=== PATIENT | female | born 1970 | race Two or more races ===

== ENCOUNTER 2020-10-13 06:58 | Outpatient (REF) | payer OTHER, SELFPAY | END 2020-10-13 06:59 | disposition home or self-care (01) | LOC: HO.LAB 06:58 | PROVIDERS: Visit Provider Internal Medicine | DX: Z20.828 Contact with and (suspected) exposure to other viral communicable diseases (principal) | CPT/HCPCS: C9803; U0003 ==

== ENCOUNTER 2020-12-04 07:32 | Outpatient (REF) | payer OTHER, SELFPAY | END 2020-12-04 07:33 | disposition home or self-care (01) | LOC: HO.LAB 07:32 | PROVIDERS: Visit Provider Internal Medicine | DX: Z20.822 Contact with and (suspected) exposure to COVID-19 (principal) | CPT/HCPCS: 36415; C9803; U0003 ==

== ENCOUNTER 2022-01-04 16:22 | Emergency (ER) | payer OTHER, SELFPAY ==
[2022-01-04 16:40] VITALS: BP 169/89; PULSE 79; RESP 20; TEMP 36.7; O2SAT 100; BMI 34.7
--- NOTE | 2022-01-04 17:02 | ED.BACK ---
HPI - Back Pain/Injury General Chief Complaint: Back Pain/Injury Stated Complaint: back pain Time Seen by Provider: 01/04/22 16:58 History of Present Illness HPI Narrative: Patient complains of back pain worse with movement for several days, she was recently diagnosed with COVID but is feeling much better The pain does not radiate it is worse with twisting and moving, there is no numbness weakness or tingling there is no changes to bowel or bladder it was gradual in onset and pain is mild Related Data Previous Rx's Medication Instructions Recorded acetaminophen 500 mg tablet 1,000 mg PO QID PRN #30 tab 01/04/22 cyclobenzaprine 5 mg tablet 5 mg PO TID PRN #14 tab 01/04/22 naproxen 500 mg tablet (Naprosyn) 500 mg PO BID PRN #14 tab 01/04/22 Allergies Allergy/AdvReac Type Severity Reaction Status Date / Time prochlorperazine Allergy Severe TONGUE Unverified 08/17/20 18:54 [From COMPAZINE] NUMBNESS sulfamethoxazole Allergy Severe RASH Unverified 08/17/20 18:54 [From BACTRIM] trimethoprim [From BACTRIM] Allergy Severe RASH Unverified 08/17/20 18:54 fluconazole [FLUCONAZOLE] Allergy Intermediate RASH Unverified 08/17/20 18:54 Iodinated Contrast Media Allergy Intermediate RASH Unverified 08/17/20 18:54 [IV CONTRAST] Review of Systems Review of Systems: Positive for back pain Negatives are no fever no chills no dizziness no weakness no fainting no feeling faint no headache no neck pain no chest pain no shortness of breath no abdominal pain no dysuria no changes to bowel or bladder no incontinence no numbness weakness or tingling Yes all other systems are reviewed and are negative [facility] Past Medical History Source: nursing notes reviewed Medical History (Updated 01/05/22 @ 00:02 by Background Bev) HIV (human immunodeficiency virus infection) HTN (hypertension) Social History Social History Advance Directives: No Advance Directives Information Provided: No Physical Exam Vital Signs: Vital Signs: Last Vital Signs Temp 98.0 F 01/04/22 16:40 Pulse 79 01/04/22 16:40 Resp 20 01/04/22 16:40 BP 169/89 H 01/04/22 16:40 Pulse Ox 100 01/04/22 16:40 BMI result Body Mass Index 34.7 General appearance is no acute distress Head is normocephalic atraumatic Neck is supple Chest is clear to auscultation bilateral Abdomen soft nontender The back had lower lumbar tenderness, there is no midline tenderness the tenderness is in the soft tissues there is no CVA tenderness pain is reproduced with movement, the skin is intact no redness no wounds no rash Extremities full range of motion x4 Neuro no focal motor sensory deficit, gait and balance are normal Course Course Course Narrative: Patient without evidence of neurologic deficit, no changes to bowel or bladder is discharge diagnosis musculoskeletal back pain Discharge Plan Discharge Clinical Impression: Back pain Patient Disposition: Home, Self-Care Additional Instructions: Pain we is likely a mild muscle strain, either from COVID or sleeping wrong way or moving the wrong way No sign of any dangerous condition now Follow with primary doctor as needed for physical therapy Her blood pressure was high in the ER so it may be that her medications for high blood pressure and not working as they should Best plan is check her blood pressure with a home cuff twice a day for a week and keep a record of this to show your doctor then make an appointment to follow with her doctor Prescriptions: New naproxen [Naprosyn] 500 mg tablet 500 mg PO BID PRN (Reason: pain) Qty: 14 0RF acetaminophen 500 mg tablet 1,000 mg PO QID PRN (Reason: pain) Qty: 30 0RF cyclobenzaprine 5 mg tablet 5 mg PO TID PRN (Reason: muscle spasm) Qty: 14 0RF Rx Instructions: This medication may cause drowsiness no driving for 6 hours after taking Interventions: ED Discharge Assessment Last Done: 01/04/22 18:26 Discharge Date/Time: 01/04/22 18:27
== END 2022-01-04 18:27 | disposition home or self-care (01) ==
PROVIDERS: Emergency Provider Emergency Medicine; PCP Internal Medicine
DX: M54.50 Low back pain, unspecified (principal); I10 Essential (primary) hypertension; B20 Human immunodeficiency virus [HIV] disease
CPT/HCPCS: 99283

== ENCOUNTER 2022-03-16 15:45 | Emergency (ER) | payer OTHER, SELFPAY ==
[2022-03-16 16:46] VITALS: BP 143/86; PULSE 72; RESP 16; TEMP 37; O2SAT 95; BMI 32.3
[2022-03-16 17:14] LABS: MANUAL DIFF FLAG NO
[2022-03-16 17:18] LABS: PLT CLUMP 1; Red Cell Distribution Width 12.9 % (11.0-16.0); SCAN SMEAR FLAG 1
[2022-03-16 17:20] LABS: Basophils Percent Auto 0.3 % (0-2); Eosinophils Absolute Auto 0.3 X10*3/uL (0.0-0.4); Eosinophils Percent Auto 4.8 % (0-4); Hematocrit 38.1 % (37.0-47.0); Hemoglobin 12.8 g/dl (12.0-16.0); Imm Gran Abs Auto 0.01 X10*3/uL (0.00-0.03); Imm Gran Pct Auto 0.2 % (0.0-0.4); Lymphocytes Absolute Auto 1.7 X10*3/uL (1.2-4.9); Lymphocytes Percent Auto 28.6 % (20-40); Mean Corpuscular HGB Conc 33.6 g/dl (31.0-35.0); Mean Corpuscular Hemoglobin 29.6 pg (27.0-33.0); Mean Platelet Volume 11.6 fL (9.4-12.3); Monocytes Absolute Auto 0.4 X10*3/uL (0.1-1.2); Neutrophils Absolute Auto 3.5 x10*3/uL (2.0-8.3); Neutrophils Percent Auto 60.1 % (45-73); Red Blood Count 4.33 X10*6/uL (4.20-5.50)
[2022-03-16 17:22] LABS: White Blood Count 5.8 X10*3/uL (4.8-10.8)
[2022-03-16 17:23] LABS: Platelet Count 98 X10*3/uL (160-400)
[2022-03-16 17:31] LABS: Anion Gap 12 (12-20); Blood Urea Nitrogen 13 mg/dL (9-16); Calcium 9.4 mg/dL (8.4-10.2); Carbon Dioxide 27 mmol/L (22-29); Chloride 106 mmol/L (96-108); Creatinine Clr Calc Pharmacy 79.4; Estimated Glomerular Filt Rate > 60; Glucose Random 112 mg/dL (60-115); Potassium 4.2 mmol/L (3.3-5.1); Sodium 141 mmol/L (135-145)
[2022-03-16 17:33] LABS: COVID-19 Test Negative (Negative); IDNOW Serial# 16C4AD1C; Influenza A Negative (Negative); Influenza B2 Negative (Negative)
[2022-03-16 17:35] LABS: Appearance Urine CLEAR; Color Urine YELLOW; Glucose Urine UA NEG (NEG); Leukocyte Esterase Urine NEG (NEG); Nitrite Urine NEG (NEG); Specific Gravity - Urine 1.015 (1.005-1.025); Urine Blood NEG (NEG); Urine Ketones NEG (NEG); Urine Protein NEG (NEG-TRACE)
[2022-03-16 19:28] VITALS: BP 148/80; PULSE 69; RESP 16; O2SAT 100
--- NOTE | 2022-03-16 19:30 | PC.NURSE ---
PT STATES 1 WEEK INTERMITTENT HEAD PRESSURE, NAUSEA, BODY ACHES AND DIZZINESS. PT A/OX3, AMB WITH STEADY GAIT, LUNGS CLEAR, SKIN WARM DRY ARREDONDO. NO DISTRESS.
--- NOTE | 2022-03-16 20:29 | ED_ITS ---
HPI - General Adult General Chief complaint: General Medical Stated complaint: headaches/weakness/nausea Time Seen by Provider: 03/16/22 20:16 Source: patient Mode of arrival: ambulatory Limitations: no limitations History of Present Illness HPI narrative: 51-year-old female presents for 1 week of fatigue. She has muscle aches, mostly in her neck and shoulders. She feels anxious, she is worried something is wro ng. She was nauseous a week ago, but has had no abdominal pain, vomiting, or diarrhea since. States her platelets are chronically low. No sick contacts. Patient states she works 2 jobs and does not sleep well at night. Related Data Previous Rx's Medication Instructions Recorded acetaminophen 500 mg tablet 1,000 mg PO QID PRN #30 tab 01/04/22 cyclobenzaprine 5 mg tablet 5 mg PO TID PRN #14 tab 01/04/22 naproxen 500 mg tablet (Naprosyn) 500 mg PO BID PRN #14 tab 01/04/22 methocarbamol 750 mg tablet 750 mg PO Q8H 5 Days #15 tab 03/16/22 Allergies Allergy/AdvReac Type Severity Reaction Status Date / Time prochlorperazine Allergy Severe TONGUE Verified 03/16/22 16:50 [From COMPAZINE] NUMBNESS sulfamethoxazole Allergy Severe RASH Verified 03/16/22 16:50 [From BACTRIM] trimethoprim [From BACTRIM] Allergy Severe RASH Verified 03/16/22 16:50 fluconazole [FLUCONAZOLE] Allergy Intermediate RASH Verified 03/16/22 16:50 Iodinated Contrast Media Allergy Intermediate RASH Verified 03/16/22 16:50 [IV CONTRAST] Review of Systems Constitutional: Constitutional: Reports body ache(s), Denies chills, Reports fatigue, Denies fever(s), Denies headache(s), Reports malaise and Denies weakness Eyes: Eyes: Denies diplopia ENT: Denies vertigo, Denies dizziness, Denies otalgia, Denies headache(s), Denies mouth pain, Denies post nasal drip, Denies sinus pain, Denies sinus pressure, Denies sore throat and Denies throat swelling Cardiovascular: Cardiovascular: Denies chest pain, Denies syncope, Denies leg edema, Denies lightheadedness, Denies Loss of Consciousness, Denies palpitations and Denies dyspnea Respiratory: Respiratory: Denies chest congestion, Denies cough and Denies dyspnea Gastrointestinal: Gastrointestinal: Denies abdominal pain, Denies hematochezia, Denies constipation, Denies diarrhea and Denies vomiting Musculoskeletal: Musculoskeletal: Reports myalgias Integumentary/Breasts: Skin/Breast: Denies erythema Neurologic: Denies confusion, Denies vertigo, Denies dizziness, Denies syncope, Denies headache(s) and Denies weakness Psychiatric: Psychiatric: Denies anxiety, Denies confusion and Denies depression Endocrine: Endocrine: Reports fatigue and Denies palpitations Allergic/Immunologic: Allergic/Immunologic: Denies throat swelling PMFSH Past Medical History Medical History (Updated 03/16/22 @ 20:43 by ELLE Penn) HIV (human immunodeficiency virus infection) HTN (hypertension) Social History Social History Advance Directives: No Physical Exam ED Vital Signs: Vital Signs - 24 hr 03/16/22 16:46 03/16/22 19:28 Temperature 98.6 F Pulse Rate 72 69 Respiratory Rate 16 16 Blood Pressure 143/86 H 148/80 H Pulse Oximetry 95 100 BMI result Body Mass Index 32.3 Const General: comfortable, no acute distress, alert and awake; No confusion Nutritional Appearance: well nourished Orientation/consciousness: patient oriented x3 and No confusion Limitations: no limitations HENMT Head: Yes normal to inspection, Yes No palpable skull fracture present and Yes normocephalic Ears: hearing grossly normal bilaterally and TM's normal bilaterally General nose exam: Normal external nose present and Normal nares present Face and sinus: Yes normal facial exam and Yes sinuses nontender Mouth: Normal oral and palatal mucosa present Throat: Yes posterior oropharynx normal, Yes tonsils normal and Yes uvula midline Eyes Conjunctivae: conjunctivae normal Sclerae: sclerae normal Pupils: Equal, round and reactive pupils present EOM: EOMs intact bilaterally Neck Neck: Yes normal visual inspection, Yes full ROM, Yes no meningeal signs, Yes trachea midline and Yes supple Resp Effort & Inspection: normal respiratory effort and able to speak in complete sentences Auscultation: clear to auscultation bilaterally, no crackles, no rales and no rhonchi Cardio Rate: regular rate Rhythm: regular rhythm GI Inspection: Yes normal to inspection Palpation (GI): Soft to palpation, nontender, no guarding and not rigid Percussion: Yes normal to percussion Auscultation: normal bowel sounds General: Yes no CVA tenderness Back/Spine/Pelvis Back: no CVA tenderness Cervical Spine: normal cervical lordosis, cervical spasm, No Cervical spine tenderness and No step off deformity Thoracic/Lumbar Spine: No thoracic spinal tenderness and No lumbar spinal tenderness Skin General skin exam: no rashes or lesions noted Neuro General: patient oriented x3, no meningeal signs and No confusion Cranial nerves: Yes Equal, round and reactive pupils present Extrem General: Yes normal to inspection, Yes full ROM and Yes capillary refill normal Psych Appearance: grossly normal Mental Status: mental status grossly normal Speech and movement: Normal speech and movement present Affect: Anxious affect present Course Course Course Narrative: 51-year-old female with 1 week of fatigue and body aches, and spasm in her bilateral neck muscles. On exam, patient is stable vitals, is afebrile. Lungs clear to auscultation bilaterally, abdomen soft nontender, patient is tired appearing. Patient has tight neck muscles bilaterally. Platelets are 98, labs are otherwise within normal limits, urine is negative, negative for COVID and flu. Added on laboratories of TSH and Lyme. Counseled patient that we would call her for line was positive and that I will call her if her TSH is elevated. Counseled patient to follow-up with her primary care provider, return to emergency room if she has sudden severe headache, visual changes, fever, vomi ting, chest pain, or shortness of breath. Medical Decision Making Lab Data Result diagrams: 03/16/22 17:09 03/16/22 17:09 Labs: Lab Results 03/16/22 03/16/22 03/16/22 Range/Units 17:09 17:09 17:09 WBC 5.8 (4.8-10.8) X10*3/uL RBC 4.33 (4.20-5.50) X10*6/uL Hgb 12.8 (12.0-16.0) g/dl Hct 38.1 (37.0-47.0) % MCV 88.0 (80.0-98.0) fL MCH 29.6 (27.0-33.0) pg MCHC 33.6 (31.0-35.0) g/dl RDW 12.9 (11.0-16.0) % Plt Count 98 L (160-400) X10*3/uL MPV 11.6 (9.4-12.3) fL Immature Gran % (Auto) 0.2 (0.0-0.4) % Neut % (Auto) 60.1 (45-73) % Lymph % (Auto) 28.6 (20-40) % Cloud % (Auto) 6.0 (2-11) % Eos % (Auto) 4.8 H (0-4) % Baso % (Auto) 0.3 (0-2) % Lymph # (Auto) 1.7 (1.2-4.9) X10*3/uL Cloud # (Auto) 0.4 (0.1-1.2) X10*3/uL Eos # (Auto) 0.3 (0.0-0.4) X10*3/uL Baso # (Auto) 0.0 (0.0-0.2) X10*3/uL Abs Immat Gran (auto) 0.01 (0.00-0.03) X10*3/uL Absolute Neuts (auto) 3.5 (2.0-8.3) x10*3/uL Absolute Nucleated RBC 0.000 (0.0-0.012) X10*3/uL Nucleated RBC % (auto) 0.0 (0.0-0.2) /100WBC Sodium 141 (135-145) mmol/L Potassium 4.2 (3.3-5.1) mmol/L Chloride 106 (96-108) mmol/L Carbon Dioxide 27 (22-29) mmol/L Anion Gap 12 (12-20) BUN 13 (9-16) mg/dL Creatinine 0.94 (0.5-1.4) mg/dL Estim Creat Clear Calc 79.4 Estimated GFR > 60 Random Glucose 112 (60-115) mg/dL Calcium 9.4 (8.4-10.2) mg/dL Urine Color Urine Appearance Urine pH (5.0-8.0) Ur Specific Humble (1.005-1.025) Urine Protein (NEG-TRACE) MG/DL Urine Glucose (UA) (NEG) MG/DL Urine Ketones (NEG) MG/DL Urine Blood (NEG) Urine Nitrite (NEG) Ur Leukocyte Esterase (NEG) COVID-19 (LAURIE) (Negative) COVID-19 Clin Com Influenza Type A (NANCY) Negative (Negative) Influenza Type B (NANCY) Negative (Negative) Influenza A & B Note See Note 03/16/22 03/16/22 Range/Units 17:09 17:16 WBC (4.8-10.8) X10*3/uL RBC (4.20-5.50) X10*6/uL Hgb (12.0-16.0) g/dl Hct (37.0-47.0) % MCV (80.0-98.0) fL MCH (27.0-33.0) pg MCHC (31.0-35.0) g/dl RDW (11.0-16.0) % Plt Count (160-400) X10*3/uL MPV (9.4-12.3) fL Immature Gran % (Auto) (0.0-0.4) % Neut % (Auto) (45-73) % Lymph % (Auto) (20-40) % Cloud % (Auto) (2-11) % Eos % (Auto) (0-4) % Baso % (Auto) (0-2) % Lymph # (Auto) (1.2-4.9) X10*3/uL Cloud # (Auto) (0.1-1.2) X10*3/uL Eos # (Auto) (0.0-0.4) X10*3/uL Baso # (Auto) (0.0-0.2) X10*3/uL Abs Immat Gran (auto) (0.00-0.03) X10*3/uL Absolute Neuts (auto) (2.0-8.3) x10*3/uL Absolute Nucleated RBC (0.0-0.012) X10*3/uL Nucleated RBC % (auto) (0.0-0.2) /100WBC Sodium (135-145) mmol/L Potassium (3.3-5.1) mmol/L Chloride (96-108) mmol/L Carbon Dioxide (22-29) mmol/L Anion Gap (12-20) BUN (9-16) mg/dL Creatinine (0.5-1.4) mg/dL Estim Creat Clear Calc Estimated GFR Random Glucose (60-115) mg/dL Calcium (8.4-10.2) mg/dL Urine Color YELLOW Urine Appearance CLEAR Urine pH 6.0 (5.0-8.0) Ur Specific Humble 1.015 (1.005-1.025) Urine Protein NEG (NEG-TRACE) MG/DL Urine Glucose (UA) NEG (NEG) MG/DL Urine Ketones NEG (NEG) MG/DL Urine Blood NEG (NEG) Urine Nitrite NEG (NEG) Ur Leukocyte Esterase NEG (NEG) COVID-19 (LAURIE) Negative (Negative) COVID-19 Clin Com See Note Influenza Type A (NANCY) (Negative) Influenza Type B (NANCY) (Negative) Influenza A & B Note Discharge Plan Discharge Clinical Impression: Fatigue Patient Disposition: Home, Self-Care Instructions: Fatigue (ED) Additional Instructions: Please make a rice sock and use it over your tight neck muscles. Please fill the prescription for muscle relaxant and take it as prescribed. Please call your primary care provider for follow-up appointment. We will call you for Lyme test is positive the next 3 or 4 days. I will call you later tonight when your thyroid test returns. Please return to emergency room if you have chest pain, shortness of breath, sudden severe headache, visual changes, or for any other new or concerning symptoms. Prescriptions: New methocarbamol 750 mg tablet 750 mg PO Q8H 5 Days Qty: 15 0RF No Action naproxen [Naprosyn] 500 mg tablet 500 mg PO BID PRN (Reason: pain) Qty: 14 0RF acetaminophen 500 mg tablet 1,000 mg PO QID PRN (Reason: pain) Qty: 30 0RF cyclobenzaprine 5 mg tablet 5 mg PO TID PRN (Reason: muscle spasm) Qty: 14 0RF Rx Instructions: This medication may cause drowsiness no driving for 6 hours after taking
[2022-03-16 20:56] LABS: Thyroid Stimulating Hormone 1.94 uIU/mL (0.32-4.0)
[2022-03-18 20:36] LABS: Lyme Blot 0.93 index
[2022-03-19 08:20] LABS: Lyme Abs Screen EQUIVOCAL
[2022-03-19 14:26] LABS: 18 KD (IgG) Band NON-REACTIVE; 23 KD (IgG) Band REACTIVE; 23 KD (IgM) Band NON-REACTIVE; 28 KD (IgG) Band NON-REACTIVE; 30 KD (IgG) Band NON-REACTIVE; 39 KD (IgM) Band NON-REACTIVE; 41 KD (IgM) Band NON-REACTIVE; 45 KD (IgG) Band NON-REACTIVE; 58 KD (IgG) Band REACTIVE; 66 KD (IgG) Band NON-REACTIVE; 93 KD (IgG) Band REACTIVE; Lyme IgG Blot Interp POSITIVE (NEGATIVE); Lyme IgM Blot Interp NEGATIVE (NEGATIVE)
== END 2022-03-16 20:56 | disposition home or self-care (01) ==
PROVIDERS: Physician Assistant; Emergency Provider Emergency Medicine Emergency Medical Services; PCP Internal Medicine
DX: A69.20 Lyme disease, unspecified (principal); R53.83 Other fatigue; I10 Essential (primary) hypertension; Z21 Asymptomatic human immunodeficiency virus [HIV] infection status; Z20.822 Contact with and (suspected) exposure to COVID-19
CPT/HCPCS: 80048; 81003; 84443; 85025; 86617; 86618; 87502; 87635; 99283

== ENCOUNTER 2022-06-28 18:45 | Emergency (ER) | payer OTHER, SELFPAY ==
[2022-06-28 20:17] LABS: COVID-19 Test Negative (Negative); IDNOW Serial# 16C4AD1C; Influenza A Negative (Negative); Influenza B2 Negative (Negative)
[2022-06-28 20:20] VITALS: BP 153/84; PULSE 88; RESP 18; TEMP 36.8; O2SAT 99; BMI 33.3
--- NOTE | 2022-06-28 23:37 | ED.HA ---
HPI - Headache General Chief Complaint: Back Pain/Injury Stated Complaint: headache/leg pain/weakness Time Seen by Provider: 06/28/22 23:21 Source: patient Mode of arrival: ambulatory Limitations: no limitations History of Present Illness HPI Narrative: 51-year-old female who presents emergency department for evaluation of headache, neck pain, back pain, fatigue x1 week. Patient states she gets 2-3 headaches per month. She states that over the past week she has had a very persistent headache which is been intermittent but keeps coming back. She points to the side and top of her head and to her neck when she is asked to localize the pain. She states the pain is an intermittent pressure-like pain which is 10/10 at its worst. She states that she also feels the pain in her posterior neck bilaterally. She states she has taken her muscle relaxant and Tylenol with no relief of her pain. She denied associated fever, chills, rhinorrhea, sore throat, cough, chest pain, shortness of breath, numbness, weakness. The patient has taken a muscle relaxant for her neck pain and she states that improves the neck pain but not her headache. The patient is HIV positive and she states that she is compliant with her medication regimen. She states that her viral load was checked 3 months prior and it was below detectable limits. MD elicited complaint: headache Pertinent past history: HIV Onset (ago): week(s) (1) Onset description: gradually Location: diffuse Severity: severe Pain scale (0-10): 10 Quality & Timing: pressure Exacerbating factors: none Relieving factors: nothing Associated symptoms: none Treatments prior to arrival: acetaminophen and other (Muscle relaxant) Related Data Previous Rx's Medication Instructions Recorded acetaminophen 500 mg tablet 1,000 mg PO QID PRN pain #30 tabs 01/04/22 cyclobenzaprine 5 mg tablet 5 mg PO TID PRN muscle spasm #14 01/04/22 tabs naproxen 500 mg tablet (Naprosyn) 500 mg PO BID PRN pain #14 tabs 01/04/22 methocarbamol 750 mg tablet 750 mg PO Q8H 5 days #15 tabs 03/16/22 doxycycline monohydrate 100 mg 100 mg PO BID lyme disease 21 days 03/20/22 tablet #42 tabs metoclopramide HCl 10 mg tablet 10 mg PO Q6H PRN nausea and 06/28/22 (Reglan) vomiting #14 tabs Allergies Allergy/AdvReac Type Severity Reaction Status Date / Time prochlorperazine Allergy Severe TONGUE Verified 06/28/22 20:20 [From COMPAZINE] NUMBNESS sulfamethoxazole Allergy Severe RASH Verified 06/28/22 20:20 [From BACTRIM] trimethoprim [From BACTRIM] Allergy Severe RASH Verified 06/28/22 20:20 fluconazole [FLUCONAZOLE] Allergy Intermediate RASH Verified 06/28/22 20:20 Iodinated Contrast Media Allergy Intermediate RASH Verified 06/28/22 20:20 [IV CONTRAST] Review of Systems Review of Systems: Yes all other systems are reviewed and are negative [facility] Past Medical History [facility] Narrative: Past medical history: Hypertension, HIV. Past surgical history: Hysterectomy. Social history: She denies tobacco, alcohol and drug use. Medical History HIV (human immunodeficiency virus infection) HTN (hypertension) Social History Social History Advance Directives: No Advance Directives Information Provided: No Physical Exam Vital Signs: Vital Signs: Last Vital Signs Temp 98.2 F 06/28/22 20:20 Pulse 88 06/28/22 20:20 Resp 18 06/28/22 20:20 BP 153/84 H 06/28/22 20:20 Pulse Ox 99 06/28/22 20:20 O2 Del Method 06/28/22 20:20 BMI result Body Mass Index 33.3 Const: General: cooperative and no acute distress Orientation/consciousness: oriented to person and oriented to place Limitations: no limitations HEENT: Head: Yes normal to inspection, Yes normocephalic and Yes atraumatic Ears: external ears normal General nose exam: Normal external nose present Face and sinus: Yes normal facial exam Mouth: Normal oral and palatal mucosa present Throat: Yes posterior oropharynx normal Eyes: General: appearance normal, both eyes and all related structures Pupils: Equal, round and reactive pupils present Neck: Other: Tenderness palpation of the trapezius muscles bilaterally with no significant spasm, full range of motion without any medications Neck: Yes normal visual inspection, Yes no lymphadenopathy, Yes trachea midline and Yes supple Chest: Chest palpation & inspection: normal inspection of the chest and normal palpation of entire chest wall Resp: Effort & Inspection: normal respiratory effort and able to speak in complete sentences Auscultation: clear to auscultation bilaterally Cardio: Rate: regular rate Rhythm: regular rhythm Heart sounds: S1 normal heart sound present, S2 normal heart sound present and no murmurs GI: Inspection: Yes normal to inspection Palpation (GI): Soft to palpation, nontender and no guarding Auscultation: normal bowel sounds : General: Yes no CVA tenderness Back/Spine/Pelvis: Back: no CVA tenderness Skin: General skin exam: no rashes or lesions noted Neuro: General: oriented to person and oriented to place Cranial nerves: Yes CN's II-XII intact bilaterally and Yes Equal, round and reactive pupils present Cognition (Neuro): normal cognition Motor exam (neuro): 5/5 motor strength present throughout Extrem: General: Yes normal to inspection Psych: Appearance: grossly normal Speech and movement: Normal speech and movement present Affect: normal affect Attitude: cooperative Thought process: Normal thought process present Thought content: Normal thought content present Course Course Course Narrative: 51-year-old female who presents emergency department for evaluation of intermittent headache x1 week which she describes as a pressure-like sensation located throughout her entire head without any significant associated symptoms. Patient does have history of muscle spasm of her neck muscles and has been taking her muscle relaxant with no relief of her headache. She has also taken Tylenol with no relief of her headache. Vital signs did reveal an elevated blood pressure of 153/84. Physical examination did reveal trapezius muscle tenderness with a normal neurologic exam and no other significant findings. Patient's COVID-19 and influenza tests were negative. My impression is the patient has a migraine-like headache and I did discuss this with her. The patient was started on r regular, Benadryl, and Excedrin migraine every 6 hours as needed for headaches. She was given printed and verbal instructions and discharged home. MDM - Headache Lab Data Labs: Lab Results 06/28/22 06/28/22 Range/Units 19:52 19:52 COVID-19 (LAURIE) Negative (Negative) COVID-19 Clin Com See Note Influenza Type A (NANCY) Negative (Negative) Influenza Type B (NANCY) Negative (Negative) Influenza A & B Note See Note Discharge Plan Discharge Clinical Impression: Headache Patient Disposition: Home, Self-Care Instructions: Acute Headache (ED) Additional Instructions: Your COVID-19 and influenza tests were negative Your symptoms are consistent with a migraine headache. I want you to take the following 3 medications together every 6 hours as needed for headache, nausea or vomiting. Reglan (metoclopramide) in 10 mg, 1 pill Benadryl 25 mg, 2 pills Excedrin migraine, 2 pills. After you take these medications, lie down in a dark quiet room and try to fall asleep. These medications will make you sleepy, do not drive or work after taking these medications. Follow-up with your doctor in 2 days. Please return to the emergency department if your symptoms get worse or if you develop any symptoms that are concerning to you. Prescriptions: New metoclopramide HCl [Reglan] 10 mg tablet 10 mg PO Q6H PRN (Reason: nausea and vomiting) Qty: 14 0RF No Action methocarbamol 750 mg tablet 750 mg PO Q8H 5 Days Qty: 15 0RF doxycycline monohydrate 100 mg tablet 100 mg PO BID 21 Days Qty: 42 0RF naproxen [Naprosyn] 500 mg tablet 500 mg PO BID PRN (Reason: pain) Qty: 14 0RF acetaminophen 500 mg tablet 1,000 mg PO QID PRN (Reason: pain) Qty: 30 0RF cyclobenzaprine 5 mg tablet 5 mg PO TID PRN (Reason: muscle spasm) Qty: 14 0RF Rx Instructions: This medication may cause drowsiness no driving for 6 hours after taking
== END 2022-06-29 00:13 | disposition home or self-care (01) ==
PROVIDERS: Emergency Provider Emergency Medicine Emergency Medical Services
DX: R51.9 Headache, unspecified (principal); Z20.822 Contact with and (suspected) exposure to COVID-19; B20 Human immunodeficiency virus [HIV] disease
CPT/HCPCS: 87502; 87635; 99282; 99283

== ENCOUNTER 2023-05-06 21:49 | Emergency (ER) | payer OTHER, SELFPAY ==
[2023-05-06 22:37] VITALS: BP 157/91; PULSE 86; TEMP 37.4; O2SAT 99; BMI 32.1
--- NOTE | 2023-05-07 00:06 | MHC.EDTECH ---
[facility] Nurse ( Radha) Collected Swap Collection for testing.
[2023-05-07 00:25] LABS: IDNOW Serial# 08D9AD1C; Strep A Nucleic Acid Negative (Negative)
--- OUTSIDE RECORDS SUMMARY | 2023-05-07 00:39 | XMS_ITS | Continuity of Care Document ---
Author Name Unknown Organization [facility] Address [address] [place] [id number]- Care Team Providers Care Seam Rubber Name Role Phone Elie Foster MD Primary Care Physician Encounter [facility] Date(s): 03/17/23 - 03/27/[address] [address]- Encounter Diagnosis Pain in right elbow(Final) - Discharge Disposition: A-D/C Home Attending Physician: Elie Foster MD Admitting Physician: Elie Foster MD Referring Physician: Elie Foster MD Allergies, Adverse Reactions, Alerts Substance Reaction Severity Status fluconazole Rash Active sulfADIAZINE Active nevirapine Elam-Jameson syndrome Severe Act edie Compazine Tongue Swelling Moderate Active emtricitabine Rash Proposed Bactrim Active Contrast Dye 1 Pruritic rash Proposed [address] w/ IV and oral contrast developed fine papular pruritic rash Immunizations Given and Recorded Vaccine Date Status Refusal Reason zoster vaccine, inactivated 11/28/22 Given zoster vaccine, inactivated 08/27/22 Recorded influenza virus vaccine, inactivated 11/04/22 Give n influenza virus vaccine, inactivated 10/17/21 Give n influenza virus vaccine, inactivated 09/21/20 Give n influenza virus vaccine, inactivated 10/01/19 Give n influenza virus vaccine, inactivated 09/09/18 Give n influenza virus vaccine, inactivated 08/28/17 Give n influenza virus vaccine, inactivated 10/29/16 Give n influenza virus vaccine, inactivated 09/05/15 Give n influenza virus vaccine, inactivated 08/29/14 Give n influenza virus vaccine, inactivated 1 09/22/13 Gi chyna influenza virus vaccine, inactivated 2 09/16/12 Gi chyna influenza virus vaccine, inactivated 10/03/10 Give n influenza virus vaccine, inactivated 09/16/07 Give n influenza virus vaccine, inactivated 3 09/08/02 Gi chyna influenza virus vaccine, inactivated 4 11/17/00 Gi chyna influenza virus vaccine, inactivated 5 10/06/98 Gi chyna influenza virus vaccine, inactivated 6 08/31/97 Gi chyna influenza virus vaccine, inactivated 7 08/31/97 Gi chyna SARS-CoV-2 (COVID-19) mRNA BNT-162b2 vac 04/05/21 Given SARS-CoV-2 (COVID-19) mRNA BNT-162b2 vac 03/15/21 Given tetanus/diphtheria/pertussis, acel(Tdap) 10/27/19 Given Meningococcal Conjugate Vaccine 11/11/17 Given Meningococcal Conjugate Vaccine 08/28/17 Given pneumococcal 13-valent vaccine 8 09/22/13 Given Pneumococcal Poly (PPV23) (oldterm) 9 02/11/12 Giv en Fluzone (oldterm) 10 09/17/11 Given Influenza Vaccine (oldterm) 11 09/27/09 Given Influenza Vaccine (oldterm) 12 09/27/09 Given Influenza Vaccine (oldterm) 13 11/03/08 Given Adacel (Tdap) (oldterm) 12/15/08 Given Influenza Inactive (IM) (oldterm) 12/03/06 Given Pneumococcal Vaccine (oldterm) 14 02/09/06 Given hepatitis B adult vaccine 12/30/05 Recorded hepatitis B adult vaccine 15 03/18/02 Given hepatitis B adult vaccine 16 02/15/02 Given Hepatitis A Adult Vaccine 12/30/05 Recorded Hepatitis A Adult Vaccine 17 02/15/02 Given Hepatitis B Vaccine (old term) 18 10/12/02 Given Hepatitis A Vaccine (oldterm) 19 10/12/02 Given tetanus-diphtheria toxoids (Td) 12/23/01 Given tetanus-diphtheria toxoids (Td) 20 12/23/01 Given 1Result Comment: [09/22/2013] Ordered by Dr. Foster 2Admin Note: VIS 06/01/2012GIVEN 3Admin Note: ADMIN.BY MICHELLE 4Admin Note: ADMIN.BY MICHELLE 5Admin Note: ADMIN.BY MICHELLE 6Admin Note: ADMIN.BY MICHELLE 7Admin Note: ADMIN.BY MICHELLE 8Result Comment: [09/22/2013] Ordered by Cristian 9Admin Note: vis 09/05/09 10Admin Note: vis 06/25/11 11Admin Note: H1N1 sanofi pasteur 12Admin Note: sanofi pasteur 13Admin Note: sanofi pasteur 14Admin Note: second, prior 15Admin Note: Admin. by RN 16Admin Note: Admin. by RN 17Admin Note: Admin. by RN 18Admin Note: #3 of 3 19Admin Note: #2 of 2 20Admin Note: Admin by Nurse Medications acetaminophen 500 mg oral tablet 2 tablet, By Mouth, 2 times a day, PRN NEEDED FOR FEVER, # 100 tablet, 1 Refills, [facility], 165, cm, 03/26/22 13:56:00 EDT, Height, 89.27, kg, 08/16/20 10:16:00 EDT, Dry Weight Start Date: 07/21/22 Status: Ordered amitriptyline 25 mg oral tablet 1, tablet, By Mouth, Daily at bedtime, # 30 tablet, Refills 5, Tot. Refills 5, Maintenance, 01/22/23 18:58:00 EST, Route to Pharmacy Electronically, [facility], 165, cm, 01/09/23 9:40:00 EST, Height, 89.27, kg, 01/09/23 9:40:00 EST... Start Date: 01/22/23 Status: Ordered amLODIPine 5 mg oral tablet 1 tablet, By Mouth, Daily, # 30 tablet, 5 Refills, Maintenance, 02/21/23 15:22:00 EDT, [facility], 165, cm, 01/30/23 16:10:00 EST, Height, 89.27, kg, 01/09/23 9:40:00 EST, Dry Weight Start Date: 02/21/23 Status: Ordered dextromethorphan-guaifenesin 10 mg-200 mg/5 mL oral liquid 10 mL, By Mouth, Every 4 hours, PRN for cough, # 240 mL, 1 Refills, Acute 01/21/24 15:59:00 EST, 01/21/23 15:59:00 EST, Liquid, [facility], 10 mL By Mouth Every 4 hours,PRN:for cough, 165, cm, 02/09/23 9:40:00 EST, Height, 89.27, k... Start Date: 01/21/23 Stop Date: 01/21/24 Status: Ordered diclofenac 1% topical gel = 2 Gm, Topically, 4 times a day, PRN for pain, not to exceed: - 8 gm/day/joint of upper limb, # 100 Gm, 1 Refills, Maintenance, 03/31/20 9:43:00 EDT, Gel, [facility], 165, cm, 02/02/20 11:43:00 EST, Height, 89.09, kg, 01/24/20 1... Start Date: 03/31/20 Status: Ordered fluticasone 50 mcg/inh nasal spray See Instructions, USE 1 SPRAY IN EACH NOSTRIL 2 TIMES A DAY., # 16 Gm, 5 Refills, [facility], 30, USE 1 SPRAY IN EACH NOSTRIL 2 TIMES A DAY., 165, cm, 02/05/22 9:19:00 EST, Height, 89.27, kg, 08/16/20 10:16:00 EDT, Dry Weight Start Date: 03/15/22 Status: Ordered HAND BRACE FOR CARPAL TUNNEL (both SIDE) HAND BRACE FOR CARPAL TUNNEL (both SIDE), See Instructions, # 2 units, Refills 0, Tot. Refills 0, Maintenance, DX: L CARPAL TUNNEL (G56.02) USE DIRECTED MARIBEL: 99, 03/10/18 15:57:59 EDT, Compound Start Date: 03/10/18 Status: Ordered Home Blood Pressure Monitor See Instructions, # 1 each, Maintenance, Automated. Dx- hypertension, I10. Check 2 measurment twicea day, keep record and bring to appt. Bring machine to next appt., Hypertension with difficulty to control, 10/27/19 14:39:19 EST, Compound Start Date: 10/27/19 Status: Ordered hydroCHLOROthiazide 12.5 mg oral capsule 1 capsule = 12.5 mg, By Mouth, Daily, # 30 capsule, 11 Refills, Maintenance, 02/23/23 11:58:00 EDT,Capsule, [facility], 165, cm, 01/30/23 16:10:00 EST, Height, 89.27, kg, 01/09/23 9:40:00 EST, Dry Weight Start Date: 02/23/23 Status: Ordered hydrOXYzine hydrochloride 10 mg oral tablet 1-2 tablet, By Mouth, 3 times a day, PRN Itch, 1-2 tablets 3 times a day as needed for itching, # 100 tablet, 1 Refills, Maintenance, 09/07/21 13:50:00 EDT, [facility], 165, cm, 07/24/21 15:17:00 EDT, Height, 89.27, kg, 08/16/20 10... Start Date: 09/07/21 Status: Ordered lamiVUDine 300 mg oral tablet 1 tablet = 300 mg, By Mouth, Daily, # 30 tablet, 11 Refills, Maintenance, 10/16/22 7:06:00 EST, Tablet, [facility], 165, cm, 10/15/22 16:53:00 EST, Height Start Date: 10/16/22 Status: Ordered LORazepam 1 mg oral tablet 1 tablet = 1 mg, By Mouth, 2 times a day, PRN as needed for anxiety, # 15 tablet, 1 Refills, Maintenance, 01/27/23 0:13:00 EST, Tablet, [facility], 165, cm, 01/09/23 9:40:00 EST, Height, 89.27, kg, 01/09/23 9:40:00 EST, Dry Weight Start Date: 01/27/23 Status: Ordered Nebulizer/Compressor See Instructions, # 1 each, Maintenance, use as needed for wheezing, 01/14/20 9:13:00 EST, Compound Start Date: 01/14/20 Status: Ordered raltegravir 600 mg oral tablet 2 tablet = 1,200 mg, By Mouth, Daily, # 60 tablet, 11 Refills, Maintenance, 10/16/22 7:06:00 EST, Tablet, [facility], 165, cm, 10/15/22 16:53:00 EST, Height Start Date: 10/16/22 Status: Ordered Shingrix intramuscular injection 0.5 mL, Intramuscular, Once, #2. Here now. Thx, # 0.5 mL, 0 Refills, Soft Stop, 11/28/22 14:44:00 EST, [facility], please administer, 0.5 mL Intramuscular Once,Instr:#2. Here now.Thx, 165, cm, 11/28/22 13:36:00 EST, Height, 91.27,... Start Date: 11/28/22 Status: Ordered terbinafine 1% topical cream 1 application, Topically, 2 times a day, to rash, # 30 Gm, 3 Refills, Maintenance, 08/15/22 19:43:00 EDT, Cream, [facility], 1 application Topically 2 times a day,Instr:to rash, 165, cm, 08/15/22 13:22:00 EDT, Height, 89.27, kg, 09... Start Date: 08/15/22 Status: Ordered tiZANidine 2 mg oral tablet 1-2 tablet, By Mouth, Every 8 hours, PRN, # 50 tablet, Refills 1, Tot. Refills 1, Maintenance, as needed for muscle spasm, 01/22/23 18:57:00 EST, Route to Pharmacy Electronically, [facility], 165, cm, 01/09/23 9:40:00 EST, Height,... Start Date: 01/22/23 Status: Ordered Ventolin HFA 108 mcg/inh inhalation aerosol with adapter 2 puffs, Inhalation, Every 4 hours, PRN NEEDED FOR WHEEZING, # 18 Gm, 2 Refills, Maintenance, 03/11/23 14:03:00 EDT, [facility], 165, cm, 01/30/23 16:10:00 EST, Height, 89.27, kg, 01/09/23 9:40:00 EST, Dry Weight Start Date: 03/11/23 Status: Ordered Viread 300 mg oral tablet 1 tablet = 300 mg, By Mouth, Daily, # 30 tablet, 11 Refills, Maintenance, 10/16/22 7:06:00 EST, Tablet, [facility], 165, cm, 10/15/22 16:53:00 EST, Height Start Date: 10/16/22 Status: Ordered Problem List Condition Confirmation Course Effective Dates Status H ealth Status Informant 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 Screening for diabetes mellitus Confirmed Active Prurigo nodularis per biopsy Confirmed 10/2014 Active Tinea cruris Confirmed Active 1Biopsy 99 grade 4/4, stage 4/4, genotype 1a, 3,450,000 IU/ml 06/05 Social History Social History Type Response Smoking Status Never (less than 100 in lifetime) entered on: 10/15/22 Sex Patient Care team information Care Team Personnel Name: Elie Foster MD Position: [facility] Primary Care Physician Member Role: PCP Address: Address: [address] [place] [id number]- Name: Ivon Salcedo RN Position: [facility] RN Member Role: Primary Care Nurse Care Team Related Persons Name: CISCO DUEÑAS Address: home [address] [place] [address] Name: HIEU HUTTON Address: home [address] [place] [address]
--- OUTSIDE RECORDS SUMMARY | 2023-05-07 00:39 | XMS_ITS | Continuity of Care Document ---
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 Operator Name Role Phone Elie Foster MD Primary Care Physician Encounter [facility] Date(s): 12/23/19 - 01/02/20 [facility] [address] [address]- [facility] Attending Physician: Admtr, Ar8 Allergies, Adverse Reactions, Alerts Substance Reaction Severity Status fluconazole Rash Active sulfADIAZINE Active nevirapine Elam-Jameson syndrome Severe Act edie Compazine Tongue Swelling Moderate Active Bactrim Active Contrast Dye 1 Pruritic rash Proposed emtricitabine Rash Proposed [address] w/ IV and oral contrast developed fine papular pruritic rash Immunizations Given and Recorded Vaccine Date Status Refusal Reason tetanus/diphtheria/pertussis, acel(Tdap) 10/27/19 Given influenza virus vaccine, inactivated 10/01/19 Give n [...] virus vaccine, inactivated 7 08/31/97 Gi chyna Meningococcal Conjugate Vaccine 11/11/17 Given Meningococcal Conjugate [...] 2Admin Note: VIS 06/01/2012GIVEN 3Admin Note: ADMIN.BY RN 4Admin Note: ADMIN.BY RN 5Admin Note: ADMIN.BY RN 6Admin Note: ADMIN.BY RN 7Admin Note: ADMIN.BY MICHELLE 8Result Comment: [09/22/2013] [...] Medications acetaminophen 500 mg oral tablet 2 tablet = 1,000 mg, By Mouth, 2 times a day, PRN for fever, # 100 tablet, 1 Refills, Maintenance, 08/15/19 15:20:53 EDT, Tablet Start Date: 07/15/19 Status: Ordered amLODIPine 10 mg oral tablet 10 mg, 1, tablet, By Mouth, Daily, # 30 tablet, Refills 11, Tot. Refills 11, Maintenance, 10/27/19 20:07:15 EST, Route to Pharmacy Electronically, [id number], [facility] Start Date: 10/27/19 Status: Ordered benzoyl peroxide 2.5% topical gel 1 application, Topically, 2 times a day, to buttock rash, # 60 Gm, 0 Refills, Maintenance, 09/18/1815:51:41 EDT, Gel, 1 application Topically 2 times a day,x14 days,Instr:to buttock rash Start Date: 09/18/18 Stop Date: 10/02/18 Status: Ordered diclofenac 1% topical gel = 2 Gm, Topically, 4 times a day, PRN for pain, not to exceed: - 8 gm/day/joint of upper limb, # 100 Gm, 1 Refills, Maintenance, 07/01/19 22:24:09 EDT, Gel, 2 Gm Topically 4 times a day,PRN:for pain,Instr:not to exceed: - 8 gm/day/joint of upper limb Start Date: 07/01/19 Status: Ordered Flonase 50 mcg/inh nasal spray 1 sprays, Nares, Both, Daily, # 16 Gm, 0 Refills, Maintenance, 11/19/19 16:45:00 EST, [place], [facility], 1 sprays Nares, Both Daily, 165, cm, 11/19/19 16:13:00 EST, Height, 90.9, kg, 10/14/19 13:27:00 EST, Dry Weight Start Date: 11/19/19 Status: Ordered HAND BRACE FOR CARPAL TUNNEL [...] EST, Compound Start Date: 10/27/19 Status: Ordered hydrOXYzine hydrochloride 10 mg oral tablet 1-2 tablet, By Mouth, 3 times a day, PRN Itch, 1-2 tablets 3 times a day as needed for itching, # 100 tablet, 1 Refills, Maintenance, 08/12/18 10:04:42 EDT Start Date: 08/12/18 Status: Ordered imiquimod 5% topical cream See Instructions, 1 applicator Topically applied directly to wart 3x per week x 8-24 hrs (enough tocause mild irritation), # 12 each, 3 Refills, Maintenance, 07/08/18 15:33:41 EDT, 1 applicator Topically applied directly to wart 3x per week x 8-24 hr... Start Date: 07/08/18 Status: Ordered lamiVUDine 300 mg oral tablet 1 tablet = 300 mg, By Mouth, Daily, # 30 tablet, 11 Refills, Maintenance, 10/27/19 20:08:07 EST, Tablet Start Date: 10/27/19 Status: Ordered loratadine 10 mg oral tablet 10 mg, 1, tablet, By Mouth, Daily, # 30 tablet, Refills 0, Tot. Refills 0, Maintenance, 11/19/19 16:44:00 EST, Route to Pharmacy Electronically, [facility], 165, cm, 11/19/19 16:13:00 EST, Height, 90.9, kg, 10/14/19 13:27:00 EST, D... Start Date: 11/19/19 Status: Ordered LORazepam 1 mg oral tablet 1 tablet = 1 mg, By Mouth, 2 times a day, PRN as needed for anxiety, # 15 tablet, 1 Refills, Maintenance, 03/10/19 12:11:46 EDT, Tablet Start Date: 03/10/19 Status: Ordered NuLYTELY with Flavor Packs oral powder for reconstitution See Instructions, 240 mL By Mouth Every 15 minutes, # 4,000 mL, 0 Refills, Maintenance, 11/11/19 15:47:50 EST, 240 mL By Mouth Every 15 minutes, 165, cm, 11/11/19 13:55:59 EST, Height, 90.9, kg, 10/14/19 13:27:37 EST, Dry Weight Start Date: 11/11/19 Status: Ordered ProAir HFA 90 mcg/inh inhalation aerosol with adapter 2, puffs, Inhalation, Every 6 hours, PRN, # 8.5 Gm, Refills 0, Tot. Refills 0, Maintenance, 11/10/17 18:44:13, Aerosol, Route to Pharmacy Electronically, [id number], [facility] Start Date: 11/10/17 Status: Ordered raltegravir 600 mg oral tablet 2 tablet = 1,200 mg, By Mouth, Daily, # 60 tablet, 11 Refills, Maintenance, 10/27/19 20:08:08 EST, Tablet Start Date: 10/27/19 Status: Ordered terbinafine 1% topical cream 1 application, Topically, 2 times a day, to rash, # 30 Gm, 3 Refills, Maintenance, 03/30/19 18:10:46 EDT, Cream, 1 application Topically 2 times a day,Instr:to rash Start Date: 03/30/19 Status: Ordered tiZANidine 2 mg oral tablet 1-2 tablet, By Mouth, Every 8 hours, PRN, # 50 tablet, Refills 1, Tot. Refills 1, Maintenance, as needed for muscle spasm, 03/30/19 17:41:45 EDT, Route to Pharmacy Electronically, [id number], [facility] [address] Start Date: 03/30/19 Status: Ordered triamcinolone 0.025% topical cream 1 applicator, Topically, 3 times a day, emollient hydrophilic cream for allergy/inflammation. Use no more than 3 wks w/o break of 1 wk, # 240 Gm, 0 Refills, Maintenance, 08/12/18 10:05:36 EDT, 1 applicator Topically 3 times a day,Instr:emollient hydr... Start Date: 08/12/18 Status: Ordered Viread 300 mg oral tablet 1 tablet = 300 mg, By Mouth, Daily, # 30 tablet, 11 Refills, Maintenance, 10/27/19 20:08:07 EST, Tablet Start Date: 10/27/19 Status: Ordered Problem List Condition Effective Dates Status Health Status Inform ant Cirrhosis related to hepatit is C - s/p viral clearance w/ sofosbuvir-ledipasvir 2014(Confirmed) 1 Active Condyloma acuminata, pubis(Confirmed) 05/2018 Active External hemorrhoids(Confirmed) Active Genital herpes simplex(Confirmed) Active History of hysterectomy(Confirmed) Active Headache, recurrent(Confirmed) 2014 Active Hemorrhoids(Confirmed) Active HIV infection(Confirmed) Active Lichenoid dermal hypersensit ivity reaction ? due to Hep C tx(Confirmed) 2009 Active Obesity(Confirmed) Active Visit for routine breaker hand exam(Confirmed) Active Prurigo nodularis per biopsy(Confirmed) 10/2014 Active Tinea cruris(Confirmed) Active 1Biopsy 99 grade 4/4, stage 4/4, genotype 1a, 3,450,000 IU/ml 06/05 Social History Social History Type Response Smoking Status Never (less than 100 in lifetime) entered on: 02/19/19 Sex
--- OUTSIDE RECORDS SUMMARY | 2023-05-07 00:39 | XMS_ITS | Continuity of Care Document ---
Author Name Unknown Organization [facility] Address [address] [place] [address]- Care Team Providers Care Dinkey Engineer Name Role Phone Elie Foster MD Primary Care Physician Encounter [facility] Date(s): 02/29/20 - 04/05/[address] [address]- [facility] Attending Physician: Elie Foster MD Admitting Physician: Elie Foster MD Referring Physician: Iglesia Talavera MD Allergies, Adverse Reactions, Alerts Substance Reaction [...] day, PRN for fever, # 100 tablet, 2 Refills, Maintenance, 02/14/20 12:31:00 EDT, Tablet, [facility], 165, cm, 02/02/20 11:43:00 EST, Height, 89.09, kg, 01/24/20 16:19:00 EST, Dry Weight Start Date: 02/14/20 Status: Ordered albuterol 0.083% inhalation solution 3 mL = 2.5 mg, Neb, Every 6 hours, PRN as needed for wheezing, use with nebulizer, # 90 mL, 2 Refills, Maintenance, 02/22/20 16:13:00 EDT, Solution, [facility], 165, cm, 02/02/20 11:43:00 EST, Height, 89.09, kg, 01/24/20 16:19:00 E... Start Date: 02/22/20 Status: Ordered amLODIPine 10 mg oral tablet 10 mg, 1, tablet, By Mouth, Daily, # 30 tablet, Refills 11, Tot. Refills 11, Maintenance, 10/27/19 20:07:15 EST, Route to Pharmacy Electronically, [id number], [facility] Start Date: 10/27/19 Status: Ordered benzoyl peroxide [...] 1 Refills, Maintenance, 03/31/20 9:43:00 EDT, Gel, [facility], 165, cm, 02/02/20 11:43:00 EST, Height, 89.09, kg, 01/24/20 1... Start Date: 03/31/20 Status: Ordered Flonase 50 mcg/inh nasal spray 1 sprays, Nares, Both, 2 times a day, # 16 Gm, 1 Refills, Maintenance, 02/22/20 16:14:00 EDT, [place], [facility], 1 sprays Nares, Both 2 times a day, 165, cm, 02/02/20 11:43:00 EST, Height, 89.09, kg, 01/24/20 16:19:00 EST, Dry Weight Start Date: 02/22/20 Status: Ordered HAND BRACE FOR CARPAL TUNNEL [...] 11/19/19 16:44:00 EST, Route to Pharmacy Electronically, [facility], 165, cm, 11/19/19 16:13:00 EST, Height, 90.9, kg, 10/14/19 13:27:00 EST, D... Start Date: 11/19/19 Status: Ordered LORazepam 1 mg oral tablet 1 tablet = 1 mg, By Mouth, 2 times a day, PRN as needed for anxiety, # 15 tablet, 1 Refills, Maintenance, 03/15/20 11:56:00 EDT, Tablet, [facility], 165, cm, 02/02/20 11:43:00 EST, Height, 89.09, kg, 01/24/20 16:19:00 EST, Dry Weight Start Date: 03/15/20 Status: Ordered Nebulizer/Compressor See Instructions, # 1 each, Maintenance, use as needed for wheezing, 01/14/20 9:13:00 EST, Compound Start Date: 01/14/20 Status: Ordered NuLYTELY with Flavor Packs oral [...] aerosol with adapter 2, puffs, Inhalation, Every 4 hours, PRN, # 8.5 Gm, Refills 1, Tot. Refills 1, Maintenance, 02/22/20 16:14:00 EDT, Aerosol, Route to Pharmacy Electronically, [id number], [facility], 165, cm, 02/02/20 11:43... Start Date: 02/22/20 Status: Ordered ProAir HFA 90 mcg/inh inhalation aerosol with adapter 2, puffs, Inhalation, Every 6 hours, PRN, # 8.5 Gm, Refills 0, Tot. Refills 0, Maintenance, 11/10/17 18:44:13, Aerosol, Route to Pharmacy Electronically, [id number], [facility] Start Date: 11/10/17 Status: Ordered raltegravir 600 [...] 1, Maintenance, as needed for muscle spasm, 03/31/20 9:40:00 EDT, Route to Pharmacy Electronically, [facility], 165, cm, 02/02/20 11:43:00 EST, Height,... 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
--- OUTSIDE RECORDS SUMMARY | 2023-05-07 00:39 | XMS_ITS | Continuity of Care Document ---
Author Name Unknown Organization [facility] Address [address] [place] [address]- Care Team Providers Care Bus Driver/Monitor Name Role Phone Elie Foster MD Primary Care Physician [phone] Encounter [facility] Date(s): 01/13/20 - 01/20/20 [facility] [address] [place] [address]- [facility] Encounter Diagnosis Asthma exacerbation(Discharge Diagnosis) - 01/13/20 Attending Physician: Fermín Shaw MD Referring Physician: Elie Foster MD Allergies, [...] 6Admin Note: ADMIN.BY RN 7Admin Note: ADMIN.BY RN 8Result Comment: [09/22/2013] Ordered by Cristian 9Admin [...] fever, # 100 tablet, 1 Refills, Maintenance, 07/15/19 15:20:53 EDT, Tablet Start Date: 07/15/19 Status: Ordered albuterol 0.083% inhalation solution 3 mL = 2.5 mg, Neb, Every 6 hours, PRN as needed for wheezing, use with nebulizer, # 90 mL, 2 Refills, Maintenance, 01/14/20 9:19:00 EST, Solution, [facility], 165, cm, 01/13/20 17:46:00 EST, Height, 88.6, kg, 01/13/20 16:56:00 EST... Start Date: 01/14/20 Status: Ordered amLODIPine 10 mg oral tablet 10 mg, 1, tablet, By Mouth, Daily, # 30 tablet, Refills 11, Tot. Refills 11, Maintenance, 10/27/19 20:07:15 EST, Route to Pharmacy Electronically, [id number], [facility] Start Date: 10/27/19 Status: Ordered benzoyl peroxide [...] 2 times a day, # 16 Gm, 0 Refills, Maintenance, 01/14/20 9:04:00 EST, [place],[facility], 1 sprays Nares, Both 2 times a day, 165, cm, 01/13/20 17:46:00 EST,Height, 88.6, kg, 01/13/20 16:56:00 EST, Dry Weight Start Date: 01/14/20 Status: Ordered HAND BRACE FOR CARPAL TUNNEL [...] 11/19/19 16:44:00 EST, Route to Pharmacy Electronically, [facility], 165, cm, 11/19/19 16:13:00 EST, Height, 90.9, kg, 10/14/19 13:27:00 EST, D... Start Date: 11/19/19 Status: Ordered LORazepam 1 mg oral tablet 1 tablet = 1 mg, By Mouth, 2 times a day, PRN as needed for anxiety, # 15 tablet, 1 Refills, Maintenance, 03/10/19 12:11:46 EDT, Tablet Start Date: 03/10/19 Status: Ordered Mucinex D 60 mg-600 mg oral tablet, extended release 1 tablet, By Mouth, 2 times a day, PRN as needed for cold symptoms, for 5 days, # 10 tablet, 1 Refills, Acute 01/22/20 15:55:00 EST, 01/12/20 15:55:00 EST, ER Tablet, [facility], 1 tablet By Mouth 2 times a day,x5 days,PRN:as neede... Start Date: 01/12/20 Stop Date: 01/22/20 Status: Ordered Nebulizer/Compressor See Instructions, # 1 [...] Dry Weight Start Date: 11/11/19 Status: Ordered predniSONE 20 mg oral tablet See Instructions, 2 tablet By Mouth Daily for 4 days then 1 tablet daily for 4 days, # 12 tablet, 0Refills, Acute 01/23/20 17:39:00 EST, 01/13/20 17:39:00 EST, Tablet, [id number], 165, cm, 01/13/20 16:56:00 EST, Height, 88.6, kg, 02/... Start Date: 01/13/20 Stop Date: 01/23/20 Status: Ordered ProAir HFA 90 mcg/inh inhalation aerosol with adapter 2, puffs, Inhalation, Every 4 hours, PRN, # 8.5 Gm, Refills 1, Tot. Refills 1, Maintenance, 01/14/20 9:05:00 EST, Aerosol, Route to Pharmacy Electronically, [id number], [facility], 165, cm, 01/13/20 17:46:... Start Date: 01/14/20 Status: Ordered ProAir HFA 90 mcg/inh inhalation aerosol with adapter 2, puffs, Inhalation, Every 6 hours, PRN, # 8.5 Gm, Refills 0, Tot. Refills 0, Maintenance, 11/10/17 18:44:13, Aerosol, Route to Pharmacy Electronically, [id number], [facility] Start Date: 11/10/17 Status: Ordered raltegravir 600 mg oral tablet 2 tablet = 1,200 mg, By Mouth, Daily, # 60 tablet, 11 Refills, Maintenance, 10/27/19 20:08:08 EST, Tablet Start Date: 10/27/19 Status: Ordered Tamiflu 75 mg oral capsule 1 capsule = 75 mg, By Mouth, 2 times a day, for 5 days, # 10 capsule, 0 Refills, Acute 01/23/20 17:40:00 EST, 01/18/20 17:40:00 EST, Capsule, [facility], 165, cm, 01/13/20 17:46:00 EST, Height, 88.6, kg, 01/13/20 16:56:00 EST, Dry... 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 Prurigo nodularis per biopsy(Confirmed) 10/2014 Active Tinea cruris(Confirmed) Active 1Biopsy 99 grade 4/4, stage 4/4, genotype 1a, 3,450,000 IU/ml 06/05 Diagnosis Diagnosis Type Effective Dates Health Status Clinical Service Informant Asthma exacerbation Discharge Diagnosis 01/13/20 Vital Signs Most recent to oldest [Reference Range]: 1 2 Height 165.00 cm (01/13/20 5:46 PM) 165.00 cm (01/13/20 4:56 PM) Weight 88.6 kg (01/13/20 4:56 PM) Oxygen Saturation [94-100 %] 100 % (01/13/20 4:56 PM) Pulse Rate [55-90 bpm] 118 bpm *H* (01/13/20 4:56 PM) Body Mass Index [18.5-24.99] 32.54 *>HHI* (01/13/20 4:56 PM) Blood Pressure [90-138/55-84 mm Hg] 146/ 86mm Hg *H* (01/13/20 5:46 PM) 186/93mm Hg *H* (01/13/20 4:56 PM) Respiratory Rate [16-30 br/min] 18 br/mi n (01/13/20 4:56 PM) Temperature [96.8-100.4 DegF] 98.8 DegF (01/13/20 4:56 PM) Mode of Delivery (Oxygen) Room air (01/13/20 4:56 PM) Blood pressure sites Arm, right (01/13/20 4:56 PM) Temperature Route Oral (01/13/20 4:56 PM) Dry Weight 88.6 kg (01/13/20 4:56 PM) Weight Obtained Via Standing scale (01/13/20 4:56 PM) Dry Weight Obtained Via Standing scale (01/13/20 4:56 PM) Social History Social History Type Response Smoking Status Never (less than 100 in lifetime) entered on: 02/19/19 Sex
[2023-05-07 00:40] VITALS: BP 144/88; PULSE 80; RESP 18; TEMP 36.7; O2SAT 99
--- OUTSIDE RECORDS SUMMARY | 2023-05-07 00:40 | XMS_ITS | Continuity of Care Document ---
Author Name Unknown Organization [facility] ter Address [address] [place] [id number]- Care Team Providers Care Ham Boner Name Role Phone Elie Foster MD Primary Care Physician [place] [facility] [place] 11/11/19 - 03/31/[address] [address]- [facility] Attending Physician: Nathan Salamanca MD Admitting Physician: Nathan Salamanca MD Allergies, Adverse Reactions, Alerts Substance Reaction [...] 2 Refills, Maintenance, 02/14/20 12:31:00 EDT, Tablet, [facility], 165, cm, 02/02/20 11:43:00 EST, Height, 89.09, kg, 01/24/20 16:19:00 EST, Dry Weight Start Date: 02/14/20 Status: Ordered albuterol 0.083% inhalation solution 3 mL = 2.5 mg, Neb, Every 6 hours, PRN as needed for wheezing, use with nebulizer, # 90 mL, 2 Refills, Maintenance, 02/22/20 16:13:00 EDT, Solution, [facility], 165, cm, 02/02/20 11:43:00 EST, Height, 89.09, kg, 01/24/20 16:19:00 E... Start Date: 02/22/20 Status: Ordered amLODIPine 10 mg oral tablet 10 mg, 1, tablet, By Mouth, Daily, # 30 tablet, Refills 11, Tot. Refills 11, Maintenance, 10/27/19 20:07:15 EST, Route to Pharmacy Electronically, [id number], [facility] Start Date: 10/27/19 Status: Ordered benzoyl [...] 1 Refills, Maintenance, 03/31/20 9:43:00 EDT, Gel, [facility], 165, cm, 02/02/20 11:43:00 EST, Height, 89.09, kg, 01/24/20 1... Start Date: 03/31/20 Status: Ordered Flonase 50 mcg/inh nasal spray 1 sprays, Nares, Both, 2 times a day, # 16 Gm, 1 Refills, Maintenance, 02/22/20 16:14:00 EDT, [place], [facility], 1 sprays Nares, Both 2 times [...] 11/19/19 16:44:00 EST, Route to Pharmacy Electronically, [facility], 165, cm, 11/19/19 16:13:00 EST, Height, 90.9, kg, 10/14/19 13:27:00 EST, D... Start Date: 11/19/19 Status: Ordered LORazepam 1 mg oral tablet 1 tablet = 1 mg, By Mouth, 2 times a day, PRN as needed for anxiety, # 15 tablet, 1 Refills, Maintenance, 03/15/20 11:56:00 EDT, Tablet, [facility], 165, cm, 02/02/20 11:43:00 EST, Height, [...] 16:14:00 EDT, Aerosol, Route to Pharmacy Electronically, [id number], [facility], 165, cm, 02/02/20 11:43... Start Date: 02/22/20 Status: Ordered ProAir HFA 90 mcg/inh inhalation aerosol with adapter 2, puffs, Inhalation, Every 6 hours, PRN, # 8.5 Gm, Refills 0, Tot. Refills 0, Maintenance, 11/10/17 18:44:13, Aerosol, Route to Pharmacy Electronically, [id number], [facility] Start Date: 11/10/17 Status: Ordered raltegravir [...] 03/31/20 9:40:00 EDT, Route to Pharmacy Electronically, [facility], 165, cm, 02/02/20 11:43:00 EST, Height,... Start [...] 2009 Active Obesity(Confirmed) Active Visit for routine lining marker exam(Confirmed) Active Prurigo nodularis per biopsy(Confirmed) 10/2014 Active Tinea cruris(Confirmed) Active 1Biopsy 99 grade 4/4, stage 4/4, genotype 1a, 3,450,000 IU/ml 06/05 Social History Social History Type Response Smoking Status Never (less than 100 in lifetime) entered on: 02/19/19 Sex
--- OUTSIDE RECORDS SUMMARY | 2023-05-07 00:40 | XMS_ITS | Continuity of Care Document ---
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 Compazine Tongue Swelling Moderate Active Bactrim Active Contrast Dye 1 Pruritic rash Proposed emtricitabine Rash Proposed [address] w/ IV and oral contrast developed fine papular pruritic rash Immunizations Given and Recorded Vaccine Date Status Refusal Reason influenza virus vaccine, inactivated 09/21/20 Give n [...] virus vaccine, inactivated 7 08/31/97 Gi chyna tetanus/diphtheria/pertussis, acel(Tdap) 10/27/19 Given Meningococcal Conjugate Vaccine [...] day, PRN for fever, # 100 tablet, 5 Refills, Maintenance, 01/02/21 10:02:00 EST, Tablet, [facility], 165, cm, 11/15/20 11:50:00 EST, Height, 89.27, kg, 08/16/20 10:16:00 EDT, Dry Weight Start Date: 01/02/21 Status: Ordered albuterol 0.083% inhalation solution 3 mL = 2.5 mg, Neb, Every 6 hours, PRN as needed for wheezing, use with nebulizer, # 90 mL, 2 Refills, Maintenance, 02/22/20 16:13:00 EDT, Solution, [facility], 165, cm, 02/02/20 11:43:00 EST, Height, 89.09, kg, 01/24/20 16:19:00 E... Start Date: 02/22/20 Status: Ordered amitriptyline 25 mg oral tablet 25 mg, 1, tablet, By Mouth, Daily at bedtime, # 30 tablet, Refills 11, Tot. Refills 11, Maintenance, 01/09/21 15:37:00 EST, Route to Pharmacy Electronically, [facility], Partial fill upon patient request if the prescription is for... Start Date: 01/09/21 Status: Ordered amLODIPine 5 mg oral tablet 5 mg, 1, tablet, By Mouth, Daily, dose decrease 05/17/20, # 30 tablet, Refills 11, Tot. Refills 11, Maintenance, 05/17/20 18:31:00 EDT, Route to Pharmacy Electronically, [facility], 165, cm, 02/02/20 11:43:00 EST, Height, 89.09, kg,... Start Date: 05/17/20 Status: Ordered diclofenac 1% topical gel = 2 Gm, Topically, 4 times a day, PRN for pain, not to exceed: - 8 gm/day/joint of upper limb, # 100 Gm, 1 Refills, Maintenance, 03/31/20 9:43:00 EDT, Gel, [facility], 165, cm, 02/02/20 11:43:00 EST, Height, 89.09, kg, 01/24/20 1... Start Date: 03/31/20 Status: Ordered Flonase 50 mcg/inh nasal spray 1 sprays, Nares, Both, 2 times a day, # 16 Gm, 5 Refills, Maintenance, 11/30/20 16:38:00 EST, [place], [facility], 1 sprays Nares, Both 2 times a day, 165, cm, 11/15/20 11:50:00 EST, Height, 89.27, kg, 08/16/20 10:16:00 EDT, Dry Weight Start Date: 11/30/20 Status: Ordered HAND BRACE FOR CARPAL TUNNEL [...] Daily, # 30 capsule, 11 Refills, Maintenance, 05/17/20 18:22:00 EDT,Capsule, [facility], 165, cm, 02/02/20 11:43:00 EST, Height, 89.09, kg, 01/24/20 16:19:00 EST, Dry Weight Start Date: 05/17/20 Status: Ordered hydrOXYzine hydrochloride 10 mg oral tablet 1-2 tablet, By Mouth, 3 times a day, PRN Itch, 1-2 tablets 3 times a day as needed for itching, # 100 tablet, 1 Refills, Maintenance, 08/12/18 10:04:42 EDT Start Date: 08/12/18 Status: Ordered lamiVUDine 300 mg oral tablet 1 tablet = 300 mg, By Mouth, Daily, # 30 tablet, 11 Refills, Maintenance, 10/30/20 14:19:00 EST, Tablet, [facility], 165, cm, 09/21/20 15:55:00 EDT, Height, 89.27, kg, 08/16/20 10:16:00 EDT, Dry Weight Start Date: 10/30/20 Status: Ordered loratadine 10 mg oral tablet 10 mg, 1, tablet, By Mouth, Daily, # 30 tablet, Refills 0, Tot. Refills 0, Maintenance, 11/19/19 16:44:00 EST, Route to Pharmacy Electronically, [facility], 165, cm, 11/19/19 16:13:00 EST, Height, 90.9, kg, 10/14/19 13:27:00 EST, D... Start Date: 11/19/19 Status: Ordered LORazepam 1 mg oral tablet 1 tablet = 1 mg, By Mouth, 2 times a day, PRN as needed for anxiety, # 15 tablet, 1 Refills, Maintenance, 11/01/20 10:56:00 EST, Tablet, [facility], 165, cm, 11/01/20 8:58:00 EST,Height, 89.27, kg, 08/16/20 10:16:00 EDT, Dry Weight Start Date: 11/01/20 Status: Ordered Nebulizer/Compressor See Instructions, # 1 [...] 4 hours, PRN, # 8.5 Gm, Refills 5, Tot. Refills 5, Maintenance, 11/30/20 16:38:00 EST, Aerosol, Route to Pharmacy Electronically, [id number], [facility], 165, cm, 11/15/20 11:50... Start Date: 11/30/20 Status: Ordered ProAir HFA 90 mcg/inh inhalation aerosol with adapter 2, puffs, Inhalation, Every 6 hours, PRN, # 8.5 Gm, Refills 0, Tot. Refills 0, Maintenance, 11/10/17 18:44:13, Aerosol, Route to Pharmacy Electronically, [id number], [facility] Start Date: 11/10/17 Status: Ordered raltegravir 600 mg oral tablet 2 tablet = 1,200 mg, By Mouth, Daily, # 60 tablet, 11 Refills, Maintenance, 10/30/20 14:19:00 EST, Tablet, [facility], 165, cm, 09/21/20 15:55:00 EDT, Height, 89.27, kg, 08/16/20 10:16:00 EDT, Dry Weight Start Date: 10/30/20 Status: Ordered terbinafine 1% topical cream 1 application, Topically, 2 times a day, to rash, # 30 Gm, 3 Refills, Maintenance, 11/01/20 10:55:00 EST, Cream, [facility], 1 application Topically 2 times a day,Instr:to rash, 165, cm, 11/01/20 8:58:00 EST, Height, 89.27, kg, ... Start Date: 11/01/20 Status: Ordered tiZANidine 2 mg oral tablet 1-2 tablet, By Mouth, Every 8 hours, PRN, # 50 tablet, Refills 1, Tot. Refills 1, Maintenance, as needed for muscle spasm, 03/31/20 9:40:00 EDT, Route to Pharmacy Electronically, [facility], 165, cm, 02/02/20 11:43:00 EST, Height,... Start Date: 03/31/20 Status: Ordered triamcinolone 0.025% topical cream 1 applicator, Topically, 3 times a day, emollient hydrophilic cream for allergy/inflammation. Use no more than 3 wks w/o break of 1 wk, # 120 Gm, 0 Refills, Maintenance, 06/29/20 0:49:00 EDT, [facility], 1 applicator Topically 3 t... 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
--- OUTSIDE RECORDS SUMMARY | 2023-05-07 00:40 | XMS_ITS | Continuity of Care Document ---
Author Name Unknown Organization [facility] Address Unknown Care Team Providers Care Automotive Shop Foreman Name Role Phone Elie Foster MD Primary Care Physician [place] [facility] [place]): 10/17/21 - 01/11/22 [facility] Attending Physician: Elie Foster MD Admitting Physician: Elie Foster MD Allergies, Adverse Reactions, [...] Status Refusal Reason influenza virus vaccine, inactivated 10/17/21 Give n [...] 3Admin Note: ADMIN.BY MICHELLE 4Admin Note: ADMIN.BY RN 5Admin Note: ADMIN.BY [...] PRN NEEDED FOR FEVER, # 100 tablet, 5 Refills, [facility], 165, cm, 07/10/21 16:34:00 EDT, Height, 89.27, kg, 08/16/20 10:16:00 EDT, Dry Weight Start Date: 07/23/21 Status: Ordered albuterol 0.083% inhalation solution 3 mL = 2.5 mg, Neb, Every 6 hours, PRN as needed for wheezing, use with nebulizer, # 90 mL, 2 Refills, Maintenance, 02/22/20 16:13:00 EDT, Solution, [facility], 165, cm, 02/02/20 11:43:00 EST, Height, 89.09, kg, 01/24/20 16:19:00 E... Start Date: 02/22/20 Status: Ordered amitriptyline 25 mg oral tablet 25 mg, 1, tablet, By Mouth, Daily at bedtime, # 30 tablet, Refills 11, Tot. Refills 11, Maintenance, 01/09/21 15:37:00 EST, Route to Pharmacy Electronically, [facility], Partial fill upon patient request if the prescription is for... Start Date: 01/09/21 Status: Ordered amLODIPine 5 mg oral tablet 1 tablet, By Mouth, Daily, # 30 tablet, 5 Refills, Maintenance, 06/11/21 14:54:00 EDT, [facility], 165, cm, 05/08/21 14:40:00 EDT, Height, 89.27, kg, 08/16/20 10:16:00 EDT, Dry Weight Start Date: 06/11/21 Status: Ordered diclofenac 1% topical gel = 2 Gm, Topically, 4 times a day, PRN for pain, not to exceed: - 8 gm/day/joint of upper limb, # 100 Gm, 1 Refills, Maintenance, 03/31/20 9:43:00 EDT, Gel, [facility], 165, cm, 02/02/20 11:43:00 EST, Height, 89.09, kg, 02/24/20 1... Start Date: 03/31/20 Status: Ordered fluticasone 50 mcg/inh nasal spray See Instructions, USE 1 SPRAY IN EACH NOSTRIL 2 TIMES A DAY., # 16 Gm, 5 Refills, [facility], 30, USE 1 SPRAY IN EACH NOSTRIL 2 TIMES A DAY., 165, cm, 07/24/21 15:17:00 EDT, Height,89.27, kg, 08/16/20 10:16:00 EDT, Dry Weight Start Date: 09/05/21 Status: Ordered HAND BRACE FOR CARPAL TUNNEL [...] Daily, # 30 capsule, 11 Refills, Maintenance, 06/12/21 23:49:00 EDT,Capsule, [facility], 165, cm, 05/08/21 14:40:00 EDT, Height, 89.27, kg, 08/16/20 10:16:00 EDT, Dry Weight Start Date: 06/12/21 Status: Ordered hydrOXYzine hydrochloride 10 mg oral tablet 1-2 tablet, By Mouth, 3 times a day, PRN Itch, 1-2 tablets 3 times a day as needed for itching, # 100 tablet, 1 Refills, Maintenance, 09/07/21 13:50:00 EDT, [facility], 165, cm, 07/24/21 15:17:00 EDT, Height, 89.27, kg, 08/16/20 10... Start Date: 09/07/21 Status: Ordered lamiVUDine 300 mg oral tablet 1 tablet = 300 mg, By Mouth, Daily, # 30 tablet, 11 Refills, Maintenance, 10/17/21 10:39:00 EST, Tablet, [facility], 165, cm, 10/17/21 9:33:00 EST, Height, 89.27, kg, 08/16/20 10:16:00 EDT, Dry Weight Start Date: 10/17/21 Status: Ordered loratadine 10 mg oral tablet 10 mg, 1, tablet, By Mouth, Daily, # 30 tablet, Refills 0, Tot. Refills 0, Maintenance, 11/19/19 16:44:00 EST, Route to Pharmacy Electronically, [facility], 165, cm, 11/19/19 16:13:00 EST, Height, 90.9, kg, 10/14/19 13:27:00 EST, D... Start Date: 11/19/19 Status: Ordered LORazepam 1 mg oral tablet 1 tablet = 1 mg, By Mouth, 2 times a day, PRN as needed for anxiety, # 15 tablet, 1 Refills, Maintenance, 09/06/21 14:38:00 EDT, Tablet, [facility], 165, cm, 07/24/21 15:17:00 EDT, Height, 89.27, kg, 08/16/20 10:16:00 EDT, Dry Weight Start Date: 09/06/21 Status: Ordered Nebulizer/Compressor See Instructions, # 1 each, Maintenance, use as needed for wheezing, 01/14/20 9:13:00 EST, Compound Start Date: 01/14/20 Status: Ordered ProAir HFA 90 mcg/inh inhalation aerosol with adapter 2, inhalation, Inhalation, Every 4 hours, PRN, # 8.5 Gm, Refills 5, Route to Pharmacy Electronically, [id number], [facility], 165, cm, 07/24/21 15:17:00 EDT, Height, 89.27, kg, 08/16/20 10:16:00 EDT, Dry Weight Start Date: 09/05/21 Status: Ordered raltegravir 600 mg oral tablet 2 tablet = 1,200 mg, By Mouth, Daily, # 60 tablet, 11 Refills, Maintenance, 10/17/21 10:39:00 EST, Tablet, [facility], 165, cm, 10/17/21 9:33:00 EST, Height, 89.27, kg, 08/16/20 10:16:00 EDT, Dry Weight Start Date: 10/17/21 Status: Ordered terbinafine 1% topical cream 1 application, Topically, 2 times a day, to rash, # 30 Gm, 3 Refills, Maintenance, 07/10/21 16:56:00 EDT, Cream, [facility], 1 application Topically 2 times a day,Instr:to rash, 165, cm, 07/10/21 16:34:00 EDT, Height, 89.27, kg, 09... Start Date: 07/10/21 Status: Ordered tiZANidine 2 mg oral tablet 1-2 tablet, By Mouth, Every 8 hours, PRN, # 50 tablet, Refills 1, Tot. Refills 1, Maintenance, as needed for muscle spasm, 03/31/20 9:40:00 EDT, Route to Pharmacy Electronically, [facility], 165, cm, 02/02/20 11:43:00 EST, Height,... Start Date: 03/31/20 Status: Ordered triamcinolone 0.025% topical cream 1 applicator, Topically, 3 times a day, emollient hydrophilic cream for allergy/inflammation. Use no more than 3 wks w/o break of 1 wk, # 120 Gm, 0 Refills, Maintenance, 10/17/21 10:41:00 EST, [facility], 1 applicator Topically 3... 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
--- OUTSIDE RECORDS SUMMARY | 2023-05-07 00:40 | XMS_ITS | Continuity of Care Document ---
Author Name Unknown Organization [facility] Address Unknown Care Team Providers Care Rail Technician Name Role Phone Elie Foster MD Primary Care Physician [phone] Encounter [facility] Date(s): 11/20/21 - 12/29/21 [facility] Attending Physician: Elie Foster MD Admitting [...] FOR FEVER, # 100 tablet, 5 Refills, [facility], 165, cm, 07/10/21 16:34:00 EDT, Height, 89.27, kg, 08/16/20 10:16:00 EDT, Dry Weight Start Date: 07/23/21 Status: Ordered albuterol 0.083% inhalation solution 3 mL = 2.5 mg, Neb, Every 6 hours, PRN as needed for wheezing, use with nebulizer, # 90 mL, 2 Refills, Maintenance, 02/22/20 16:13:00 EDT, Solution, [facility], 165, cm, 02/02/20 11:43:00 EST, Height, 89.09, kg, 01/24/20 16:19:00 E... Start Date: 02/22/20 Status: Ordered amitriptyline 25 mg oral tablet 25 mg, 1, tablet, By Mouth, Daily at bedtime, # 30 tablet, Refills 11, Tot. Refills 11, Maintenance, 01/09/21 15:37:00 EST, Route to Pharmacy Electronically, [facility], Partial fill upon patient request if the prescription is for... Start Date: 01/09/21 Status: Ordered amLODIPine 5 mg oral tablet 1 tablet, By Mouth, Daily, # 30 tablet, 5 Refills, Maintenance, 06/11/21 14:54:00 EDT, [facility], 165, cm, 05/08/21 14:40:00 EDT, Height, 89.27, kg, 08/16/20 10:16:00 EDT, Dry Weight Start Date: 06/11/21 Status: Ordered diclofenac 1% topical gel = 2 Gm, Topically, 4 times a day, PRN for pain, not to exceed: - 8 gm/day/joint of upper limb, # 100 Gm, 1 Refills, Maintenance, 03/31/20 9:43:00 EDT, Gel, [facility], 165, cm, 02/02/20 11:43:00 EST, Height, 89.09, kg, 02/24/20 1... Start Date: 03/31/20 Status: Ordered fluticasone 50 mcg/inh nasal spray See Instructions, USE 1 SPRAY IN EACH NOSTRIL 2 TIMES A DAY., # 16 Gm, 5 Refills, [facility], 30, USE 1 SPRAY IN [...] capsule, 11 Refills, Maintenance, 06/12/21 23:49:00 EDT,Capsule, [facility], 165, cm, 05/08/21 14:40:00 EDT, Height, 89.27, kg, 08/16/20 10:16:00 EDT, Dry Weight Start Date: 06/12/21 Status: Ordered hydrOXYzine hydrochloride 10 mg oral tablet 1-2 tablet, By Mouth, 3 times a day, PRN Itch, 1-2 tablets 3 times a day as needed for itching, # 100 tablet, 1 Refills, Maintenance, 09/07/21 13:50:00 EDT, [facility], 165, cm, 07/24/21 15:17:00 EDT, Height, 89.27, kg, 08/16/20 10... Start Date: 09/07/21 Status: Ordered lamiVUDine 300 mg oral tablet 1 tablet = 300 mg, By Mouth, Daily, # 30 tablet, 11 Refills, Maintenance, 10/17/21 10:39:00 EST, Tablet, [facility], 165, cm, 10/17/21 9:33:00 EST, Height, 89.27, kg, 08/16/20 10:16:00 EDT, Dry Weight Start Date: 10/17/21 Status: Ordered loratadine 10 mg oral tablet 10 mg, 1, tablet, By Mouth, Daily, # 30 tablet, Refills 0, Tot. Refills 0, Maintenance, 11/19/19 16:44:00 EST, Route to Pharmacy Electronically, [facility], 165, cm, 11/19/19 16:13:00 EST, Height, 90.9, kg, 10/14/19 13:27:00 EST, D... Start Date: 11/19/19 Status: Ordered LORazepam 1 mg oral tablet 1 tablet = 1 mg, By Mouth, 2 times a day, PRN as needed for anxiety, # 15 tablet, 1 Refills, Maintenance, 09/06/21 14:38:00 EDT, Tablet, [facility], 165, cm, 07/24/21 15:17:00 EDT, Height, [...] Gm, Refills 5, Route to Pharmacy Electronically, [id number], [facility], 165, cm, 07/24/21 15:17:00 EDT, Height, 89.27, kg, 08/16/20 10:16:00 EDT, Dry Weight Start Date: 09/05/21 Status: Ordered raltegravir 600 mg oral tablet 2 tablet = 1,200 mg, By Mouth, Daily, # 60 tablet, 11 Refills, Maintenance, 10/17/21 10:39:00 EST, Tablet, [facility], 165, cm, 10/17/21 9:33:00 EST, Height, 89.27, kg, 08/16/20 10:16:00 EDT, Dry Weight Start Date: 10/17/21 Status: Ordered terbinafine 1% topical cream 1 application, Topically, 2 times a day, to rash, # 30 Gm, 3 Refills, Maintenance, 07/10/21 16:56:00 EDT, Cream, [facility], 1 application Topically 2 times a day,Instr:to rash, 165, cm, 07/10/21 16:34:00 EDT, Height, 89.27, kg, 09... Start Date: 07/10/21 Status: Ordered tiZANidine 2 mg oral tablet 1-2 tablet, By Mouth, Every 8 hours, PRN, # 50 tablet, Refills 1, Tot. Refills 1, Maintenance, as needed for muscle spasm, 03/31/20 9:40:00 EDT, Route to Pharmacy Electronically, [facility], 165, cm, 02/02/20 11:43:00 EST, Height,... Start Date: 03/31/20 Status: Ordered triamcinolone 0.025% topical cream 1 applicator, Topically, 3 times a day, emollient hydrophilic cream for allergy/inflammation. Use no more than 3 wks w/o break of 1 wk, # 120 Gm, 0 Refills, Maintenance, 10/17/21 10:41:00 EST, [facility], 1 applicator Topically 3... 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
--- OUTSIDE RECORDS SUMMARY | 2023-05-07 00:40 | XMS_ITS | Continuity of Care Document ---
Author Name Unknown Organization [facility] Address [address] [place] [id number]- Care Team Providers Care Hand Candy Molder Name Role Phone Elie Foster MD Primary Care Physician Encounter [facility] Date(s): 10/03/21 - 11/02/21 [facility] [address] [place] [id number]- [place] Allergies, Adverse Reactions, Alerts Substance Reaction Severity [...] 09/08/02 Gi chyna influenza virus vaccine, inactivated 11/17/00 Gi chyna influenza virus vaccine, inactivated 10/06/98 Gi chyna influenza virus vaccine, inactivated [...] 5Admin Note: ADMIN.BY RN 6Admin Note: ADMIN.BY MICHELLE 7Admin Note: ADMIN.BY [...] FOR FEVER, # 100 tablet, 5 Refills, [facility], 165, cm, 07/10/21 16:34:00 EDT, Height, 89.27, kg, 08/16/20 10:16:00 EDT, Dry Weight Start Date: 07/23/21 Status: Ordered albuterol 0.083% inhalation solution 3 mL = 2.5 mg, Neb, Every 6 hours, PRN as needed for wheezing, use with nebulizer, # 90 mL, 2 Refills, Maintenance, 02/22/20 16:13:00 EDT, Solution, [facility], 165, cm, 02/02/20 11:43:00 EST, Height, 89.09, kg, 01/24/20 16:19:00 E... Start Date: 02/22/20 Status: Ordered amitriptyline 25 mg oral tablet 25 mg, 1, tablet, By Mouth, Daily at bedtime, # 30 tablet, Refills 11, Tot. Refills 11, Maintenance, 01/09/21 15:37:00 EST, Route to Pharmacy Electronically, [facility], Partial fill upon patient request if the prescription is for... Start Date: 01/09/21 Status: Ordered amLODIPine 5 mg oral tablet 1 tablet, By Mouth, Daily, # 30 tablet, 5 Refills, Maintenance, 06/11/21 14:54:00 EDT, [facility], 165, cm, 05/08/21 14:40:00 EDT, Height, 89.27, kg, 08/16/20 10:16:00 EDT, Dry Weight Start Date: 06/11/21 Status: Ordered diclofenac 1% topical gel = 2 Gm, Topically, 4 times a day, PRN for pain, not to exceed: - 8 gm/day/joint of upper limb, # 100 Gm, 1 Refills, Maintenance, 03/31/20 9:43:00 EDT, Gel, [facility], 165, cm, 02/02/20 11:43:00 EST, Height, 89.09, kg, 01/24/20 1... Start Date: 03/31/20 Status: Ordered fluticasone 50 mcg/inh nasal spray See Instructions, USE 1 SPRAY IN EACH NOSTRIL 2 TIMES A DAY., # 16 Gm, 5 Refills, [facility], 30, USE 1 SPRAY IN EACH [...] capsule, 11 Refills, Maintenance, 06/12/21 23:49:00 EDT,Capsule, [facility], 165, cm, 05/08/21 14:40:00 EDT, Height, 89.27, kg, 08/16/20 10:16:00 EDT, Dry Weight Start Date: 06/12/21 Status: Ordered hydrOXYzine hydrochloride 10 mg oral tablet 1-2 tablet, By Mouth, 3 times a day, PRN Itch, 1-2 tablets 3 times a day as needed for itching, # 100 tablet, 1 Refills, Maintenance, 09/07/21 13:50:00 EDT, [facility], 165, cm, 07/24/21 15:17:00 EDT, Height, 89.27, kg, 08/16/20 10... Start Date: 09/07/21 Status: Ordered lamiVUDine 300 mg oral tablet 1 tablet = 300 mg, By Mouth, Daily, # 30 tablet, 11 Refills, Maintenance, 10/17/21 10:39:00 EST, Tablet, [facility], 165, cm, 10/17/21 9:33:00 EST, Height, 89.27, kg, 08/16/20 10:16:00 EDT, Dry Weight Start Date: 10/17/21 Status: Ordered loratadine 10 mg oral tablet 10 mg, 1, tablet, By Mouth, Daily, # 30 tablet, Refills 0, Tot. Refills 0, Maintenance, 11/19/19 16:44:00 EST, Route to Pharmacy Electronically, [facility], 165, cm, 11/19/19 16:13:00 EST, Height, 90.9, kg, 10/14/19 13:27:00 EST, D... Start Date: 11/19/19 Status: Ordered LORazepam 1 mg oral tablet 1 tablet = 1 mg, By Mouth, 2 times a day, PRN as needed for anxiety, # 15 tablet, 1 Refills, Maintenance, 09/06/21 14:38:00 EDT, Tablet, [facility], 165, cm, 07/24/21 15:17:00 EDT, Height, [...] Gm, Refills 5, Route to Pharmacy Electronically, [id number], [facility], 165, cm, 07/24/21 15:17:00 EDT, Height, 89.27, kg, 08/16/20 10:16:00 EDT, Dry Weight Start Date: 09/05/21 Status: Ordered raltegravir 600 mg oral tablet 2 tablet = 1,200 mg, By Mouth, Daily, # 60 tablet, 11 Refills, Maintenance, 10/17/21 10:39:00 EST, Tablet, [facility], 165, cm, 10/17/21 9:33:00 EST, Height, 89.27, kg, 08/16/20 10:16:00 EDT, Dry Weight Start Date: 10/17/21 Status: Ordered terbinafine 1% topical cream 1 application, Topically, 2 times a day, to rash, # 30 Gm, 3 Refills, Maintenance, 07/10/21 16:56:00 EDT, Cream, [facility], 1 application Topically 2 times a day,Instr:to rash, 165, cm, 07/10/21 16:34:00 EDT, Height, 89.27, kg, 09... Start Date: 07/10/21 Status: Ordered tiZANidine 2 mg oral tablet 1-2 tablet, By Mouth, Every 8 hours, PRN, # 50 tablet, Refills 1, Tot. Refills 1, Maintenance, as needed for muscle spasm, 03/31/20 9:40:00 EDT, Route to Pharmacy Electronically, [facility], 165, cm, 02/02/20 11:43:00 EST, Height,... Start Date: 03/31/20 Status: Ordered triamcinolone 0.025% topical cream 1 applicator, Topically, 3 times a day, emollient hydrophilic cream for allergy/inflammation. Use no more than 3 wks w/o break of 1 wk, # 120 Gm, 0 Refills, Maintenance, 10/17/21 10:41:00 EST, [facility], 1 applicator Topically 3... Start Date: 10/17/21 Status: Ordered Viread 300 mg oral tablet 1 tablet = 300 mg, By Mouth, Daily, # 30 tablet, 11 Refills, Maintenance, 10/17/21 10:39:00 EST, Tablet, [facility], 165, cm, 10/17/21 9:33:00 EST, Height, [...] I(Confirmed) Active Obesity(Confirmed) Active Visit for routine rn internal medicine exam(Confirmed) Active Screening for diabetes mellitus(Confirmed) Active Prurigo nodularis per biopsy(Confirmed) 10/2014 Active Tinea cruris(Confirmed) Active 1Biopsy 99 grade 4/4, stage 4/4, genotype 1a, 3,450,000 IU/ml 06/05 Social History Social History Type Response Smoking Status Never (less than 100 in lifetime) entered on: 07/24/21 Sex
--- OUTSIDE RECORDS SUMMARY | 2023-05-07 00:40 | XMS_ITS | Continuity of Care Document ---
Author Name Unknown Organization [facility] Address [address] [place] [address]- Care Team Providers Care Bit And Shank Department Supervisor Name Role Phone Elie Foster MD Primary Care Physician Encounter [facility] Date(s): 11/19/19 - 11/29/19 [facility] [address] [id number]- [facility] Attending Physician: Admtr, Ar8 Allergies, Adverse Reactions, [...] 10/27/19 20:07:15 EST, Route to Pharmacy Electronically, [id number], [facility] Start Date: 10/27/19 Status: Ordered benzoyl [...] Gm, 0 Refills, Maintenance, 11/19/19 16:45:00 EST, [place], [facility], 1 sprays Nares, Both Daily, 165, cm, [...] 11/19/19 16:44:00 EST, Route to Pharmacy Electronically, [facility], 165, cm, 11/19/19 16:13:00 EST, Height, [...] 11/10/17 18:44:13, Aerosol, Route to Pharmacy Electronically, [id number], [facility] Start Date: 11/10/17 Status: Ordered raltegravir [...] 03/30/19 17:41:45 EDT, Route to Pharmacy Electronically, [id number], [facility] [id number] Start Date: 03/30/19 Status: Ordered triamcinolone 0.025% [...] 2009 Active Obesity(Confirmed) Active Visit for routine family resource specialist exam(Confirmed) Active Prurigo nodularis per biopsy(Confirmed) 10/2014 Active Tinea cruris(Confirmed) Active 1Biopsy 99 grade 4/4, stage 4/4, genotype 1a, 3,450,000 IU/ml 06/05 Social History Social History Type Response Smoking Status Never (less than 100 in lifetime) entered on: 02/19/19 Sex
--- OUTSIDE RECORDS SUMMARY | 2023-05-07 00:40 | XMS_ITS | Continuity of Care Document ---
Author Name Unknown Organization [facility] Address Unknown Care Team Providers Care Web Interface Developer Name Role Phone Elie Foster MD Primary Care Physician Encounter [facility] Date(s): 11/17/21 - 12/17/21 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 Bactrim Active Contrast Dye 1 Pruritic rash [...] 10/06/98 Gi chyna influenza virus vaccine, inactivated 08/31/97 Gi chyna influenza virus vaccine, inactivated [...] FOR FEVER, # 100 tablet, 5 Refills, [facility], 165, cm, 07/10/21 16:34:00 EDT, Height, 89.27, kg, 08/16/20 10:16:00 EDT, Dry Weight Start Date: 07/23/21 Status: Ordered albuterol 0.083% inhalation solution 3 mL = 2.5 mg, Neb, Every 6 hours, PRN as needed for wheezing, use with nebulizer, # 90 mL, 2 Refills, Maintenance, 02/22/20 16:13:00 EDT, Solution, [facility], 165, cm, 02/02/20 11:43:00 EST, Height, 89.09, kg, 01/24/20 16:19:00 E... Start Date: 02/22/20 Status: Ordered amitriptyline 25 mg oral tablet 25 mg, 1, tablet, By Mouth, Daily at bedtime, # 30 tablet, Refills 11, Tot. Refills 11, Maintenance, 01/09/21 15:37:00 EST, Route to Pharmacy Electronically, [facility], Partial fill upon patient request if the prescription is for... Start Date: 01/09/21 Status: Ordered amLODIPine 5 mg oral tablet 1 tablet, By Mouth, Daily, # 30 tablet, 5 Refills, Maintenance, 06/11/21 14:54:00 EDT, [facility], 165, cm, 05/08/21 14:40:00 EDT, Height, 89.27, kg, 08/16/20 10:16:00 EDT, Dry Weight Start Date: 06/11/21 Status: Ordered diclofenac 1% topical gel = 2 Gm, Topically, 4 times a day, PRN for pain, not to exceed: - 8 gm/day/joint of upper limb, # 100 Gm, 1 Refills, Maintenance, 03/31/20 9:43:00 EDT, Gel, [facility], 165, cm, 02/02/20 11:43:00 EST, Height, 89.09, kg, 01/24/20 1... Start Date: 03/31/20 Status: Ordered fluticasone 50 mcg/inh nasal spray See Instructions, USE 1 SPRAY IN EACH NOSTRIL 2 TIMES A DAY., # 16 Gm, 5 Refills, [facility], 30, USE 1 SPRAY IN [...] capsule, 11 Refills, Maintenance, 06/12/21 23:49:00 EDT,Capsule, [facility], 165, cm, 05/08/21 14:40:00 EDT, Height, 89.27, kg, 08/16/20 10:16:00 EDT, Dry Weight Start Date: 06/12/21 Status: Ordered hydrOXYzine hydrochloride 10 mg oral tablet 1-2 tablet, By Mouth, 3 times a day, PRN Itch, 1-2 tablets 3 times a day as needed for itching, # 100 tablet, 1 Refills, Maintenance, 09/07/21 13:50:00 EDT, [facility], 165, cm, 07/24/21 15:17:00 EDT, Height, 89.27, kg, 08/16/20 10... Start Date: 09/07/21 Status: Ordered lamiVUDine 300 mg oral tablet 1 tablet = 300 mg, By Mouth, Daily, # 30 tablet, 11 Refills, Maintenance, 10/17/21 10:39:00 EST, Tablet, [facility], 165, cm, 10/17/21 9:33:00 EST, Height, 89.27, kg, 08/16/20 10:16:00 EDT, Dry Weight Start Date: 10/17/21 Status: Ordered loratadine 10 mg oral tablet 10 mg, 1, tablet, By Mouth, Daily, # 30 tablet, Refills 0, Tot. Refills 0, Maintenance, 11/19/19 16:44:00 EST, Route to Pharmacy Electronically, [facility], 165, cm, 11/19/19 16:13:00 EST, Height, 90.9, kg, 10/14/19 13:27:00 EST, D... Start Date: 11/19/19 Status: Ordered LORazepam 1 mg oral tablet 1 tablet = 1 mg, By Mouth, 2 times a day, PRN as needed for anxiety, # 15 tablet, 1 Refills, Maintenance, 09/06/21 14:38:00 EDT, Tablet, [facility], 165, cm, 07/24/21 15:17:00 EDT, Height, 89.27, kg, 08/16/20 10:16:00 EDT, Dry Weight Start Date: 09/06/21 Status: Ordered Nebulizer/Compressor See Instructions, # 1 each, Maintenance, use as needed for wheezing, 01/14/20 9:13:00 EST, Compound Start Date: 01/14/20 Status: Ordered ProAir HFA 90 mcg/inh inhalation aerosol with adapter 2, inhalation, Inhalation, Every 4 hours, PRN, # 8.5 Gm, Refills 5, Route to Pharmacy Electronically, [id number], [facility], 165, cm, 07/24/21 15:17:00 EDT, Height, 89.27, kg, 08/16/20 10:16:00 EDT, Dry Weight Start Date: 09/05/21 Status: Ordered raltegravir 600 mg oral tablet 2 tablet = 1,200 mg, By Mouth, Daily, # 60 tablet, 11 Refills, Maintenance, 10/17/21 10:39:00 EST, Tablet, [facility], 165, cm, 10/17/21 9:33:00 EST, Height, 89.27, kg, 08/16/20 10:16:00 EDT, Dry Weight Start Date: 10/17/21 Status: Ordered terbinafine 1% topical cream 1 application, Topically, 2 times a day, to rash, # 30 Gm, 3 Refills, Maintenance, 07/10/21 16:56:00 EDT, Cream, [facility], 1 application Topically 2 times a day,Instr:to rash, 165, cm, 07/10/21 16:34:00 EDT, Height, 89.27, kg, 09... Start Date: 07/10/21 Status: Ordered tiZANidine 2 mg oral tablet 1-2 tablet, By Mouth, Every 8 hours, PRN, # 50 tablet, Refills 1, Tot. Refills 1, Maintenance, as needed for muscle spasm, 03/31/20 9:40:00 EDT, Route to Pharmacy Electronically, [facility], 165, cm, 02/02/20 11:43:00 EST, Height,... Start Date: 03/31/20 Status: Ordered triamcinolone 0.025% topical cream 1 applicator, Topically, 3 times a day, emollient hydrophilic cream for allergy/inflammation. Use no more than 3 wks w/o break of 1 wk, # 120 Gm, 0 Refills, Maintenance, 10/17/21 10:41:00 EST, [facility], 1 applicator Topically 3... Start Date: 10/17/21 Status: Ordered Viread 300 mg oral tablet 1 tablet = 300 mg, By Mouth, Daily, # 30 tablet, 11 Refills, Maintenance, 10/17/21 10:39:00 EST, Tablet, [facility], 165, cm, 10/17/21 9:33:00 EST, Height, 89.27, [...] I(Confirmed) Active Obesity(Confirmed) Active Visit for routine digital publishing specialist exam(Confirmed) Active Screening for diabetes mellitus(Confirmed) Active Prurigo nodularis per biopsy(Confirmed) 10/2014 Active Tinea cruris(Confirmed) Active 1Biopsy 99 grade 4/4, stage 4/4, genotype 1a, 3,450,000 IU/ml 06/05 Social History Social History Type Response Smoking Status Never (less than 100 in lifetime) entered on: 07/24/21 Sex
--- OUTSIDE RECORDS SUMMARY | 2023-05-07 00:40 | XMS_ITS | Continuity of Care Document ---
Author Name Unknown Organization [facility] Address [address] [place] [address]- Care Team Providers Care Streetcar Repairer Helper Name Role Phone Elie Foster MD Primary Care Physician [place] [facility] [place]22 [facility] [address] [place] [address]- Attending Physician: Luiz Huerta DO Referring Physician: Elie Foster MD Allergies, Adverse [...] Date Status Refusal Reason zoster vaccine, inactivated 08/27/22 Recorded influenza virus vaccine, inactivated 10/17/21 Give n [...] FOR FEVER, # 100 tablet, 1 Refills, [facility], 165, cm, 03/26/22 13:56:00 EDT, Height, 89.27, kg, 08/16/20 10:16:00 EDT, Dry Weight Start Date: 07/21/22 Status: Ordered albuterol CFC free 90 mcg/inh inhalation aerosol 2, puffs, Inhalation, Every 4 hours, PRN, # 18 Gm, Refills 1, Tot. Refills 1, Maintenance, 08/23/2210:21:00 EDT, Aerosol, Route to Pharmacy Electronically, [id number], [facility], insurance formulary now... Start Date: 08/23/22 Status: Ordered amitriptyline 25 mg oral tablet 1, tablet, By Mouth, Daily at bedtime, # 30 tablet, Refills 2, Tot. Refills 2, Maintenance, 08/26/22 11:00:00 EDT, Route to Pharmacy Electronically, [facility], 165, cm, 08/15/22 13:22:00 EDT, Height Start Date: 08/26/22 Status: Ordered amLODIPine 5 mg oral tablet 1 tablet, By Mouth, Daily, # 30 tablet, 11 Refills, Maintenance, 01/24/22 22:33:00 EST, [facility], 165, cm, 01/17/22 15:36:00 EST, Height, 89.27, kg, 08/16/20 10:16:00 EDT, Dry Weight Start Date: 01/24/22 Status: Ordered diclofenac 1% topical gel = 2 Gm, Topically, 4 times a day, PRN for pain, not to exceed: - 8 gm/day/joint of upper limb, # 100 Gm, 1 Refills, Maintenance, 03/31/20 9:43:00 EDT, Gel, [facility], 165, cm, 02/02/20 11:43:00 EST, Height, 89.09, kg, 01/24/20 1... Start Date: 03/31/20 Status: Ordered doxycycline hyclate 100 mg oral capsule 1 capsule = 100 mg, By Mouth, Daily, # 14 capsule, 0 Refills, Maintenance, 03/20/22 21:07:00 EDT, Capsule Start Date: 03/20/22 Stop Date: 04/03/22 Status: Ordered fluticasone 50 mcg/inh nasal spray See Instructions, USE 1 SPRAY IN EACH NOSTRIL 2 TIMES A DAY., # 16 Gm, 5 Refills, [facility], 30, USE 1 SPRAY IN [...] Daily, # 30 capsule, 11 Refills, Maintenance, 01/24/22 22:33:00 EST,Capsule, [facility], 165, cm, 01/17/22 15:36:00 EST, Height, 89.27, kg, 08/16/20 10:16:00 EDT, Dry Weight Start Date: 01/24/22 Status: Ordered hydrOXYzine hydrochloride 10 mg oral tablet 1-2 tablet, By Mouth, 3 times a day, PRN Itch, 1-2 tablets 3 times a day as needed for itching, # 100 tablet, 1 Refills, Maintenance, 09/07/21 13:50:00 EDT, [facility], 165, cm, 07/24/21 15:17:00 EDT, Height, 89.27, kg, 08/16/20 10... Start Date: 09/07/21 Status: Ordered lamiVUDine 300 mg oral tablet 1 tablet = 300 mg, By Mouth, Daily, # 30 tablet, 11 Refills, Maintenance, 10/17/21 10:39:00 EST, Tablet, [facility], 165, cm, 10/17/21 9:33:00 EST, Height, 89.27, kg, 08/16/20 10:16:00 EDT, Dry Weight Start Date: 10/17/21 Status: Ordered loratadine 10 mg oral tablet 10 mg, 1, tablet, By Mouth, Daily, # 30 tablet, Refills 0, Tot. Refills 0, Maintenance, 11/19/19 16:44:00 EST, Route to Pharmacy Electronically, [facility], 165, cm, 11/19/19 16:13:00 EST, Height, 90.9, kg, 10/14/19 13:27:00 EST, D... Start Date: 11/19/19 Status: Ordered LORazepam 1 mg oral tablet 1 tablet = 1 mg, By Mouth, 2 times a day, PRN as needed for anxiety, # 15 tablet, 1 Refills, Maintenance, 09/06/21 14:38:00 EDT, Tablet, [facility], 165, cm, 07/24/21 15:17:00 EDT, Height, 89.27, kg, 08/16/20 10:16:00 EDT, Dry Weight Start Date: 09/06/21 Status: Ordered Nebulizer/Compressor See Instructions, # 1 each, Maintenance, use as needed for wheezing, 01/14/20 9:13:00 EST, Compound Start Date: 01/14/20 Status: Ordered NuLYTELY with Flavor Packs oral powder for reconstitution See Instructions, per GI office, # 4,000 mL, 0 Refills, Maintenance, 04/30/22 10:07:00 EDT, [facility], Partial fill upon patient request if the prescription is for a schedule II opioid drug., per GI office, 165, cm, 03/26/22 13:56... Start Date: 04/30/22 Status: Ordered raltegravir 600 mg oral tablet 2 tablet = 1,200 mg, By Mouth, Daily, # 60 tablet, 11 Refills, Maintenance, 10/17/21 10:39:00 EST, Tablet, [facility], 165, cm, 10/17/21 9:33:00 EST, Height, 89.27, kg, 08/16/20 10:16:00 EDT, Dry Weight Start Date: 10/17/21 Status: Ordered Shingrix intramuscular injection 0.5 mL, Intramuscular, Once, repeat dose in 2 to 6 months, # 0.5 mL, 1 Refills, Soft Stop, 08/15/2219:15:00 EDT, [facility], please administer, 0.5 mL Intramuscular Once,Instr:repeat dose in 2 to 6 months, 165, cm, 08/15/22 13:22:... Start Date: 08/15/22 Status: Ordered terbinafine 1% topical cream 1 application, Topically, 2 times a day, to rash, # 30 Gm, 3 Refills, Maintenance, 08/15/22 19:43:00 EDT, Cream, [facility], 1 application Topically 2 times a day,Instr:to rash, 165, cm, 08/15/22 13:22:00 EDT, Height, 89.27, kg, 09... Start Date: 08/15/22 Status: Ordered tiZANidine 2 mg oral tablet 1-2 tablet, By Mouth, Every 8 hours, PRN, # 50 tablet, Refills 0, Tot. Refills 0, Maintenance, as needed for muscle spasm, 03/17/22 20:26:00 EDT, Route to Pharmacy Electronically, [facility], 165, cm, 02/05/22 9:19:00 EST, Height,... Start Date: 03/17/22 Status: Ordered triamcinolone 0.025% topical cream 1 applicator, Topically, 3 times a day, emollient hydrophilic cream for allergy/inflammation. Use no more than 3 wks w/o break of 1 wk, # 120 Gm, 0 Refills, Maintenance, 10/17/21 10:41:00 EST, [facility], 1 applicator Topically 3... 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 Obese class I Confirmed Active Obesity Confirmed Active Visit for routine obgyn hospitalist physician exam Confirmed Active Screening for diabetes mellitus Confirmed Active Prurigo nodularis per biopsy Confirmed 10/2014 Active Tinea cruris Confirmed Active 1Biopsy 99 grade 4/4, stage 4/4, genotype 1a, 3,450,000 IU/ml 06/05 Vital Signs Most recent to oldest [Reference Range]: 1 Height 165.00 cm (09/21/22 10:30 AM) Oxygen Saturation [94-100 %] 100 % (09/21/22 10:30 AM) Pulse Rate [55-90 bpm] 80 bpm (09/21/22 10:30 AM) Blood Pressure [90-138/55-84 mm Hg] 179/ 99mm Hg *H* (09/21/22 10:30 AM) Respiratory Rate [16-30 br/min] 17 br/mi n (09/21/22 10:30 AM) Temperature [96.8-100.4 DegF] 96.8 DegF (09/21/22 10:30 AM) Mode of Delivery (Oxygen) Room air (09/21/22 10:30 AM) Blood pressure sites Leg, right (09/21/22 10:30 AM) Social History Social History Type Response Smoking Status Never (less than 100 in lifetime) entered on: 07/24/21 Sex Patient Care team information Personnel Name: Cristian GARZA, Elie Ching Address: Address: [address] [place] [address]
--- OUTSIDE RECORDS SUMMARY | 2023-05-07 00:40 | XMS_ITS | Continuity of Care Document ---
Author Name Unknown Organization [facility] Address [address] [place] [address]- Care Team Providers Care Department Store General Manager Name Role Phone Elie Foster MD Primary Care Physician [place] [facility] [place] [id number] Date(s): 07/01/22 - 07/31/22 [facility]/[address] [address]- Attending Physician: Lilly Bejarano Allergies, Adverse Reactions, Alerts Substance Reaction Severity [...] FOR FEVER, # 100 tablet, 1 Refills, [facility], 165, cm, 03/26/22 13:56:00 EDT, Height, 89.27, kg, 08/16/20 10:16:00 EDT, Dry Weight Start Date: 07/21/22 Status: Ordered amitriptyline 25 mg oral tablet 1, tablet, By Mouth, Daily at bedtime, # 30 tablet, Refills 5, Route to Pharmacy Electronically, [facility], 165, cm, 01/17/22 15:36:00 EST, Height, 89.27, kg, 08/16/20 10:16:00 EDT, Dry Weight Start Date: 01/23/22 Status: Ordered amLODIPine 5 mg oral tablet 1 tablet, By Mouth, Daily, # 30 tablet, 11 Refills, Maintenance, 01/24/22 22:33:00 EST, [facility], 165, cm, 01/17/22 15:36:00 EST, Height, 89.27, kg, 08/16/20 10:16:00 EDT, Dry Weight Start Date: 01/24/22 Status: Ordered diclofenac 1% topical gel = 2 Gm, Topically, 4 times a day, PRN for pain, not to exceed: - 8 gm/day/joint of upper limb, # 100 Gm, 1 Refills, Maintenance, 03/31/20 9:43:00 EDT, Gel, [facility], 165, cm, 02/02/20 11:43:00 EST, Height, [...] A DAY., # 16 Gm, 5 Refills, [facility], 30, USE 1 SPRAY IN EACH [...] capsule, 11 Refills, Maintenance, 01/24/22 22:33:00 EST,Capsule, [facility], 165, cm, 01/17/22 15:36:00 EST, Height, 89.27, kg, 08/16/20 10:16:00 EDT, Dry Weight Start Date: 01/24/22 Status: Ordered hydrOXYzine hydrochloride 10 mg oral tablet 1-2 tablet, By Mouth, 3 times a day, PRN Itch, 1-2 tablets 3 times a day as needed for itching, # 100 tablet, 1 Refills, Maintenance, 09/07/21 13:50:00 EDT, [facility], 165, cm, 07/24/21 15:17:00 EDT, Height, 89.27, kg, 08/16/20 10... Start Date: 09/07/21 Status: Ordered lamiVUDine 300 mg oral tablet 1 tablet = 300 mg, By Mouth, Daily, # 30 tablet, 11 Refills, Maintenance, 10/17/21 10:39:00 EST, Tablet, [facility], 165, cm, 10/17/21 9:33:00 EST, Height, 89.27, kg, 08/16/20 10:16:00 EDT, Dry Weight Start Date: 10/17/21 Status: Ordered loratadine 10 mg oral tablet 10 mg, 1, tablet, By Mouth, Daily, # 30 tablet, Refills 0, Tot. Refills 0, Maintenance, 11/19/19 16:44:00 EST, Route to Pharmacy Electronically, [facility], 165, cm, 11/19/19 16:13:00 EST, Height, 90.9, kg, 10/14/19 13:27:00 EST, D... Start Date: 11/19/19 Status: Ordered LORazepam 1 mg oral tablet 1 tablet = 1 mg, By Mouth, 2 times a day, PRN as needed for anxiety, # 15 tablet, 1 Refills, Maintenance, 09/06/21 14:38:00 EDT, Tablet, [facility], 165, cm, 07/24/21 15:17:00 EDT, Height, 89.27, kg, 08/16/20 10:16:00 EDT, Dry Weight Start Date: 09/06/21 Status: Ordered Nebulizer/Compressor See Instructions, # 1 each, Maintenance, use as needed for wheezing, 01/14/20 9:13:00 EST, Compound Start Date: 01/14/20 Status: Ordered NuLYTELY with Flavor Packs oral powder for reconstitution See Instructions, per GI office, # 4,000 mL, 0 Refills, Maintenance, 04/30/22 10:07:00 EDT, [facility], Partial fill upon patient request if the prescription is for a schedule II opioid drug., per GI office, 165, cm, 03/26/22 13:56... Start Date: 04/30/22 Status: Ordered ProAir HFA 90 mcg/inh inhalation aerosol with adapter 2, inhalation, Inhalation, Every 4 hours, PRN, # 8.5 Gm, Refills 5, Route to Pharmacy Electronically, [id number], [facility], 165, cm, 02/05/22 9:19:00 EST, Height, 89.27, kg, 08/16/20 10:16:00 EDT, Dry Weight Start Date: 03/15/22 Status: Ordered raltegravir 600 mg oral tablet 2 tablet = 1,200 mg, By Mouth, Daily, # 60 tablet, 11 Refills, Maintenance, 10/17/21 10:39:00 EST, Tablet, [facility], 165, cm, 10/17/21 9:33:00 EST, Height, 89.27, kg, 08/16/20 10:16:00 EDT, Dry Weight Start Date: 10/17/21 Status: Ordered terbinafine 1% topical cream 1 application, Topically, 2 times a day, to rash, # 30 Gm, 3 Refills, Maintenance, 07/10/21 16:56:00 EDT, Cream, [facility], 1 application Topically 2 times a day,Instr:to rash, 165, cm, 07/10/21 16:34:00 EDT, Height, 89.27, kg, 09... Start Date: 07/10/21 Status: Ordered tiZANidine 2 mg oral tablet 1-2 tablet, By Mouth, Every 8 hours, PRN, # 50 tablet, Refills 0, Tot. Refills 0, Maintenance, as needed for muscle spasm, 03/17/22 20:26:00 EDT, Route to Pharmacy Electronically, [facility], 165, cm, 02/05/22 9:19:00 EST, Height,... Start Date: 03/17/22 Status: Ordered triamcinolone 0.025% topical cream 1 applicator, Topically, 3 times a day, emollient hydrophilic cream for allergy/inflammation. Use no more than 3 wks w/o break of 1 wk, # 120 Gm, 0 Refills, Maintenance, 10/17/21 10:41:00 EST, [facility], 1 applicator Topically 3... Start Date: 10/17/21 Status: Ordered Viread 300 mg oral tablet 1 tablet = 300 mg, By Mouth, Daily, # 30 tablet, 11 Refills, Maintenance, 10/17/21 10:39:00 EST, Tablet, [facility], 165, cm, 10/17/21 9:33:00 EST, Height, [...] I(Confirmed) Active Obesity(Confirmed) Active Visit for routine clinical operations specialist exam(Confirmed) Active Screening for diabetes mellitus(Confirmed) Active Prurigo nodularis per biopsy(Confirmed) 10/2014 Active Tinea cruris(Confirmed) Active 1Biopsy 99 grade 4/4, stage 4/4, genotype 1a, 3,450,000 IU/ml 06/05 Social History Social History Type Response Smoking Status Never (less than 100 in lifetime) entered on: 07/24/21 Sex Care Team Personnel Name: Elie Foster MD Address: [address] [place] [address]
--- OUTSIDE RECORDS SUMMARY | 2023-05-07 00:40 | XMS_ITS | Continuity of Care Document ---
Author Name Unknown Organization [facility] Address [address] [place] [address]- Care Team Providers Care Stores Despatch Hand Name Role Phone Elie Foster MD Primary Care Physician Encounter [facility] Date(s): 01/13/20 - 01/23/20 [facility] [address] [place] [address]- [facility] Attending Physician: Lilly Bejarano Admitting Physician: Lilly Bejarano Referring Physician: AdmtrLilly Allergies, Adverse Reactions, Alerts Substance Reaction Severity [...] 2 Refills, Maintenance, 01/14/20 9:19:00 EST, Solution, [facility], 165, cm, 01/13/20 17:46:00 EST, Height, 88.6, kg, 01/13/20 16:56:00 EST... Start Date: 01/14/20 Status: Ordered amLODIPine 10 mg oral tablet 10 mg, 1, tablet, By Mouth, Daily, # 30 tablet, Refills 11, Tot. Refills 11, Maintenance, 10/27/19 20:07:15 EST, Route to Pharmacy Electronically, [id number], [facility] Start Date: 10/27/19 Status: Ordered benzoyl peroxide [...] Gm, 0 Refills, Maintenance, 01/14/20 9:04:00 EST, [place],[facility], 1 sprays Nares, Both 2 times [...] 11/19/19 16:44:00 EST, Route to Pharmacy Electronically, [facility], 165, cm, 11/19/19 16:13:00 EST, Height, 90.9, kg, 10/14/19 13:27:00 EST, D... Start Date: 11/19/19 Status: Ordered LORazepam 1 mg oral tablet 1 tablet = 1 mg, By Mouth, 2 times a day, PRN as needed for anxiety, # 15 tablet, 1 Refills, Maintenance, 03/10/19 12:11:46 EDT, Tablet Start Date: 03/10/19 Status: Ordered Nebulizer/Compressor See Instructions, # 1 [...] 9:05:00 EST, Aerosol, Route to Pharmacy Electronically, [id number], [facility], 165, cm, 01/13/20 17:46:... Start Date: 01/14/20 Status: Ordered ProAir HFA 90 mcg/inh inhalation aerosol with adapter 2, puffs, Inhalation, Every 6 hours, PRN, # 8.5 Gm, Refills 0, Tot. Refills 0, Maintenance, 11/10/17 18:44:13, Aerosol, Route to Pharmacy Electronically, [id number], [facility] Start Date: 11/10/17 Status: Ordered raltegravir [...] 03/30/19 17:41:45 EDT, Route to Pharmacy Electronically, [id number], [facility] [id number] Start Date: 03/30/19 Status: Ordered triamcinolone 0.025% [...] 2009 Active Obesity(Confirmed) Active Visit for routine chair maker exam(Confirmed) Active Prurigo nodularis per biopsy(Confirmed) 10/2014 Active Tinea cruris(Confirmed) Active 1Biopsy 99 grade 4/4, stage 4/4, genotype 1a, 3,450,000 IU/ml 06/05 Social History Social History Type Response Smoking Status Never (less than 100 in lifetime) entered on: 02/19/19 Sex
--- OUTSIDE RECORDS SUMMARY | 2023-05-07 00:40 | XMS_ITS | Continuity of Care Document ---
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 Compazine Tongue Swelling Moderate Active Contrast Dye 1 Pruritic rash Proposed emtricitabine Rash Proposed Bactrim Active [address] w/ IV and oral contrast developed fine papular pruritic rash Immunizations Given and Recorded Vaccine Date Status Refusal Reason SARS-CoV-2 (COVID-19) mRNA BNT-162b2 vac 04/05/21 Given SARS-CoV-2 (COVID-19) mRNA BNT-162b2 vac 03/15/21 Given influenza virus vaccine, inactivated 09/21/20 Give n [...] influenza virus vaccine, inactivated 2 09/16/12 Gi chnya influenza virus vaccine, inactivated 10/03/10 Give n [...] 5Admin Note: ADMIN.BY MICHELLE 6Admin Note: ADMIN.BY RN 7Admin Note: ADMIN.BY [...] 5 Refills, Maintenance, 01/02/21 10:02:00 EST, Tablet, [facility], 165, cm, 11/15/20 11:50:00 EST, Height, 89.27, kg, 08/16/20 10:16:00 EDT, Dry Weight Start Date: 01/02/21 Status: Ordered albuterol 0.083% inhalation solution 3 mL = 2.5 mg, Neb, Every 6 hours, PRN as needed for wheezing, use with nebulizer, # 90 mL, 2 Refills, Maintenance, 02/22/20 16:13:00 EDT, Solution, [facility], 165, cm, 02/02/20 11:43:00 EST, Height, 89.09, kg, 01/24/20 16:19:00 E... Start Date: 02/22/20 Status: Ordered amitriptyline 25 mg oral tablet 25 mg, 1, tablet, By Mouth, Daily at bedtime, # 30 tablet, Refills 11, Tot. Refills 11, Maintenance, 01/09/21 15:37:00 EST, Route to Pharmacy Electronically, [facility], Partial fill upon patient request if the prescription is for... Start Date: 01/09/21 Status: Ordered amLODIPine 5 mg oral tablet 5 mg, 1, tablet, By Mouth, Daily, dose decrease 05/17/20, # 30 tablet, Refills 11, Tot. Refills 11, Maintenance, 05/17/20 18:31:00 EDT, Route to Pharmacy Electronically, [facility], 165, cm, 02/02/20 11:43:00 EST, Height, 89.09, kg,... Start Date: 05/17/20 Status: Ordered diclofenac 1% topical gel = 2 Gm, Topically, 4 times a day, PRN for pain, not to exceed: - 8 gm/day/joint of upper limb, # 100 Gm, 1 Refills, Maintenance, 03/31/20 9:43:00 EDT, Gel, [facility], 165, cm, 02/02/20 11:43:00 EST, Height, 89.09, kg, 01/24/20 1... Start Date: 03/31/20 Status: Ordered Flonase 50 mcg/inh nasal spray 1 sprays, Nares, Both, 2 times a day, # 16 Gm, 5 Refills, Maintenance, 11/30/20 16:38:00 EST, [place], [facility], 1 sprays Nares, Both 2 times [...] capsule, 11 Refills, Maintenance, 05/17/20 18:22:00 EDT,Capsule, [facility], 165, cm, 02/02/20 11:43:00 EST, Height, 89.09, kg, 01/24/20 16:19:00 EST, Dry Weight Start Date: 05/17/20 Status: Ordered hydrOXYzine hydrochloride 10 mg oral tablet 1-2 tablet, By Mouth, 3 times a day, PRN Itch, 1-2 tablets 3 times a day as needed for itching, # 100 tablet, 1 Refills, Maintenance, 04/05/21 23:32:00 EDT, [facility], 165, cm, 04/05/21 14:30:00 EDT, Height, 89.27, kg, 08/16/20 10... Start Date: 04/05/21 Status: Ordered lamiVUDine 300 mg oral tablet 1 tablet = 300 mg, By Mouth, Daily, # 30 tablet, 11 Refills, Maintenance, 10/30/20 14:19:00 EST, Tablet, [facility], 165, cm, 09/21/20 15:55:00 EDT, Height, 89.27, kg, 08/16/20 10:16:00 EDT, Dry Weight Start Date: 10/30/20 Status: Ordered loratadine 10 mg oral tablet 10 mg, 1, tablet, By Mouth, Daily, # 30 tablet, Refills 0, Tot. Refills 0, Maintenance, 11/19/19 16:44:00 EST, Route to Pharmacy Electronically, [facility], 165, cm, 11/19/19 16:13:00 EST, Height, 90.9, kg, 10/14/19 13:27:00 EST, D... Start Date: 11/19/19 Status: Ordered LORazepam 1 mg oral tablet 1 tablet = 1 mg, By Mouth, 2 times a day, PRN as needed for anxiety, # 15 tablet, 1 Refills, Maintenance, 11/01/20 10:56:00 EST, Tablet, [facility], 165, cm, 11/01/20 8:58:00 EST,Height, 89.27, kg, [...] Dry Weight Start Date: 11/11/19 Status: Ordered PEG-3350 with Electrolytes (Eqv-NuLYTELY) oral powder for reconstitution See Instructions, as directed, # 1 each, 0 Refills, Maintenance, 04/26/21 10:11:00 EDT, [facility], ok to sub for any gallon prep, as directed, 165, cm, 04/26/21 9:37:00 EDT, Height, 89.27, kg, 08/16/20 10:16:00 EDT, Dry Weight Start Date: 04/26/21 Status: Ordered ProAir HFA 90 mcg/inh inhalation aerosol with adapter 2, puffs, Inhalation, Every 4 hours, PRN, # 8.5 Gm, Refills 5, Tot. Refills 5, Maintenance, 11/30/20 16:38:00 EST, Aerosol, Route to Pharmacy Electronically, [id number], [facility], 165, cm, 11/15/20 11:50... Start Date: 11/30/20 Status: Ordered ProAir HFA 90 mcg/inh inhalation aerosol with adapter 2, puffs, Inhalation, Every 6 hours, PRN, # 8.5 Gm, Refills 0, Tot. Refills 0, Maintenance, 11/10/17 18:44:13, Aerosol, Route to Pharmacy Electronically, [id number], [facility] Start Date: 11/10/17 Status: Ordered raltegravir 600 mg oral tablet 2 tablet = 1,200 mg, By Mouth, Daily, # 60 tablet, 11 Refills, Maintenance, 10/30/20 14:19:00 EST, Tablet, [facility], 165, cm, 09/21/20 15:55:00 EDT, Height, 89.27, kg, 08/16/20 10:16:00 EDT, Dry Weight Start Date: 10/30/20 Status: Ordered terbinafine 1% topical cream 1 application, Topically, 2 times a day, to rash, # 30 Gm, 3 Refills, Maintenance, 11/01/20 10:55:00 EST, Cream, [facility], 1 application Topically 2 times a day,Instr:to rash, 165, cm, 11/01/20 8:58:00 EST, Height, 89.27, kg, ... Start Date: 11/01/20 Status: Ordered tiZANidine 2 mg oral tablet 1-2 tablet, By Mouth, Every 8 hours, PRN, # 50 tablet, Refills 1, Tot. Refills 1, Maintenance, as needed for muscle spasm, 03/31/20 9:40:00 EDT, Route to Pharmacy Electronically, [facility], 165, cm, 02/02/20 11:43:00 EST, Height,... Start Date: 03/31/20 Status: Ordered triamcinolone 0.025% topical cream 1 applicator, Topically, 3 times a day, emollient hydrophilic cream for allergy/inflammation. Use no more than 3 wks w/o break of 1 wk, # 120 Gm, 0 Refills, Maintenance, 06/29/20 0:49:00 EDT, [facility], 1 applicator Topically 3 t... Start Date: 06/29/20 Status: Ordered Viread 300 mg oral tablet 1 tablet = 300 mg, By Mouth, Daily, # 30 tablet, 11 Refills, Maintenance, 10/30/20 14:19:00 EST, Tablet, [facility], 165, cm, 09/21/20 15:55:00 EDT, Height, 89.27, [...] 2009 Active Obesity(Confirmed) Active Visit for routine machine applicator cementer exam(Confirmed) Active Screening for diabetes mellitus(Confirmed) Active Prurigo nodularis per biopsy(Confirmed) 10/2014 Active Tinea cruris(Confirmed) Active 1Biopsy 99 grade 4/4, stage 4/4, genotype 1a, 3,450,000 IU/ml 06/05 Social History Social History Type Response Smoking Status Never (less than 100 in lifetime); Tobacco user in household: No;Never entered on: 08/16/20 Sex
--- OUTSIDE RECORDS SUMMARY | 2023-05-07 00:40 | XMS_ITS | Continuity of Care Document ---
Author Name Unknown Organization [facility] Address [address] [place] [id number]- Care Team Providers Care Operations Consultant Name Role Phone Elie Foster MD Primary Care Physician [phone] [place] [facility] [place] 04/30/22 - 05/30/22 [facility] [address] [place] [id number]- [place] Allergies, Adverse Reactions, Alerts Substance Reaction [...] PRN NEEDED FOR FEVER, # 100 tablet, 2 Refills, [facility], 165, cm, 02/05/22 9:19:00 EST, Height, 89.27, kg, 08/16/20 10:16:00 EDT, Dry Weight Start Date: 03/15/22 Status: Ordered amitriptyline 25 mg oral tablet 1, tablet, By Mouth, Daily at bedtime, # 30 tablet, Refills 5, Route to Pharmacy Electronically, [facility], 165, cm, 01/17/22 15:36:00 EST, Height, 89.27, kg, 08/16/20 10:16:00 EDT, Dry Weight Start Date: 01/23/22 Status: Ordered amLODIPine 5 mg oral tablet 1 tablet, By Mouth, Daily, # 30 tablet, 11 Refills, Maintenance, 01/24/22 22:33:00 EST, [facility], 165, cm, 01/17/22 15:36:00 EST, Height, 89.27, kg, 08/16/20 10:16:00 EDT, Dry Weight Start Date: 01/24/22 Status: Ordered diclofenac 1% topical gel = 2 Gm, Topically, 4 times a day, PRN for pain, not to exceed: - 8 gm/day/joint of upper limb, # 100 Gm, 1 Refills, Maintenance, 03/31/20 9:43:00 EDT, Gel, [facility], 165, cm, 02/02/20 11:43:00 EST, Height, [...] A DAY., # 16 Gm, 5 Refills, [facility], 30, USE 1 SPRAY IN EACH NOSTRIL [...] capsule, 11 Refills, Maintenance, 01/24/22 22:33:00 EST,Capsule, [facility], 165, cm, 01/17/22 15:36:00 EST, Height, 89.27, kg, 08/16/20 10:16:00 EDT, Dry Weight Start Date: 01/24/22 Status: Ordered hydrOXYzine hydrochloride 10 mg oral tablet 1-2 tablet, By Mouth, 3 times a day, PRN Itch, 1-2 tablets 3 times a day as needed for itching, # 100 tablet, 1 Refills, Maintenance, 09/07/21 13:50:00 EDT, [facility], 165, cm, 07/24/21 15:17:00 EDT, Height, 89.27, kg, 08/16/20 10... Start Date: 09/07/21 Status: Ordered lamiVUDine 300 mg oral tablet 1 tablet = 300 mg, By Mouth, Daily, # 30 tablet, 11 Refills, Maintenance, 10/17/21 10:39:00 EST, Tablet, [facility], 165, cm, 10/17/21 9:33:00 EST, Height, 89.27, kg, 08/16/20 10:16:00 EDT, Dry Weight Start Date: 10/17/21 Status: Ordered loratadine 10 mg oral tablet 10 mg, 1, tablet, By Mouth, Daily, # 30 tablet, Refills 0, Tot. Refills 0, Maintenance, 11/19/19 16:44:00 EST, Route to Pharmacy Electronically, [facility], 165, cm, 11/19/19 16:13:00 EST, Height, 90.9, kg, 10/14/19 13:27:00 EST, D... Start Date: 11/19/19 Status: Ordered LORazepam 1 mg oral tablet 1 tablet = 1 mg, By Mouth, 2 times a day, PRN as needed for anxiety, # 15 tablet, 1 Refills, Maintenance, 09/06/21 14:38:00 EDT, Tablet, [facility], 165, cm, 07/24/21 15:17:00 EDT, Height, 89.27, kg, 08/16/20 10:16:00 EDT, Dry Weight Start Date: 09/06/21 Status: Ordered Nebulizer/Compressor See Instructions, # 1 each, Maintenance, use as needed for wheezing, 01/14/20 9:13:00 EST, Compound Start Date: 01/14/20 Status: Ordered NuLYTELY with Flavor Packs oral powder for reconstitution See Instructions, per GI office, # 4,000 mL, 0 Refills, Maintenance, 04/30/22 10:07:00 EDT, [facility], Partial fill upon patient request if the prescription is for a schedule II opioid drug., per GI office, 165, cm, 03/26/22 13:56... Start Date: 04/30/22 Status: Ordered ProAir HFA 90 mcg/inh inhalation aerosol with adapter 2, inhalation, Inhalation, Every 4 hours, PRN, # 8.5 Gm, Refills 5, Route to Pharmacy Electronically, [id number], [facility], 165, cm, 02/05/22 9:19:00 EST, Height, 89.27, kg, 08/16/20 10:16:00 EDT, Dry Weight Start Date: 4/15/22 Status: Ordered raltegravir 600 mg oral tablet 2 tablet = 1,200 mg, By Mouth, Daily, # 60 tablet, 11 Refills, Maintenance, 10/17/21 10:39:00 EST, Tablet, [facility], 165, cm, 10/17/21 9:33:00 EST, Height, 89.27, kg, 08/16/20 10:16:00 EDT, Dry Weight Start Date: 10/17/21 Status: Ordered terbinafine 1% topical cream 1 application, Topically, 2 times a day, to rash, # 30 Gm, 3 Refills, Maintenance, 07/10/21 16:56:00 EDT, Cream, [facility], 1 application Topically 2 times a day,Instr:to rash, 165, cm, 07/10/21 16:34:00 EDT, Height, 89.27, kg, 09... Start Date: 07/10/21 Status: Ordered tiZANidine 2 mg oral tablet 1-2 tablet, By Mouth, Every 8 hours, PRN, # 50 tablet, Refills 0, Tot. Refills 0, Maintenance, as needed for muscle spasm, 03/17/22 20:26:00 EDT, Route to Pharmacy Electronically, [facility], 165, cm, 02/05/22 9:19:00 EST, Height,... Start Date: 03/17/22 Status: Ordered triamcinolone 0.025% topical cream 1 applicator, Topically, 3 times a day, emollient hydrophilic cream for allergy/inflammation. Use no more than 3 wks w/o break of 1 wk, # 120 Gm, 0 Refills, Maintenance, 10/17/21 10:41:00 EST, [facility], 1 applicator Topically 3... 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
--- OUTSIDE RECORDS SUMMARY | 2023-05-07 00:40 | XMS_ITS | Continuity of Care Document ---
Author Name Unknown Organization [facility] Address [address] [place] [address]- Care Team Providers Care Digester Hand Name Role Phone Elie Foster MD Primary Care Physician Encounter [facility] Date(s): 01/01/21 - 01/31/21 [facility]/[address] [address]- Allergies, Adverse Reactions, Alerts Substance Reaction Severity [...] 5 Refills, Maintenance, 01/02/21 10:02:00 EST, Tablet, [facility], 165, cm, 11/15/20 11:50:00 EST, Height, 89.27, kg, 08/16/20 10:16:00 EDT, Dry Weight Start Date: 01/02/21 Status: Ordered albuterol 0.083% inhalation solution 3 mL = 2.5 mg, Neb, Every 6 hours, PRN as needed for wheezing, use with nebulizer, # 90 mL, 2 Refills, Maintenance, 02/22/20 16:13:00 EDT, Solution, [facility], 165, cm, 02/02/20 11:43:00 EST, Height, 89.09, kg, 01/24/20 16:19:00 E... Start Date: 02/22/20 Status: Ordered amitriptyline 25 mg oral tablet 25 mg, 1, tablet, By Mouth, Daily at bedtime, # 30 tablet, Refills 11, Tot. Refills 11, Maintenance, 01/09/21 15:37:00 EST, Route to Pharmacy Electronically, [facility], Partial fill upon patient request if the prescription is for... Start Date: 01/09/21 Status: Ordered amLODIPine 5 mg oral tablet 5 mg, 1, tablet, By Mouth, Daily, dose decrease 05/17/20, # 30 tablet, Refills 11, Tot. Refills 11, Maintenance, 05/17/20 18:31:00 EDT, Route to Pharmacy Electronically, [facility], 165, cm, 02/02/20 11:43:00 EST, Height, 89.09, kg,... Start Date: 05/17/20 Status: Ordered diclofenac 1% topical gel = 2 Gm, Topically, 4 times a day, PRN for pain, not to exceed: - 8 gm/day/joint of upper limb, # 100 Gm, 1 Refills, Maintenance, 03/31/20 9:43:00 EDT, Gel, [facility], 165, cm, 02/02/20 11:43:00 EST, Height, 89.09, kg, 01/24/20 1... Start Date: 03/31/20 Status: Ordered Flonase 50 mcg/inh nasal spray 1 sprays, Nares, Both, 2 times a day, # 16 Gm, 5 Refills, Maintenance, 11/30/20 16:38:00 EST, [place], [facility], 1 sprays Nares, Both 2 times [...] capsule, 11 Refills, Maintenance, 05/17/20 18:22:00 EDT,Capsule, [facility], 165, cm, 02/02/20 11:43:00 EST, Height, [...] 11 Refills, Maintenance, 10/30/20 14:19:00 EST, Tablet, [facility], 165, cm, 09/21/20 15:55:00 EDT, Height, 89.27, kg, 08/16/20 10:16:00 EDT, Dry Weight Start Date: 10/30/20 Status: Ordered loratadine 10 mg oral tablet 10 mg, 1, tablet, By Mouth, Daily, # 30 tablet, Refills 0, Tot. Refills 0, Maintenance, 11/19/19 16:44:00 EST, Route to Pharmacy Electronically, [facility], 165, cm, 11/19/19 16:13:00 EST, Height, 90.9, kg, 10/14/19 13:27:00 EST, D... Start Date: 11/19/19 Status: Ordered LORazepam 1 mg oral tablet 1 tablet = 1 mg, By Mouth, 2 times a day, PRN as needed for anxiety, # 15 tablet, 1 Refills, Maintenance, 11/01/20 10:56:00 EST, Tablet, [facility], 165, cm, 11/01/20 8:58:00 EST,Height, 89.27, [...] 16:38:00 EST, Aerosol, Route to Pharmacy Electronically, [id number], [facility], 165, cm, 11/15/20 11:50... Start Date: 11/30/20 Status: Ordered ProAir HFA 90 mcg/inh inhalation aerosol with adapter 2, puffs, Inhalation, Every 6 hours, PRN, # 8.5 Gm, Refills 0, Tot. Refills 0, Maintenance, 11/10/17 18:44:13, Aerosol, Route to Pharmacy Electronically, [id number], [facility] Start Date: 11/10/17 Status: Ordered raltegravir 600 mg oral tablet 2 tablet = 1,200 mg, By Mouth, Daily, # 60 tablet, 11 Refills, Maintenance, 10/30/20 14:19:00 EST, Tablet, [facility], 165, cm, 09/21/20 15:55:00 EDT, Height, 89.27, kg, 08/16/20 10:16:00 EDT, Dry Weight Start Date: 10/30/20 Status: Ordered terbinafine 1% topical cream 1 application, Topically, 2 times a day, to rash, # 30 Gm, 3 Refills, Maintenance, 11/01/20 10:55:00 EST, Cream, [facility], 1 application Topically 2 times a day,Instr:to rash, 165, cm, 11/01/20 8:58:00 EST, Height, 89.27, kg, ... Start Date: 11/01/20 Status: Ordered tiZANidine 2 mg oral tablet 1-2 tablet, By Mouth, Every 8 hours, PRN, # 50 tablet, Refills 1, Tot. Refills 1, Maintenance, as needed for muscle spasm, 03/31/20 9:40:00 EDT, Route to Pharmacy Electronically, [facility], 165, cm, 02/02/20 11:43:00 EST, Height,... Start Date: 03/31/20 Status: Ordered triamcinolone 0.025% topical cream 1 applicator, Topically, 3 times a day, emollient hydrophilic cream for allergy/inflammation. Use no more than 3 wks w/o break of 1 wk, # 120 Gm, 0 Refills, Maintenance, 06/29/20 0:49:00 EDT, [facility], 1 applicator Topically 3 t... 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
--- OUTSIDE RECORDS SUMMARY | 2023-05-07 00:40 | XMS_ITS | Continuity of Care Document ---
Author Name Unknown Organization [facility] Address Unknown Care Team Providers Care Assistant Scientist Name Role Phone Elie Foster MD Primary Care Physician Encounter [facility] [place] Date(s): 03/20/22 - 04/19/22 [facility] Allergies, Adverse Reactions, Alerts Substance [...] FOR FEVER, # 100 tablet, 2 Refills, [facility], 165, cm, 02/05/22 9:19:00 EST, Height, 89.27, kg, 08/16/20 10:16:00 EDT, Dry Weight Start Date: 03/15/22 Status: Ordered amitriptyline 25 mg oral tablet 1, tablet, By Mouth, Daily at bedtime, # 30 tablet, Refills 5, Route to Pharmacy Electronically, [facility], 165, cm, 01/17/22 15:36:00 EST, Height, 89.27, kg, 08/16/20 10:16:00 EDT, Dry Weight Start Date: 01/23/22 Status: Ordered amLODIPine 5 mg oral tablet 1 tablet, By Mouth, Daily, # 30 tablet, 11 Refills, Maintenance, 01/24/22 22:33:00 EST, [facility], 165, cm, 01/17/22 15:36:00 EST, Height, 89.27, kg, 08/16/20 10:16:00 EDT, Dry Weight Start Date: 01/24/22 Status: Ordered diclofenac 1% topical gel = 2 Gm, Topically, 4 times a day, PRN for pain, not to exceed: - 8 gm/day/joint of upper limb, # 100 Gm, 1 Refills, Maintenance, 03/31/20 9:43:00 EDT, Gel, [facility], 165, cm, 02/02/20 11:43:00 EST, [...] A DAY., # 16 Gm, 5 Refills, [facility], 30, USE 1 SPRAY IN EACH NOSTRIL [...] capsule, 11 Refills, Maintenance, 01/24/22 22:33:00 EST,Capsule, [facility], 165, cm, 01/17/22 15:36:00 EST, Height, 89.27, kg, 08/16/20 10:16:00 EDT, Dry Weight Start Date: 01/24/22 Status: Ordered hydrOXYzine hydrochloride 10 mg oral tablet 1-2 tablet, By Mouth, 3 times a day, PRN Itch, 1-2 tablets 3 times a day as needed for itching, # 100 tablet, 1 Refills, Maintenance, 09/07/21 13:50:00 EDT, [facility], 165, cm, 07/24/21 15:17:00 EDT, Height, 89.27, kg, 08/16/20 10... Start Date: 09/07/21 Status: Ordered lamiVUDine 300 mg oral tablet 1 tablet = 300 mg, By Mouth, Daily, # 30 tablet, 11 Refills, Maintenance, 10/17/21 10:39:00 EST, Tablet, [facility], 165, cm, 10/17/21 9:33:00 EST, Height, 89.27, kg, 08/16/20 10:16:00 EDT, Dry Weight Start Date: 10/17/21 Status: Ordered loratadine 10 mg oral tablet 10 mg, 1, tablet, By Mouth, Daily, # 30 tablet, Refills 0, Tot. Refills 0, Maintenance, 11/19/19 16:44:00 EST, Route to Pharmacy Electronically, [facility], 165, cm, 11/19/19 16:13:00 EST, Height, 90.9, kg, 10/14/19 13:27:00 EST, D... Start Date: 11/19/19 Status: Ordered LORazepam 1 mg oral tablet 1 tablet = 1 mg, By Mouth, 2 times a day, PRN as needed for anxiety, # 15 tablet, 1 Refills, Maintenance, 09/06/21 14:38:00 EDT, Tablet, [facility], 165, cm, 07/24/21 15:17:00 EDT, Height, 89.27, kg, 08/16/20 10:16:00 EDT, Dry Weight Start Date: 09/06/21 Status: Ordered Nebulizer/Compressor See Instructions, # 1 each, Maintenance, use as needed for wheezing, 01/14/20 9:13:00 EST, Compound Start Date: 01/14/20 Status: Ordered ProAir HFA 90 mcg/inh inhalation aerosol with adapter 2, inhalation, Inhalation, Every 4 hours, PRN, # 8.5 Gm, Refills 5, Route to Pharmacy Electronically, [id number], [facility], 165, cm, 02/05/22 9:19:00 EST, Height, 89.27, kg, 08/16/20 10:16:00 EDT, Dry Weight Start Date: 03/15/22 Status: Ordered raltegravir 600 mg oral tablet 2 tablet = 1,200 mg, By Mouth, Daily, # 60 tablet, 11 Refills, Maintenance, 10/17/21 10:39:00 EST, Tablet, [facility], 165, cm, 10/17/21 9:33:00 EST, Height, 89.27, kg, 08/16/20 10:16:00 EDT, Dry Weight Start Date: 10/17/21 Status: Ordered terbinafine 1% topical cream 1 application, Topically, 2 times a day, to rash, # 30 Gm, 3 Refills, Maintenance, 07/10/21 16:56:00 EDT, Cream, [facility], 1 application Topically 2 times a day,Instr:to rash, 165, cm, 07/10/21 16:34:00 EDT, Height, 89.27, kg, 09... Start Date: 07/10/21 Status: Ordered tiZANidine 2 mg oral tablet 1-2 tablet, By Mouth, Every 8 hours, PRN, # 50 tablet, Refills 0, Tot. Refills 0, Maintenance, as needed for muscle spasm, 03/17/22 20:26:00 EDT, Route to Pharmacy Electronically, [facility], 165, cm, 02/05/22 9:19:00 EST, Height,... Start Date: 03/17/22 Status: Ordered triamcinolone 0.025% topical cream 1 applicator, Topically, 3 times a day, emollient hydrophilic cream for allergy/inflammation. Use no more than 3 wks w/o break of 1 wk, # 120 Gm, 0 Refills, Maintenance, 10/17/21 10:41:00 EST, [facility], 1 applicator Topically 3... Start Date: 10/17/21 Status: Ordered Viread 300 mg oral tablet 1 tablet = 300 mg, By Mouth, Daily, # 30 tablet, 11 Refills, Maintenance, 10/17/21 10:39:00 EST, Tablet, 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
--- OUTSIDE RECORDS SUMMARY | 2023-05-07 00:40 | XMS_ITS | Continuity of Care Document ---
Author Name Unknown Organization [facility] Address [address] [place] [address]- Care Team Providers Care Regulatory Affairs Consultant Name Role Phone Elie Foster MD Primary Care Physician [phone] Encounter [facility] [place] Date(s): 12/18/21 - 01/17/22 [facility] [address] [place] [id number]- Attending Physician: Lilly Bejarano Admitting Physician: Lilly [...] 3Admin Note: ADMIN.BY RN 4Admin Note: ADMIN.BY MICHELLE 5Admin Note: ADMIN.BY MICHELLE 6Admin Note: ADMIN.BY RN 7Admin Note: ADMIN.BY MICHELLE 8Result Comment: [09/22/2013] Ordered by Cristian 9Admin Note: vis 09/05/09 10Admin Note: vis 06/25/11 11Admin Note: H1N1 [employer]i [employer]ur 12Admin Note: [employer]ur 13Admin Note: [employer]ur 14Admin Note: second, prior 15Admin Note: Admin. by MICHELLE 16Admin Note: Admin. by RN 17Admin Note: Admin. by RN 18Admin Note: #3 of 3 19Admin Note: #2 of 2 20Admin Note: Admin by Nurse Medications acetaminophen 500 mg oral tablet 2 tablet, By Mouth, 2 times a day, PRN NEEDED FOR FEVER, # 100 tablet, 5 Refills, [facility], 165, cm, 07/10/21 16:34:00 EDT, Height, 89.27, kg, 08/16/20 10:16:00 EDT, Dry Weight Start Date: 07/23/21 Status: Ordered albuterol 0.083% inhalation solution 3 mL = 2.5 mg, Neb, Every 6 hours, PRN as needed for wheezing, use with nebulizer, # 90 mL, 2 Refills, Maintenance, 02/22/20 16:13:00 EDT, Solution, [facility], 165, cm, 02/02/20 11:43:00 EST, Height, 89.09, kg, 01/24/20 16:19:00 E... Start Date: 02/22/20 Status: Ordered amitriptyline 25 mg oral tablet 25 mg, 1, tablet, By Mouth, Daily at bedtime, # 30 tablet, Refills 11, Tot. Refills 11, Maintenance, 01/09/21 15:37:00 EST, Route to Pharmacy Electronically, [facility], Partial fill upon patient request if the prescription is for... Start Date: 01/09/21 Status: Ordered amLODIPine 5 mg oral tablet 1 tablet, By Mouth, Daily, # 30 tablet, 5 Refills, Maintenance, 06/11/21 14:54:00 EDT, [facility], 165, cm, 05/08/21 14:40:00 EDT, Height, 89.27, kg, 08/16/20 10:16:00 EDT, Dry Weight Start Date: 06/11/21 Status: Ordered diclofenac 1% topical gel = 2 Gm, Topically, 4 times a day, PRN for pain, not to exceed: - 8 gm/day/joint of upper limb, # 100 Gm, 1 Refills, Maintenance, 03/31/20 9:43:00 EDT, Gel, [facility], 165, cm, 02/02/20 11:43:00 EST, Height, 89.09, kg, 01/24/20 1... Start Date: 03/31/20 Status: Ordered fluticasone 50 mcg/inh nasal spray See Instructions, USE 1 SPRAY IN EACH NOSTRIL 2 TIMES A DAY., # 16 Gm, 5 Refills, [facility], 30, USE 1 SPRAY IN [...] capsule, 11 Refills, Maintenance, 06/12/21 23:49:00 EDT,Capsule, [facility], 165, cm, 05/08/21 14:40:00 EDT, Height, 89.27, kg, 08/16/20 10:16:00 EDT, Dry Weight Start Date: 06/12/21 Status: Ordered hydrOXYzine hydrochloride 10 mg oral tablet 1-2 tablet, By Mouth, 3 times a day, PRN Itch, 1-2 tablets 3 times a day as needed for itching, # 100 tablet, 1 Refills, Maintenance, 09/07/21 13:50:00 EDT, [facility], 165, cm, 07/24/21 15:17:00 EDT, Height, 89.27, kg, 08/16/20 10... Start Date: 09/07/21 Status: Ordered lamiVUDine 300 mg oral tablet 1 tablet = 300 mg, By Mouth, Daily, # 30 tablet, 11 Refills, Maintenance, 10/17/21 10:39:00 EST, Tablet, [facility], 165, cm, 10/17/21 9:33:00 EST, Height, 89.27, kg, 08/16/20 10:16:00 EDT, Dry Weight Start Date: 10/17/21 Status: Ordered loratadine 10 mg oral tablet 10 mg, 1, tablet, By Mouth, Daily, # 30 tablet, Refills 0, Tot. Refills 0, Maintenance, 11/19/19 16:44:00 EST, Route to Pharmacy Electronically, [facility], 165, cm, 11/19/19 16:13:00 EST, Height, 90.9, kg, 10/14/19 13:27:00 EST, D... Start Date: 11/19/19 Status: Ordered LORazepam 1 mg oral tablet 1 tablet = 1 mg, By Mouth, 2 times a day, PRN as needed for anxiety, # 15 tablet, 1 Refills, Maintenance, 09/06/21 14:38:00 EDT, Tablet, [facility], 165, cm, 07/24/21 15:17:00 EDT, [...] Gm, Refills 5, Route to Pharmacy Electronically, [id number], [facility], 165, cm, 07/24/21 15:17:00 EDT, Height, 89.27, kg, 08/16/20 10:16:00 EDT, Dry Weight Start Date: 09/05/21 Status: Ordered raltegravir 600 mg oral tablet 2 tablet = 1,200 mg, By Mouth, Daily, # 60 tablet, 11 Refills, Maintenance, 10/17/21 10:39:00 EST, Tablet, [facility], 165, cm, 10/17/21 9:33:00 EST, Height, 89.27, kg, 08/16/20 10:16:00 EDT, Dry Weight Start Date: 10/17/21 Status: Ordered terbinafine 1% topical cream 1 application, Topically, 2 times a day, to rash, # 30 Gm, 3 Refills, Maintenance, 07/10/21 16:56:00 EDT, Cream, [facility], 1 application Topically 2 times a day,Instr:to rash, 165, cm, 07/10/21 16:34:00 EDT, Height, 89.27, kg, 09... Start Date: 07/10/21 Status: Ordered tiZANidine 2 mg oral tablet 1-2 tablet, By Mouth, Every 8 hours, PRN, # 50 tablet, Refills 1, Tot. Refills 1, Maintenance, as needed for muscle spasm, 03/31/20 9:40:00 EDT, Route to Pharmacy Electronically, [facility], 165, cm, 02/02/20 11:43:00 EST, Height,... Start Date: 03/31/20 Status: Ordered triamcinolone 0.025% topical cream 1 applicator, Topically, 3 times a day, emollient hydrophilic cream for allergy/inflammation. Use no more than 3 wks w/o break of 1 wk, # 120 Gm, 0 Refills, Maintenance, 10/17/21 10:41:00 EST, [facility], 1 applicator Topically 3... 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
--- OUTSIDE RECORDS SUMMARY | 2023-05-07 00:40 | XMS_ITS | Continuity of Care Document ---
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 Compazine Tongue Swelling Moderate Active Bactrim Active Contrast Dye 1 Pruritic rash Proposed emtricitabine Rash Proposed [address] w/ IV and oral contrast developed fine papular pruritic rash Immunizations Given and Recorded Vaccine Date Status Refusal Reason influenza virus vaccine, inactivated 11/04/22 Give n [...] virus vaccine, inactivated 7 08/31/97 Gi chyna zoster vaccine, inactivated 08/27/22 Recorded SARS-CoV-2 (COVID-19) mRNA BNT-162b2 vac 04/05/21 Given [...] FOR FEVER, # 100 tablet, 1 Refills, [facility], 165, cm, 03/26/22 13:56:00 EDT, Height, 89.27, kg, 08/16/20 10:16:00 EDT, Dry Weight Start Date: 07/21/22 Status: Ordered albuterol CFC free 90 mcg/inh inhalation aerosol 2, puffs, Inhalation, Every 4 hours, PRN, # 18 Gm, Refills 1, Tot. Refills 1, Maintenance, 08/23/2210:21:00 EDT, Aerosol, Route to Pharmacy Electronically, [id number], [facility], insurance formulary now... Start Date: 08/23/22 Status: Ordered amitriptyline 25 mg oral tablet 1, tablet, By Mouth, Daily at bedtime, # 30 tablet, Refills 2, Tot. Refills 2, Maintenance, 08/26/22 11:00:00 EDT, Route to Pharmacy Electronically, [facility], 165, cm, 08/15/22 13:22:00 EDT, Height Start Date: 08/26/22 Status: Ordered amLODIPine 5 mg oral tablet 1 tablet, By Mouth, Daily, # 30 tablet, 11 Refills, Maintenance, 01/24/22 22:33:00 EST, [facility], 165, cm, 01/17/22 15:36:00 EST, Height, 89.27, kg, 08/16/20 10:16:00 EDT, Dry Weight Start Date: 01/24/22 Status: Ordered diclofenac 1% topical gel = 2 Gm, Topically, 4 times a day, PRN for pain, not to exceed: - 8 gm/day/joint of upper limb, # 100 Gm, 1 Refills, Maintenance, 03/31/20 9:43:00 EDT, Gel, [facility], 165, cm, 02/02/20 11:43:00 EST, Height, 89.09, kg, 01/24/20 1... Start Date: 03/31/20 Status: Ordered fluticasone 50 mcg/inh nasal spray See Instructions, USE 1 SPRAY IN EACH NOSTRIL 2 TIMES A DAY., # 16 Gm, 5 Refills, [facility], 30, USE 1 SPRAY [...] capsule, 11 Refills, Maintenance, 01/24/22 22:33:00 EST,Capsule, [facility], 165, cm, 01/17/22 15:36:00 EST, Height, 89.27, kg, 08/16/20 10:16:00 EDT, Dry Weight Start Date: 01/24/22 Status: Ordered hydrOXYzine hydrochloride 10 mg oral tablet 1-2 tablet, By Mouth, 3 times a day, PRN Itch, 1-2 tablets 3 times a day as needed for itching, # 100 tablet, 1 Refills, Maintenance, 09/07/21 13:50:00 EDT, [facility], 165, cm, 07/24/21 15:17:00 EDT, Height, 89.27, kg, 08/16/20 10... Start Date: 09/07/21 Status: Ordered lamiVUDine 300 mg oral tablet 1 tablet = 300 mg, By Mouth, Daily, # 30 tablet, 11 Refills, Maintenance, 10/16/22 7:06:00 EST, Tablet, [facility], 165, cm, 10/15/22 16:53:00 EST, Height Start Date: 10/16/22 Status: Ordered LORazepam 1 mg oral tablet 1 tablet = 1 mg, By Mouth, 2 times a day, PRN as needed for anxiety, # 15 tablet, 1 Refills, Maintenance, 10/16/22 7:05:00 EST, Tablet, [facility], 165, cm, 10/15/22 16:53:00 EST,Height Start Date: 10/16/22 Status: Ordered Nebulizer/Compressor See Instructions, # 1 each, Maintenance, use as needed for wheezing, 01/14/20 9:13:00 EST, Compound Start Date: 01/14/20 Status: Ordered raltegravir 600 mg oral tablet 2 tablet = 1,200 mg, By Mouth, Daily, # 60 tablet, 11 Refills, Maintenance, 10/16/22 7:06:00 EST, Tablet, [facility], 165, cm, 10/15/22 16:53:00 EST, Height Start Date: 10/16/22 Status: Ordered Shingrix intramuscular injection 0.5 mL, Intramuscular, Once, repeat dose in 2 to 6 months, # 0.5 mL, 1 Refills, Soft Stop, 08/15/2219:15:00 EDT, [facility], please administer, 0.5 mL Intramuscular Once,Instr:repeat dose in 2 to 6 months, 165, cm, 08/15/22 13:22:... Start Date: 08/15/22 Status: Ordered terbinafine 1% topical cream 1 application, Topically, 2 times a day, to rash, # 30 Gm, 3 Refills, Maintenance, 08/15/22 19:43:00 EDT, Cream, [facility], 1 application Topically 2 times a day,Instr:to rash, 165, cm, 08/15/22 13:22:00 EDT, Height, 89.27, kg, 09... Start Date: 08/15/22 Status: Ordered tiZANidine 2 mg oral tablet 1-2 tablet, By Mouth, Every 8 hours, PRN, # 50 tablet, Refills 1, Tot. 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 Confirmed Active Screening for diabetes mellitus Confirmed Active Prurigo nodularis per biopsy Confirmed 10/2014 Active Tinea cruris Confirmed Active 1Biopsy 99 grade 4/4, stage 4/4, genotype 1a, 3,450,000 IU/ml 06/05 Social History Social History Type Response Smoking Status Never (less than 100 in lifetime) entered on: 10/15/22 Sex Patient Care team information Care Team Personnel Name: Elie Foster MD Position: [facility] Primary Care Physician Member Role: PCP Address: Address: [address] [place] [id number]- Name: Ivon Salcedo RN Position: [facility] RN Member Role: Primary Care Nurse Care Team Related Persons Name: CISCO DUEÑAS Address: home [address] [place] [address] Name: HIEU HUTTON Address: [address] [place] [address]
--- OUTSIDE RECORDS SUMMARY | 2023-05-07 00:40 | XMS_ITS | Continuity of Care Document ---
Author Name Unknown Organization [facility] Address [address] [place] [address]- Care Team Providers Care Investigative Analyst Name Role Phone Elie Foster MD Primary Care Physician Encounter [facility] Date(s): 01/03/20 - 03/10/20 [facility]/[address] [address]- [place] Attending Physician: Elie Foster MD Admitting Physician: [...] 2 Refills, Maintenance, 02/14/20 12:31:00 EDT, Tablet, [facility], 165, cm, 02/02/20 11:43:00 EST, Height, 89.09, kg, 01/24/20 16:19:00 EST, Dry Weight Start Date: 02/14/20 Status: Ordered albuterol 0.083% inhalation solution 3 mL = 2.5 mg, Neb, Every 6 hours, PRN as needed for wheezing, use with nebulizer, # 90 mL, 2 Refills, Maintenance, 02/22/20 16:13:00 EDT, Solution, [facility], 165, cm, 02/02/20 11:43:00 EST, Height, 89.09, kg, 01/24/20 16:19:00 E... Start Date: 02/22/20 Status: Ordered amLODIPine 10 mg oral tablet 10 mg, 1, tablet, By Mouth, Daily, # 30 tablet, Refills 11, Tot. Refills 11, Maintenance, 10/27/19 20:07:15 EST, Route to Pharmacy Electronically, [id number], [facility] Start Date: 10/27/19 Status: Ordered benzoyl [...] Gm, 1 Refills, Maintenance, 02/22/20 16:14:00 EDT, [place], [facility], 1 sprays Nares, Both 2 times a [...] 11/19/19 16:44:00 EST, Route to Pharmacy Electronically, [facility], 165, cm, 11/19/19 16:13:00 EST, Height, [...] Dry Weight Start Date: 11/11/19 Status: Ordered piroxicam 10 mg oral capsule 1 capsule = 10 mg, By Mouth, 2 times a day, with food, # 60 capsule, 0 Refills, Maintenance, 02/22/20 16:13:00 EDT, Capsule, [facility], 165, cm, 02/02/20 11:43:00 EST, Height, 89.09, kg, 01/24/20 16:19:00 EST, Dry Weight Start Date: 02/22/20 Status: Ordered ProAir HFA 90 mcg/inh inhalation aerosol with adapter 2, puffs, Inhalation, Every 4 hours, PRN, # 8.5 Gm, Refills 1, Tot. Refills 1, Maintenance, 02/22/20 16:14:00 EDT, Aerosol, Route to Pharmacy Electronically, [id number], [facility], 165, cm, 02/02/20 11:43... Start Date: 02/22/20 Status: Ordered ProAir HFA 90 mcg/inh inhalation aerosol with adapter 2, puffs, Inhalation, Every 6 hours, PRN, # 8.5 Gm, Refills 0, Tot. Refills 0, Maintenance, 11/10/17 18:44:13, Aerosol, Route to Pharmacy Electronically, [id number], [facility] Start Date: 11/10/17 Status: Ordered raltegravir [...] 03/30/19 17:41:45 EDT, Route to Pharmacy Electronically, [id number], [facility] [id number] Start Date: 03/30/19 Status: Ordered triamcinolone 0.025% [...] Daily, # 30 tablet, 11 Refills, Maintenance, 11/27/19 20:08:07 EST, Tablet Start Date: 10/27/19 Status: [...] 2009 Active Obesity(Confirmed) Active Visit for routine steamer blocker exam(Confirmed) Active Prurigo nodularis per biopsy(Confirmed) 10/2014 Active Tinea cruris(Confirmed) Active 1Biopsy 99 grade 4/4, stage 4/4, genotype 1a, 3,450,000 IU/ml 06/05 Social History Social History Type Response Smoking Status Never (less than 100 in lifetime) entered on: 02/19/19 Sex
--- NOTE | 2023-05-07 00:41 | MHC.EDTECH ---
This tech assumed care of patient at 0025, patient is sitting on side of stretcher , vitals were obtained and is awaiting to be seen by provider. Call mac within reach
--- OUTSIDE RECORDS SUMMARY | 2023-05-07 00:41 | XMS_ITS | Continuity of Care Document ---
Author Name Unknown Organization [facility] Address [address] [place] [address]- Care Team Providers Care Nitric Acid Plant Operator Name Role Phone Elie Foster MD Primary Care Physician Encounter [facility] Date(s): 01/12/20 - 02/12/20 [facility]/[address] [address]- [facility] Attending Physician: Not on Staff, Attending MD Allergies, Adverse Reactions, Alerts Substance Reaction [...] 7 08/31/97 Gi chyna Meningococcal Conjugate Vaccine 12/12/17 Given Meningococcal Conjugate Vaccine 08/28/17 Given pneumococcal [...] 2 Refills, Maintenance, 01/14/20 9:19:00 EST, Solution, [facility], 165, cm, 01/13/20 17:46:00 EST, Height, 88.6, kg, 01/13/20 16:56:00 EST... Start Date: 01/14/20 Status: Ordered amLODIPine 10 mg oral tablet 10 mg, 1, tablet, By Mouth, Daily, # 30 tablet, Refills 11, Tot. Refills 11, Maintenance, 10/27/19 20:07:15 EST, Route to Pharmacy Electronically, [id number], [facility] Start Date: 10/27/19 Status: Ordered benzoyl peroxide [...] Gm, 0 Refills, Maintenance, 01/14/20 9:04:00 EST, [place],[facility], 1 sprays Nares, Both 2 times a [...] 16:44:00 EST, Route to Pharmacy Electronically, [facility], 165, cm, 11/19/19 16:13:00 EST, Height, 90.9, kg, 11/14/19 13:27:00 EST, D... Start Date: 11/19/19 Status: [...] food, # 60 capsule, 0 Refills, Maintenance, 01/25/20 15:25:00 EST, Capsule, [facility], 165, cm, 01/24/20 16:19:00 EST, Height, 89.09, kg, 01/24/20 16:19:00 EST, Dry Weight Start Date: 01/25/20 Status: Ordered ProAir HFA 90 mcg/inh inhalation aerosol with adapter 2, puffs, Inhalation, Every 4 hours, PRN, # 8.5 Gm, Refills 1, Tot. Refills 1, Maintenance, 01/14/20 9:05:00 EST, Aerosol, Route to Pharmacy Electronically, [id number], [facility], 165, cm, 01/13/20 17:46:... Start Date: 01/14/20 Status: Ordered ProAir HFA 90 mcg/inh inhalation aerosol with adapter 2, puffs, Inhalation, Every 6 hours, PRN, # 8.5 Gm, Refills 0, Tot. Refills 0, Maintenance, 11/10/17 18:44:13, Aerosol, Route to Pharmacy Electronically, [id number], [facility] Start Date: 11/10/17 Status: Ordered raltegravir 600 [...] 03/30/19 17:41:45 EDT, Route to Pharmacy Electronically, [id number], [facility] [id number] Start Date: 03/30/19 Status: Ordered triamcinolone 0.025% [...] 2009 Active Obesity(Confirmed) Active Visit for routine walking dragline operator exam(Confirmed) Active Prurigo nodularis per biopsy(Confirmed) 10/2014 Active Tinea cruris(Confirmed) Active 1Biopsy 99 grade 4/4, stage 4/4, genotype 1a, 3,450,000 IU/ml 06/05 Social History Social History Type Response Smoking Status Never (less than 100 in lifetime) entered on: 02/19/19 Sex
--- OUTSIDE RECORDS SUMMARY | 2023-05-07 00:41 | XMS_ITS | Continuity of Care Document ---
Author Name Unknown Organization [facility] Address [address] [place] [address]- Care Team Providers Care Environmental Services Associate Name Role Phone Cristian GARZA, Elie Ching Primary Care Physician Encounter [facility] Date(s): 10/10/20 - 12/01/20 [facility]/[address] [address]- Attending Physician: Elie Foster MD Admitting Physician: Elie Foster MD Allergies, Adverse Reactions, Alerts Substance Reaction Severity Status fluconazole Rash Active sulfADIAZINE Active Compazine Tongue Swelling Moderate Active Contrast Dye 1 Pruritic rash Proposed emtricitabine Rash Proposed nevirapine Elam-Jameson syndrome Severe Act edie Bactrim Active [address] w/ [...] inactivated 7 08/31/97 Gi chyna tetanus/diphtheria/pertussis, acel(Tdap) 11/27/19 Given Meningococcal Conjugate Vaccine 11/11/17 Given Meningococcal [...] 2 Refills, Maintenance, 02/14/20 12:31:00 EDT, Tablet, [facility], 165, cm, 02/02/20 11:43:00 EST, Height, 89.09, kg, 01/24/20 16:19:00 EST, Dry Weight Start Date: 02/14/20 Status: Ordered albuterol 0.083% inhalation solution 3 mL = 2.5 mg, Neb, Every 6 hours, PRN as needed for wheezing, use with nebulizer, # 90 mL, 2 Refills, Maintenance, 02/22/20 16:13:00 EDT, Solution, [facility], 165, cm, 02/02/20 11:43:00 EST, Height, 89.09, kg, 01/24/20 16:19:00 E... Start Date: 02/22/20 Status: Ordered amLODIPine 5 mg oral tablet 5 mg, 1, tablet, By Mouth, Daily, dose decrease 05/17/20, # 30 tablet, Refills 11, Tot. Refills 11, Maintenance, 05/17/20 18:31:00 EDT, Route to Pharmacy Electronically, [facility], 165, cm, 02/02/20 11:43:00 EST, Height, 89.09, kg,... Start Date: 05/17/20 Status: Ordered diclofenac 1% topical gel = 2 Gm, Topically, 4 times a day, PRN for pain, not to exceed: - 8 gm/day/joint of upper limb, # 100 Gm, 1 Refills, Maintenance, 03/31/20 9:43:00 EDT, Gel, [facility], 165, cm, 02/02/20 11:43:00 EST, Height, 89.09, kg, 01/24/20 1... Start Date: 03/31/20 Status: Ordered Flonase 50 mcg/inh nasal spray 1 sprays, Nares, Both, 2 times a day, # 16 Gm, 5 Refills, Maintenance, 11/30/20 16:38:00 EST, [place], [facility], 1 sprays Nares, Both 2 times [...] capsule, 11 Refills, Maintenance, 05/17/20 18:22:00 EDT,Capsule, [facility], 165, cm, 02/02/20 11:43:00 EST, Height, [...] 11 Refills, Maintenance, 10/30/20 14:19:00 EST, Tablet, [facility], 165, cm, 09/21/20 15:55:00 EDT, Height, 89.27, kg, 08/16/20 10:16:00 EDT, Dry Weight Start Date: 10/30/20 Status: Ordered loratadine 10 mg oral tablet 10 mg, 1, tablet, By Mouth, Daily, # 30 tablet, Refills 0, Tot. Refills 0, Maintenance, 11/19/19 16:44:00 EST, Route to Pharmacy Electronically, [facility], 165, cm, 11/19/19 16:13:00 EST, Height, 90.9, kg, 10/14/19 13:27:00 EST, D... Start Date: 11/19/19 Status: Ordered LORazepam 1 mg oral tablet 1 tablet = 1 mg, By Mouth, 2 times a day, PRN as needed for anxiety, # 15 tablet, 1 Refills, Maintenance, 11/01/20 10:56:00 EST, Tablet, [facility], 165, cm, 11/01/20 8:58:00 EST,Height, 89.27, [...] 16:38:00 EST, Aerosol, Route to Pharmacy Electronically, [id number], [facility], 165, cm, 11/15/20 11:50... Start Date: 11/30/20 Status: Ordered ProAir HFA 90 mcg/inh inhalation aerosol with adapter 2, puffs, Inhalation, Every 6 hours, PRN, # 8.5 Gm, Refills 0, Tot. Refills 0, Maintenance, 11/10/17 18:44:13, Aerosol, Route to Pharmacy Electronically, [id number], [facility] Start Date: 11/10/17 Status: Ordered raltegravir 600 mg oral tablet 2 tablet = 1,200 mg, By Mouth, Daily, # 60 tablet, 11 Refills, Maintenance, 10/30/20 14:19:00 EST, Tablet, [facility], 165, cm, 09/21/20 15:55:00 EDT, Height, 89.27, kg, 08/16/20 10:16:00 EDT, Dry Weight Start Date: 10/30/20 Status: Ordered terbinafine 1% topical cream 1 application, Topically, 2 times a day, to rash, # 30 Gm, 3 Refills, Maintenance, 11/01/20 10:55:00 EST, Cream, [facility], 1 application Topically 2 times a day,Instr:to rash, 165, cm, 11/01/20 8:58:00 EST, Height, 89.27, kg, ... Start Date: 11/01/20 Status: Ordered tiZANidine 2 mg oral tablet 1-2 tablet, By Mouth, Every 8 hours, PRN, # 50 tablet, Refills 1, Tot. Refills 1, Maintenance, as needed for muscle spasm, 03/31/20 9:40:00 EDT, Route to Pharmacy Electronically, [facility], 165, cm, 02/02/20 11:43:00 EST, Height,... Start Date: 03/31/20 Status: Ordered triamcinolone 0.025% topical cream 1 applicator, Topically, 3 times a day, emollient hydrophilic cream for allergy/inflammation. Use no more than 3 wks w/o break of 1 wk, # 120 Gm, 0 Refills, Maintenance, 06/29/20 0:49:00 EDT, [facility], 1 applicator Topically 3 t... 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
--- OUTSIDE RECORDS SUMMARY | 2023-05-07 00:41 | XMS_ITS | Continuity of Care Document ---
Author Name Unknown Organization [facility] Address Unknown Care Team Providers Care National Insurance Officer Name Role Phone Elie Foster MD Primary Care Physician [phone] Encounter [facility] Date(s): 11/12/21 - 12/12/21 [facility] Allergies, Adverse Reactions, Alerts Substance Reaction Severity [...] influenza virus vaccine, inactivated 6 08/31/97 Gi chnya influenza virus vaccine, inactivated 7 08/31/97 Gi [...] FOR FEVER, # 100 tablet, 5 Refills, [facility], 165, cm, 07/10/21 16:34:00 EDT, Height, 89.27, kg, 08/16/20 10:16:00 EDT, Dry Weight Start Date: 07/23/21 Status: Ordered albuterol 0.083% inhalation solution 3 mL = 2.5 mg, Neb, Every 6 hours, PRN as needed for wheezing, use with nebulizer, # 90 mL, 2 Refills, Maintenance, 02/22/20 16:13:00 EDT, Solution, [facility], 165, cm, 02/02/20 11:43:00 EST, Height, 89.09, kg, 01/24/20 16:19:00 E... Start Date: 02/22/20 Status: Ordered amitriptyline 25 mg oral tablet 25 mg, 1, tablet, By Mouth, Daily at bedtime, # 30 tablet, Refills 11, Tot. Refills 11, Maintenance, 01/09/21 15:37:00 EST, Route to Pharmacy Electronically, [facility], Partial fill upon patient request if the prescription is for... Start Date: 01/09/21 Status: Ordered amLODIPine 5 mg oral tablet 1 tablet, By Mouth, Daily, # 30 tablet, 5 Refills, Maintenance, 06/11/21 14:54:00 EDT, [facility], 165, cm, 05/08/21 14:40:00 EDT, Height, 89.27, kg, 08/16/20 10:16:00 EDT, Dry Weight Start Date: 06/11/21 Status: Ordered diclofenac 1% topical gel = 2 Gm, Topically, 4 times a day, PRN for pain, not to exceed: - 8 gm/day/joint of upper limb, # 100 Gm, 1 Refills, Maintenance, 03/31/20 9:43:00 EDT, Gel, [facility], 165, cm, 02/02/20 11:43:00 EST, Height, 89.09, kg, 01/24/20 1... Start Date: 03/31/20 Status: Ordered fluticasone 50 mcg/inh nasal spray See Instructions, USE 1 SPRAY IN EACH NOSTRIL 2 TIMES A DAY., # 16 Gm, 5 Refills, [facility], 30, USE 1 SPRAY IN [...] capsule, 11 Refills, Maintenance, 06/12/21 23:49:00 EDT,Capsule, [facility], 165, cm, 05/08/21 14:40:00 EDT, Height, 89.27, kg, 08/16/20 10:16:00 EDT, Dry Weight Start Date: 06/12/21 Status: Ordered hydrOXYzine hydrochloride 10 mg oral tablet 1-2 tablet, By Mouth, 3 times a day, PRN Itch, 1-2 tablets 3 times a day as needed for itching, # 100 tablet, 1 Refills, Maintenance, 09/07/21 13:50:00 EDT, [facility], 165, cm, 07/24/21 15:17:00 EDT, Height, 89.27, kg, 08/16/20 10... Start Date: 09/07/21 Status: Ordered lamiVUDine 300 mg oral tablet 1 tablet = 300 mg, By Mouth, Daily, # 30 tablet, 11 Refills, Maintenance, 10/17/21 10:39:00 EST, Tablet, [facility], 165, cm, 10/17/21 9:33:00 EST, Height, 89.27, kg, 08/16/20 10:16:00 EDT, Dry Weight Start Date: 10/17/21 Status: Ordered loratadine 10 mg oral tablet 10 mg, 1, tablet, By Mouth, Daily, # 30 tablet, Refills 0, Tot. Refills 0, Maintenance, 11/19/19 16:44:00 EST, Route to Pharmacy Electronically, [facility], 165, cm, 11/19/19 16:13:00 EST, Height, 90.9, kg, 10/14/19 13:27:00 EST, D... Start Date: 11/19/19 Status: Ordered LORazepam 1 mg oral tablet 1 tablet = 1 mg, By Mouth, 2 times a day, PRN as needed for anxiety, # 15 tablet, 1 Refills, Maintenance, 09/06/21 14:38:00 EDT, Tablet, [facility], 165, cm, 07/24/21 15:17:00 EDT, [...] Gm, Refills 5, Route to Pharmacy Electronically, [id number], [facility], 165, cm, 07/24/21 15:17:00 EDT, Height, 89.27, kg, 08/16/20 10:16:00 EDT, Dry Weight Start Date: 09/05/21 Status: Ordered raltegravir 600 mg oral tablet 2 tablet = 1,200 mg, By Mouth, Daily, # 60 tablet, 11 Refills, Maintenance, 10/17/21 10:39:00 EST, Tablet, [facility], 165, cm, 10/17/21 9:33:00 EST, Height, 89.27, kg, 08/16/20 10:16:00 EDT, Dry Weight Start Date: 10/17/21 Status: Ordered terbinafine 1% topical cream 1 application, Topically, 2 times a day, to rash, # 30 Gm, 3 Refills, Maintenance, 07/10/21 16:56:00 EDT, Cream, [facility], 1 application Topically 2 times a day,Instr:to rash, 165, cm, 07/10/21 16:34:00 EDT, Height, 89.27, kg, 09... Start Date: 07/10/21 Status: Ordered tiZANidine 2 mg oral tablet 1-2 tablet, By Mouth, Every 8 hours, PRN, # 50 tablet, Refills 1, Tot. Refills 1, Maintenance, as needed for muscle spasm, 03/31/20 9:40:00 EDT, Route to Pharmacy Electronically, [facility], 165, cm, 02/02/20 11:43:00 EST, Height,... Start Date: 03/31/20 Status: Ordered triamcinolone 0.025% topical cream 1 applicator, Topically, 3 times a day, emollient hydrophilic cream for allergy/inflammation. Use no more than 3 wks w/o break of 1 wk, # 120 Gm, 0 Refills, Maintenance, 10/17/21 10:41:00 EST, [facility], 1 applicator Topically 3... Start Date: 10/17/21 Status: Ordered Viread 300 mg oral tablet 1 tablet = 300 mg, By Mouth, Daily, # 30 tablet, 11 Refills, Maintenance, 10/17/21 10:39:00 EST, Tablet, [facility], 165, cm, 10/17/21 9:33:00 EST, [...] I(Confirmed) Active Obesity(Confirmed) Active Visit for routine screen operator exam(Confirmed) Active Screening for diabetes mellitus(Confirmed) Active Prurigo nodularis per biopsy(Confirmed) 10/2014 Active Tinea cruris(Confirmed) Active 1Biopsy 99 grade 4/4, stage 4/4, genotype 1a, 3,450,000 IU/ml 06/05 Social History Social History Type Response Smoking Status Never (less than 100 in lifetime) entered on: 07/24/21 Sex
--- OUTSIDE RECORDS SUMMARY | 2023-05-07 00:41 | XMS_ITS | Continuity of Care Document ---
Author Name Unknown Organization [facility] Address [address] [place] [address]- Care Team Providers Care Java Programmer Name Role Phone Elie Foster MD Primary Care Physician Encounter [facility] Date(s): 03/15/20 - 03/25/20 [facility]/[address] [address]- [facility] Attending Physician: Admtr, Ar8 Allergies, [...] fever, # 100 tablet, 2 Refills, Maintenance, 03/16/20 12:31:00 EDT, Tablet, [facility], 165, cm, 02/02/20 11:43:00 EST, Height, 89.09, kg, 01/24/20 16:19:00 EST, Dry Weight Start Date: 02/14/20 Status: Ordered albuterol 0.083% inhalation solution 3 mL = 2.5 mg, Neb, Every 6 hours, PRN as needed for wheezing, use with nebulizer, # 90 mL, 2 Refills, Maintenance, 02/22/20 16:13:00 EDT, Solution, [facility], 165, cm, 02/02/20 11:43:00 EST, Height, 89.09, kg, 01/24/20 16:19:00 E... Start Date: 02/22/20 Status: Ordered amLODIPine 10 mg oral tablet 10 mg, 1, tablet, By Mouth, Daily, # 30 tablet, Refills 11, Tot. Refills 11, Maintenance, 10/27/19 20:07:15 EST, Route to Pharmacy Electronically, [id number], [facility] Start Date: 10/27/19 Status: Ordered benzoyl [...] Gm, 1 Refills, Maintenance, 02/22/20 16:14:00 EDT, [place], [facility] [place], 1 sprays Nares, Both 2 times a [...] tablet, Refills 0, Tot. Refills 0, Maintenance, 12/20/19 16:44:00 EST, Route to Pharmacy Electronically, [facility], 165, cm, 11/19/19 16:13:00 EST, Height, 90.9, kg, 10/14/19 13:27:00 EST, D... Start Date: 11/19/19 Status: Ordered LORazepam 1 mg oral tablet 1 tablet = 1 mg, By Mouth, 2 times a day, PRN as needed for anxiety, # 15 tablet, 1 Refills, Maintenance, 03/15/20 11:56:00 EDT, Tablet, [facility], 165, cm, 02/02/20 11:43:00 EST, Height, [...] 16:14:00 EDT, Aerosol, Route to Pharmacy Electronically, [id number], [facility], 165, cm, 02/02/20 11:43... Start Date: 02/22/20 Status: Ordered ProAir HFA 90 mcg/inh inhalation aerosol with adapter 2, puffs, Inhalation, Every 6 hours, PRN, # 8.5 Gm, Refills 0, Tot. 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
--- OUTSIDE RECORDS SUMMARY | 2023-05-07 00:41 | XMS_ITS | Continuity of Care Document ---
Author Name Unknown Organization [facility] Address [address] [place] [id number]- Care Team Providers Care Route Delivery Clerk Name Role Phone Elie Foster MD Primary Care Physician [phone] Encounter [facility] Date(s): 08/16/21 - 10/16/[address] [address]- Discharge Disposition: A-D/C Home Attending Physician: Elie [...] FOR FEVER, # 100 tablet, 5 Refills, [facility], 165, cm, 07/10/21 16:34:00 EDT, Height, 89.27, kg, 08/16/20 10:16:00 EDT, Dry Weight Start Date: 07/23/21 Status: Ordered albuterol 0.083% inhalation solution 3 mL = 2.5 mg, Neb, Every 6 hours, PRN as needed for wheezing, use with nebulizer, # 90 mL, 2 Refills, Maintenance, 02/22/20 16:13:00 EDT, Solution, [facility], 165, cm, 02/02/20 11:43:00 EST, Height, 89.09, kg, 01/24/20 16:19:00 E... Start Date: 02/22/20 Status: Ordered amitriptyline 25 mg oral tablet 25 mg, 1, tablet, By Mouth, Daily at bedtime, # 30 tablet, Refills 11, Tot. Refills 11, Maintenance, 01/09/21 15:37:00 EST, Route to Pharmacy Electronically, [facility], Partial fill upon patient request if the prescription is for... Start Date: 01/09/21 Status: Ordered amLODIPine 5 mg oral tablet 1 tablet, By Mouth, Daily, # 30 tablet, 5 Refills, Maintenance, 06/11/21 14:54:00 EDT, [facility], 165, cm, 05/08/21 14:40:00 EDT, Height, 89.27, kg, 08/16/20 10:16:00 EDT, Dry Weight Start Date: 06/11/21 Status: Ordered diclofenac 1% topical gel = 2 Gm, Topically, 4 times a day, PRN for pain, not to exceed: - 8 gm/day/joint of upper limb, # 100 Gm, 1 Refills, Maintenance, 03/31/20 9:43:00 EDT, Gel, [facility], 165, cm, 02/02/20 11:43:00 EST, Height, 89.09, kg, 01/24/20 1... Start Date: 03/31/20 Status: Ordered fluticasone 50 mcg/inh nasal spray See Instructions, USE 1 SPRAY IN EACH NOSTRIL 2 TIMES A DAY., # 16 Gm, 5 Refills, [facility], 30, USE 1 SPRAY IN [...] capsule, 11 Refills, Maintenance, 06/12/21 23:49:00 EDT,Capsule, [facility], 165, cm, 05/08/21 14:40:00 EDT, Height, 89.27, kg, 08/16/20 10:16:00 EDT, Dry Weight Start Date: 06/12/21 Status: Ordered hydrOXYzine hydrochloride 10 mg oral tablet 1-2 tablet, By Mouth, 3 times a day, PRN Itch, 1-2 tablets 3 times a day as needed for itching, # 100 tablet, 1 Refills, Maintenance, 09/07/21 13:50:00 EDT, [facility], 165, cm, 07/24/21 15:17:00 EDT, Height, 89.27, kg, 08/16/20 10... Start Date: 09/07/21 Status: Ordered lamiVUDine 300 mg oral tablet 1 tablet = 300 mg, By Mouth, Daily, # 30 tablet, 11 Refills, Maintenance, 10/30/20 14:19:00 EST, Tablet, [facility], 165, cm, 09/21/20 15:55:00 EDT, Height, 89.27, kg, 08/16/20 10:16:00 EDT, Dry Weight Start Date: 10/30/20 Status: Ordered loratadine 10 mg oral tablet 10 mg, 1, tablet, By Mouth, Daily, # 30 tablet, Refills 0, Tot. Refills 0, Maintenance, 11/19/19 16:44:00 EST, Route to Pharmacy Electronically, [facility], 165, cm, 11/19/19 16:13:00 EST, Height, 90.9, kg, 10/14/19 13:27:00 EST, D... Start Date: 11/19/19 Status: Ordered LORazepam 1 mg oral tablet 1 tablet = 1 mg, By Mouth, 2 times a day, PRN as needed for anxiety, # 15 tablet, 1 Refills, Maintenance, 09/06/21 14:38:00 EDT, Tablet, [facility], 165, cm, 07/24/21 15:17:00 EDT, Height, [...] each, 0 Refills, Maintenance, 04/26/21 10:11:00 EDT, [facility], ar to sub for any gallon prep, as directed, 165, cm, 04/26/21 9:37:00 EDT, Height, 89.27, kg, 08/16/20 10:16:00 EDT, Dry Weight Start Date: 04/26/21 Status: Ordered ProAir HFA 90 mcg/inh inhalation aerosol with adapter 2, inhalation, Inhalation, Every 4 hours, PRN, # 8.5 Gm, Refills 5, Route to Pharmacy Electronically, [id number], [facility], 165, cm, 07/24/21 15:17:00 EDT, Height, 89.27, kg, 08/16/20 10:16:00 EDT, Dry Weight Start Date: 09/05/21 Status: Ordered raltegravir 600 mg oral tablet 2 tablet = 1,200 mg, By Mouth, Daily, # 60 tablet, 11 Refills, Maintenance, 10/30/20 14:19:00 EST, Tablet, [facility], 165, cm, 09/21/20 15:55:00 EDT, Height, 89.27, kg, 08/16/20 10:16:00 EDT, Dry Weight Start Date: 10/30/20 Status: Ordered terbinafine 1% topical cream 1 application, Topically, 2 times a day, to rash, # 30 Gm, 3 Refills, Maintenance, 07/10/21 16:56:00 EDT, Cream, [facility], 1 application Topically 2 times a day,Instr:to rash, 165, cm, 07/10/21 16:34:00 EDT, Height, 89.27, kg, 09... Start Date: 07/10/21 Status: Ordered tiZANidine 2 mg oral tablet 1-2 tablet, By Mouth, Every 8 hours, PRN, # 50 tablet, Refills 1, Tot. Refills 1, Maintenance, as needed for muscle spasm, 03/31/20 9:40:00 EDT, Route to Pharmacy Electronically, [facility], 165, cm, 02/02/20 11:43:00 EST, Height,... Start Date: 03/31/20 Status: Ordered triamcinolone 0.025% topical cream 1 applicator, Topically, 3 times a day, emollient hydrophilic cream for allergy/inflammation. Use no more than 3 wks w/o break of 1 wk, # 120 Gm, 0 Refills, Maintenance, 06/29/20 0:49:00 EDT, [facility], 1 applicator Topically 3 t... 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
--- OUTSIDE RECORDS SUMMARY | 2023-05-07 00:41 | XMS_ITS | Continuity of Care Document ---
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 Compazine Tongue Swelling Moderate Active Bactrim Active Contrast Dye 1 Pruritic rash Proposed emtricitabine Rash Proposed [address] w/ IV and oral contrast developed fine papular pruritic rash Immunizations Given and Recorded Vaccine Date Status Refusal Reason SARS-CoV-2 (COVID-19) mRNA BNT-162b2 vac 03/15/21 Given [...] 5 Refills, Maintenance, 01/02/21 10:02:00 EST, Tablet, [facility], 165, cm, 11/15/20 11:50:00 EST, Height, 89.27, kg, 08/16/20 10:16:00 EDT, Dry Weight Start Date: 01/02/21 Status: Ordered albuterol 0.083% inhalation solution 3 mL = 2.5 mg, Neb, Every 6 hours, PRN as needed for wheezing, use with nebulizer, # 90 mL, 2 Refills, Maintenance, 02/22/20 16:13:00 EDT, Solution, [facility], 165, cm, 02/02/20 11:43:00 EST, Height, 89.09, kg, 01/24/20 16:19:00 E... Start Date: 02/22/20 Status: Ordered amitriptyline 25 mg oral tablet 25 mg, 1, tablet, By Mouth, Daily at bedtime, # 30 tablet, Refills 11, Tot. Refills 11, Maintenance, 01/09/21 15:37:00 EST, Route to Pharmacy Electronically, [facility], Partial fill upon patient request if the prescription is for... Start Date: 01/09/21 Status: Ordered amLODIPine 5 mg oral tablet 5 mg, 1, tablet, By Mouth, Daily, dose decrease 05/17/20, # 30 tablet, Refills 11, Tot. Refills 11, Maintenance, 05/17/20 18:31:00 EDT, Route to Pharmacy Electronically, [facility], 165, cm, 02/02/20 11:43:00 EST, Height, 89.09, kg,... Start Date: 05/17/20 Status: Ordered diclofenac 1% topical gel = 2 Gm, Topically, 4 times a day, PRN for pain, not to exceed: - 8 gm/day/joint of upper limb, # 100 Gm, 1 Refills, Maintenance, 03/31/20 9:43:00 EDT, Gel, [facility], 165, cm, 02/02/20 11:43:00 EST, Height, 89.09, kg, 01/24/20 1... Start Date: 03/31/20 Status: Ordered Flonase 50 mcg/inh nasal spray 1 sprays, Nares, Both, 2 times a day, # 16 Gm, 5 Refills, Maintenance, 11/30/20 16:38:00 EST, [place], [facility], 1 sprays Nares, Both 2 times [...] capsule, 11 Refills, Maintenance, 05/17/20 18:22:00 EDT,Capsule, [facility], 165, cm, 02/02/20 11:43:00 EST, Height, [...] 11 Refills, Maintenance, 10/30/20 14:19:00 EST, Tablet, [facility], 165, cm, 09/21/20 15:55:00 EDT, Height, 89.27, kg, 08/16/20 10:16:00 EDT, Dry Weight Start Date: 10/30/20 Status: Ordered loratadine 10 mg oral tablet 10 mg, 1, tablet, By Mouth, Daily, # 30 tablet, Refills 0, Tot. Refills 0, Maintenance, 11/19/19 16:44:00 EST, Route to Pharmacy Electronically, [facility], 165, cm, 11/19/19 16:13:00 EST, Height, 90.9, kg, 10/14/19 13:27:00 EST, D... Start Date: 11/19/19 Status: Ordered LORazepam 1 mg oral tablet 1 tablet = 1 mg, By Mouth, 2 times a day, PRN as needed for anxiety, # 15 tablet, 1 Refills, Maintenance, 11/01/20 10:56:00 EST, Tablet, [facility], 165, cm, 11/01/20 8:58:00 EST,Height, 89.27, [...] 16:38:00 EST, Aerosol, Route to Pharmacy Electronically, [id number], [facility], 165, cm, 11/15/20 11:50... Start Date: 11/30/20 Status: Ordered ProAir HFA 90 mcg/inh inhalation aerosol with adapter 2, puffs, Inhalation, Every 6 hours, PRN, # 8.5 Gm, Refills 0, Tot. Refills 0, Maintenance, 11/10/17 18:44:13, Aerosol, Route to Pharmacy Electronically, [id number], [facility] Start Date: 11/10/17 Status: Ordered raltegravir 600 mg oral tablet 2 tablet = 1,200 mg, By Mouth, Daily, # 60 tablet, 11 Refills, Maintenance, 10/30/20 14:19:00 EST, Tablet, [facility], 165, cm, 09/21/20 15:55:00 EDT, Height, 89.27, kg, 08/16/20 10:16:00 EDT, Dry Weight Start Date: 10/30/20 Status: Ordered terbinafine 1% topical cream 1 application, Topically, 2 times a day, to rash, # 30 Gm, 3 Refills, Maintenance, 11/01/20 10:55:00 EST, Cream, [facility], 1 application Topically 2 times a day,Instr:to rash, 165, cm, 11/01/20 8:58:00 EST, Height, 89.27, kg, ... Start Date: 11/01/20 Status: Ordered tiZANidine 2 mg oral tablet 1-2 tablet, By Mouth, Every 8 hours, PRN, # 50 tablet, Refills 1, Tot. Refills 1, Maintenance, as needed for muscle spasm, 03/31/20 9:40:00 EDT, Route to Pharmacy Electronically, [facility], 165, cm, 02/02/20 11:43:00 EST, Height,... Start Date: 03/31/20 Status: Ordered triamcinolone 0.025% topical cream 1 applicator, Topically, 3 times a day, emollient hydrophilic cream for allergy/inflammation. Use no more than 3 wks w/o break of 1 wk, # 120 Gm, 0 Refills, Maintenance, 06/29/20 0:49:00 EDT, [facility], 1 applicator Topically 3 t... 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
--- OUTSIDE RECORDS SUMMARY | 2023-05-07 00:41 | XMS_ITS | Continuity of Care Document ---
Author Name Unknown Organization [facility] Address [address] [place] [address]- Care Team Providers Care Meat Stuffer Name Role Phone Elie Foster MD Primary Care Physician [phone] Encounter [facility] Date(s): 05/21/21 - 06/20/21 [facility]/[address] [address]- Allergies, Adverse Reactions, Alerts Substance Reaction Severity [...] influenza virus vaccine, inactivated 1 09/22/13 Gi cyhna influenza virus vaccine, inactivated 2 09/16/12 Gi [...] 4Admin Note: ADMIN.BY MICHELLE 5Admin Note: ADMIN.BY RN 6Admin Note: ADMIN.BY [...] 5 Refills, Maintenance, 01/02/21 10:02:00 EST, Tablet, [facility], 165, cm, 11/15/20 11:50:00 EST, Height, 89.27, kg, 08/16/20 10:16:00 EDT, Dry Weight Start Date: 01/02/21 Status: Ordered albuterol 0.083% inhalation solution 3 mL = 2.5 mg, Neb, Every 6 hours, PRN as needed for wheezing, use with nebulizer, # 90 mL, 2 Refills, Maintenance, 02/22/20 16:13:00 EDT, Solution, [facility], 165, cm, 02/02/20 11:43:00 EST, Height, 89.09, kg, 01/24/20 16:19:00 E... Start Date: 02/22/20 Status: Ordered amitriptyline 25 mg oral tablet 25 mg, 1, tablet, By Mouth, Daily at bedtime, # 30 tablet, Refills 11, Tot. Refills 11, Maintenance, 01/09/21 15:37:00 EST, Route to Pharmacy Electronically, [facility], Partial fill upon patient request if the prescription is for... Start Date: 01/09/21 Status: Ordered amLODIPine 5 mg oral tablet 1 tablet, By Mouth, Daily, # 30 tablet, 5 Refills, Maintenance, 06/11/21 14:54:00 EDT, [facility], 165, cm, 05/08/21 14:40:00 EDT, Height, 89.27, kg, 08/16/20 10:16:00 EDT, Dry Weight Start Date: 06/11/21 Status: Ordered diclofenac 1% topical gel = 2 Gm, Topically, 4 times a day, PRN for pain, not to exceed: - 8 gm/day/joint of upper limb, # 100 Gm, 1 Refills, Maintenance, 03/31/20 9:43:00 EDT, Gel, [facility], 165, cm, 02/02/20 11:43:00 EST, Height, 89.09, kg, 01/24/20 1... Start Date: 03/31/20 Status: Ordered Flonase 50 mcg/inh nasal spray 1 sprays, Nares, Both, 2 times a day, # 16 Gm, 5 Refills, Maintenance, 11/30/20 16:38:00 EST, [place], [facility], 1 sprays Nares, Both 2 times [...] capsule, 11 Refills, Maintenance, 06/12/21 23:49:00 EDT,Capsule, [facility], 165, cm, 05/08/21 14:40:00 EDT, Height, 89.27, kg, 08/16/20 10:16:00 EDT, Dry Weight Start Date: 06/12/21 Status: Ordered hydrOXYzine hydrochloride 10 mg oral tablet 1-2 tablet, By Mouth, 3 times a day, PRN Itch, 1-2 tablets 3 times a day as needed for itching, # 100 tablet, 1 Refills, Maintenance, 06/12/21 23:49:00 EDT, [facility], 165, cm, 05/08/21 14:40:00 EDT, Height, 89.27, kg, 08/16/20 10... Start Date: 06/12/21 Status: Ordered lamiVUDine 300 mg oral tablet 1 tablet = 300 mg, By Mouth, Daily, # 30 tablet, 11 Refills, Maintenance, 10/30/20 14:19:00 EST, Tablet, [facility], 165, cm, 09/21/20 15:55:00 EDT, Height, 89.27, kg, 08/16/20 10:16:00 EDT, Dry Weight Start Date: 10/30/20 Status: Ordered loratadine 10 mg oral tablet 10 mg, 1, tablet, By Mouth, Daily, # 30 tablet, Refills 0, Tot. Refills 0, Maintenance, 11/19/19 16:44:00 EST, Route to Pharmacy Electronically, [facility], 165, cm, 11/19/19 16:13:00 EST, Height, 90.9, kg, 10/14/19 13:27:00 EST, D... Start Date: 11/19/19 Status: Ordered LORazepam 1 mg oral tablet 1 tablet = 1 mg, By Mouth, 2 times a day, PRN as needed for anxiety, # 15 tablet, 1 Refills, Maintenance, 11/01/20 10:56:00 EST, Tablet, [facility], 165, cm, 11/01/20 8:58:00 EST,Height, 89.27, [...] each, 0 Refills, Maintenance, 04/26/21 10:11:00 EDT, [facility], ok to sub for any gallon prep, as directed, 165, cm, 04/26/21 9:37:00 EDT, Height, 89.27, kg, 08/16/20 10:16:00 EDT, Dry Weight Start Date: 04/26/21 Status: Ordered ProAir HFA 90 mcg/inh inhalation aerosol with adapter 2, puffs, Inhalation, Every 4 hours, PRN, # 8.5 Gm, Refills 5, Tot. Refills 5, Maintenance, 11/30/20 16:38:00 EST, Aerosol, Route to Pharmacy Electronically, [id number], [facility], 165, cm, 11/15/20 11:50... Start Date: 11/30/20 Status: Ordered ProAir HFA 90 mcg/inh inhalation aerosol with adapter 2, puffs, Inhalation, Every 6 hours, PRN, # 8.5 Gm, Refills 0, Tot. Refills 0, Maintenance, 11/10/17 18:44:13, Aerosol, Route to Pharmacy Electronically, [id number], [facility] Start Date: 11/10/17 Status: Ordered raltegravir 600 mg oral tablet 2 tablet = 1,200 mg, By Mouth, Daily, # 60 tablet, 11 Refills, Maintenance, 10/30/20 14:19:00 EST, Tablet, [facility], 165, cm, 09/21/20 15:55:00 EDT, Height, 89.27, kg, 08/16/20 10:16:00 EDT, Dry Weight Start Date: 10/30/20 Status: Ordered terbinafine 1% topical cream 1 application, Topically, 2 times a day, to rash, # 30 Gm, 3 Refills, Maintenance, 11/01/20 10:55:00 EST, Cream, [facility], 1 application Topically 2 times a day,Instr:to rash, 165, cm, 11/01/20 8:58:00 EST, Height, 89.27, kg, ... Start Date: 11/01/20 Status: Ordered tiZANidine 2 mg oral tablet 1-2 tablet, By Mouth, Every 8 hours, PRN, # 50 tablet, Refills 1, Tot. Refills 1, Maintenance, as needed for muscle spasm, 03/31/20 9:40:00 EDT, Route to Pharmacy Electronically, [facility], 165, cm, 02/02/20 11:43:00 EST, Height,... Start Date: 03/31/20 Status: Ordered triamcinolone 0.025% topical cream 1 applicator, Topically, 3 times a day, emollient hydrophilic cream for allergy/inflammation. Use no more than 3 wks w/o break of 1 wk, # 120 Gm, 0 Refills, Maintenance, 06/29/20 0:49:00 EDT, [facility], 1 applicator Topically 3 t... 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
--- OUTSIDE RECORDS SUMMARY | 2023-05-07 00:41 | XMS_ITS | Continuity of Care Document ---
Author Name Unknown Organization [facility] Address Unknown Care Team Providers Care Violin Teacher Name Role Phone Elie Foster MD Primary Care Physician Encounter [facility] Date(s): 01/10/22 - 02/09/22 [facility] Allergies, Adverse Reactions, Alerts Substance Reaction [...] FOR FEVER, # 100 tablet, 5 Refills, [facility], 165, cm, 07/10/21 16:34:00 EDT, Height, 89.27, kg, 08/16/20 10:16:00 EDT, Dry Weight Start Date: 07/23/21 Status: Ordered albuterol 0.083% inhalation solution 3 mL = 2.5 mg, Neb, Every 6 hours, PRN as needed for wheezing, use with nebulizer, # 90 mL, 2 Refills, Maintenance, 02/22/20 16:13:00 EDT, Solution, [facility], 165, cm, 02/02/20 11:43:00 EST, Height, 89.09, kg, 01/24/20 16:19:00 E... Start Date: 02/22/20 Status: Ordered amitriptyline 25 mg oral tablet 1, tablet, By Mouth, Daily at bedtime, # 30 tablet, Refills 5, Route to Pharmacy Electronically, [facility], 165, cm, 01/17/22 15:36:00 EST, Height, 89.27, kg, 08/16/20 10:16:00 EDT, Dry Weight Start Date: 01/23/22 Status: Ordered amLODIPine 5 mg oral tablet 1 tablet, By Mouth, Daily, # 30 tablet, 11 Refills, Maintenance, 01/24/22 22:33:00 EST, [facility], 165, cm, 01/17/22 15:36:00 EST, Height, 89.27, kg, 08/16/20 10:16:00 EDT, Dry Weight Start Date: 01/24/22 Status: Ordered diclofenac 1% topical gel = 2 Gm, Topically, 4 times a day, PRN for pain, not to exceed: - 8 gm/day/joint of upper limb, # 100 Gm, 1 Refills, Maintenance, 03/31/20 9:43:00 EDT, Gel, [facility], 165, cm, 02/02/20 11:43:00 EST, Height, 89.09, kg, 01/24/20 1... Start Date: 03/31/20 Status: Ordered fluticasone 50 mcg/inh nasal spray See Instructions, USE 1 SPRAY IN EACH NOSTRIL 2 TIMES A DAY., # 16 Gm, 5 Refills, [facility], 30, USE 1 SPRAY IN [...] capsule, 11 Refills, Maintenance, 01/24/22 22:33:00 EST,Capsule, [facility], 165, cm, 01/17/22 15:36:00 EST, Height, 89.27, kg, 08/16/20 10:16:00 EDT, Dry Weight Start Date: 01/24/22 Status: Ordered hydrOXYzine hydrochloride 10 mg oral tablet 1-2 tablet, By Mouth, 3 times a day, PRN Itch, 1-2 tablets 3 times a day as needed for itching, # 100 tablet, 1 Refills, Maintenance, 09/07/21 13:50:00 EDT, [facility], 165, cm, 07/24/21 15:17:00 EDT, Height, 89.27, kg, 08/16/20 10... Start Date: 09/07/21 Status: Ordered lamiVUDine 300 mg oral tablet 1 tablet = 300 mg, By Mouth, Daily, # 30 tablet, 11 Refills, Maintenance, 11/17/21 10:39:00 EST, Tablet, [facility], 165, cm, 10/17/21 9:33:00 EST, Height, 89.27, kg, 08/16/20 10:16:00 EDT, Dry Weight Start Date: 10/17/21 Status: Ordered loratadine 10 mg oral tablet 10 mg, 1, tablet, By Mouth, Daily, # 30 tablet, Refills 0, Tot. Refills 0, Maintenance, 11/19/19 16:44:00 EST, Route to Pharmacy Electronically, [facility], 165, cm, 11/19/19 16:13:00 EST, Height, 90.9, kg, 10/14/19 13:27:00 EST, D... Start Date: 11/19/19 Status: Ordered LORazepam 1 mg oral tablet 1 tablet = 1 mg, By Mouth, 2 times a day, PRN as needed for anxiety, # 15 tablet, 1 Refills, Maintenance, 09/06/21 14:38:00 EDT, Tablet, [facility], 165, cm, 07/24/21 15:17:00 EDT, Height, 89.27, kg, 08/16/20 10:16:00 EDT, Dry Weight Start Date: 09/06/21 Status: Ordered Nebulizer/Compressor See Instructions, # 1 each, Maintenance, use as needed for wheezing, 01/14/20 9:13:00 EST, Compound Start Date: 01/14/20 Status: Ordered ProAir HFA 90 mcg/inh inhalation aerosol with adapter 2, inhalation, Inhalation, Every 4 hours, PRN, # 8.5 Gm, Refills 5, Route to Pharmacy Electronically, [id number], [facility], 165, cm, 07/24/21 15:17:00 EDT, Height, 89.27, kg, 08/16/20 10:16:00 EDT, Dry Weight Start Date: 09/05/21 Status: Ordered raltegravir 600 mg oral tablet 2 tablet = 1,200 mg, By Mouth, Daily, # 60 tablet, 11 Refills, Maintenance, 10/17/21 10:39:00 EST, Tablet, [facility], 165, cm, 10/17/21 9:33:00 EST, Height, 89.27, kg, 08/16/20 10:16:00 EDT, Dry Weight Start Date: 10/17/21 Status: Ordered terbinafine 1% topical cream 1 application, Topically, 2 times a day, to rash, # 30 Gm, 3 Refills, Maintenance, 07/10/21 16:56:00 EDT, Cream, [facility], 1 application Topically 2 times a day,Instr:to rash, 165, cm, 07/10/21 16:34:00 EDT, Height, 89.27, kg, 09... Start Date: 07/10/21 Status: Ordered tiZANidine 2 mg oral tablet 1-2 tablet, By Mouth, Every 8 hours, PRN, # 50 tablet, Refills 1, Tot. Refills 1, Maintenance, as needed for muscle spasm, 03/31/20 9:40:00 EDT, Route to Pharmacy Electronically, [facility], 165, cm, 02/02/20 11:43:00 EST, Height,... Start Date: 03/31/20 Status: Ordered triamcinolone 0.025% topical cream 1 applicator, Topically, 3 times a day, emollient hydrophilic cream for allergy/inflammation. Use no more than 3 wks w/o break of 1 wk, # 120 Gm, 0 Refills, Maintenance, 10/17/21 10:41:00 EST, [facility], 1 applicator Topically 3... 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
--- OUTSIDE RECORDS SUMMARY | 2023-05-07 00:41 | XMS_ITS | Continuity of Care Document ---
Author Name Unknown Organization [facility] Address [address] [place] [address]- Care Team Providers Care Manager Transfusion Name Role Phone Elie Foster MD Primary Care Physician [phone] Encounter [facility] Date(s): 09/21/22 - 10/21/22 [facility] [address] [place] [address]- Attending Physician: Lilly Bejarano Admitting Physician: Lilly [...] FOR FEVER, # 100 tablet, 1 Refills, [facility], 165, cm, 03/26/22 13:56:00 EDT, Height, 89.27, kg, 08/16/20 10:16:00 EDT, Dry Weight Start Date: 07/21/22 Status: Ordered albuterol CFC free 90 mcg/inh inhalation aerosol 2, puffs, Inhalation, Every 4 hours, PRN, # 18 Gm, Refills 1, Tot. Refills 1, Maintenance, 08/23/2210:21:00 EDT, Aerosol, Route to Pharmacy Electronically, [id number], [facility], insurance formulary now... Start Date: 08/23/22 Status: Ordered amitriptyline 25 mg oral tablet 1, tablet, By Mouth, Daily at bedtime, # 30 tablet, Refills 2, Tot. Refills 2, Maintenance, 08/26/22 11:00:00 EDT, Route to Pharmacy Electronically, [facility], 165, cm, 08/15/22 13:22:00 EDT, Height Start Date: 08/26/22 Status: Ordered amLODIPine 5 mg oral tablet 1 tablet, By Mouth, Daily, # 30 tablet, 11 Refills, Maintenance, 01/24/22 22:33:00 EST, [facility], 165, cm, 01/17/22 15:36:00 EST, Height, 89.27, kg, 08/16/20 10:16:00 EDT, Dry Weight Start Date: 01/24/22 Status: Ordered diclofenac 1% topical gel = 2 Gm, Topically, 4 times a day, PRN for pain, not to exceed: - 8 gm/day/joint of upper limb, # 100 Gm, 1 Refills, Maintenance, 03/31/20 9:43:00 EDT, Gel, [facility], 165, cm, 02/02/20 11:43:00 EST, Height, 89.09, kg, 01/24/20 1... Start Date: 03/31/20 Status: Ordered fluticasone 50 mcg/inh nasal spray See Instructions, USE 1 SPRAY IN EACH NOSTRIL 2 TIMES A DAY., # 16 Gm, 5 Refills, [facility], 30, USE 1 [...] capsule, 11 Refills, Maintenance, 01/24/22 22:33:00 EST,Capsule, [facility], 165, cm, 01/17/22 15:36:00 EST, Height, 89.27, kg, 08/16/20 10:16:00 EDT, Dry Weight Start Date: 01/24/22 Status: Ordered hydrOXYzine hydrochloride 10 mg oral tablet 1-2 tablet, By Mouth, 3 times a day, PRN Itch, 1-2 tablets 3 times a day as needed for itching, # 100 tablet, 1 Refills, Maintenance, 09/07/21 13:50:00 EDT, [facility], 165, cm, 07/24/21 15:17:00 EDT, Height, 89.27, kg, 08/16/20 10... Start Date: 09/07/21 Status: Ordered lamiVUDine 300 mg oral tablet 1 tablet = 300 mg, By Mouth, Daily, # 30 tablet, 11 Refills, Maintenance, 10/16/22 7:06:00 EST, Tablet, [facility], 165, cm, 10/15/22 16:53:00 EST, Height Start Date: 10/16/22 Status: Ordered LORazepam 1 mg oral tablet 1 tablet = 1 mg, By Mouth, 2 times a day, PRN as needed for anxiety, # 15 tablet, 1 Refills, Maintenance, 10/16/22 7:05:00 EST, Tablet, [facility], 165, cm, 10/15/22 16:53:00 EST,Height Start Date: 10/16/22 Status: Ordered Nebulizer/Compressor See Instructions, # 1 each, Maintenance, use as needed for wheezing, 01/14/20 9:13:00 EST, Compound Start Date: 01/14/20 Status: Ordered raltegravir 600 mg oral tablet 2 tablet = 1,200 mg, By Mouth, Daily, # 60 tablet, 11 Refills, Maintenance, 10/16/22 7:06:00 EST, Tablet, [facility], 165, cm, 10/15/22 16:53:00 EST, Height Start Date: 10/16/22 Status: Ordered Shingrix intramuscular injection 0.5 mL, Intramuscular, Once, repeat dose in 2 to 6 months, # 0.5 mL, 1 Refills, Soft Stop, 08/15/2219:15:00 EDT, [facility], please administer, 0.5 mL Intramuscular Once,Instr:repeat dose in 2 to 6 months, 165, cm, 08/15/22 13:22:... Start Date: 08/15/22 Status: Ordered terbinafine 1% topical cream 1 application, Topically, 2 times a day, to rash, # 30 Gm, 3 Refills, Maintenance, 08/15/22 19:43:00 EDT, Cream, [facility], 1 application Topically 2 times a day,Instr:to rash, 165, cm, 08/15/22 13:22:00 EDT, Height, 89.27, kg, 09... Start Date: 08/15/22 Status: Ordered tiZANidine 2 mg oral tablet 1-2 tablet, By Mouth, Every 8 hours, PRN, # 50 tablet, Refills 1, Tot. 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 Screening for diabetes mellitus Confirmed Active Prurigo nodularis per biopsy Confirmed 10/2014 Active Tinea cruris Confirmed Active 1Biopsy 99 grade 4/4, stage 4/4, genotype 1a, 3,450,000 IU/ml 06/05 Social History Social History Type Response Smoking Status Never (less than 100 in lifetime) entered on: 10/15/22 Sex Patient Care team information Care Team Personnel Name: Elie Foster MD Position: [facility] Primary Care Physician Member Role: PCP Address: Address: [address] [place] [id number]- Name: Ivon Salcedo RN Position: [facility] RN Member Role: Primary Care Nurse Care Team Related Persons Name: CISCO DUEÑAS Address: home [address] [place] [address] Name: HIEU HUTTON Address: [address] [place] [address]
--- OUTSIDE RECORDS SUMMARY | 2023-05-07 00:41 | XMS_ITS | Continuity of Care Document ---
Author Name Unknown Organization [facility] Address [address] [place] [phone]- Care Team Providers Care Casing Cooker Name Role Phone Elie Foster MD Primary Care Physician [phone] Encounter [facility] Date(s): 08/23/22 - 09/22/22 [facility]/[place] [address]- [place] Allergies, Adverse Reactions, Alerts Substance Reaction [...] 6Admin Note: ADMIN.BY MICHELLE 7Admin Note: ADMIN.BY RN 8Result Comment: [09/22/2013] [...] FOR FEVER, # 100 tablet, 1 Refills, [facility], 165, cm, 03/26/22 13:56:00 EDT, Height, 89.27, kg, 08/16/20 10:16:00 EDT, Dry Weight Start Date: 07/21/22 Status: Ordered albuterol CFC free 90 mcg/inh inhalation aerosol 2, puffs, Inhalation, Every 4 hours, PRN, # 18 Gm, Refills 1, Tot. Refills 1, Maintenance, 08/23/2210:21:00 EDT, Aerosol, Route to Pharmacy Electronically, [id number], [facility], insurance formulary now... Start Date: 08/23/22 Status: Ordered amitriptyline 25 mg oral tablet 1, tablet, By Mouth, Daily at bedtime, # 30 tablet, Refills 2, Tot. Refills 2, Maintenance, 08/26/22 11:00:00 EDT, Route to Pharmacy Electronically, [facility], 165, cm, 08/15/22 13:22:00 EDT, Height Start Date: 08/26/22 Status: Ordered amLODIPine 5 mg oral tablet 1 tablet, By Mouth, Daily, # 30 tablet, 11 Refills, Maintenance, 01/24/22 22:33:00 EST, [facility], 165, cm, 01/17/22 15:36:00 EST, Height, 89.27, kg, 08/16/20 10:16:00 EDT, Dry Weight Start Date: 01/24/22 Status: Ordered azithromycin 250 mg oral tablet 1 tablet = 250 mg, By Mouth, Daily, 2 tablets on first day, then one tablet daily for 4 days, # 6 tablet, 0 Refills, Acute 09/26/22 23:00:00 EDT, 09/21/22 13:11:00 EDT, Tablet, [phone], Partial fill upon patient request if the pres... Start Date: 09/21/22 Stop Date: 09/26/22 Status: Ordered diclofenac 1% topical gel = 2 Gm, Topically, 4 times a day, PRN for pain, not to exceed: - 8 gm/day/joint of upper limb, # 100 Gm, 1 Refills, Maintenance, 03/31/20 9:43:00 EDT, Gel, [facility], 165, cm, 02/02/20 11:43:00 EST, Height, [...] A DAY., # 16 Gm, 5 Refills, [facility], 30, USE 1 SPRAY IN [...] 11 Refills, Maintenance, 01/24/22 22:33:00 EST,Capsule, [facility], 165, cm, 01/17/22 15:36:00 EST, Height, 89.27, kg, 08/16/20 10:16:00 EDT, Dry Weight Start Date: 01/24/22 Status: Ordered hydrOXYzine hydrochloride 10 mg oral tablet 1-2 tablet, By Mouth, 3 times a day, PRN Itch, 1-2 tablets 3 times a day as needed for itching, # 100 tablet, 1 Refills, Maintenance, 09/07/21 13:50:00 EDT, [facility], 165, cm, 07/24/21 15:17:00 EDT, Height, 89.27, kg, 08/16/20 10... Start Date: 09/07/21 Status: Ordered lamiVUDine 300 mg oral tablet 1 tablet = 300 mg, By Mouth, Daily, # 30 tablet, 11 Refills, Maintenance, 10/17/21 10:39:00 EST, Tablet, [facility], 165, cm, 10/17/21 9:33:00 EST, Height, 89.27, kg, 08/16/20 10:16:00 EDT, Dry Weight Start Date: 10/17/21 Status: Ordered loratadine 10 mg oral tablet 10 mg, 1, tablet, By Mouth, Daily, # 30 tablet, Refills 0, Tot. Refills 0, Maintenance, 11/19/19 16:44:00 EST, Route to Pharmacy Electronically, [facility], 165, cm, 11/19/19 16:13:00 EST, Height, 90.9, kg, 10/14/19 13:27:00 EST, D... Start Date: 11/19/19 Status: Ordered LORazepam 1 mg oral tablet 1 tablet = 1 mg, By Mouth, 2 times a day, PRN as needed for anxiety, # 15 tablet, 1 Refills, Maintenance, 09/06/21 14:38:00 EDT, Tablet, [facility], 165, cm, 07/24/21 15:17:00 EDT, Height, 89.27, kg, 08/16/20 10:16:00 EDT, Dry Weight Start Date: 09/06/21 Status: Ordered Nebulizer/Compressor See Instructions, # 1 each, Maintenance, use as needed for wheezing, 01/14/20 9:13:00 EST, Compound Start Date: 01/14/20 Status: Ordered NuLYTELY with Flavor Packs oral powder for reconstitution See Instructions, per GI office, # 4,000 mL, 0 Refills, Maintenance, 04/30/22 10:07:00 EDT, [facility], Partial fill upon patient request if the prescription is for a schedule II opioid drug., per GI office, 165, cm, 03/26/22 13:56... Start Date: 04/30/22 Status: Ordered raltegravir 600 mg oral tablet 2 tablet = 1,200 mg, By Mouth, Daily, # 60 tablet, 11 Refills, Maintenance, 10/17/21 10:39:00 EST, Tablet, [facility], 165, cm, 10/17/21 9:33:00 EST, Height, 89.27, kg, 08/16/20 10:16:00 EDT, Dry Weight Start Date: 10/17/21 Status: Ordered Shingrix intramuscular injection 0.5 mL, Intramuscular, Once, repeat dose in 2 to 6 months, # 0.5 mL, 1 Refills, Soft Stop, 08/15/2219:15:00 EDT, [facility], please administer, 0.5 mL Intramuscular Once,Instr:repeat dose in 2 to 6 months, 165, cm, 08/15/22 13:22:... Start Date: 08/15/22 Status: Ordered terbinafine 1% topical cream 1 application, Topically, 2 times a day, to rash, # 30 Gm, 3 Refills, Maintenance, 08/15/22 19:43:00 EDT, Cream, [facility], 1 application Topically 2 times a day,Instr:to rash, 165, cm, 08/15/22 13:22:00 EDT, Height, 89.27, kg, 09... Start Date: 08/15/22 Status: Ordered tiZANidine 2 mg oral tablet 1-2 tablet, By Mouth, Every 8 hours, PRN, # 50 tablet, Refills 0, Tot. Refills 0, Maintenance, as needed for muscle spasm, 03/17/22 20:26:00 EDT, Route to Pharmacy Electronically, [facility], 165, cm, 02/05/22 9:19:00 EST, Height,... Start Date: 03/17/22 Status: Ordered triamcinolone 0.025% topical cream 1 applicator, Topically, 3 times a day, emollient hydrophilic cream for allergy/inflammation. Use no more than 3 wks w/o break of 1 wk, # 120 Gm, 0 Refills, Maintenance, 10/17/21 10:41:00 EST, [facility], 1 applicator Topically 3... 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
--- OUTSIDE RECORDS SUMMARY | 2023-05-07 00:41 | XMS_ITS | Continuity of Care Document ---
Author Name Unknown Organization [facility] Address [address] [place] [phone]- Care Team Providers Care Oyster Preparer Name Role Phone Elie Foster MD Primary Care Physician [facility] Date[facility]s): 02/02/23 - 03/04/23 [facility]/[place] [address]- [place] Allergies, Adverse Reactions, Alerts Substance Reaction [...] FOR FEVER, # 100 tablet, 1 Refills, [facility], 165, cm, 03/26/22 13:56:00 EDT, Height, 89.27, kg, 08/16/20 10:16:00 EDT, Dry Weight Start Date: 07/21/22 Status: Ordered albuterol 0.083% inhalation solution 3 mL = 2.5 mg, Neb, Every 6 hours, PRN as needed for wheezing, use with nebulizer, # 90 mL, 1 Refills, Maintenance, 02/23/23 11:59:00 EDT, Solution, [facility], 165, cm, 01/30/23 16:10:00 EST, Height, 89.27, kg, 01/09/23 9:40:00 ES... Start Date: 02/23/23 Status: Ordered albuterol CFC free 90 mcg/inh inhalation aerosol 2, puffs, Inhalation, Every 4 hours, PRN, # 18 Gm, Refills 1, Tot. Refills 1, Maintenance, 08/23/2210:21:00 EDT, Aerosol, Route to Pharmacy Electronically, [id number], [facility], insurance formulary now... Start Date: 08/23/22 Status: Ordered amitriptyline 25 mg oral tablet 1, tablet, By Mouth, Daily at bedtime, # 30 tablet, Refills 5, Tot. Refills 5, Maintenance, 01/22/23 18:58:00 EST, Route to Pharmacy Electronically, [facility], 165, cm, 01/09/23 9:40:00 EST, Height, 89.27, kg, 01/09/23 9:40:00 EST... Start Date: 01/22/23 Status: Ordered amLODIPine 5 mg oral tablet 1 tablet, By Mouth, Daily, # 30 tablet, 5 Refills, Maintenance, 02/21/23 15:22:00 EDT, [facility], 165, cm, 01/30/23 16:10:00 EST, Height, 89.27, kg, 01/09/23 9:40:00 EST, Dry Weight Start Date: 02/21/23 Status: Ordered dextromethorphan-guaifenesin 10 mg-200 mg/5 mL oral liquid 10 mL, By Mouth, Every 4 hours, PRN for cough, # 240 mL, 1 Refills, Acute 01/21/24 15:59:00 EST, 01/21/23 15:59:00 EST, Liquid, [facility], 10 mL By Mouth Every 4 hours,PRN:for cough, 165, cm, 01/09/23 9:40:00 EST, Height, 89.27, k... Start Date: [...] A DAY., # 16 Gm, 5 Refills, [facility], 30, USE 1 SPRAY IN [...] capsule, 11 Refills, Maintenance, 02/23/23 11:58:00 EDT,Capsule, [facility], 165, cm, 01/30/23 16:10:00 EST, Height, 89.27, kg, 01/09/23 9:40:00 EST, Dry Weight Start Date: 02/23/23 Status: Ordered hydrOXYzine hydrochloride 10 mg oral tablet 1-2 tablet, By Mouth, 3 times a day, PRN Itch, 1-2 tablets 3 times a day as needed for itching, # 100 tablet, 1 Refills, Maintenance, 09/07/21 13:50:00 EDT, [facility], 165, cm, 07/24/21 15:17:00 EDT, Height, 89.27, kg, 08/16/20 10... Start Date: 09/07/21 Status: Ordered lamiVUDine 300 mg oral tablet 1 tablet = 300 mg, By Mouth, Daily, # 30 tablet, 11 Refills, Maintenance, 10/16/22 7:06:00 EST, Tablet, [facility], 165, cm, 10/15/22 16:53:00 EST, Height Start Date: 10/16/22 Status: Ordered LORazepam 1 mg oral tablet 1 tablet = 1 mg, By Mouth, 2 times a day, PRN as needed for anxiety, # 15 tablet, 1 Refills, Maintenance, 01/27/23 0:13:00 EST, Tablet, [facility], 165, cm, 01/09/23 9:40:00 EST, Height, 89.27, [...] EST, Tablet, [facility], 165, cm, 10/15/22 16:53:00 EST, Height Start Date: 10/16/22 Status: Ordered Shingrix intramuscular injection 0.5 mL, Intramuscular, Once, #2. Here now. Thx, # 0.5 mL, 0 Refills, Soft Stop, 11/28/22 14:44:00 EST, [facility], please administer, 0.5 mL Intramuscular Once,Instr:#2. Here now.Thx, 165, cm, 11/28/22 13:36:00 EST, Height, 91.27,... Start Date: 11/28/22 Status: Ordered terbinafine 1% topical cream 1 application, Topically, 2 times a day, to rash, # 30 Gm, 3 Refills, Maintenance, 08/15/22 19:43:00 EDT, Cream, [facility], 1 application Topically 2 times a day,Instr:to rash, 165, cm, 08/15/22 13:22:00 EDT, Height, 89.27, kg, 09... Start Date: 08/15/22 Status: Ordered tiZANidine 2 mg oral tablet 1-2 tablet, By Mouth, Every 8 hours, PRN, # 50 tablet, Refills 1, Tot. Refills 1, Maintenance, as needed for muscle spasm, 01/22/23 18:57:00 EST, Route to Pharmacy Electronically, [facility], 165, cm, 01/09/23 9:40:00 EST, Height,... 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 Screening for diabetes mellitus Confirmed Active Prurigo nodularis per biopsy Confirmed 10/2014 Active Tinea cruris Confirmed Active 1Biopsy 99 grade 4/4, stage 4/4, genotype 1a, 3,450,000 IU/ml 06/05 Social History Social History Type Response Smoking Status Never (less than 100 in lifetime) entered on: 10/15/22 Sex Patient Care team information Care Team Personnel Name: Cristian GARZA, Elie Ching Position: [facility] Primary Care Physician Member Role: PCP Address: Address: [address] [place] [id number]- Name: Ivon Salcedo RN Position: [facility] RN Member Role: Primary Care Nurse Care Team Related Persons Name: CISCO DUEÑAS Address: home [address] [place] [address] Name: HIEU HUTTON Address: [address] [place] [address]
--- OUTSIDE RECORDS SUMMARY | 2023-05-07 00:41 | XMS_ITS | Continuity of Care Document ---
Author Name Unknown Organization [facility] Address [address] [place] [id number]- Care Team Providers Care Mold Loft Worker Name Role Phone Elie Foster MD Primary Care Physician [place] [facility] [place] 11/28/21 [facility] [address] [place] [id number]- [place] Allergies, Adverse Reactions, Alerts Substance Reaction [...] FOR FEVER, # 100 tablet, 5 Refills, [facility], 165, cm, 07/10/21 16:34:00 EDT, Height, 89.27, kg, 08/16/20 10:16:00 EDT, Dry Weight Start Date: 07/23/21 Status: Ordered albuterol 0.083% inhalation solution 3 mL = 2.5 mg, Neb, Every 6 hours, PRN as needed for wheezing, use with nebulizer, # 90 mL, 2 Refills, Maintenance, 02/22/20 16:13:00 EDT, Solution, [facility], 165, cm, 02/02/20 11:43:00 EST, Height, 89.09, kg, 01/24/20 16:19:00 E... Start Date: 02/22/20 Status: Ordered amitriptyline 25 mg oral tablet 25 mg, 1, tablet, By Mouth, Daily at bedtime, # 30 tablet, Refills 11, Tot. Refills 11, Maintenance, 01/09/21 15:37:00 EST, Route to Pharmacy Electronically, [facility], Partial fill upon patient request if the prescription is for... Start Date: 01/09/21 Status: Ordered amLODIPine 5 mg oral tablet 1 tablet, By Mouth, Daily, # 30 tablet, 5 Refills, Maintenance, 06/11/21 14:54:00 EDT, [facility], 165, cm, 05/08/21 14:40:00 EDT, Height, 89.27, kg, 08/16/20 10:16:00 EDT, Dry Weight Start Date: 06/11/21 Status: Ordered diclofenac 1% topical gel = 2 Gm, Topically, 4 times a day, PRN for pain, not to exceed: - 8 gm/day/joint of upper limb, # 100 Gm, 1 Refills, Maintenance, 03/31/20 9:43:00 EDT, Gel, [facility], 165, cm, 02/02/20 11:43:00 EST, Height, 89.09, kg, 01/24/20 1... Start Date: 03/31/20 Status: Ordered fluticasone 50 mcg/inh nasal spray See Instructions, USE 1 SPRAY IN EACH NOSTRIL 2 TIMES A DAY., # 16 Gm, 5 Refills, [facility], 30, USE 1 SPRAY IN EACH [...] capsule, 11 Refills, Maintenance, 06/12/21 23:49:00 EDT,Capsule, [facility], 165, cm, 05/08/21 14:40:00 EDT, Height, 89.27, kg, 08/16/20 10:16:00 EDT, Dry Weight Start Date: 06/12/21 Status: Ordered hydrOXYzine hydrochloride 10 mg oral tablet 1-2 tablet, By Mouth, 3 times a day, PRN Itch, 1-2 tablets 3 times a day as needed for itching, # 100 tablet, 1 Refills, Maintenance, 09/07/21 13:50:00 EDT, [facility], 165, cm, 07/24/21 15:17:00 EDT, Height, 89.27, kg, 08/16/20 10... Start Date: 09/07/21 Status: Ordered lamiVUDine 300 mg oral tablet 1 tablet = 300 mg, By Mouth, Daily, # 30 tablet, 11 Refills, Maintenance, 10/17/21 10:39:00 EST, Tablet, [facility], 165, cm, 10/17/21 9:33:00 EST, Height, 89.27, kg, 08/16/20 10:16:00 EDT, Dry Weight Start Date: 10/17/21 Status: Ordered loratadine 10 mg oral tablet 10 mg, 1, tablet, By Mouth, Daily, # 30 tablet, Refills 0, Tot. Refills 0, Maintenance, 11/19/19 16:44:00 EST, Route to Pharmacy Electronically, [facility], 165, cm, 11/19/19 16:13:00 EST, Height, 90.9, kg, 10/14/19 13:27:00 EST, D... Start Date: 11/19/19 Status: Ordered LORazepam 1 mg oral tablet 1 tablet = 1 mg, By Mouth, 2 times a day, PRN as needed for anxiety, # 15 tablet, 1 Refills, Maintenance, 09/06/21 14:38:00 EDT, Tablet, [facility], 165, cm, 07/24/21 15:17:00 EDT, [...] Gm, Refills 5, Route to Pharmacy Electronically, [id number], [facility], 165, cm, 07/24/21 15:17:00 EDT, Height, 89.27, kg, 08/16/20 10:16:00 EDT, Dry Weight Start Date: 09/05/21 Status: Ordered raltegravir 600 mg oral tablet 2 tablet = 1,200 mg, By Mouth, Daily, # 60 tablet, 11 Refills, Maintenance, 10/17/21 10:39:00 EST, Tablet, [facility], 165, cm, 10/17/21 9:33:00 EST, Height, 89.27, kg, 08/16/20 10:16:00 EDT, Dry Weight Start Date: 10/17/21 Status: Ordered terbinafine 1% topical cream 1 application, Topically, 2 times a day, to rash, # 30 Gm, 3 Refills, Maintenance, 07/10/21 16:56:00 EDT, Cream, [facility], 1 application Topically 2 times a day,Instr:to rash, 165, cm, 07/10/21 16:34:00 EDT, Height, 89.27, kg, 09... Start Date: 07/10/21 Status: Ordered tiZANidine 2 mg oral tablet 1-2 tablet, By Mouth, Every 8 hours, PRN, # 50 tablet, Refills 1, Tot. Refills 1, Maintenance, as needed for muscle spasm, 03/31/20 9:40:00 EDT, Route to Pharmacy Electronically, [facility], 165, cm, 02/02/20 11:43:00 EST, Height,... Start Date: 03/31/20 Status: Ordered triamcinolone 0.025% topical cream 1 applicator, Topically, 3 times a day, emollient hydrophilic cream for allergy/inflammation. Use no more than 3 wks w/o break of 1 wk, # 120 Gm, 0 Refills, Maintenance, 10/17/21 10:41:00 EST, [facility], 1 applicator Topically 3... Start Date: 10/17/21 Status: Ordered Viread 300 mg oral tablet 1 tablet = 300 mg, By Mouth, Daily, # 30 tablet, 11 Refills, Maintenance, 10/17/21 10:39:00 EST, Tablet, [facility], 165, cm, 10/17/21 9:33:00 EST, Height, [...] I(Confirmed) Active Obesity(Confirmed) Active Visit for routine safety compliance specialist exam(Confirmed) Active Screening for diabetes mellitus(Confirmed) Active Prurigo nodularis per biopsy(Confirmed) 10/2014 Active Tinea cruris(Confirmed) Active 1Biopsy 99 grade 4/4, stage 4/4, genotype 1a, 3,450,000 IU/ml 06/05 Social History Social History Type Response Smoking Status Never (less than 100 in lifetime) entered on: 07/24/21 Sex
--- OUTSIDE RECORDS SUMMARY | 2023-05-07 00:41 | XMS_ITS | Continuity of Care Document ---
Author Name Unknown Organization [facility] Address Unknown Care Team Providers Care Retail Support Specialist Name Role Phone Elie Foster MD Primary Care Physician [phone] Encounter [facility] [place] Date(s): 07/06/21 - 08/05/21 [facility] Allergies, Adverse Reactions, Alerts Substance Reaction [...] FOR FEVER, # 100 tablet, 5 Refills, [facility], 165, cm, 07/10/21 16:34:00 EDT, Height, 89.27, kg, 08/16/20 10:16:00 EDT, Dry Weight Start Date: 07/23/21 Status: Ordered albuterol 0.083% inhalation solution 3 mL = 2.5 mg, Neb, Every 6 hours, PRN as needed for wheezing, use with nebulizer, # 90 mL, 2 Refills, Maintenance, 02/22/20 16:13:00 EDT, Solution, [facility], 165, cm, 02/02/20 11:43:00 EST, Height, 89.09, kg, 01/24/20 16:19:00 E... Start Date: 02/22/20 Status: Ordered amitriptyline 25 mg oral tablet 25 mg, 1, tablet, By Mouth, Daily at bedtime, # 30 tablet, Refills 11, Tot. Refills 11, Maintenance, 01/09/21 15:37:00 EST, Route to Pharmacy Electronically, [facility], Partial fill upon patient request if the prescription is for... Start Date: 01/09/21 Status: Ordered amLODIPine 5 mg oral tablet 1 tablet, By Mouth, Daily, # 30 tablet, 5 Refills, Maintenance, 06/11/21 14:54:00 EDT, [facility], 165, cm, 05/08/21 14:40:00 EDT, Height, 89.27, kg, 08/16/20 10:16:00 EDT, Dry Weight Start Date: 06/11/21 Status: Ordered diclofenac 1% topical gel = 2 Gm, Topically, 4 times a day, PRN for pain, not to exceed: - 8 gm/day/joint of upper limb, # 100 Gm, 1 Refills, Maintenance, 03/31/20 9:43:00 EDT, Gel, [facility], 165, cm, 02/02/20 11:43:00 EST, Height, 89.09, kg, 01/24/20 1... Start Date: 03/31/20 Status: Ordered Flonase 50 mcg/inh nasal spray 1 sprays, Nares, Both, 2 times a day, # 16 Gm, 5 Refills, Maintenance, 11/30/20 16:38:00 EST, [place], [facility], 1 sprays Nares, Both 2 times a [...] capsule, 11 Refills, Maintenance, 06/12/21 23:49:00 EDT,Capsule, [facility], 165, cm, 05/08/21 14:40:00 EDT, Height, 89.27, kg, 08/16/20 10:16:00 EDT, Dry Weight Start Date: 06/12/21 Status: Ordered hydrOXYzine hydrochloride 10 mg oral tablet 1-2 tablet, By Mouth, 3 times a day, PRN Itch, 1-2 tablets 3 times a day as needed for itching, # 100 tablet, 1 Refills, Maintenance, 06/12/21 23:49:00 EDT, [facility], 165, cm, 05/08/21 14:40:00 EDT, Height, 89.27, kg, 08/16/20 10... Start Date: 06/12/21 Status: Ordered lamiVUDine 300 mg oral tablet 1 tablet = 300 mg, By Mouth, Daily, # 30 tablet, 11 Refills, Maintenance, 10/30/20 14:19:00 EST, Tablet, [facility], 165, cm, 09/21/20 15:55:00 EDT, Height, 89.27, kg, 08/16/20 10:16:00 EDT, Dry Weight Start Date: 10/30/20 Status: Ordered loratadine 10 mg oral tablet 10 mg, 1, tablet, By Mouth, Daily, # 30 tablet, Refills 0, Tot. Refills 0, Maintenance, 11/19/19 16:44:00 EST, Route to Pharmacy Electronically, [facility], 165, cm, 11/19/19 16:13:00 EST, Height, 90.9, kg, 10/14/19 13:27:00 EST, D... Start Date: 11/19/19 Status: Ordered LORazepam 1 mg oral tablet 1 tablet = 1 mg, By Mouth, 2 times a day, PRN as needed for anxiety, # 15 tablet, 1 Refills, Maintenance, 11/01/20 10:56:00 EST, Tablet, [facility], 165, cm, 11/01/20 8:58:00 EST,Height, 89.27, kg, [...] each, 0 Refills, Maintenance, 04/26/21 10:11:00 EDT, [facility], ok to sub for any gallon prep, as directed, 165, cm, 04/26/21 9:37:00 EDT, Height, 89.27, kg, 08/16/20 10:16:00 EDT, Dry Weight Start Date: 04/26/21 Status: Ordered ProAir HFA 90 mcg/inh inhalation aerosol with adapter 2, puffs, Inhalation, Every 4 hours, PRN, # 8.5 Gm, Refills 5, Tot. Refills 5, Maintenance, 11/30/20 16:38:00 EST, Aerosol, Route to Pharmacy Electronically, [id number], [facility], 165, cm, 11/15/20 11:50... Start Date: 11/30/20 Status: Ordered ProAir HFA 90 mcg/inh inhalation aerosol with adapter 2, puffs, Inhalation, Every 6 hours, PRN, # 8.5 Gm, Refills 0, Tot. Refills 0, Maintenance, 11/10/17 18:44:13, Aerosol, Route to Pharmacy Electronically, [id number], [facility] Start Date: 11/10/17 Status: Ordered raltegravir 600 mg oral tablet 2 tablet = 1,200 mg, By Mouth, Daily, # 60 tablet, 11 Refills, Maintenance, 10/30/20 14:19:00 EST, Tablet, [facility], 165, cm, 09/21/20 15:55:00 EDT, Height, 89.27, kg, 08/16/20 10:16:00 EDT, Dry Weight Start Date: 10/30/20 Status: Ordered terbinafine 1% topical cream 1 application, Topically, 2 times a day, to rash, # 30 Gm, 3 Refills, Maintenance, 07/10/21 16:56:00 EDT, Cream, [facility], 1 application Topically 2 times a day,Instr:to rash, 165, cm, 07/10/21 16:34:00 EDT, Height, 89.27, kg, 09... Start Date: 07/10/21 Status: Ordered tiZANidine 2 mg oral tablet 1-2 tablet, By Mouth, Every 8 hours, PRN, # 50 tablet, Refills 1, Tot. Refills 1, Maintenance, as needed for muscle spasm, 03/31/20 9:40:00 EDT, Route to Pharmacy Electronically, [facility], 165, cm, 02/02/20 11:43:00 EST, Height,... Start Date: 03/31/20 Status: Ordered triamcinolone 0.025% topical cream 1 applicator, Topically, 3 times a day, emollient hydrophilic cream for allergy/inflammation. Use no more than 3 wks w/o break of 1 wk, # 120 Gm, 0 Refills, Maintenance, 06/29/20 0:49:00 EDT, [facility], 1 applicator Topically 3 t... Start Date: 06/29/20 Status: Ordered Viread 300 mg oral tablet 1 tablet = 300 mg, By Mouth, Daily, # 30 tablet, 11 Refills, Maintenance, 10/30/20 14:19:00 EST, Tablet, [facility], 165, cm, 09/21/20 15:55:00 EDT, Height, 89.27, [...] 2009 Active Obesity(Confirmed) Active Visit for routine dermatology nurse exam(Confirmed) Active Screening for diabetes mellitus(Confirmed) Active Prurigo nodularis per biopsy(Confirmed) 10/2014 Active Tinea cruris(Confirmed) Active 1Biopsy 99 grade 4/4, stage 4/4, genotype 1a, 3,450,000 IU/ml 06/05 Social History Social History Type Response Smoking Status Never (less than 100 in lifetime) entered on: 07/24/21 Sex
--- OUTSIDE RECORDS SUMMARY | 2023-05-07 00:41 | XMS_ITS | Continuity of Care Document ---
Author Name Unknown Organization [facility] Address Unknown Care Team Providers Care Prepress Technician Name Role Phone Elie Foster MD Primary Care Physician [phone] [place] [facility] [place]12[place] - 01/11/22 [facility] Attending Physician: Lilly Bejarano Allergies, Adverse Reactions, [...] FOR FEVER, # 100 tablet, 5 Refills, [facility], 165, cm, 07/10/21 16:34:00 EDT, Height, 89.27, kg, 08/16/20 10:16:00 EDT, Dry Weight Start Date: 07/23/21 Status: Ordered albuterol 0.083% inhalation solution 3 mL = 2.5 mg, Neb, Every 6 hours, PRN as needed for wheezing, use with nebulizer, # 90 mL, 2 Refills, Maintenance, 02/22/20 16:13:00 EDT, Solution, [facility], 165, cm, 02/02/20 11:43:00 EST, Height, 89.09, kg, 01/24/20 16:19:00 E... Start Date: 02/22/20 Status: Ordered amitriptyline 25 mg oral tablet 25 mg, 1, tablet, By Mouth, Daily at bedtime, # 30 tablet, Refills 11, Tot. Refills 11, Maintenance, 01/09/21 15:37:00 EST, Route to Pharmacy Electronically, [facility], Partial fill upon patient request if the prescription is for... Start Date: 01/09/21 Status: Ordered amLODIPine 5 mg oral tablet 1 tablet, By Mouth, Daily, # 30 tablet, 5 Refills, Maintenance, 06/11/21 14:54:00 EDT, [facility], 165, cm, 05/08/21 14:40:00 EDT, Height, 89.27, kg, 08/16/20 10:16:00 EDT, Dry Weight Start Date: 06/11/21 Status: Ordered diclofenac 1% topical gel = 2 Gm, Topically, 4 times a day, PRN for pain, not to exceed: - 8 gm/day/joint of upper limb, # 100 Gm, 1 Refills, Maintenance, 03/31/20 9:43:00 EDT, Gel, [facility], 165, cm, 02/02/20 11:43:00 EST, Height, 89.09, kg, 01/24/20 1... Start Date: 03/31/20 Status: Ordered fluticasone 50 mcg/inh nasal spray See Instructions, USE 1 SPRAY IN EACH NOSTRIL 2 TIMES A DAY., # 16 Gm, 5 Refills, [facility], 30, USE 1 SPRAY IN [...] capsule, 11 Refills, Maintenance, 06/12/21 23:49:00 EDT,Capsule, [facility], 165, cm, 05/08/21 14:40:00 EDT, Height, 89.27, kg, 08/16/20 10:16:00 EDT, Dry Weight Start Date: 06/12/21 Status: Ordered hydrOXYzine hydrochloride 10 mg oral tablet 1-2 tablet, By Mouth, 3 times a day, PRN Itch, 1-2 tablets 3 times a day as needed for itching, # 100 tablet, 1 Refills, Maintenance, 09/07/21 13:50:00 EDT, [facility], 165, cm, 07/24/21 15:17:00 EDT, Height, 89.27, kg, 08/16/20 10... Start Date: 09/07/21 Status: Ordered lamiVUDine 300 mg oral tablet 1 tablet = 300 mg, By Mouth, Daily, # 30 tablet, 11 Refills, Maintenance, 10/17/21 10:39:00 EST, Tablet, [facility], 165, cm, 10/17/21 9:33:00 EST, Height, 89.27, kg, 08/16/20 10:16:00 EDT, Dry Weight Start Date: 10/17/21 Status: Ordered loratadine 10 mg oral tablet 10 mg, 1, tablet, By Mouth, Daily, # 30 tablet, Refills 0, Tot. Refills 0, Maintenance, 11/19/19 16:44:00 EST, Route to Pharmacy Electronically, [facility], 165, cm, 11/19/19 16:13:00 EST, Height, 90.9, kg, 10/14/19 13:27:00 EST, D... Start Date: 11/19/19 Status: Ordered LORazepam 1 mg oral tablet 1 tablet = 1 mg, By Mouth, 2 times a day, PRN as needed for anxiety, # 15 tablet, 1 Refills, Maintenance, 09/06/21 14:38:00 EDT, Tablet, [facility], 165, cm, 07/24/21 15:17:00 EDT, Height, [...] Gm, Refills 5, Route to Pharmacy Electronically, [id number], [facility], 165, cm, 07/24/21 15:17:00 EDT, Height, 89.27, kg, 08/16/20 10:16:00 EDT, Dry Weight Start Date: 09/05/21 Status: Ordered raltegravir 600 mg oral tablet 2 tablet = 1,200 mg, By Mouth, Daily, # 60 tablet, 11 Refills, Maintenance, 11/17/21 10:39:00 EST, Tablet, [facility], 165, cm, 10/17/21 9:33:00 EST, Height, 89.27, kg, 08/16/20 10:16:00 EDT, Dry Weight Start Date: 10/17/21 Status: Ordered terbinafine 1% topical cream 1 application, Topically, 2 times a day, to rash, # 30 Gm, 3 Refills, Maintenance, 07/10/21 16:56:00 EDT, Cream, [facility], 1 application Topically 2 times a day,Instr:to rash, 165, cm, 07/10/21 16:34:00 EDT, Height, 89.27, kg, 09... Start Date: 07/10/21 Status: Ordered tiZANidine 2 mg oral tablet 1-2 tablet, By Mouth, Every 8 hours, PRN, # 50 tablet, Refills 1, Tot. Refills 1, Maintenance, as needed for muscle spasm, 03/31/20 9:40:00 EDT, Route to Pharmacy Electronically, [facility], 165, cm, 02/02/20 11:43:00 EST, Height,... Start Date: 03/31/20 Status: Ordered triamcinolone 0.025% topical cream 1 applicator, Topically, 3 times a day, emollient hydrophilic cream for allergy/inflammation. Use no more than 3 wks w/o break of 1 wk, # 120 Gm, 0 Refills, Maintenance, 10/17/21 10:41:00 EST, [facility], 1 applicator Topically 3... 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
--- OUTSIDE RECORDS SUMMARY | 2023-05-07 00:41 | XMS_ITS | Continuity of Care Document ---
Author Name Unknown Organization [facility] Address [address] [place] [address]- Care Team Providers Care Turkey Boner Name Role Phone Elie Foster MD Primary Care Physician [phone] Encounter [facility] [place] Date(s): 11/04/22 - 12/11/22 [facility] [address]- Attending Physician: Elie Foster MD Admitting Physician: [...] FOR FEVER, # 100 tablet, 1 Refills, [facility], 165, cm, 03/26/22 13:56:00 EDT, Height, 89.27, kg, 08/16/20 10:16:00 EDT, Dry Weight Start Date: 07/21/22 Status: Ordered albuterol CFC free 90 mcg/inh inhalation aerosol 2, puffs, Inhalation, Every 4 hours, PRN, # 18 Gm, Refills 1, Tot. Refills 1, Maintenance, 08/23/2210:21:00 EDT, Aerosol, Route to Pharmacy Electronically, [id number], [facility], insurance formulary now... Start Date: 08/23/22 Status: Ordered amitriptyline 25 mg oral tablet 1, tablet, By Mouth, Daily at bedtime, # 30 tablet, Refills 2, Tot. Refills 2, Maintenance, 08/26/22 11:00:00 EDT, Route to Pharmacy Electronically, [facility], 165, cm, 08/15/22 13:22:00 EDT, Height Start Date: 08/26/22 Status: Ordered amLODIPine 5 mg oral tablet 1 tablet, By Mouth, Daily, # 30 tablet, 11 Refills, Maintenance, 01/24/22 22:33:00 EST, [facility], 165, cm, 01/17/22 15:36:00 EST, Height, 89.27, kg, 08/16/20 10:16:00 EDT, Dry Weight Start Date: 01/24/22 Status: Ordered diclofenac 1% topical gel = 2 Gm, Topically, 4 times a day, PRN for pain, not to exceed: - 8 gm/day/joint of upper limb, # 100 Gm, 1 Refills, Maintenance, 03/31/20 9:43:00 EDT, Gel, [facility], 165, cm, 02/02/20 11:43:00 EST, Height, 89.09, kg, 01/24/20 1... Start Date: 03/31/20 Status: Ordered fluticasone 50 mcg/inh nasal spray See Instructions, USE 1 SPRAY IN EACH NOSTRIL 2 TIMES A DAY., # 16 Gm, 5 Refills, [facility], 30, USE 1 SPRAY IN [...] capsule, 11 Refills, Maintenance, 01/24/22 22:33:00 EST,Capsule, [facility], 165, cm, 01/17/22 15:36:00 EST, Height, 89.27, kg, 08/16/20 10:16:00 EDT, Dry Weight Start Date: 01/24/22 Status: Ordered hydrOXYzine hydrochloride 10 mg oral tablet 1-2 tablet, By Mouth, 3 times a day, PRN Itch, 1-2 tablets 3 times a day as needed for itching, # 100 tablet, 1 Refills, Maintenance, 09/07/21 13:50:00 EDT, [facility], 165, cm, 07/24/21 15:17:00 EDT, Height, 89.27, kg, 08/16/20 10... Start Date: 09/07/21 Status: Ordered lamiVUDine 300 mg oral tablet 1 tablet = 300 mg, By Mouth, Daily, # 30 tablet, 11 Refills, Maintenance, 10/16/22 7:06:00 EST, Tablet, [facility], 165, cm, 10/15/22 16:53:00 EST, Height Start Date: 10/16/22 Status: Ordered LORazepam 1 mg oral tablet 1 tablet = 1 mg, By Mouth, 2 times a day, PRN as needed for anxiety, # 15 tablet, 1 Refills, Maintenance, 10/16/22 7:05:00 EST, Tablet, [facility], 165, cm, 10/15/22 16:53:00 EST,Height Start Date: 10/16/22 Status: Ordered Nebulizer/Compressor See Instructions, # 1 each, Maintenance, use as needed for wheezing, 01/14/20 9:13:00 EST, Compound Start Date: 01/14/20 Status: Ordered raltegravir 600 mg oral tablet 2 tablet = 1,200 mg, By Mouth, Daily, # 60 tablet, 11 Refills, Maintenance, 10/16/22 7:06:00 EST, Tablet, [facility], 165, cm, 10/15/22 16:53:00 EST, Height Start Date: 10/16/22 Status: Ordered Shingrix intramuscular injection 0.5 mL, Intramuscular, Once, #2. Here now. Thx, # 0.5 mL, 0 Refills, Soft Stop, 11/28/22 14:44:00 EST, [facility], please administer, 0.5 mL Intramuscular Once,Instr:#2. Here now.Thx, 165, cm, 11/28/22 13:36:00 EST, Height, 91.27,... Start Date: 11/28/22 Status: Ordered terbinafine 1% topical cream 1 application, Topically, 2 times a day, to rash, # 30 Gm, 3 Refills, Maintenance, 08/15/22 19:43:00 EDT, Cream, [facility], 1 application Topically 2 times a day,Instr:to rash, 165, cm, 08/15/22 13:22:00 EDT, Height, 89.27, kg, 09... Start Date: 08/15/22 Status: Ordered tiZANidine 2 mg oral tablet 1-2 tablet, By Mouth, Every 8 hours, PRN, # 50 tablet, Refills 1, Tot. Refills 1, Maintenance, as needed for muscle spasm, 10/15/22 19:40:00 EST, Route to Pharmacy Electronically, [facility], 165, cm, 10/15/22 16:53:00 EST, Height Start Date: 10/15/22 Status: Ordered Viread 300 mg oral tablet 1 tablet = 300 mg, By Mouth, Daily, # 30 tablet, 11 Refills, Maintenance, 10/16/22 7:06:00 EST, Tablet, [facility], 165, cm, 10/15/22 16:53:00 EST, Height Start [...] Active Obesity Confirmed Active Visit for routine assembler bonding exam Confirmed Active Screening for diabetes mellitus Confirmed Active Prurigo nodularis per biopsy Confirmed 10/2014 Active Tinea cruris Confirmed Active 1Biopsy 99 grade 4/4, stage 4/4, genotype 1a, 3,450,000 IU/ml 06/05 Social History Social History Type Response Smoking Status Never (less than 100 in lifetime) entered on: 10/15/22 Sex Patient Care team information Care Team Personnel Name: Elie Foster MD Position: [facility] Primary Care Physician Member Role: PCP Address: Address: [address] [place] [address] Name: Ivon Salcedo RN Position: [facility] RN Member Role: Primary Care Nurse Care Team Related Persons Name: CISCO DUEÑAS Address: home [address] [place] [address] Name: HIEU HUTTON Address: [address] [place] [address]
--- OUTSIDE RECORDS SUMMARY | 2023-05-07 00:41 | XMS_ITS | Continuity of Care Document ---
Author Name Unknown Organization [facility] Address Unknown Care Team Providers Care Stewardess Supervisor Name Role Phone Elie Foster MD Primary Care Physician Encounter [facility] [place] Date(s): 12/14/21 - 01/13/22 [facility] Allergies, Adverse Reactions, Alerts [...] FOR FEVER, # 100 tablet, 5 Refills, [facility], 165, cm, 07/10/21 16:34:00 EDT, Height, 89.27, kg, 08/16/20 10:16:00 EDT, Dry Weight Start Date: 07/23/21 Status: Ordered albuterol 0.083% inhalation solution 3 mL = 2.5 mg, Neb, Every 6 hours, PRN as needed for wheezing, use with nebulizer, # 90 mL, 2 Refills, Maintenance, 02/22/20 16:13:00 EDT, Solution, [facility], 165, cm, 02/02/20 11:43:00 EST, Height, 89.09, kg, 01/24/20 16:19:00 E... Start Date: 02/22/20 Status: Ordered amitriptyline 25 mg oral tablet 25 mg, 1, tablet, By Mouth, Daily at bedtime, # 30 tablet, Refills 11, Tot. Refills 11, Maintenance, 01/09/21 15:37:00 EST, Route to Pharmacy Electronically, [facility], Partial fill upon patient request if the prescription is for... Start Date: 01/09/21 Status: Ordered amLODIPine 5 mg oral tablet 1 tablet, By Mouth, Daily, # 30 tablet, 5 Refills, Maintenance, 06/11/21 14:54:00 EDT, [facility], 165, cm, 05/08/21 14:40:00 EDT, Height, 89.27, kg, 08/16/20 10:16:00 EDT, Dry Weight Start Date: 06/11/21 Status: Ordered diclofenac 1% topical gel = 2 Gm, Topically, 4 times a day, PRN for pain, not to exceed: - 8 gm/day/joint of upper limb, # 100 Gm, 1 Refills, Maintenance, 03/31/20 9:43:00 EDT, Gel, [facility], 165, cm, 02/02/20 11:43:00 EST, Height, 89.09, kg, 01/24/20 1... Start Date: 03/31/20 Status: Ordered fluticasone 50 mcg/inh nasal spray See Instructions, USE 1 SPRAY IN EACH NOSTRIL 2 TIMES A DAY., # 16 Gm, 5 Refills, [facility], 30, USE 1 SPRAY [...] capsule, 11 Refills, Maintenance, 06/12/21 23:49:00 EDT,Capsule, [facility], 165, cm, 05/08/21 14:40:00 EDT, Height, 89.27, kg, 08/16/20 10:16:00 EDT, Dry Weight Start Date: 06/12/21 Status: Ordered hydrOXYzine hydrochloride 10 mg oral tablet 1-2 tablet, By Mouth, 3 times a day, PRN Itch, 1-2 tablets 3 times a day as needed for itching, # 100 tablet, 1 Refills, Maintenance, 09/07/21 13:50:00 EDT, [facility], 165, cm, 07/24/21 15:17:00 EDT, Height, 89.27, kg, 08/16/20 10... Start Date: 09/07/21 Status: Ordered lamiVUDine 300 mg oral tablet 1 tablet = 300 mg, By Mouth, Daily, # 30 tablet, 11 Refills, Maintenance, 10/17/21 10:39:00 EST, Tablet, [facility], 165, cm, 10/17/21 9:33:00 EST, Height, 89.27, kg, 08/16/20 10:16:00 EDT, Dry Weight Start Date: 10/17/21 Status: Ordered loratadine 10 mg oral tablet 10 mg, 1, tablet, By Mouth, Daily, # 30 tablet, Refills 0, Tot. Refills 0, Maintenance, 11/19/19 16:44:00 EST, Route to Pharmacy Electronically, [facility], 165, cm, 11/19/19 16:13:00 EST, Height, 90.9, kg, 10/14/19 13:27:00 EST, D... Start Date: 11/19/19 Status: Ordered LORazepam 1 mg oral tablet 1 tablet = 1 mg, By Mouth, 2 times a day, PRN as needed for anxiety, # 15 tablet, 1 Refills, Maintenance, 09/06/21 14:38:00 EDT, Tablet, [facility], 165, cm, 07/24/21 15:17:00 EDT, Height, [...] Gm, Refills 5, Route to Pharmacy Electronically, [id number], [facility], 165, cm, 07/24/21 15:17:00 EDT, Height, 89.27, kg, 08/16/20 10:16:00 EDT, Dry Weight Start Date: 09/05/21 Status: Ordered raltegravir 600 mg oral tablet 2 tablet = 1,200 mg, By Mouth, Daily, # 60 tablet, 11 Refills, Maintenance, 10/17/21 10:39:00 EST, Tablet, [facility], 165, cm, 10/17/21 9:33:00 EST, Height, 89.27, kg, 08/16/20 10:16:00 EDT, Dry Weight Start Date: 10/17/21 Status: Ordered terbinafine 1% topical cream 1 application, Topically, 2 times a day, to rash, # 30 Gm, 3 Refills, Maintenance, 07/10/21 16:56:00 EDT, Cream, [facility], 1 application Topically 2 times a day,Instr:to rash, 165, cm, 07/10/21 16:34:00 EDT, Height, 89.27, kg, 09... Start Date: 07/10/21 Status: Ordered tiZANidine 2 mg oral tablet 1-2 tablet, By Mouth, Every 8 hours, PRN, # 50 tablet, Refills 1, Tot. Refills 1, Maintenance, as needed for muscle spasm, 03/31/20 9:40:00 EDT, Route to Pharmacy Electronically, [facility], 165, cm, 02/02/20 11:43:00 EST, Height,... Start Date: 03/31/20 Status: Ordered triamcinolone 0.025% topical cream 1 applicator, Topically, 3 times a day, emollient hydrophilic cream for allergy/inflammation. Use no more than 3 wks w/o break of 1 wk, # 120 Gm, 0 Refills, Maintenance, 10/17/21 10:41:00 EST, [facility], 1 applicator Topically 3... 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
--- OUTSIDE RECORDS SUMMARY | 2023-05-07 00:41 | XMS_ITS | Continuity of Care Document ---
Author Name Unknown Organization [facility] Address [address] [place] [address]- Care Team Providers Care Meat Seafood Associate Name Role Phone Elie Foster MD Primary Care Physician [phone] Encounter [facility] Date(s): 12/06/20 - 01/05/21 [facility]/[address] [address]- Allergies, Adverse Reactions, Alerts Substance Reaction Severity [...] fever, # 100 tablet, 5 Refills, Maintenance, 02/02/21 10:02:00 EST, Tablet, [facility], 165, cm, 11/15/20 11:50:00 EST, Height, 89.27, kg, 08/16/20 10:16:00 EDT, Dry Weight Start Date: 01/02/21 Status: Ordered albuterol 0.083% inhalation solution 3 mL = 2.5 mg, Neb, Every 6 hours, PRN as needed for wheezing, use with nebulizer, # 90 mL, 2 Refills, Maintenance, 02/22/20 16:13:00 EDT, Solution, [facility], 165, cm, 02/02/20 11:43:00 EST, Height, 89.09, kg, 01/24/20 16:19:00 E... Start Date: 02/22/20 Status: Ordered amLODIPine 5 mg oral tablet 5 mg, 1, tablet, By Mouth, Daily, dose decrease 05/17/20, # 30 tablet, Refills 11, Tot. Refills 11, Maintenance, 05/17/20 18:31:00 EDT, Route to Pharmacy Electronically, [facility], 165, cm, 02/02/20 11:43:00 EST, Height, 89.09, kg,... Start Date: 05/17/20 Status: Ordered diclofenac 1% topical gel = 2 Gm, Topically, 4 times a day, PRN for pain, not to exceed: - 8 gm/day/joint of upper limb, # 100 Gm, 1 Refills, Maintenance, 03/31/20 9:43:00 EDT, Gel, [facility], 165, cm, 02/02/20 11:43:00 EST, Height, 89.09, kg, 01/24/20 1... Start Date: 03/31/20 Status: Ordered Flonase 50 mcg/inh nasal spray 1 sprays, Nares, Both, 2 times a day, # 16 Gm, 5 Refills, Maintenance, 11/30/20 16:38:00 EST, [place], [facility], 1 sprays Nares, Both 2 times [...] capsule, 11 Refills, Maintenance, 05/17/20 18:22:00 EDT,Capsule, [facility], 165, cm, 02/02/20 11:43:00 EST, Height, [...] 11 Refills, Maintenance, 10/30/20 14:19:00 EST, Tablet, [facility], 165, cm, 09/21/20 15:55:00 EDT, Height, 89.27, kg, 08/16/20 10:16:00 EDT, Dry Weight Start Date: 10/30/20 Status: Ordered loratadine 10 mg oral tablet 10 mg, 1, tablet, By Mouth, Daily, # 30 tablet, Refills 0, Tot. Refills 0, Maintenance, 11/19/19 16:44:00 EST, Route to Pharmacy Electronically, [facility], 165, cm, 11/19/19 16:13:00 EST, Height, 90.9, kg, 10/14/19 13:27:00 EST, D... Start Date: 11/19/19 Status: Ordered LORazepam 1 mg oral tablet 1 tablet = 1 mg, By Mouth, 2 times a day, PRN as needed for anxiety, # 15 tablet, 1 Refills, Maintenance, 11/01/20 10:56:00 EST, Tablet, [facility], 165, cm, 11/01/20 8:58:00 EST,Height, 89.27, [...] 16:38:00 EST, Aerosol, Route to Pharmacy Electronically, [id number], [facility], 165, cm, 11/15/20 11:50... Start Date: 11/30/20 Status: Ordered ProAir HFA 90 mcg/inh inhalation aerosol with adapter 2, puffs, Inhalation, Every 6 hours, PRN, # 8.5 Gm, Refills 0, Tot. Refills 0, Maintenance, 11/10/17 18:44:13, Aerosol, Route to Pharmacy Electronically, [id number], [facility] Start Date: 11/10/17 Status: Ordered raltegravir 600 mg oral tablet 2 tablet = 1,200 mg, By Mouth, Daily, # 60 tablet, 11 Refills, Maintenance, 10/30/20 14:19:00 EST, Tablet, [facility], 165, cm, 09/21/20 15:55:00 EDT, Height, 89.27, kg, 08/16/20 10:16:00 EDT, Dry Weight Start Date: 10/30/20 Status: Ordered terbinafine 1% topical cream 1 application, Topically, 2 times a day, to rash, # 30 Gm, 3 Refills, Maintenance, 11/01/20 10:55:00 EST, Cream, [facility], 1 application Topically 2 times a day,Instr:to rash, 165, cm, 11/01/20 8:58:00 EST, Height, 89.27, kg, ... Start Date: 11/01/20 Status: Ordered tiZANidine 2 mg oral tablet 1-2 tablet, By Mouth, Every 8 hours, PRN, # 50 tablet, Refills 1, Tot. Refills 1, Maintenance, as needed for muscle spasm, 03/31/20 9:40:00 EDT, Route to Pharmacy Electronically, [facility], 165, cm, 02/02/20 11:43:00 EST, Height,... Start Date: 03/31/20 Status: Ordered triamcinolone 0.025% topical cream 1 applicator, Topically, 3 times a day, emollient hydrophilic cream for allergy/inflammation. Use no more than 3 wks w/o break of 1 wk, # 120 Gm, 0 Refills, Maintenance, 06/29/20 0:49:00 EDT, [facility], 1 applicator Topically 3 t... 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
--- OUTSIDE RECORDS SUMMARY | 2023-05-07 00:41 | XMS_ITS | Continuity of Care Document ---
Author Name Unknown Organization [facility] Address Unknown Care Team Providers Care Sand Carrier Name Role Phone Elie Foster MD Primary Care Physician [phone] Encounter [facility] Date(s): 03/30/21 - 07/18/21 [facility] Attending Physician: Elie Foster MD Admitting Physician: [...] 5 Refills, Maintenance, 01/02/21 10:02:00 EST, Tablet, [facility], 165, cm, 11/15/20 11:50:00 EST, Height, 89.27, kg, 08/16/20 10:16:00 EDT, Dry Weight Start Date: 01/02/21 Status: Ordered albuterol 0.083% inhalation solution 3 mL = 2.5 mg, Neb, Every 6 hours, PRN as needed for wheezing, use with nebulizer, # 90 mL, 2 Refills, Maintenance, 02/22/20 16:13:00 EDT, Solution, [facility], 165, cm, 02/02/20 11:43:00 EST, Height, 89.09, kg, 01/24/20 16:19:00 E... Start Date: 02/22/20 Status: Ordered amitriptyline 25 mg oral tablet 25 mg, 1, tablet, By Mouth, Daily at bedtime, # 30 tablet, Refills 11, Tot. Refills 11, Maintenance, 01/09/21 15:37:00 EST, Route to Pharmacy Electronically, [facility], Partial fill upon patient request if the prescription is for... Start Date: 01/09/21 Status: Ordered amLODIPine 5 mg oral tablet 1 tablet, By Mouth, Daily, # 30 tablet, 5 Refills, Maintenance, 06/11/21 14:54:00 EDT, [facility], 165, cm, 05/08/21 14:40:00 EDT, Height, 89.27, kg, 08/16/20 10:16:00 EDT, Dry Weight Start Date: 06/11/21 Status: Ordered diclofenac 1% topical gel = 2 Gm, Topically, 4 times a day, PRN for pain, not to exceed: - 8 gm/day/joint of upper limb, # 100 Gm, 1 Refills, Maintenance, 03/31/20 9:43:00 EDT, Gel, [facility], 165, cm, 02/02/20 11:43:00 EST, Height, 89.09, kg, 01/24/20 1... Start Date: 03/31/20 Status: Ordered Flonase 50 mcg/inh nasal spray 1 sprays, Nares, Both, 2 times a day, # 16 Gm, 5 Refills, Maintenance, 11/30/20 16:38:00 EST, [place], [facility], 1 sprays Nares, Both 2 [...] 11 Refills, Maintenance, 06/12/21 23:49:00 EDT,Capsule, [facility], 165, cm, 05/08/21 14:40:00 EDT, Height, 89.27, kg, 08/16/20 10:16:00 EDT, Dry Weight Start Date: 06/12/21 Status: Ordered hydrOXYzine hydrochloride 10 mg oral tablet 1-2 tablet, By Mouth, 3 times a day, PRN Itch, 1-2 tablets 3 times a day as needed for itching, # 100 tablet, 1 Refills, Maintenance, 06/12/21 23:49:00 EDT, [facility], 165, cm, 05/08/21 14:40:00 EDT, Height, 89.27, kg, 08/16/20 10... Start Date: 06/12/21 Status: Ordered lamiVUDine 300 mg oral tablet 1 tablet = 300 mg, By Mouth, Daily, # 30 tablet, 11 Refills, Maintenance, 10/30/20 14:19:00 EST, Tablet, [facility], 165, cm, 09/21/20 15:55:00 EDT, Height, 89.27, kg, 08/16/20 10:16:00 EDT, Dry Weight Start Date: 10/30/20 Status: Ordered loratadine 10 mg oral tablet 10 mg, 1, tablet, By Mouth, Daily, # 30 tablet, Refills 0, Tot. Refills 0, Maintenance, 11/19/19 16:44:00 EST, Route to Pharmacy Electronically, [facility], 165, cm, 11/19/19 16:13:00 EST, Height, 90.9, kg, 10/14/19 13:27:00 EST, D... Start Date: 11/19/19 Status: Ordered LORazepam 1 mg oral tablet 1 tablet = 1 mg, By Mouth, 2 times a day, PRN as needed for anxiety, # 15 tablet, 1 Refills, Maintenance, 11/01/20 10:56:00 EST, Tablet, [facility], 165, cm, 11/01/20 8:58:00 EST,Height, 89.27, [...] each, 0 Refills, Maintenance, 04/26/21 10:11:00 EDT, [facility], ok to sub for any gallon prep, as directed, 165, cm, 04/26/21 9:37:00 EDT, Height, 89.27, kg, 08/16/20 10:16:00 EDT, Dry Weight Start Date: 04/26/21 Status: Ordered ProAir HFA 90 mcg/inh inhalation aerosol with adapter 2, puffs, Inhalation, Every 4 hours, PRN, # 8.5 Gm, Refills 5, Tot. Refills 5, Maintenance, 11/30/20 16:38:00 EST, Aerosol, Route to Pharmacy Electronically, [id number], [facility], 165, cm, 11/15/20 11:50... Start Date: 11/30/20 Status: Ordered ProAir HFA 90 mcg/inh inhalation aerosol with adapter 2, puffs, Inhalation, Every 6 hours, PRN, # 8.5 Gm, Refills 0, Tot. Refills 0, Maintenance, 11/10/17 18:44:13, Aerosol, Route to Pharmacy Electronically, [id number], [facility] Start Date: 11/10/17 Status: Ordered raltegravir 600 mg oral tablet 2 tablet = 1,200 mg, By Mouth, Daily, # 60 tablet, 11 Refills, Maintenance, 10/30/20 14:19:00 EST, Tablet, [facility], 165, cm, 09/21/20 15:55:00 EDT, Height, 89.27, kg, 08/16/20 10:16:00 EDT, Dry Weight Start Date: 10/30/20 Status: Ordered terbinafine 1% topical cream 1 application, Topically, 2 times a day, to rash, # 30 Gm, 3 Refills, Maintenance, 07/10/21 16:56:00 EDT, Cream, [facility], 1 application Topically 2 times a day,Instr:to rash, 165, cm, 07/10/21 16:34:00 EDT, Height, 89.27, kg, 09... Start Date: 07/10/21 Status: Ordered tiZANidine 2 mg oral tablet 1-2 tablet, By Mouth, Every 8 hours, PRN, # 50 tablet, Refills 1, Tot. Refills 1, Maintenance, as needed for muscle spasm, 03/31/20 9:40:00 EDT, Route to Pharmacy Electronically, [facility], 165, cm, 02/02/20 11:43:00 EST, Height,... Start Date: 03/31/20 Status: Ordered triamcinolone 0.025% topical cream 1 applicator, Topically, 3 times a day, emollient hydrophilic cream for allergy/inflammation. Use no more than 3 wks w/o break of 1 wk, # 120 Gm, 0 Refills, Maintenance, 06/29/20 0:49:00 EDT, [facility], 1 applicator Topically 3 t... 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
--- OUTSIDE RECORDS SUMMARY | 2023-05-07 00:42 | XMS_ITS | Continuity of Care Document ---
Author Name Unknown Organization [facility] Address [address] [place] [address]- Care Team Providers Care Senior Quality Analyst Name Role Phone Elie Foster MD Primary Care Physician [phone] Encounter [facility] Date(s): 01/03/20 - 02/03/20 [facility]/[address] [address]- [facility] Attending Physician: Dru Bethea MD, I Admitting Physician: Dru Bethea MD, I Allergies, Adverse Reactions, Alerts Substance Reaction Severity [...] 2 Refills, Maintenance, 01/14/20 9:19:00 EST, Solution, [facility], 165, cm, 01/13/20 17:46:00 EST, Height, 88.6, kg, 01/13/20 16:56:00 EST... Start Date: 01/14/20 Status: Ordered amLODIPine 10 mg oral tablet 10 mg, 1, tablet, By Mouth, Daily, # 30 tablet, Refills 11, Tot. Refills 11, Maintenance, 10/27/19 20:07:15 EST, Route to Pharmacy Electronically, [id number], [facility] Start Date: 10/27/19 Status: Ordered benzoyl [...] Gm, 0 Refills, Maintenance, 01/14/20 9:04:00 EST, [place],[facility], 1 sprays Nares, Both 2 times [...] 0 Refills, Maintenance, 01/25/20 15:25:00 EST, Capsule, [facility], 165, cm, 01/24/20 16:19:00 EST, Height, 89.09, kg, 01/24/20 16:19:00 EST, Dry Weight Start Date: 01/25/20 Status: Ordered ProAir HFA 90 mcg/inh inhalation aerosol with adapter 2, puffs, Inhalation, Every 4 hours, PRN, # 8.5 Gm, Refills 1, Tot. Refills 1, Maintenance, 01/14/20 9:05:00 EST, Aerosol, Route to Pharmacy Electronically, [id number], [facility], 165, cm, 01/13/20 17:46:... Start Date: 01/14/20 Status: Ordered ProAir HFA 90 mcg/inh inhalation aerosol with adapter 2, puffs, Inhalation, Every 6 hours, PRN, # 8.5 Gm, Refills 0, Tot. 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
--- OUTSIDE RECORDS SUMMARY | 2023-05-07 00:42 | XMS_ITS | Continuity of Care Document ---
Author Name Unknown Organization [facility] Address Unknown Care Team Providers Care Contract Technician Name Role Phone Elie Foster MD Primary Care Physician [phone] Encounter [facility] Date(s): 12/07/21 - 01/06/22 [facility] Allergies, Adverse Reactions, Alerts Substance Reaction Severity [...] 08/31/97 Gi chyna influenza virus vaccine, inactivated 08/31/97 Gi chyna SARS-CoV-2 (COVID-19) mRNA BNT-162b2 [...] FOR FEVER, # 100 tablet, 5 Refills, [facility], 165, cm, 07/10/21 16:34:00 EDT, Height, 89.27, kg, 08/16/20 10:16:00 EDT, Dry Weight Start Date: 07/23/21 Status: Ordered albuterol 0.083% inhalation solution 3 mL = 2.5 mg, Neb, Every 6 hours, PRN as needed for wheezing, use with nebulizer, # 90 mL, 2 Refills, Maintenance, 02/22/20 16:13:00 EDT, Solution, [facility], 165, cm, 02/02/20 11:43:00 EST, Height, 89.09, kg, 01/24/20 16:19:00 E... Start Date: 02/22/20 Status: Ordered amitriptyline 25 mg oral tablet 25 mg, 1, tablet, By Mouth, Daily at bedtime, # 30 tablet, Refills 11, Tot. Refills 11, Maintenance, 01/09/21 15:37:00 EST, Route to Pharmacy Electronically, [facility], Partial fill upon patient request if the prescription is for... Start Date: 01/09/21 Status: Ordered amLODIPine 5 mg oral tablet 1 tablet, By Mouth, Daily, # 30 tablet, 5 Refills, Maintenance, 06/11/21 14:54:00 EDT, [facility], 165, cm, 05/08/21 14:40:00 EDT, Height, 89.27, kg, 08/16/20 10:16:00 EDT, Dry Weight Start Date: 06/11/21 Status: Ordered diclofenac 1% topical gel = 2 Gm, Topically, 4 times a day, PRN for pain, not to exceed: - 8 gm/day/joint of upper limb, # 100 Gm, 1 Refills, Maintenance, 03/31/20 9:43:00 EDT, Gel, [facility], 165, cm, 02/02/20 11:43:00 EST, Height, 89.09, kg, 01/24/20 1... Start Date: 03/31/20 Status: Ordered fluticasone 50 mcg/inh nasal spray See Instructions, USE 1 SPRAY IN EACH NOSTRIL 2 TIMES A DAY., # 16 Gm, 5 Refills, [facility], 30, USE 1 SPRAY [...] capsule, 11 Refills, Maintenance, 06/12/21 23:49:00 EDT,Capsule, [facility], 165, cm, 05/08/21 14:40:00 EDT, Height, 89.27, kg, 08/16/20 10:16:00 EDT, Dry Weight Start Date: 06/12/21 Status: Ordered hydrOXYzine hydrochloride 10 mg oral tablet 1-2 tablet, By Mouth, 3 times a day, PRN Itch, 1-2 tablets 3 times a day as needed for itching, # 100 tablet, 1 Refills, Maintenance, 09/07/21 13:50:00 EDT, [facility], 165, cm, 07/24/21 15:17:00 EDT, Height, 89.27, kg, 08/16/20 10... Start Date: 09/07/21 Status: Ordered lamiVUDine 300 mg oral tablet 1 tablet = 300 mg, By Mouth, Daily, # 30 tablet, 11 Refills, Maintenance, 10/17/21 10:39:00 EST, Tablet, [facility], 165, cm, 10/17/21 9:33:00 EST, Height, [...] 1 Refills, Maintenance, 09/06/21 14:38:00 EDT, Tablet, [facility], 165, cm, 07/24/21 15:17:00 EDT, Height, [...] Gm, Refills 5, Route to Pharmacy Electronically, [id number], [facility], 165, cm, 07/24/21 15:17:00 EDT, Height, 89.27, kg, 08/16/20 10:16:00 EDT, Dry Weight Start Date: 09/05/21 Status: Ordered raltegravir 600 mg oral tablet 2 tablet = 1,200 mg, By Mouth, Daily, # 60 tablet, 11 Refills, Maintenance, 10/17/21 10:39:00 EST, Tablet, [facility], 165, cm, 10/17/21 9:33:00 EST, Height, 89.27, kg, 08/16/20 10:16:00 EDT, Dry Weight Start Date: 10/17/21 Status: Ordered terbinafine 1% topical cream 1 application, Topically, 2 times a day, to rash, # 30 Gm, 3 Refills, Maintenance, 07/10/21 16:56:00 EDT, Cream, [facility], 1 application Topically 2 times a day,Instr:to rash, 165, cm, 07/10/21 16:34:00 EDT, Height, 89.27, kg, 09... Start Date: 07/10/21 Status: Ordered tiZANidine 2 mg oral tablet 1-2 tablet, By Mouth, Every 8 hours, PRN, # 50 tablet, Refills 1, Tot. Refills 1, Maintenance, as needed for muscle spasm, 03/31/20 9:40:00 EDT, Route to Pharmacy Electronically, [facility], 165, cm, 02/02/20 11:43:00 EST, Height,... Start Date: 03/31/20 Status: Ordered triamcinolone 0.025% topical cream 1 applicator, Topically, 3 times a day, emollient hydrophilic cream for allergy/inflammation. Use no more than 3 wks w/o break of 1 wk, # 120 Gm, 0 Refills, Maintenance, 10/17/21 10:41:00 EST, [facility], 1 applicator Topically 3... 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
--- OUTSIDE RECORDS SUMMARY | 2023-05-07 00:42 | XMS_ITS | Continuity of Care Document ---
Author Name Unknown Organization [facility] Address [address] [place] [address]- Care Team Providers Care Blast Furnace Helper Name Role Phone Elie Foster MD Primary Care Physician Encounter [facility] Date(s): 03/15/20 - 03/22/20 [facility]/[address] [address]- [place] Attending Physician: Elie Foster MD Admitting [...] 2 Refills, Maintenance, 02/14/20 12:31:00 EDT, Tablet, [facility], 165, cm, 02/02/20 [...] 10/27/19 20:07:15 EST, Route to Pharmacy Electronically, [id number], [facility] Start Date: 10/27/19 Status: Ordered benzoyl peroxide [...] Gm, 1 Refills, Maintenance, 02/22/20 16:14:00 EDT, [place], [facility], 1 sprays Nares, Both 2 times [...] 1 Refills, Maintenance, 03/15/20 11:56:00 EDT, Tablet, [facility], 165, cm, 02/02/20 [...] 16:14:00 EDT, Aerosol, Route to Pharmacy Electronically, [id number], [facility], 165, cm, 02/02/20 11:43... Start Date: 02/22/20 Status: Ordered ProAir HFA 90 mcg/inh inhalation aerosol with adapter 2, puffs, Inhalation, Every 6 hours, PRN, # 8.5 Gm, Refills 0, Tot. 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
--- OUTSIDE RECORDS SUMMARY | 2023-05-07 00:42 | XMS_ITS | Continuity of Care Document ---
Author Name Unknown Organization [facility] Address [address] [place] [address]- Care Team Providers Care Jelly Filter Tender Name Role Phone Elie Foster MD Primary Care Physician [phone] Encounter [facility] Date(s): 12/27/22 - 01/30/23 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 Refills 1, Maintenance, 08/23/2210:21:00 EDT, Aerosol, Route to Pharmacy Electronically, [id number], [facility], insurance formulary now... Start Date: 08/23/22 Status: Ordered amitriptyline 25 mg oral tablet 1, tablet, By Mouth, Daily at bedtime, # 30 tablet, Refills 5, Tot. Refills 5, Maintenance, 01/22/23 18:58:00 EST, Route to Pharmacy Electronically, [facility], 165, cm, 01/09/23 9:40:00 EST, Height, 89.27, kg, 01/09/23 9:40:00 EST... Start Date: 01/22/23 Status: Ordered amLODIPine 5 mg oral tablet 1 tablet, By Mouth, Daily, # 30 tablet, 11 Refills, Maintenance, 01/24/22 22:33:00 EST, [facility], 165, cm, 01/17/22 15:36:00 EST, Height, 89.27, kg, 08/16/20 10:16:00 EDT, Dry Weight Start Date: 01/24/22 Status: Ordered dextromethorphan-guaifenesin 10 mg-200 mg/5 mL oral liquid 10 mL, By Mouth, Every 4 hours, PRN for cough, # 240 mL, 1 Refills, Acute 01/21/24 15:59:00 EST, 01/21/23 15:59:00 EST, Liquid, [facility], 10 mL By Mouth Every 4 hours,PRN:for cough, 165, cm, 01/09/23 9:40:00 EST, Height, 89.27, k... Start Date: 01/21/23 Stop Date: 01/21/24 Status: Ordered diclofenac 1% topical gel = 2 Gm, Topically, 4 times a day, PRN for pain, not to exceed: - 8 gm/day/joint of upper limb, # 100 Gm, 1 Refills, Maintenance, 03/31/20 9:43:00 EDT, Gel, [facility], 165, cm, 02/02/20 11:43:00 EST, Height, 89.09, kg, 01/24/20 1... Start Date: 03/31/20 Status: Ordered fluticasone 50 mcg/inh nasal spray See Instructions, USE 1 SPRAY IN EACH NOSTRIL 2 TIMES A DAY., # 16 Gm, 5 Refills, [facility], 30, USE 1 SPRAY IN [...] capsule, 11 Refills, Maintenance, 01/24/22 22:33:00 EST,Capsule, [facility], 165, cm, 01/17/22 15:36:00 EST, Height, 89.27, kg, 08/16/20 10:16:00 EDT, Dry Weight Start Date: 01/24/22 Status: Ordered hydrOXYzine hydrochloride 10 mg oral tablet 1-2 tablet, By Mouth, 3 times a day, PRN Itch, 1-2 tablets 3 times a day as needed for itching, # 100 tablet, 1 Refills, Maintenance, 09/07/21 13:50:00 EDT, [facility], 165, cm, 07/24/21 15:17:00 EDT, Height, 89.27, kg, 08/16/20 10... Start Date: 09/07/21 Status: Ordered lamiVUDine 300 mg oral tablet 1 tablet = 300 mg, By Mouth, Daily, # 30 tablet, 11 Refills, Maintenance, 10/16/22 7:06:00 EST, Tablet, [facility], 165, cm, 10/15/22 16:53:00 EST, Height Start Date: 10/16/22 Status: Ordered LORazepam 1 mg oral tablet 1 tablet = 1 mg, By Mouth, 2 times a day, PRN as needed for anxiety, # 15 tablet, 1 Refills, Maintenance, 01/27/23 0:13:00 EST, Tablet, [facility], 165, cm, 01/09/23 9:40:00 EST, Height, 89.27, kg, 01/09/23 9:40:00 EST, Dry Weight Start Date: 01/27/23 Status: Ordered Nebulizer/Compressor See Instructions, # 1 each, Maintenance, use as needed for wheezing, 01/14/20 9:13:00 EST, Compound Start Date: 01/14/20 Status: Ordered raltegravir 600 mg oral tablet 2 tablet = 1,200 mg, By Mouth, Daily, # 60 tablet, 11 Refills, Maintenance, 10/16/22 7:06:00 EST, Tablet, [facility], 165, cm, 10/15/22 16:53:00 EST, Height Start Date: 10/16/22 Status: Ordered Shingrix intramuscular injection 0.5 mL, Intramuscular, Once, #2. Here now. Thx, # 0.5 mL, 0 Refills, Soft Stop, 11/28/22 14:44:00 EST, [facility], please administer, 0.5 mL Intramuscular Once,Instr:#2. Here now.Thx, 165, cm, 11/28/22 13:36:00 EST, Height, 91.27,... Start Date: 11/28/22 Status: Ordered terbinafine 1% topical cream 1 application, Topically, 2 times a day, to rash, # 30 Gm, 3 Refills, Maintenance, 08/15/22 19:43:00 EDT, Cream, [facility], 1 application Topically 2 times a day,Instr:to rash, 165, cm, 08/15/22 13:22:00 EDT, Height, 89.27, kg, 09... Start Date: 08/15/22 Status: Ordered tiZANidine 2 mg oral tablet 1-2 tablet, By Mouth, Every 8 hours, PRN, # 50 tablet, Refills 1, Tot. Refills 1, Maintenance, as needed for muscle spasm, 01/22/23 18:57:00 EST, Route to Pharmacy Electronically, [facility], 165, cm, 01/09/23 9:40:00 EST, Height,... 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 Confirmed Active Screening for diabetes mellitus Confirmed Active Prurigo nodularis per biopsy Confirmed 10/2014 Active Tinea cruris Confirmed Active 1Biopsy 99 grade 4/4, stage 4/4, genotype 1a, 3,450,000 IU/ml 06/05 Social History Social History Type Response Smoking Status Never (less than 100 in lifetime) entered on: 10/15/22 Sex Patient Care team information Care Team Personnel Name: Elie Foster MD Position: [facility] Primary Care Physician Member Role: PCP Address: Address: [address] [place] [id number]- Name: Ivon Salcedo RN Position: [facility] RN Member Role: Primary Care Nurse Care Team Related Persons Name: CISCO DUEÑAS Address: home [address] [place] [address] Name: HIEU HUTTON Address: home [address] [place] [address]
--- OUTSIDE RECORDS SUMMARY | 2023-05-07 00:42 | XMS_ITS | Continuity of Care Document ---
Author Name Unknown Organization [facility] Address [address] [place] [address]- Care Team Providers Care College Teacher Name Role Phone Elie Foster MD Primary Care Physician Encounter [facility] Date(s): 06/28/22 - 07/31/22 [facility]/[address] [address]- Attending Physician: Iglesia Talavera MD Admitting Physician: Iglesia Talavera MD [...] FOR FEVER, # 100 tablet, 1 Refills, [facility], 165, cm, 03/26/22 13:56:00 EDT, Height, 89.27, kg, 08/16/20 10:16:00 EDT, Dry Weight Start Date: 07/21/22 Status: Ordered amitriptyline 25 mg oral tablet 1, tablet, By Mouth, Daily at bedtime, # 30 tablet, Refills 5, Route to Pharmacy Electronically, [facility], 165, cm, 01/17/22 15:36:00 EST, Height, 89.27, kg, 08/16/20 10:16:00 EDT, Dry Weight Start Date: 01/23/22 Status: Ordered amLODIPine 5 mg oral tablet 1 tablet, By Mouth, Daily, # 30 tablet, 11 Refills, Maintenance, 01/24/22 22:33:00 EST, [facility], 165, cm, 01/17/22 15:36:00 EST, Height, 89.27, kg, 08/16/20 10:16:00 EDT, Dry Weight Start Date: 01/24/22 Status: Ordered diclofenac 1% topical gel = 2 Gm, Topically, 4 times a day, PRN for pain, not to exceed: - 8 gm/day/joint of upper limb, # 100 Gm, 1 Refills, Maintenance, 03/31/20 9:43:00 EDT, Gel, [facility], 165, cm, 02/02/20 11:43:00 [...] A DAY., # 16 Gm, 5 Refills, [facility], 30, USE 1 SPRAY IN [...] capsule, 11 Refills, Maintenance, 01/24/22 22:33:00 EST,Capsule, [facility], 165, cm, 01/17/22 15:36:00 EST, Height, 89.27, kg, 08/16/20 10:16:00 EDT, Dry Weight Start Date: 01/24/22 Status: Ordered hydrOXYzine hydrochloride 10 mg oral tablet 1-2 tablet, By Mouth, 3 times a day, PRN Itch, 1-2 tablets 3 times a day as needed for itching, # 100 tablet, 1 Refills, Maintenance, 09/07/21 13:50:00 EDT, [facility], 165, cm, 07/24/21 15:17:00 EDT, Height, 89.27, kg, 08/16/20 10... Start Date: 09/07/21 Status: Ordered lamiVUDine 300 mg oral tablet 1 tablet = 300 mg, By Mouth, Daily, # 30 tablet, 11 Refills, Maintenance, 10/17/21 10:39:00 EST, Tablet, [facility], 165, cm, 10/17/21 9:33:00 EST, Height, 89.27, kg, 08/16/20 10:16:00 EDT, Dry Weight Start Date: 10/17/21 Status: Ordered loratadine 10 mg oral tablet 10 mg, 1, tablet, By Mouth, Daily, # 30 tablet, Refills 0, Tot. Refills 0, Maintenance, 11/19/19 16:44:00 EST, Route to Pharmacy Electronically, [facility], 165, cm, 11/19/19 16:13:00 EST, Height, 90.9, kg, 10/14/19 13:27:00 EST, D... Start Date: 11/19/19 Status: Ordered LORazepam 1 mg oral tablet 1 tablet = 1 mg, By Mouth, 2 times a day, PRN as needed for anxiety, # 15 tablet, 1 Refills, Maintenance, 09/06/21 14:38:00 EDT, Tablet, [facility], 165, cm, 07/24/21 15:17:00 [...] mL, 0 Refills, Maintenance, 04/30/22 10:07:00 EDT, [facility], Partial fill upon patient request if the prescription is for a schedule II opioid drug., per GI office, 165, cm, 03/26/22 13:56... Start Date: 04/30/22 Status: Ordered ProAir HFA 90 mcg/inh inhalation aerosol with adapter 2, inhalation, Inhalation, Every 4 hours, PRN, # 8.5 Gm, Refills 5, Route to Pharmacy Electronically, [id number], [facility], 165, cm, 02/05/22 9:19:00 EST, Height, 89.27, kg, 08/16/20 10:16:00 EDT, Dry Weight Start Date: 03/15/22 Status: Ordered raltegravir 600 mg oral tablet 2 tablet = 1,200 mg, By Mouth, Daily, # 60 tablet, 11 Refills, Maintenance, 10/17/21 10:39:00 EST, Tablet, [facility], 165, cm, 10/17/21 9:33:00 EST, Height, 89.27, kg, 08/16/20 10:16:00 EDT, Dry Weight Start Date: 10/17/21 Status: Ordered terbinafine 1% topical cream 1 application, Topically, 2 times a day, to rash, # 30 Gm, 3 Refills, Maintenance, 07/10/21 16:56:00 EDT, Cream, [facility], 1 application Topically 2 times a day,Instr:to rash, 165, cm, 07/10/21 16:34:00 EDT, Height, 89.27, kg, 09... Start Date: 07/10/21 Status: Ordered tiZANidine 2 mg oral tablet 1-2 tablet, By Mouth, Every 8 hours, PRN, # 50 tablet, Refills 0, Tot. Refills 0, Maintenance, as needed for muscle spasm, 03/17/22 20:26:00 EDT, Route to Pharmacy Electronically, [facility], 165, cm, 02/05/22 9:19:00 EST, Height,... Start Date: 03/17/22 Status: Ordered triamcinolone 0.025% topical cream 1 applicator, Topically, 3 times a day, emollient hydrophilic cream for allergy/inflammation. Use no more than 3 wks w/o break of 1 wk, # 120 Gm, 0 Refills, Maintenance, 10/17/21 10:41:00 EST, [facility], 1 applicator Topically 3... Start Date: 10/17/21 Status: Ordered Viread 300 mg oral tablet 1 tablet = 300 mg, By Mouth, Daily, # 30 tablet, 11 Refills, Maintenance, 10/17/21 10:39:00 EST, Tablet, [facility], 165, cm, 11/17/21 9:33:00 EST, Height, 89.27, kg, 08/16/20 10:16:00 [...] I(Confirmed) Active Obesity(Confirmed) Active Visit for routine maintenance custodian exam(Confirmed) Active Screening for diabetes mellitus(Confirmed) Active Prurigo nodularis per biopsy(Confirmed) 10/2014 Active Tinea cruris(Confirmed) Active 1Biopsy 99 grade 4/4, stage 4/4, genotype 1a, 3,450,000 IU/ml 06/05 Social History Social History Type Response Smoking Status Never (less than 100 in lifetime) entered on: 07/24/21 Sex Care Team Personnel Name: Elie Foster MD Address: [address] [place] [address]
--- OUTSIDE RECORDS SUMMARY | 2023-05-07 00:42 | XMS_ITS | Continuity of Care Document ---
Author Name Unknown Organization [facility] Address [address] [place] [address]- Care Team Providers Care Clerk Guide Name Role Phone Elie Foster MD Primary Care Physician Encounter [facility] Date(s): 11/01/22 - 12/06/22 [facility]/[place] [address]- Attending Physician: Mason Payan MD Admitting Physician: Mason Payan MD Allergies, Adverse Reactions, Alerts Substance Reaction [...] FOR FEVER, # 100 tablet, 1 Refills, [facility], 165, cm, 03/26/22 13:56:00 EDT, Height, 89.27, kg, 08/16/20 10:16:00 EDT, Dry Weight Start Date: 07/21/22 Status: Ordered albuterol CFC free 90 mcg/inh inhalation aerosol 2, puffs, Inhalation, Every 4 hours, PRN, # 18 Gm, Refills 1, Tot. Refills 1, Maintenance, 08/23/2210:21:00 EDT, Aerosol, Route to Pharmacy Electronically, [id number], [facility], insurance formulary now... Start Date: 08/23/22 Status: Ordered amitriptyline 25 mg oral tablet 1, tablet, By Mouth, Daily at bedtime, # 30 tablet, Refills 2, Tot. Refills 2, Maintenance, 08/26/22 11:00:00 EDT, Route to Pharmacy Electronically, [facility], 165, cm, 08/15/22 13:22:00 EDT, Height Start Date: 08/26/22 Status: Ordered amLODIPine 5 mg oral tablet 1 tablet, By Mouth, Daily, # 30 tablet, 11 Refills, Maintenance, 01/24/22 22:33:00 EST, [facility], 165, cm, 01/17/22 15:36:00 EST, Height, 89.27, [...] A DAY., # 16 Gm, 5 Refills, [facility], 30, USE 1 SPRAY IN [...] capsule, 11 Refills, Maintenance, 01/24/22 22:33:00 EST,Capsule, [facility], 165, cm, 01/17/22 15:36:00 EST, Height, 89.27, [...] 1 Refills, Maintenance, 10/16/22 7:05:00 EST, Tablet, [facility], 165, cm, 10/15/22 16:53:00 EST,Height Start Date: [...] Refills, Maintenance, 08/15/22 19:43:00 EDT, Cream, [facility], 1 application Topically 2 times a day,Instr:to rash, 165, cm, 08/15/22 13:22:00 EDT, Height, 89.27, kg, 09... Start Date: 08/15/22 Status: Ordered tiZANidine 2 mg oral tablet 1-2 tablet, By Mouth, Every 8 hours, PRN, # 50 tablet, Refills 1, Tot. 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 Screening for diabetes mellitus Confirmed Active Prurigo nodularis per biopsy Confirmed 10/2014 Active Tinea cruris Confirmed Active 1Biopsy 99 grade 4/4, stage 4/4, genotype 1a, 3,450,000 IU/ml 06/05 Social History Social History Type Response Smoking Status Never (less than 100 in lifetime) entered on: 10/15/22 Sex Patient Care team information Care Team Personnel Name: Elie Foster MD Position: [facility] Primary Care Physician Member Role: PCP Address: Address: [address] [place] [address] Name: Ivon Salcedo RN Position: [facility] RN Member Role: Primary Care Nurse Care Team Related Persons Name: CISCO DUEÑAS Address: home [address] [place] [address] Name: HIEU HUTTON Address: [address] [place] [address]
--- OUTSIDE RECORDS SUMMARY | 2023-05-07 00:42 | XMS_ITS | Continuity of Care Document ---
Author Name Unknown Organization [facility] Address Unknown Care Team Providers Care Spring Repairer Helper Hand Name Role Phone Elie Foster MD Primary Care Physician En[place] [facility] Date(s): 08/21/21 - 11/15/21 [facility] Attending Physician: Elie Foster MD Admitting Physician: Elie Foster MD Allergies, Adverse Reactions, Alerts Substance Reaction Severity Status fluconazole Rash Active sulfADIAZINE Active Compazine Tongue Swelling Moderate Active Contrast Dye 1 Pruritic rash Proposed emtricitabine Rash Proposed Bactrim Active nevirapine Elam-Jameson syndrome Severe Act edie [address] w/ IV and [...] FOR FEVER, # 100 tablet, 5 Refills, [facility], 165, cm, 07/10/21 16:34:00 EDT, Height, 89.27, kg, 08/16/20 10:16:00 EDT, Dry Weight Start Date: 07/23/21 Status: Ordered albuterol 0.083% inhalation solution 3 mL = 2.5 mg, Neb, Every 6 hours, PRN as needed for wheezing, use with nebulizer, # 90 mL, 2 Refills, Maintenance, 02/22/20 16:13:00 EDT, Solution, [facility], 165, cm, 02/02/20 11:43:00 EST, Height, 89.09, kg, 01/24/20 16:19:00 E... Start Date: 02/22/20 Status: Ordered amitriptyline 25 mg oral tablet 25 mg, 1, tablet, By Mouth, Daily at bedtime, # 30 tablet, Refills 11, Tot. Refills 11, Maintenance, 01/09/21 15:37:00 EST, Route to Pharmacy Electronically, [facility], Partial fill upon patient request if the prescription is for... Start Date: 01/09/21 Status: Ordered amLODIPine 5 mg oral tablet 1 tablet, By Mouth, Daily, # 30 tablet, 5 Refills, Maintenance, 06/11/21 14:54:00 EDT, [facility], 165, cm, 05/08/21 14:40:00 EDT, Height, 89.27, kg, 08/16/20 10:16:00 EDT, Dry Weight Start Date: 06/11/21 Status: Ordered diclofenac 1% topical gel = 2 Gm, Topically, 4 times a day, PRN for pain, not to exceed: - 8 gm/day/joint of upper limb, # 100 Gm, 1 Refills, Maintenance, 03/31/20 9:43:00 EDT, Gel, [facility], 165, cm, 02/02/20 11:43:00 EST, Height, 89.09, kg, 01/24/20 1... Start Date: 03/31/20 Status: Ordered fluticasone 50 mcg/inh nasal spray See Instructions, USE 1 SPRAY IN EACH NOSTRIL 2 TIMES A DAY., # 16 Gm, 5 Refills, [facility], 30, USE 1 SPRAY IN [...] capsule, 11 Refills, Maintenance, 06/12/21 23:49:00 EDT,Capsule, [facility], 165, cm, 05/08/21 14:40:00 EDT, Height, 89.27, kg, 08/16/20 10:16:00 EDT, Dry Weight Start Date: 06/12/21 Status: Ordered hydrOXYzine hydrochloride 10 mg oral tablet 1-2 tablet, By Mouth, 3 times a day, PRN Itch, 1-2 tablets 3 times a day as needed for itching, # 100 tablet, 1 Refills, Maintenance, 09/07/21 13:50:00 EDT, [facility], 165, cm, 07/24/21 15:17:00 EDT, Height, 89.27, kg, 08/16/20 10... Start Date: 09/07/21 Status: Ordered lamiVUDine 300 mg oral tablet 1 tablet = 300 mg, By Mouth, Daily, # 30 tablet, 11 Refills, Maintenance, 10/17/21 10:39:00 EST, Tablet, [facility], 165, cm, 10/17/21 9:33:00 EST, Height, 89.27, kg, 08/16/20 10:16:00 EDT, Dry Weight Start Date: 10/17/21 Status: Ordered loratadine 10 mg oral tablet 10 mg, 1, tablet, By Mouth, Daily, # 30 tablet, Refills 0, Tot. Refills 0, Maintenance, 11/19/19 16:44:00 EST, Route to Pharmacy Electronically, [facility], 165, cm, 11/19/19 16:13:00 EST, Height, 90.9, kg, 10/14/19 13:27:00 EST, D... Start Date: 11/19/19 Status: Ordered LORazepam 1 mg oral tablet 1 tablet = 1 mg, By Mouth, 2 times a day, PRN as needed for anxiety, # 15 tablet, 1 Refills, Maintenance, 09/06/21 14:38:00 EDT, Tablet, [facility], 165, cm, 07/24/21 15:17:00 EDT, Height, [...] Gm, Refills 5, Route to Pharmacy Electronically, [id number], [facility], 165, cm, 07/24/21 15:17:00 EDT, Height, 89.27, kg, 08/16/20 10:16:00 EDT, Dry Weight Start Date: 09/05/21 Status: Ordered raltegravir 600 mg oral tablet 2 tablet = 1,200 mg, By Mouth, Daily, # 60 tablet, 11 Refills, Maintenance, 10/17/21 10:39:00 EST, Tablet, [facility], 165, cm, 10/17/21 9:33:00 EST, Height, 89.27, kg, 08/16/20 10:16:00 EDT, Dry Weight Start Date: 10/17/21 Status: Ordered terbinafine 1% topical cream 1 application, Topically, 2 times a day, to rash, # 30 Gm, 3 Refills, Maintenance, 07/10/21 16:56:00 EDT, Cream, [facility], 1 application Topically 2 times a day,Instr:to rash, 165, cm, 07/10/21 16:34:00 EDT, Height, 89.27, kg, 09... Start Date: 07/10/21 Status: Ordered tiZANidine 2 mg oral tablet 1-2 tablet, By Mouth, Every 8 hours, PRN, # 50 tablet, Refills 1, Tot. Refills 1, Maintenance, as needed for muscle spasm, 03/31/20 9:40:00 EDT, Route to Pharmacy Electronically, [facility], 165, cm, 02/02/20 11:43:00 EST, Height,... Start Date: 03/31/20 Status: Ordered triamcinolone 0.025% topical cream 1 applicator, Topically, 3 times a day, emollient hydrophilic cream for allergy/inflammation. Use no more than 3 wks w/o break of 1 wk, # 120 Gm, 0 Refills, Maintenance, 10/17/21 10:41:00 EST, [facility], 1 applicator Topically 3... Start Date: 10/17/21 Status: Ordered Viread 300 mg oral tablet 1 tablet = 300 mg, By Mouth, Daily, # 30 tablet, 11 Refills, Maintenance, 10/17/21 10:39:00 EST, Tablet, [facility], 165, cm, 10/17/21 9:33:00 EST, Height, [...] I(Confirmed) Active Obesity(Confirmed) Active Visit for routine bleach analyst exam(Confirmed) Active Screening for diabetes mellitus(Confirmed) Active Prurigo nodularis per biopsy(Confirmed) 10/2014 Active Tinea cruris(Confirmed) Active 1Biopsy 99 grade 4/4, stage 4/4, genotype 1a, 3,450,000 IU/ml 06/05 Social History Social History Type Response Smoking Status Never (less than 100 in lifetime) entered on: 07/24/21 Sex
--- OUTSIDE RECORDS SUMMARY | 2023-05-07 00:42 | XMS_ITS | Continuity of Care Document ---
Author Name Unknown Organization [facility] Address [address] [place] [id number]- Care Team Providers Care Operating Room Nurse Name Role Phone Elie Foster MD Primary Care Physician [phone] Encounter [facility] Date(s): 01/20/23 - 02/19/23 [facility] [address]- [place] Allergies, Adverse Reactions, Alerts Substance Reaction [...] FOR FEVER, # 100 tablet, 1 Refills, [facility], 165, cm, 03/26/22 13:56:00 EDT, Height, 89.27, kg, 08/16/20 10:16:00 EDT, Dry Weight Start Date: 07/21/22 Status: Ordered albuterol CFC free 90 mcg/inh inhalation aerosol 2, puffs, Inhalation, Every 4 hours, PRN, # 18 Gm, Refills 1, Tot. Refills 1, Maintenance, 08/23/2210:21:00 EDT, Aerosol, Route to Pharmacy Electronically, [id number], [facility], insurance formulary now... Start Date: 08/23/22 Status: Ordered amitriptyline 25 mg oral tablet 1, tablet, By Mouth, Daily at bedtime, # 30 tablet, Refills 5, Tot. Refills 5, Maintenance, 01/22/23 18:58:00 EST, Route to Pharmacy Electronically, [facility], 165, cm, 01/09/23 9:40:00 EST, Height, 89.27, kg, 01/09/23 9:40:00 EST... Start Date: 01/22/23 Status: Ordered amLODIPine 5 mg oral tablet 1 tablet, By Mouth, Daily, # 30 tablet, 11 Refills, Maintenance, 01/24/22 22:33:00 EST, [facility], 165, cm, 01/17/22 15:36:00 EST, Height, 89.27, kg, 08/16/20 10:16:00 EDT, Dry Weight Start Date: 01/24/22 Status: Ordered dextromethorphan-guaifenesin 10 mg-200 mg/5 mL oral liquid 10 mL, By Mouth, Every 4 hours, PRN for cough, # 240 mL, 1 Refills, Acute 01/21/24 15:59:00 EST, 01/21/23 15:59:00 EST, Liquid, [facility], 10 mL By Mouth Every 4 hours,PRN:for cough, 165, cm, 01/09/23 9:40:00 EST, Height, 89.27, k... Start Date: 01/21/23 Stop Date: 01/21/24 Status: Ordered diclofenac 1% topical gel = 2 Gm, Topically, 4 times a day, PRN for pain, not to exceed: - 8 gm/day/joint of upper limb, # 100 Gm, 1 Refills, Maintenance, 03/31/20 9:43:00 EDT, Gel, [facility], 165, cm, 02/02/20 11:43:00 EST, Height, 89.09, kg, 01/24/20 1... Start Date: 03/31/20 Status: Ordered fluticasone 50 mcg/inh nasal spray See Instructions, USE 1 SPRAY IN EACH NOSTRIL 2 TIMES A DAY., # 16 Gm, 5 Refills, [facility], 30, USE 1 SPRAY IN [...] capsule, 11 Refills, Maintenance, 01/24/22 22:33:00 EST,Capsule, [facility], 165, cm, 01/17/22 15:36:00 EST, Height, 89.27, kg, 08/16/20 10:16:00 EDT, Dry Weight Start Date: 01/24/22 Status: Ordered hydrOXYzine hydrochloride 10 mg oral tablet 1-2 tablet, By Mouth, 3 times a day, PRN Itch, 1-2 tablets 3 times a day as needed for itching, # 100 tablet, 1 Refills, Maintenance, 09/07/21 13:50:00 EDT, [facility], 165, cm, 07/24/21 15:17:00 EDT, Height, 89.27, kg, 08/16/20 10... Start Date: 09/07/21 Status: Ordered lamiVUDine 300 mg oral tablet 1 tablet = 300 mg, By Mouth, Daily, # 30 tablet, 11 Refills, Maintenance, 10/16/22 7:06:00 EST, Tablet, [facility], 165, cm, 10/15/22 16:53:00 EST, Height Start Date: 10/16/22 Status: Ordered LORazepam 1 mg oral tablet 1 tablet = 1 mg, By Mouth, 2 times a day, PRN as needed for anxiety, # 15 tablet, 1 Refills, Maintenance, 01/27/23 0:13:00 EST, Tablet, [facility], 165, cm, 01/09/23 9:40:00 EST, Height, 89.27, kg, 01/09/23 9:40:00 EST, Dry Weight Start Date: 01/27/23 Status: Ordered Nebulizer/Compressor See Instructions, # 1 each, Maintenance, use as needed for wheezing, 01/14/20 9:13:00 EST, Compound Start Date: 01/14/20 Status: Ordered raltegravir 600 mg oral tablet 2 tablet = 1,200 mg, By Mouth, Daily, # 60 tablet, 11 Refills, Maintenance, 10/16/22 7:06:00 EST, Tablet, [facility], 165, cm, 10/15/22 16:53:00 EST, Height Start Date: 10/16/22 Status: Ordered Shingrix intramuscular injection 0.5 mL, Intramuscular, Once, #2. Here now. Thx, # 0.5 mL, 0 Refills, Soft Stop, 11/28/22 14:44:00 EST, [facility], please administer, 0.5 mL Intramuscular Once,Instr:#2. Here now.Thx, 165, cm, 11/28/22 13:36:00 EST, Height, 91.27,... Start Date: 11/28/22 Status: Ordered terbinafine 1% topical cream 1 application, Topically, 2 times a day, to rash, # 30 Gm, 3 Refills, Maintenance, 08/15/22 19:43:00 EDT, Cream, [facility], 1 application Topically 2 times a day,Instr:to rash, 165, cm, 08/15/22 13:22:00 EDT, Height, 89.27, kg, 09... Start Date: 08/15/22 Status: Ordered tiZANidine 2 mg oral tablet 1-2 tablet, By Mouth, Every 8 hours, PRN, # 50 tablet, Refills 1, Tot. Refills 1, Maintenance, as needed for muscle spasm, 01/22/23 18:57:00 EST, Route to Pharmacy Electronically, [facility], 165, cm, 01/09/23 9:40:00 EST, Height,... Start Date: 01/22/23 Status: Ordered Viread 300 mg oral tablet 1 tablet = 300 mg, By Mouth, Daily, # 30 tablet, 11 Refills, Maintenance, 10/16/22 7:06:00 EST, Tablet, [facility], 165, cm, 10/15/22 16:53:00 EST, Height [...] Active Obesity Confirmed Active Visit for routine bee tender exam Confirmed Active Screening for diabetes mellitus Confirmed Active Prurigo nodularis per biopsy Confirmed 10/2014 Active Tinea cruris Confirmed Active 1Biopsy 99 grade 4/4, stage 4/4, genotype 1a, 3,450,000 IU/ml 06/05 Social History Social History Type Response Smoking Status Never (less than 100 in lifetime) entered on: 10/15/22 Sex Patient Care team information Care Team Personnel Name: Cristian GARZA, Elie Ching Position: [facility] Primary Care Physician Member Role: PCP Address: Address: [address] [place] [address]- Name: Ivon Salcedo RN Position: [facility] RN Member Role: Primary Care Nurse Care Team Related Persons Name: CISCO DUEÑAS Address: home [address] [place] [address] Name: HIEU HUTTON Address: home [address] [place] [address]
--- OUTSIDE RECORDS SUMMARY | 2023-05-07 00:42 | XMS_ITS | Continuity of Care Document ---
Author Name Unknown Organization [facility] Address [address] [place] [address]- Care Team Providers Care Timber Surveyor Name Role Phone Elie Foster MD Primary Care Physician [facility] Date[facility]s): 11/11/19 - 11/21/19 [facility] [address] [place] [address]- [facility] Attending Physician: Lilly Bejarano Admitting Physician: Lilly [...] 10/27/19 20:07:15 EST, Route to Pharmacy Electronically, [id number], [facility] Start Date: 10/27/19 Status: Ordered benzoyl peroxide [...] Gm, 0 Refills, Maintenance, 11/19/19 16:45:00 EST, [place], [facility], 1 sprays Nares, Both Daily, 165, cm, [...] 11/19/19 16:44:00 EST, Route to Pharmacy Electronically, [facility], 165, cm, 11/19/19 16:13:00 EST, Height, 90.9, [...] 11/10/17 18:44:13, Aerosol, Route to Pharmacy Electronically, [id number], [facility] Start Date: 11/10/17 Status: Ordered raltegravir 600 [...] 03/30/19 17:41:45 EDT, Route to Pharmacy Electronically, [id number], [facility] [id number] Start Date: 03/30/19 Status: Ordered triamcinolone 0.025% [...] 2009 Active Obesity(Confirmed) Active Visit for routine obstetrics gynecology physician exam(Confirmed) Active Prurigo nodularis per biopsy(Confirmed) 10/2014 Active Tinea cruris(Confirmed) Active 1Biopsy 99 grade 4/4, stage 4/4, genotype 1a, 3,450,000 IU/ml 06/05 Social History Social History Type Response Smoking Status Never (less than 100 in lifetime) entered on: 02/19/19 Sex
--- OUTSIDE RECORDS SUMMARY | 2023-05-07 00:42 | XMS_ITS | Continuity of Care Document ---
Author Name Unknown Organization [facility] Address [address] [place] [id number]- Care Team Providers Care Invasive Physician Name Role Phone Elie Foster MD Primary Care Physician [phone] [facility] Date[facility]s): 03/26/23 - 04/25/[address] [address] Attending Physician: Lilly Bejarano Admitting Physician: Lilly [...] and Recorded Vaccine Date Status Refusal Reason pneumococcal 20-valent conjugate vaccine 04/08/23 Given zoster vaccine, inactivated 11/28/22 Given zoster vaccine, [...] FOR FEVER, # 100 tablet, 1 Refills, [facility], 165, cm, 03/26/22 13:56:00 EDT, Height, 89.27, kg, 08/16/20 10:16:00 EDT, Dry Weight Start Date: 07/21/22 Status: Ordered amitriptyline 25 mg oral tablet 1, tablet, By Mouth, Daily at bedtime, # 30 tablet, Refills 5, Tot. Refills 5, Maintenance, 01/22/23 18:58:00 EST, Route to Pharmacy Electronically, [facility], 165, cm, 01/09/23 9:40:00 EST, Height, 89.27, kg, 01/09/23 9:40:00 EST... Start Date: 01/22/23 Status: Ordered amLODIPine 5 mg oral tablet 1 tablet, By Mouth, Daily, # 30 tablet, 5 Refills, Maintenance, 02/21/23 15:22:00 EDT, [facility], 165, cm, 01/30/23 16:10:00 EST, Height, 89.27, kg, 01/09/23 9:40:00 EST, Dry Weight Start Date: 02/21/23 Status: Ordered dextromethorphan-guaifenesin 10 mg-200 mg/5 mL oral liquid 10 mL, By Mouth, Every 4 hours, PRN for cough, # 240 mL, 1 Refills, Acute 01/21/24 15:59:00 EST, 01/21/23 15:59:00 EST, Liquid, [facility], 10 mL By Mouth Every 4 [...] A DAY., # 16 Gm, 5 Refills, [facility], 30, USE 1 SPRAY IN [...] capsule, 11 Refills, Maintenance, 02/23/23 11:58:00 EDT,Capsule, [facility], 165, cm, 01/30/23 16:10:00 EST, Height, 89.27, kg, 01/09/23 9:40:00 EST, Dry Weight Start Date: 02/23/23 Status: Ordered hydrOXYzine hydrochloride 10 mg oral tablet 1-2 tablet, By Mouth, 3 times a day, PRN Itch, 1-2 tablets 3 times a day as needed for itching, # 100 tablet, 1 Refills, Maintenance, 09/07/21 13:50:00 EDT, [facility], 165, cm, 07/24/21 15:17:00 EDT, Height, 89.27, kg, 08/16/20 10... Start Date: 09/07/21 Status: Ordered lamiVUDine 300 mg oral tablet 1 tablet = 300 mg, By Mouth, Daily, # 30 tablet, 11 Refills, Maintenance, 10/16/22 7:06:00 EST, Tablet, [facility], 165, cm, 10/15/22 16:53:00 EST, Height Start Date: 10/16/22 Status: Ordered LORazepam 1 mg oral tablet 1 tablet = 1 mg, By Mouth, 2 times a day, PRN as needed for anxiety, # 15 tablet, 1 Refills, Maintenance, 01/27/23 0:13:00 EST, Tablet, [facility], 165, cm, 01/09/23 9:40:00 EST, Height, 89.27, kg, 01/09/23 9:40:00 EST, Dry Weight Start Date: 01/27/23 Status: Ordered Nebulizer/Compressor See Instructions, # 1 each, Maintenance, use as needed for wheezing, 01/14/20 9:13:00 EST, Compound Start Date: 01/14/20 Status: Ordered raltegravir 600 mg oral tablet 2 tablet = 1,200 mg, By Mouth, Daily, # 60 tablet, 11 Refills, Maintenance, 10/16/22 7:06:00 EST, Tablet, [facility], 165, cm, 10/15/22 16:53:00 EST, Height Start Date: 10/16/22 Status: Ordered Shingrix intramuscular injection 0.5 mL, Intramuscular, Once, #2. Here now. Thx, # 0.5 mL, 0 Refills, Soft Stop, 11/28/22 14:44:00 EST, [facility], please administer, 0.5 mL Intramuscular Once,Instr:#2. Here now.Thx, 165, cm, 11/28/22 13:36:00 EST, Height, 91.27,... Start Date: 11/28/22 Status: Ordered terbinafine 1% topical cream 1 application, Topically, 2 times a day, to rash, # 30 Gm, 3 Refills, Maintenance, 08/15/22 19:43:00 EDT, Cream, [facility], 1 application Topically 2 times a day,Instr:to rash, 165, cm, 08/15/22 13:22:00 EDT, Height, 89.27, kg, 09... Start Date: 08/15/22 Status: Ordered tiZANidine 2 mg oral tablet 1-2 tablet, By Mouth, Every 8 hours, PRN, # 50 tablet, Refills 1, Tot. Refills 1, Maintenance, as needed for muscle spasm, 04/18/23 21:09:00 EDT, Route to Pharmacy Electronically, [facility], 165, cm, 04/08/23 13:02:00 EDT, Height,... 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
--- OUTSIDE RECORDS SUMMARY | 2023-05-07 00:42 | XMS_ITS | Continuity of Care Document ---
Author Name Unknown Organization [facility] Address [address] [place] [address]- Care Team Providers Care Machine I Engraver Name Role Phone Elie Foster MD Primary Care Physician [phone] Encounter [facility] Date(s): 04/26/21 - 05/26/21 [facility] [address] [place] [address] Attending Physician: Lilly Bejarano Admitting Physician: Lilly Bejarano Referring Physician: Admtr, Lilly Allergies, Adverse Reactions, Alerts Substance Reaction Severity [...] 05/17/20 18:31:00 EDT, Route to Pharmacy Electronically, [facility] [...] Gm, 5 Refills, Maintenance, 11/30/20 16:38:00 EST, [place], [facility], 1 sprays Nares, [...] capsule, 11 Refills, Maintenance, 05/17/20 18:22:00 EDT,Capsule, [facility], 165, cm, 02/02/20 11:43:00 EST, Height, 89.09, kg, 01/24/20 16:19:00 EST, Dry Weight Start Date: 05/17/20 Status: Ordered hydrOXYzine hydrochloride 10 mg oral tablet 1-2 tablet, By Mouth, 3 times a day, PRN Itch, 1-2 tablets 3 times a day as needed for itching, # 100 tablet, 1 Refills, Maintenance, 04/05/21 23:32:00 EDT, [facility], 165, cm, 04/05/21 14:30:00 EDT, Height, [...] 16:38:00 EST, Aerosol, Route to Pharmacy Electronically, [id number], [facility], 165, cm, 11/15/20 11:50... Start Date: 11/30/20 Status: Ordered ProAir HFA 90 mcg/inh inhalation aerosol with adapter 2, puffs, Inhalation, Every 6 hours, PRN, # 8.5 Gm, Refills 0, Tot. Refills 0, Maintenance, 11/10/17 18:44:13, Aerosol, Route to Pharmacy Electronically, [id number], [facility] Start Date: 11/10/17 [...] 2009 Active Obesity(Confirmed) Active Visit for routine planning coordinator exam(Confirmed) Active Screening for diabetes mellitus(Confirmed) Active Prurigo nodularis per biopsy(Confirmed) 10/2014 Active Tinea cruris(Confirmed) Active 1Biopsy 99 grade 4/4, stage 4/4, genotype 1a, 3,450,000 IU/ml 06/05 Social History Social History Type Response Smoking Status Never (less than 100 in lifetime); Tobacco user in household: No;Never entered on: 08/16/20 Sex
--- OUTSIDE RECORDS SUMMARY | 2023-05-07 00:42 | XMS_ITS | Continuity of Care Document ---
Author Name Unknown Organization [facility] Address [address] [place] [address]- Care Team Providers Care Brush Cleaner Name Role Phone Elie Foster MD Primary Care Physician [facility] Date[facility]s): 04/03/20 - 05/04/20 [facility] [address]- [place] Attending Physician: Elie Foster MD Admitting [...] 2 Refills, Maintenance, 02/14/20 12:31:00 EDT, Tablet, [facility], 165, cm, 02/02/20 11:43:00 EST, Height, 89.09, kg, 01/24/20 16:19:00 EST, Dry Weight Start Date: 02/14/20 Status: Ordered albuterol 0.083% inhalation solution 3 mL = 2.5 mg, Neb, Every 6 hours, PRN as needed for wheezing, use with nebulizer, # 90 mL, 2 Refills, Maintenance, 02/22/20 16:13:00 EDT, Solution, [facility], 165, cm, 02/02/20 11:43:00 EST, Height, 89.09, kg, 01/24/20 16:19:00 E... Start Date: 02/22/20 Status: Ordered amLODIPine 10 mg oral tablet 10 mg, 1, tablet, By Mouth, Daily, # 30 tablet, Refills 11, Tot. Refills 11, Maintenance, 10/27/19 20:07:15 EST, Route to Pharmacy Electronically, [id number], [facility] Start Date: 10/27/19 Status: Ordered [...] 1 Refills, Maintenance, 03/31/20 9:43:00 EDT, Gel, [facility], 165, cm, 02/02/20 11:43:00 EST, Height, 89.09, kg, 01/24/20 1... Start Date: 03/31/20 Status: Ordered Flonase 50 mcg/inh nasal spray 1 sprays, Nares, Both, 2 times a day, # 16 Gm, 5 Refills, Maintenance, 04/19/20 16:29:00 EDT, [place], [facility], 1 sprays Nares, Both 2 times a day, 165, cm, 02/02/20 11:43:00 EST, Height, 89.09, kg, 01/24/20 16:19:00 EST, Dry Weight Start Date: 04/19/20 Status: Ordered HAND BRACE FOR CARPAL TUNNEL [...] 11/19/19 16:44:00 EST, Route to Pharmacy Electronically, [facility], 165, cm, 11/19/19 16:13:00 EST, Height, 90.9, kg, 10/14/19 13:27:00 EST, D... Start Date: 11/19/19 Status: Ordered LORazepam 1 mg oral tablet 1 tablet = 1 mg, By Mouth, 2 times a day, PRN as needed for anxiety, # 15 tablet, 1 Refills, Maintenance, 03/15/20 11:56:00 EDT, Tablet, [facility], 165, cm, 02/02/20 11:43:00 EST, [...] 11/10/17 18:44:13, Aerosol, Route to Pharmacy Electronically, [id number], [facility] Start Date: 11/10/17 Status: Ordered ProAir HFA 90 mcg/inh inhalation aerosol with adapter 2, puffs, Inhalation, Every 4 hours, PRN, # 8.5 Gm, Refills 5, Tot. Refills 5, Maintenance, 04/19/20 16:29:00 EDT, Aerosol, Route to Pharmacy Electronically, [id number], [facility], 165, cm, 02/02/20 11:43... Start Date: 04/19/20 Status: Ordered raltegravir 600 mg oral tablet [...] 03/31/20 9:40:00 EDT, Route to Pharmacy Electronically, [facility], 165, cm, 02/02/20 11:43:00 EST, [...] 2009 Active Obesity(Confirmed) Active Visit for routine load builder exam(Confirmed) Active Prurigo nodularis per biopsy(Confirmed) 10/2014 Active Tinea cruris(Confirmed) Active 1Biopsy 99 grade 4/4, stage 4/4, genotype 1a, 3,450,000 IU/ml 06/05 Social History Social History Type Response Smoking Status Never (less than 100 in lifetime) entered on: 02/19/19 Sex
--- OUTSIDE RECORDS SUMMARY | 2023-05-07 00:42 | XMS_ITS | Continuity of Care Document ---
Author Name Unknown Organization [facility] Address [address] [place] [phone]- Care Team Providers Care Nuclear Plant Construction Worker Name Role Phone Elie Foster MD Primary Care Physician En[facility] Date(s): 08/30/21 - 09/29/[address] [address] Attending Physician: Lilly Bejarano Admitting Physician: AdmLilly espinal Referring Physician: Admtr, Ar8 Allergies, Adverse Reactions, Alerts [...] FOR FEVER, # 100 tablet, 5 Refills, [facility], 165, cm, 07/10/21 16:34:00 EDT, Height, 89.27, kg, 08/16/20 10:16:00 EDT, Dry Weight Start Date: 07/23/21 Status: Ordered albuterol 0.083% inhalation solution 3 mL = 2.5 mg, Neb, Every 6 hours, PRN as needed for wheezing, use with nebulizer, # 90 mL, 2 Refills, Maintenance, 02/22/20 16:13:00 EDT, Solution, [facility], 165, cm, 02/02/20 11:43:00 EST, Height, 89.09, kg, 01/24/20 16:19:00 E... Start Date: 02/22/20 Status: Ordered amitriptyline 25 mg oral tablet 25 mg, 1, tablet, By Mouth, Daily at bedtime, # 30 tablet, Refills 11, Tot. Refills 11, Maintenance, 01/09/21 15:37:00 EST, Route to Pharmacy Electronically, [facility], Partial fill upon patient request if the prescription is for... Start Date: 01/09/21 Status: Ordered amLODIPine 5 mg oral tablet 1 tablet, By Mouth, Daily, # 30 tablet, 5 Refills, Maintenance, 06/11/21 14:54:00 EDT, [facility], 165, cm, 05/08/21 14:40:00 EDT, Height, [...] A DAY., # 16 Gm, 5 Refills, [facility], 30, USE 1 SPRAY IN EACH [...] capsule, 11 Refills, Maintenance, 06/12/21 23:49:00 EDT,Capsule, [facility], 165, cm, 05/08/21 14:40:00 EDT, [...] 11 Refills, Maintenance, 10/30/20 14:19:00 EST, Tablet, [facility], 165, cm, 09/21/20 15:55:00 EDT, [...] each, 0 Refills, Maintenance, 04/26/21 10:11:00 EDT, [facility], ok to sub for any gallon prep, as directed, 165, cm, 04/26/21 9:37:00 EDT, Height, 89.27, kg, 08/16/20 10:16:00 EDT, Dry Weight Start Date: 04/26/21 Status: Ordered ProAir HFA 90 mcg/inh inhalation aerosol with adapter 2, inhalation, Inhalation, Every 4 hours, PRN, # 8.5 Gm, Refills 5, Route to Pharmacy Electronically, [id number], [facility], 165, cm, 07/24/21 15:17:00 EDT, Height, 89.27, kg, 08/16/20 10:16:00 EDT, Dry Weight Start Date: 09/05/21 Status: Ordered raltegravir 600 mg oral tablet 2 tablet = 1,200 mg, By Mouth, Daily, # 60 tablet, 11 Refills, Maintenance, 10/30/20 14:19:00 EST, Tablet, [facility], 165, cm, 09/21/20 15:55:00 EDT, [...] 03/31/20 9:40:00 EDT, Route to Pharmacy Electronically, [facility], 165, cm, 02/02/20 11:43:00 EST, Height,... Start Date: 03/31/20 Status: Ordered triamcinolone 0.025% topical cream 1 applicator, Topically, 3 times a day, emollient hydrophilic cream for allergy/inflammation. Use no more than 3 wks w/o break of 1 wk, # 120 Gm, 0 Refills, Maintenance, 06/29/20 0:49:00 EDT, [facility], 1 applicator Topically 3 t... Start Date: 06/29/20 Status: Ordered Viread 300 mg oral tablet 1 tablet = 300 mg, By Mouth, Daily, # 30 tablet, 11 Refills, Maintenance, 10/30/20 14:19:00 EST, Tablet, [facility], 165, cm, 09/21/20 15:55:00 EDT, [...] for routine obstetrics gynecology physician exam(Confirmed) Active Screening for diabetes mellitus(Confirmed) Active Prurigo nodularis per biopsy(Confirmed) 10/2014 Active Tinea cruris(Confirmed) Active 1Biopsy 99 grade 4/4, stage 4/4, genotype 1a, 3,450,000 IU/ml 06/05 Social History Social History Type Response Smoking Status Never (less than 100 in lifetime) entered on: 07/24/21 Sex
--- OUTSIDE RECORDS SUMMARY | 2023-05-07 00:42 | XMS_ITS | Continuity of Care Document ---
Author Name Unknown Organization [facility] Address Unknown Care Team Providers Care Import/Export Analyst Name Role Phone Elie Foster MD Primary Care Physician Encounter [facility] Date(s): 07/23/21 - 08/22/21 [facility] Allergies, Adverse Reactions, Alerts Substance Reaction Severity [...] 100 tablet, 5 Refills, [facility], 165, cm, 07/10/21 16:34:00 EDT, Height, 89.27, kg, 08/16/20 10:16:00 EDT, Dry Weight Start Date: 07/23/21 Status: Ordered albuterol 0.083% inhalation solution 3 mL = 2.5 mg, Neb, Every 6 hours, PRN as needed for wheezing, use with nebulizer, # 90 mL, 2 Refills, Maintenance, 02/22/20 16:13:00 EDT, Solution, [facility], 165, cm, 02/02/20 11:43:00 EST, Height, 89.09, kg, 01/24/20 16:19:00 E... Start Date: 02/22/20 Status: Ordered amitriptyline 25 mg oral tablet 25 mg, 1, tablet, By Mouth, Daily at bedtime, # 30 tablet, Refills 11, Tot. Refills 11, Maintenance, 01/09/21 15:37:00 EST, Route to Pharmacy Electronically, [facility], Partial fill upon patient request if the prescription is for... Start Date: 01/09/21 Status: Ordered amLODIPine 5 mg oral tablet 1 tablet, By Mouth, Daily, # 30 tablet, 5 Refills, Maintenance, 06/11/21 14:54:00 EDT, [facility], 165, cm, 05/08/21 14:40:00 EDT, Height, 89.27, kg, 08/16/20 10:16:00 EDT, Dry Weight Start Date: 06/11/21 Status: Ordered diclofenac 1% topical gel = 2 Gm, Topically, 4 times a day, PRN for pain, not to exceed: - 8 gm/day/joint of upper limb, # 100 Gm, 1 Refills, Maintenance, 03/31/20 9:43:00 EDT, Gel, [facility], 165, cm, 02/02/20 11:43:00 EST, Height, 89.09, kg, 01/24/20 1... Start Date: 03/31/20 Status: Ordered Flonase 50 mcg/inh nasal spray 1 sprays, Nares, Both, 2 times a day, # 16 Gm, 5 Refills, Maintenance, 11/30/20 16:38:00 EST, [place], [facility], 1 sprays Nares, Both 2 [...] capsule, 11 Refills, Maintenance, 06/12/21 23:49:00 EDT,Capsule, [facility], 165, cm, 05/08/21 14:40:00 EDT, Height, 89.27, kg, 08/16/20 10:16:00 EDT, Dry Weight Start Date: 06/12/21 Status: Ordered hydrOXYzine hydrochloride 10 mg oral tablet 1-2 tablet, By Mouth, 3 times a day, PRN Itch, 1-2 tablets 3 times a day as needed for itching, # 100 tablet, 1 Refills, Maintenance, 06/12/21 23:49:00 EDT, [facility], 165, cm, 05/08/21 14:40:00 EDT, Height, 89.27, kg, 08/16/20 10... Start Date: 06/12/21 Status: Ordered lamiVUDine 300 mg oral tablet 1 tablet = 300 mg, By Mouth, Daily, # 30 tablet, 11 Refills, Maintenance, 10/30/20 14:19:00 EST, Tablet, [facility], 165, cm, 09/21/20 15:55:00 EDT, Height, 89.27, kg, 08/16/20 10:16:00 EDT, Dry Weight Start Date: 10/30/20 Status: Ordered loratadine 10 mg oral tablet 10 mg, 1, tablet, By Mouth, Daily, # 30 tablet, Refills 0, Tot. Refills 0, Maintenance, 11/19/19 16:44:00 EST, Route to Pharmacy Electronically, [facility], 165, cm, 11/19/19 16:13:00 EST, Height, 90.9, kg, 10/14/19 13:27:00 EST, D... Start Date: 11/19/19 Status: Ordered LORazepam 1 mg oral tablet 1 tablet = 1 mg, By Mouth, 2 times a day, PRN as needed for anxiety, # 15 tablet, 1 Refills, Maintenance, 11/01/20 10:56:00 EST, Tablet, [facility], 165, cm, 11/01/20 8:58:00 EST,Height, 89.27, [...] each, 0 Refills, Maintenance, 04/26/21 10:11:00 EDT, [facility], ok to sub for any gallon prep, as directed, 165, cm, 04/26/21 9:37:00 EDT, Height, 89.27, kg, 08/16/20 10:16:00 EDT, Dry Weight Start Date: 04/26/21 Status: Ordered ProAir HFA 90 mcg/inh inhalation aerosol with adapter 2, puffs, Inhalation, Every 4 hours, PRN, # 8.5 Gm, Refills 5, Tot. Refills 5, Maintenance, 11/30/20 16:38:00 EST, Aerosol, Route to Pharmacy Electronically, [id number], [facility], 165, cm, 11/15/20 11:50... Start Date: 11/30/20 Status: Ordered ProAir HFA 90 mcg/inh inhalation aerosol with adapter 2, puffs, Inhalation, Every 6 hours, PRN, # 8.5 Gm, Refills 0, Tot. Refills 0, Maintenance, 11/10/17 18:44:13, Aerosol, Route to Pharmacy Electronically, [id number], [facility] Start Date: 11/10/17 Status: Ordered raltegravir 600 mg oral tablet 2 tablet = 1,200 mg, By Mouth, Daily, # 60 tablet, 11 Refills, Maintenance, 10/30/20 14:19:00 EST, Tablet, [facility], 165, cm, 09/21/20 15:55:00 EDT, Height, 89.27, kg, 08/16/20 10:16:00 EDT, Dry Weight Start Date: 10/30/20 Status: Ordered terbinafine 1% topical cream 1 application, Topically, 2 times a day, to rash, # 30 Gm, 3 Refills, Maintenance, 07/10/21 16:56:00 EDT, Cream, [facility], 1 application Topically 2 times a day,Instr:to rash, 165, cm, 07/10/21 16:34:00 EDT, Height, 89.27, kg, 09... Start Date: 07/10/21 Status: Ordered tiZANidine 2 mg oral tablet 1-2 tablet, By Mouth, Every 8 hours, PRN, # 50 tablet, Refills 1, Tot. Refills 1, Maintenance, as needed for muscle spasm, 03/31/20 9:40:00 EDT, Route to Pharmacy Electronically, [facility], 165, cm, 02/02/20 11:43:00 EST, Height,... Start Date: 03/31/20 Status: Ordered triamcinolone 0.025% topical cream 1 applicator, Topically, 3 times a day, emollient hydrophilic cream for allergy/inflammation. Use no more than 3 wks w/o break of 1 wk, # 120 Gm, 0 Refills, Maintenance, 06/29/20 0:49:00 EDT, [facility], 1 applicator Topically 3 t... Start Date: 06/29/20 Status: Ordered Viread 300 mg oral tablet 1 tablet = 300 mg, By Mouth, Daily, # 30 tablet, 11 Refills, Maintenance, 10/30/20 14:19:00 EST, Tablet, [facility], 165, cm, 09/21/20 15:55:00 EDT, Height, [...] 2009 Active Obesity(Confirmed) Active Visit for routine postmaster relief exam(Confirmed) Active Screening for diabetes mellitus(Confirmed) Active Prurigo nodularis per biopsy(Confirmed) 10/2014 Active Tinea cruris(Confirmed) Active 1Biopsy 99 grade 4/4, stage 4/4, genotype 1a, 3,450,000 IU/ml 06/05 Social History Social History Type Response Smoking Status Never (less than 100 in lifetime) entered on: 07/24/21 Sex
--- OUTSIDE RECORDS SUMMARY | 2023-05-07 00:42 | XMS_ITS | Continuity of Care Document ---
Author Name Unknown Organization [facility] Address [address] [place] [id number]- Care Team Providers Care Brick Extruder Operator Name Role Phone Elie Foster MD Primary Care Physician [phone] Encounter [facility] Date(s): 12/09/22 - 01/08/23 [facility]/[place] [address]- [place] Allergies, Adverse Reactions, Alerts Substance Reaction [...] FOR FEVER, # 100 tablet, 1 Refills, [facility], 165, cm, 03/26/22 13:56:00 EDT, Height, 89.27, kg, 08/16/20 10:16:00 EDT, Dry Weight Start Date: 07/21/22 Status: Ordered albuterol CFC free 90 mcg/inh inhalation aerosol 2, puffs, Inhalation, Every 4 hours, PRN, # 18 Gm, Refills 1, Tot. Refills 1, Maintenance, 08/23/2210:21:00 EDT, Aerosol, Route to Pharmacy Electronically, [id number], [facility], insurance formulary now... Start Date: 08/23/22 Status: Ordered amitriptyline 25 mg oral tablet 1, tablet, By Mouth, Daily at bedtime, # 30 tablet, Refills 2, Tot. Refills 2, Maintenance, 08/26/22 11:00:00 EDT, Route to Pharmacy Electronically, [facility], 165, cm, 08/15/22 13:22:00 EDT, Height Start Date: 08/26/22 Status: Ordered amLODIPine 5 mg oral tablet 1 tablet, By Mouth, Daily, # 30 tablet, 11 Refills, Maintenance, 01/24/22 22:33:00 EST, [facility], 165, cm, 01/17/22 15:36:00 EST, Height, 89.27, kg, 08/16/20 10:16:00 EDT, Dry Weight Start Date: 01/24/22 Status: Ordered diclofenac 1% topical gel = 2 Gm, Topically, 4 times a day, PRN for pain, not to exceed: - 8 gm/day/joint of upper limb, # 100 Gm, 1 Refills, Maintenance, 03/31/20 9:43:00 EDT, Gel, [facility], 165, cm, 02/02/20 11:43:00 EST, Height, 89.09, kg, 01/24/20 1... Start Date: 03/31/20 Status: Ordered fluticasone 50 mcg/inh nasal spray See Instructions, USE 1 SPRAY IN EACH NOSTRIL 2 TIMES A DAY., # 16 Gm, 5 Refills, [facility], 30, USE 1 SPRAY IN [...] capsule, 11 Refills, Maintenance, 01/24/22 22:33:00 EST,Capsule, [facility], 165, cm, 01/17/22 15:36:00 EST, Height, 89.27, kg, 08/16/20 10:16:00 EDT, Dry Weight Start Date: 01/24/22 Status: Ordered hydrOXYzine hydrochloride 10 mg oral tablet 1-2 tablet, By Mouth, 3 times a day, PRN Itch, 1-2 tablets 3 times a day as needed for itching, # 100 tablet, 1 Refills, Maintenance, 09/07/21 13:50:00 EDT, [facility], 165, cm, 07/24/21 15:17:00 EDT, Height, 89.27, kg, 08/16/20 10... Start Date: 09/07/21 Status: Ordered lamiVUDine 300 mg oral tablet 1 tablet = 300 mg, By Mouth, Daily, # 30 tablet, 11 Refills, Maintenance, 10/16/22 7:06:00 EST, Tablet, [facility], 165, cm, 10/15/22 16:53:00 EST, Height Start Date: 10/16/22 Status: Ordered LORazepam 1 mg oral tablet 1 tablet = 1 mg, By Mouth, 2 times a day, PRN as needed for anxiety, # 15 tablet, 1 Refills, Maintenance, 10/16/22 7:05:00 EST, Tablet, [facility], 165, cm, 10/15/22 16:53:00 EST,Height Start Date: 10/16/22 Status: Ordered Nebulizer/Compressor See Instructions, # 1 each, Maintenance, use as needed for wheezing, 01/14/20 9:13:00 EST, Compound Start Date: 01/14/20 Status: Ordered raltegravir 600 mg oral tablet 2 tablet = 1,200 mg, By Mouth, Daily, # 60 tablet, 11 Refills, Maintenance, 10/16/22 7:06:00 EST, Tablet, [facility], 165, cm, 10/15/22 16:53:00 EST, Height Start Date: 10/16/22 Status: Ordered Shingrix intramuscular injection 0.5 mL, Intramuscular, Once, #2. Here now. Thx, # 0.5 mL, 0 Refills, Soft Stop, 11/28/22 14:44:00 EST, [facility], please administer, 0.5 mL Intramuscular Once,Instr:#2. Here now.Thx, 165, cm, 11/28/22 13:36:00 EST, Height, 91.27,... Start Date: 11/28/22 Status: Ordered terbinafine 1% topical cream 1 application, Topically, 2 times a day, to rash, # 30 Gm, 3 Refills, Maintenance, 08/15/22 19:43:00 EDT, Cream, [facility], 1 application Topically 2 times a day,Instr:to rash, 165, cm, 08/15/22 13:22:00 EDT, Height, 89.27, kg, 09... Start Date: 08/15/22 Status: Ordered tiZANidine 2 mg oral tablet 1-2 tablet, By Mouth, Every 8 hours, PRN, # 50 tablet, Refills 1, Tot. Refills 1, Maintenance, as needed for muscle spasm, 10/15/22 19:40:00 EST, Route to Pharmacy Electronically, [facility], 165, cm, 10/15/22 16:53:00 EST, Height Start Date: 10/15/22 Status: Ordered Viread 300 mg oral tablet 1 tablet = 300 mg, By Mouth, Daily, # 30 tablet, 11 Refills, Maintenance, 10/16/22 7:06:00 EST, Tablet, [facility], 165, cm, 10/15/22 16:53:00 EST, Height [...] Active Obesity Confirmed Active Visit for routine medical assistant dermatology exam Confirmed Active Screening for diabetes mellitus Confirmed Active Prurigo nodularis per biopsy Confirmed 10/2014 Active Tinea cruris Confirmed Active 1Biopsy 99 grade 4/4, stage 4/4, genotype 1a, 3,450,000 IU/ml 06/05 Social History Social History Type Response Smoking Status Never (less than 100 in lifetime) entered on: 10/15/22 Sex Patient Care team information Care Team Personnel Name: Elie Foster MD Position: [facility] Primary Care Physician Member Role: PCP Address: Address: [address] [place] [address] Name: Ivon Salcedo RN Position: [facility] RN Member Role: Primary Care Nurse Care Team Related Persons Name: CISCO DUEÑAS Address: home [address] [place] [address] Name: HIEU HUTTON Address: [address] [place] [address]
--- OUTSIDE RECORDS SUMMARY | 2023-05-07 00:42 | XMS_ITS | Continuity of Care Document ---
Author Name Unknown Organization [facility] Address [address] [place] [address]- Care Team Providers Care Forensic Ballistics Expert Name Role Phone Elie Foster MD Primary Care Physician Encounter [facility] Date(s): 08/29/22 - 11/21/22 [facility] [address]- Attending Physician: Elie Foster MD Admitting Physician: [...] FOR FEVER, # 100 tablet, 1 Refills, [facility], 165, cm, 03/26/22 13:56:00 EDT, Height, 89.27, kg, 08/16/20 10:16:00 EDT, Dry Weight Start Date: 07/21/22 Status: Ordered albuterol CFC free 90 mcg/inh inhalation aerosol 2, puffs, Inhalation, Every 4 hours, PRN, # 18 Gm, Refills 1, Tot. Refills 1, Maintenance, 08/23/2210:21:00 EDT, Aerosol, Route to Pharmacy Electronically, [id number], [facility], insurance formulary now... Start Date: 08/23/22 Status: Ordered amitriptyline 25 mg oral tablet 1, tablet, By Mouth, Daily at bedtime, # 30 tablet, Refills 2, Tot. Refills 2, Maintenance, 08/26/22 11:00:00 EDT, Route to Pharmacy Electronically, [facility], 165, cm, 08/15/22 13:22:00 EDT, Height Start Date: 08/26/22 Status: Ordered amLODIPine 5 mg oral tablet 1 tablet, By Mouth, Daily, # 30 tablet, 11 Refills, Maintenance, 01/24/22 22:33:00 EST, [facility], 165, cm, 01/17/22 15:36:00 EST, Height, 89.27, kg, 08/16/20 10:16:00 EDT, Dry Weight Start Date: 01/24/22 Status: Ordered diclofenac 1% topical gel = 2 Gm, Topically, 4 times a day, PRN for pain, not to exceed: - 8 gm/day/joint of upper limb, # 100 Gm, 1 Refills, Maintenance, 03/31/20 9:43:00 EDT, Gel, [facility], 165, cm, 02/02/20 11:43:00 EST, Height, 89.09, kg, 01/24/20 1... Start Date: 03/31/20 Status: Ordered fluticasone 50 mcg/inh nasal spray See Instructions, USE 1 SPRAY IN EACH NOSTRIL 2 TIMES A DAY., # 16 Gm, 5 Refills, [facility], 30, USE 1 SPRAY [...] capsule, 11 Refills, Maintenance, 01/24/22 22:33:00 EST,Capsule, [facility], 165, cm, 01/17/22 15:36:00 EST, Height, 89.27, kg, 08/16/20 10:16:00 EDT, Dry Weight Start Date: 01/24/22 Status: Ordered hydrOXYzine hydrochloride 10 mg oral tablet 1-2 tablet, By Mouth, 3 times a day, PRN Itch, 1-2 tablets 3 times a day as needed for itching, # 100 tablet, 1 Refills, Maintenance, 09/07/21 13:50:00 EDT, [facility], 165, cm, 07/24/21 15:17:00 EDT, Height, 89.27, kg, 08/16/20 10... Start Date: 09/07/21 Status: Ordered lamiVUDine 300 mg oral tablet 1 tablet = 300 mg, By Mouth, Daily, # 30 tablet, 11 Refills, Maintenance, 10/16/22 7:06:00 EST, Tablet, [facility], 165, cm, 10/15/22 16:53:00 EST, Height Start Date: 10/16/22 Status: Ordered LORazepam 1 mg oral tablet 1 tablet = 1 mg, By Mouth, 2 times a day, PRN as needed for anxiety, # 15 tablet, 1 Refills, Maintenance, 10/16/22 7:05:00 EST, Tablet, [facility], 165, cm, 10/15/22 16:53:00 EST,Height Start Date: 10/16/22 Status: Ordered Nebulizer/Compressor See Instructions, # 1 each, Maintenance, use as needed for wheezing, 01/14/20 9:13:00 EST, Compound Start Date: 01/14/20 Status: Ordered raltegravir 600 mg oral tablet 2 tablet = 1,200 mg, By Mouth, Daily, # 60 tablet, 11 Refills, Maintenance, 10/16/22 7:06:00 EST, Tablet, [facility], 165, cm, 10/15/22 16:53:00 EST, Height Start Date: 10/16/22 Status: Ordered Shingrix intramuscular injection 0.5 mL, Intramuscular, Once, repeat dose in 2 to 6 months, # 0.5 mL, 1 Refills, Soft Stop, 08/15/2219:15:00 EDT, [facility], please administer, 0.5 mL Intramuscular Once,Instr:repeat dose in 2 to 6 months, 165, cm, 08/15/22 13:22:... Start Date: 08/15/22 Status: Ordered terbinafine 1% topical cream 1 application, Topically, 2 times a day, to rash, # 30 Gm, 3 Refills, Maintenance, 08/15/22 19:43:00 EDT, Cream, [facility], 1 application Topically 2 times a day,Instr:to rash, 165, cm, 08/15/22 13:22:00 EDT, Height, 89.27, kg, 09... Start Date: 08/15/22 Status: Ordered tiZANidine 2 mg oral tablet 1-2 tablet, By Mouth, Every 8 hours, PRN, # 50 tablet, Refills 1, Tot. 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
--- OUTSIDE RECORDS SUMMARY | 2023-05-07 00:42 | XMS_ITS | Continuity of Care Document ---
Author Name Unknown Organization [facility] Address Unknown Care Team Providers Care Story Editor Name Role Phone Elie Foster MD Primary Care Physician [place] [facility] [place] 03/12/22 - 04/11/22 [facility] Allergies, Adverse Reactions, Alerts Substance Reaction Severity [...] FOR FEVER, # 100 tablet, 2 Refills, [facility], 165, cm, 02/05/22 9:19:00 EST, Height, 89.27, kg, 08/16/20 10:16:00 EDT, Dry Weight Start Date: 03/15/22 Status: Ordered amitriptyline 25 mg oral tablet 1, tablet, By Mouth, Daily at bedtime, # 30 tablet, Refills 5, Route to Pharmacy Electronically, [facility], 165, cm, 01/17/22 15:36:00 EST, Height, 89.27, kg, 08/16/20 10:16:00 EDT, Dry Weight Start Date: 01/23/22 Status: Ordered amLODIPine 5 mg oral tablet 1 tablet, By Mouth, Daily, # 30 tablet, 11 Refills, Maintenance, 01/24/22 22:33:00 EST, [facility], 165, cm, 01/17/22 15:36:00 EST, Height, 89.27, kg, 08/16/20 10:16:00 EDT, Dry Weight Start Date: 01/24/22 Status: Ordered diclofenac 1% topical gel = 2 Gm, Topically, 4 times a day, PRN for pain, not to exceed: - 8 gm/day/joint of upper limb, # 100 Gm, 1 Refills, Maintenance, 03/31/20 9:43:00 EDT, Gel, [facility], 165, cm, 02/02/20 11:43:00 EST, [...] A DAY., # 16 Gm, 5 Refills, [facility], 30, USE 1 SPRAY IN EACH [...] capsule, 11 Refills, Maintenance, 01/24/22 22:33:00 EST,Capsule, [facility], 165, cm, 01/17/22 15:36:00 EST, Height, 89.27, kg, 08/16/20 10:16:00 EDT, Dry Weight Start Date: 01/24/22 Status: Ordered hydrOXYzine hydrochloride 10 mg oral tablet 1-2 tablet, By Mouth, 3 times a day, PRN Itch, 1-2 tablets 3 times a day as needed for itching, # 100 tablet, 1 Refills, Maintenance, 09/07/21 13:50:00 EDT, [facility], 165, cm, 07/24/21 15:17:00 EDT, Height, 89.27, kg, 08/16/20 10... Start Date: 09/07/21 Status: Ordered lamiVUDine 300 mg oral tablet 1 tablet = 300 mg, By Mouth, Daily, # 30 tablet, 11 Refills, Maintenance, 10/17/21 10:39:00 EST, Tablet, [facility], 165, cm, 10/17/21 9:33:00 EST, Height, 89.27, kg, 08/16/20 10:16:00 EDT, Dry Weight Start Date: 10/17/21 Status: Ordered loratadine 10 mg oral tablet 10 mg, 1, tablet, By Mouth, Daily, # 30 tablet, Refills 0, Tot. Refills 0, Maintenance, 11/19/19 16:44:00 EST, Route to Pharmacy Electronically, [facility], 165, cm, 11/19/19 16:13:00 EST, Height, 90.9, kg, 10/14/19 13:27:00 EST, D... Start Date: 11/19/19 Status: Ordered LORazepam 1 mg oral tablet 1 tablet = 1 mg, By Mouth, 2 times a day, PRN as needed for anxiety, # 15 tablet, 1 Refills, Maintenance, 09/06/21 14:38:00 EDT, Tablet, [facility], 165, cm, 07/24/21 15:17:00 EDT, [...] Gm, Refills 5, Route to Pharmacy Electronically, [id number], [facility], 165, cm, 02/05/22 9:19:00 EST, Height, 89.27, kg, 08/16/20 10:16:00 EDT, Dry Weight Start Date: 03/15/22 Status: Ordered raltegravir 600 mg oral tablet 2 tablet = 1,200 mg, By Mouth, Daily, # 60 tablet, 11 Refills, Maintenance, 10/17/21 10:39:00 EST, Tablet, [facility], 165, cm, 10/17/21 9:33:00 EST, Height, 89.27, kg, 08/16/20 10:16:00 EDT, Dry Weight Start Date: 10/17/21 Status: Ordered terbinafine 1% topical cream 1 application, Topically, 2 times a day, to rash, # 30 Gm, 3 Refills, Maintenance, 07/10/21 16:56:00 EDT, Cream, [facility], 1 application Topically 2 times a day,Instr:to rash, 165, cm, 07/10/21 16:34:00 EDT, Height, 89.27, kg, 09... Start Date: 07/10/21 Status: Ordered tiZANidine 2 mg oral tablet 1-2 tablet, By Mouth, Every 8 hours, PRN, # 50 tablet, Refills 0, Tot. Refills 0, Maintenance, as needed for muscle spasm, 03/17/22 20:26:00 EDT, Route to Pharmacy Electronically, [facility], 165, cm, 02/05/22 9:19:00 EST, Height,... Start Date: 03/17/22 Status: Ordered triamcinolone 0.025% topical cream 1 applicator, Topically, 3 times a day, emollient hydrophilic cream for allergy/inflammation. Use no more than 3 wks w/o break of 1 wk, # 120 Gm, 0 Refills, Maintenance, 10/17/21 10:41:00 EST, [facility], 1 applicator Topically 3... Start Date: 10/17/21 Status: Ordered Viread 300 mg oral tablet 1 tablet = 300 mg, By Mouth, Daily, # 30 tablet, 11 Refills, Maintenance, 10/17/21 10:39:00 EST, Tablet, [facility], 165, cm, 10/17/21 9:33:00 EST, [...] I(Confirmed) Active Obesity(Confirmed) Active Visit for routine faculty member exam(Confirmed) Active Screening for diabetes mellitus(Confirmed) Active Prurigo nodularis per biopsy(Confirmed) 10/2014 Active Tinea cruris(Confirmed) Active 1Biopsy 99 grade 4/4, stage 4/4, genotype 1a, 3,450,000 IU/ml 06/05 Social History Social History Type Response Smoking Status Never (less than 100 in lifetime) entered on: 07/24/21 Sex
--- OUTSIDE RECORDS SUMMARY | 2023-05-07 00:43 | XMS_ITS | Continuity of Care Document ---
Author Name Unknown Organization [facility] Address [address] [place] [address]- Care Team Providers Care Gum Worker Name Role Phone Elie Foster MD Primary Care Physician [phone] Encounter [facility] Date(s): 01/05/21 - 02/04/21 [facility]/[address] [address]- Allergies, Adverse Reactions, Alerts Substance Reaction Severity [...] 5 Refills, Maintenance, 01/02/21 10:02:00 EST, Tablet, [facility], 165, cm, 11/15/20 11:50:00 EST, [...] 05/17/20 18:31:00 EDT, Route to Pharmacy Electronically, [facility], 165, cm, 02/02/20 11:43:00 EST, Height, 89.09, kg,... Start Date: 05/17/20 Status: Ordered betamethasone topical dipropionate 0.05% cream 1 application, Topically, 2 times a day, for 7 days, to affected area, # 15 Gm, 0 Refills, Acute 02/08/21 16:50:00 EST, 02/01/21 16:50:00 EST, Cream, [facility], 1 application Topically 2 times a day,x7 days,Instr:to affected area,... Start Date: 02/01/21 Stop Date: 02/08/21 Status: Ordered diclofenac 1% topical gel = [...] Gm, 5 Refills, Maintenance, 11/30/20 16:38:00 EST, [place], [facility], 1 sprays Nares, Both 2 [...] capsule, 11 Refills, Maintenance, 05/17/20 18:22:00 EDT,Capsule, [facility], 165, cm, 02/02/20 11:43:00 [...] 11 Refills, Maintenance, 10/30/20 14:19:00 EST, Tablet, [facility], 165, cm, 09/21/20 15:55:00 EDT, [...] 1 Refills, Maintenance, 11/01/20 10:56:00 EST, Tablet, [facility], 165, cm, 11/01/20 8:58:00 EST,Height, [...] 16:38:00 EST, Aerosol, Route to Pharmacy Electronically, [id number], [facility], 165, cm, 11/15/20 11:50... Start Date: 11/30/20 Status: Ordered ProAir HFA 90 mcg/inh inhalation aerosol with adapter 2, puffs, Inhalation, Every 6 hours, PRN, # 8.5 Gm, Refills 0, Tot. Refills 0, Maintenance, 11/10/17 18:44:13, Aerosol, Route to Pharmacy Electronically, [id number], [facility] Start Date: 11/10/17 Status: Ordered raltegravir 600 mg oral tablet 2 tablet = 1,200 mg, By Mouth, Daily, # 60 tablet, 11 Refills, Maintenance, 10/30/20 14:19:00 EST, Tablet, [facility], 165, cm, 09/21/20 15:55:00 EDT, Height, 89.27, kg, 08/16/20 10:16:00 EDT, Dry Weight Start Date: 10/30/20 Status: Ordered terbinafine 1% topical cream 1 application, Topically, 2 times a day, to rash, # 30 Gm, 3 Refills, Maintenance, 11/01/20 10:55:00 EST, Cream, [facility], 1 application Topically 2 times a day,Instr:to rash, 165, cm, 11/01/20 8:58:00 EST, Height, 89.27, kg, /... Start Date: 11/01/20 Status: Ordered tiZANidine 2 [...] Gm, 0 Refills, Maintenance, 06/29/20 0:49:00 EDT, [facility], 1 applicator Topically 3 t... 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
--- OUTSIDE RECORDS SUMMARY | 2023-05-07 00:43 | XMS_ITS | Continuity of Care Document ---
Author Name Unknown Organization [facility] Address [address] [place] [id number]- Care Team Providers Care Medical Assistant Float Name Role Phone Elie Foster MD Primary Care Physician [phone] Encounter [facility] Date(s): 04/30/22 - 05/30/22 [facility] [address] [place] [id number]- [place] Allergies, Adverse Reactions, Alerts Substance Reaction [...] FOR FEVER, # 100 tablet, 2 Refills, [facility], 165, cm, 02/05/22 9:19:00 EST, Height, 89.27, kg, 08/16/20 10:16:00 EDT, Dry Weight Start Date: 03/15/22 Status: Ordered amitriptyline 25 mg oral tablet 1, tablet, By Mouth, Daily at bedtime, # 30 tablet, Refills 5, Route to Pharmacy Electronically, [facility], 165, cm, 01/17/22 15:36:00 EST, Height, 89.27, kg, 08/16/20 10:16:00 EDT, Dry Weight Start Date: 01/23/22 Status: Ordered amLODIPine 5 mg oral tablet 1 tablet, By Mouth, Daily, # 30 tablet, 11 Refills, Maintenance, 01/24/22 22:33:00 EST, [facility], 165, cm, 01/17/22 15:36:00 EST, Height, 89.27, kg, 08/16/20 10:16:00 EDT, Dry Weight Start Date: 01/24/22 Status: Ordered diclofenac 1% topical gel = 2 Gm, Topically, 4 times a day, PRN for pain, not to exceed: - 8 gm/day/joint of upper limb, # 100 Gm, 1 Refills, Maintenance, 03/31/20 9:43:00 EDT, Gel, [facility], 165, cm, 02/02/20 11:43:00 EST, Height, [...] A DAY., # 16 Gm, 5 Refills, [facility], 30, USE 1 SPRAY IN EACH [...] capsule, 11 Refills, Maintenance, 01/24/22 22:33:00 EST,Capsule, [facility], 165, cm, 01/17/22 15:36:00 EST, Height, 89.27, kg, 08/16/20 10:16:00 EDT, Dry Weight Start Date: 01/24/22 Status: Ordered hydrOXYzine hydrochloride 10 mg oral tablet 1-2 tablet, By Mouth, 3 times a day, PRN Itch, 1-2 tablets 3 times a day as needed for itching, # 100 tablet, 1 Refills, Maintenance, 09/07/21 13:50:00 EDT, [facility], 165, cm, 07/24/21 15:17:00 EDT, Height, 89.27, kg, 08/16/20 10... Start Date: 09/07/21 Status: Ordered lamiVUDine 300 mg oral tablet 1 tablet = 300 mg, By Mouth, Daily, # 30 tablet, 11 Refills, Maintenance, 10/17/21 10:39:00 EST, Tablet, [facility], 165, cm, 10/17/21 9:33:00 EST, Height, 89.27, kg, 08/16/20 10:16:00 EDT, Dry Weight Start Date: 10/17/21 Status: Ordered loratadine 10 mg oral tablet 10 mg, 1, tablet, By Mouth, Daily, # 30 tablet, Refills 0, Tot. Refills 0, Maintenance, 11/19/19 16:44:00 EST, Route to Pharmacy Electronically, [facility], 165, cm, 11/19/19 16:13:00 EST, Height, 90.9, kg, 10/14/19 13:27:00 EST, D... Start Date: 11/19/19 Status: Ordered LORazepam 1 mg oral tablet 1 tablet = 1 mg, By Mouth, 2 times a day, PRN as needed for anxiety, # 15 tablet, 1 Refills, Maintenance, 09/06/21 14:38:00 EDT, Tablet, [facility], 165, cm, 07/24/21 15:17:00 EDT, Height, 89.27, kg, 08/16/20 10:16:00 EDT, Dry Weight Start Date: 09/06/21 Status: Ordered Nebulizer/Compressor See Instructions, # 1 each, Maintenance, use as needed for wheezing, 01/14/20 9:13:00 EST, Compound Start Date: 01/14/20 Status: Ordered NuLYTELY with Flavor Packs oral powder for reconstitution See Instructions, per GI office, # 4,000 mL, 0 Refills, Maintenance, 04/30/22 10:07:00 EDT, [facility], Partial fill upon patient request if the prescription is for a schedule II opioid drug., per GI office, 165, cm, 03/26/22 13:56... Start Date: 04/30/22 Status: Ordered ProAir HFA 90 mcg/inh inhalation aerosol with adapter 2, inhalation, Inhalation, Every 4 hours, PRN, # 8.5 Gm, Refills 5, Route to Pharmacy Electronically, [id number], [facility], 165, cm, 02/05/22 9:19:00 EST, Height, 89.27, kg, 08/16/20 10:16:00 EDT, Dry Weight Start Date: 03/15/22 Status: Ordered raltegravir 600 mg oral tablet 2 tablet = 1,200 mg, By Mouth, Daily, # 60 tablet, 11 Refills, Maintenance, 10/17/21 10:39:00 EST, Tablet, [facility], 165, cm, 10/17/21 9:33:00 EST, Height, 89.27, kg, 08/16/20 10:16:00 EDT, Dry Weight Start Date: 10/17/21 Status: Ordered terbinafine 1% topical cream 1 application, Topically, 2 times a day, to rash, # 30 Gm, 3 Refills, Maintenance, 07/10/21 16:56:00 EDT, Cream, [facility], 1 application Topically 2 times a day,Instr:to rash, 165, cm, 07/10/21 16:34:00 EDT, Height, 89.27, kg, 09... Start Date: 07/10/21 Status: Ordered tiZANidine 2 mg oral tablet 1-2 tablet, By Mouth, Every 8 hours, PRN, # 50 tablet, Refills 0, Tot. Refills 0, Maintenance, as needed for muscle spasm, 03/17/22 20:26:00 EDT, Route to Pharmacy Electronically, [facility], 165, cm, 02/05/22 9:19:00 EST, Height,... Start Date: 03/17/22 Status: Ordered triamcinolone 0.025% topical cream 1 applicator, Topically, 3 times a day, emollient hydrophilic cream for allergy/inflammation. Use no more than 3 wks w/o break of 1 wk, # 120 Gm, 0 Refills, Maintenance, 10/17/21 10:41:00 EST, [facility], 1 applicator Topically 3... 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
--- OUTSIDE RECORDS SUMMARY | 2023-05-07 00:43 | XMS_ITS | Continuity of Care Document ---
Author Name Unknown Organization [facility] Address [address] [place] [address]- Care Team Providers Care Welcome Center Attendant Name Role Phone Elie Foster MD Primary Care Physician [phone] Encounter [facility] Date(s): 01/19/21 - 02/18/21 [facility]/[address] [address]- Allergies, Adverse Reactions, Alerts Substance Reaction Severity [...] ADMIN.BY RN 8Result Comment: [09/22/2013] Ordered by Critsian 9Admin Note: vis 09/05/09 10Admin Note: vis [...] 5 Refills, Maintenance, 01/02/21 10:02:00 EST, Tablet, [facility], 165, cm, 11/15/20 11:50:00 EST, Height, [...] 05/17/20 18:31:00 EDT, Route to Pharmacy Electronically, [facility], [...] Gm, 5 Refills, Maintenance, 11/30/20 16:38:00 EST, [place], [facility], 1 sprays Nares, Both 2 times [...] capsule, 11 Refills, Maintenance, 05/17/20 18:22:00 EDT,Capsule, [facility], 165, cm, 02/02/20 11:43:00 EST, [...] 11 Refills, Maintenance, 10/30/20 14:19:00 EST, Tablet, [facility], 165, cm, 09/21/20 15:55:00 EDT, Height, [...] 1 Refills, Maintenance, 11/01/20 10:56:00 EST, Tablet, [facility], 165, cm, 11/01/20 8:58:00 EST,Height, 89.27, [...] 16:38:00 EST, Aerosol, Route to Pharmacy Electronically, [id number], [facility], 165, cm, 11/15/20 11:50... Start Date: 11/30/20 Status: Ordered ProAir HFA 90 mcg/inh inhalation aerosol with adapter 2, puffs, Inhalation, Every 6 hours, PRN, # 8.5 Gm, Refills 0, Tot. Refills 0, Maintenance, 11/10/17 18:44:13, Aerosol, Route to Pharmacy Electronically, [id number], [facility] Start Date: 11/10/17 Status: Ordered raltegravir 600 mg oral tablet 2 tablet = 1,200 mg, By Mouth, Daily, # 60 tablet, 11 Refills, Maintenance, 10/30/20 14:19:00 EST, Tablet, [facility], 165, cm, 09/21/20 15:55:00 EDT, Height, 89.27, kg, 08/16/20 10:16:00 EDT, Dry Weight Start Date: 10/30/20 Status: Ordered terbinafine 1% topical cream 1 application, Topically, 2 times a day, to rash, # 30 Gm, 3 Refills, Maintenance, 11/01/20 10:55:00 EST, Cream, [facility], 1 application Topically 2 [...] Gm, 0 Refills, Maintenance, 06/29/20 0:49:00 EDT, [facility], 1 applicator Topically 3 t... 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
--- OUTSIDE RECORDS SUMMARY | 2023-05-07 00:43 | XMS_ITS | Continuity of Care Document ---
Author Name Unknown Organization [facility] Address Unknown Care Team Providers Care Yacht Master Name Role Phone Elie Foster MD Primary Care Physician [phone] [place]counter [facility] [place](s): 04/25/22 - 05/25/22 [facility] Allergies, Adverse Reactions, Alerts Substance Reaction [...] FOR FEVER, # 100 tablet, 2 Refills, [facility], 165, cm, 02/05/22 9:19:00 EST, Height, 89.27, kg, 08/16/20 10:16:00 EDT, Dry Weight Start Date: 03/15/22 Status: Ordered amitriptyline 25 mg oral tablet 1, tablet, By Mouth, Daily at bedtime, # 30 tablet, Refills 5, Route to Pharmacy Electronically, [facility], 165, cm, 01/17/22 15:36:00 EST, Height, 89.27, kg, 08/16/20 10:16:00 EDT, Dry Weight Start Date: 01/23/22 Status: Ordered amLODIPine 5 mg oral tablet 1 tablet, By Mouth, Daily, # 30 tablet, 11 Refills, Maintenance, 01/24/22 22:33:00 EST, [facility], 165, cm, 01/17/22 15:36:00 EST, Height, 89.27, [...] A DAY., # 16 Gm, 5 Refills, [facility], 30, USE 1 SPRAY IN EACH [...] capsule, 11 Refills, Maintenance, 01/24/22 22:33:00 EST,Capsule, [facility], 165, cm, 01/17/22 15:36:00 EST, Height, 89.27, [...] mL, 0 Refills, Maintenance, 04/30/22 10:07:00 EDT, [facility], Partial fill upon patient request if the prescription is for a schedule II opioid drug., per GI office, 165, cm, 03/26/22 13:56... Start Date: 04/30/22 Status: Ordered ProAir HFA 90 mcg/inh inhalation aerosol with adapter 2, inhalation, Inhalation, Every 4 hours, PRN, # 8.5 Gm, Refills 5, Route to Pharmacy Electronically, [id number], [facility], 165, cm, 02/05/22 9:19:00 EST, [...] 03/17/22 20:26:00 EDT, Route to Pharmacy Electronically, [facility], 165, cm, 02/05/22 9:19:00 EST, Height,... 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
--- OUTSIDE RECORDS SUMMARY | 2023-05-07 00:43 | XMS_ITS | Continuity of Care Document ---
Author Name Unknown Organization [facility] Address Unknown Care Team Providers Care Order Make Up Clerk Name Role Phone Elie Foster MD Primary Care Physician Encounter [facility] Date(s): 06/21/21 - 07/21/21 [facility] Attending Physician: Lilly Bejarano Admitting Physician: Lilly [...] 5 Refills, Maintenance, 01/02/21 10:02:00 EST, Tablet, [facility], 165, cm, 11/15/20 11:50:00 EST, Height, 89.27, kg, 08/16/20 10:16:00 EDT, Dry Weight Start Date: 01/02/21 Status: Ordered albuterol 0.083% inhalation solution 3 mL = 2.5 mg, Neb, Every 6 hours, PRN as needed for wheezing, use with nebulizer, # 90 mL, 2 Refills, Maintenance, 02/22/20 16:13:00 EDT, Solution, [facility], 165, cm, 02/02/20 11:43:00 EST, Height, 89.09, kg, 01/24/20 16:19:00 E... Start Date: 02/22/20 Status: Ordered amitriptyline 25 mg oral tablet 25 mg, 1, tablet, By Mouth, Daily at bedtime, # 30 tablet, Refills 11, Tot. Refills 11, Maintenance, 01/09/21 15:37:00 EST, Route to Pharmacy Electronically, [facility], Partial fill upon patient request if the prescription is for... Start Date: 01/09/21 Status: Ordered amLODIPine 5 mg oral tablet 1 tablet, By Mouth, Daily, # 30 tablet, 5 Refills, Maintenance, 06/11/21 14:54:00 EDT, [facility], 165, cm, 05/08/21 14:40:00 EDT, Height, 89.27, kg, 08/16/20 10:16:00 EDT, Dry Weight Start Date: 06/11/21 Status: Ordered diclofenac 1% topical gel = 2 Gm, Topically, 4 times a day, PRN for pain, not to exceed: - 8 gm/day/joint of upper limb, # 100 Gm, 1 Refills, Maintenance, 03/31/20 9:43:00 EDT, Gel, [facility], 165, cm, 02/02/20 11:43:00 EST, Height, 89.09, kg, 01/24/20 1... Start Date: 03/31/20 Status: Ordered Flonase 50 mcg/inh nasal spray 1 sprays, Nares, Both, 2 times a day, # 16 Gm, 5 Refills, Maintenance, 11/30/20 16:38:00 EST, [place], [facility], 1 sprays Nares, Both 2 times [...] capsule, 11 Refills, Maintenance, 06/12/21 23:49:00 EDT,Capsule, [facility], 165, cm, 05/08/21 14:40:00 EDT, Height, 89.27, kg, 08/16/20 10:16:00 EDT, Dry Weight Start Date: 06/12/21 Status: Ordered hydrOXYzine hydrochloride 10 mg oral tablet 1-2 tablet, By Mouth, 3 times a day, PRN Itch, 1-2 tablets 3 times a day as needed for itching, # 100 tablet, 1 Refills, Maintenance, 06/12/21 23:49:00 EDT, [facility], 165, cm, 05/08/21 14:40:00 EDT, Height, 89.27, kg, 08/16/20 10... Start Date: 06/12/21 Status: Ordered lamiVUDine 300 mg oral tablet 1 tablet = 300 mg, By Mouth, Daily, # 30 tablet, 11 Refills, Maintenance, 10/30/20 14:19:00 EST, Tablet, [facility], 165, cm, 09/21/20 15:55:00 EDT, Height, 89.27, kg, 08/16/20 10:16:00 EDT, Dry Weight Start Date: 10/30/20 Status: Ordered loratadine 10 mg oral tablet 10 mg, 1, tablet, By Mouth, Daily, # 30 tablet, Refills 0, Tot. Refills 0, Maintenance, 11/19/19 16:44:00 EST, Route to Pharmacy Electronically, [facility], 165, cm, 11/19/19 16:13:00 EST, Height, 90.9, kg, 10/14/19 13:27:00 EST, D... Start Date: 11/19/19 Status: Ordered LORazepam 1 mg oral tablet 1 tablet = 1 mg, By Mouth, 2 times a day, PRN as needed for anxiety, # 15 tablet, 1 Refills, Maintenance, 11/01/20 10:56:00 EST, Tablet, [facility], 165, cm, 11/01/20 8:58:00 EST,Height, 89.27, [...] each, 0 Refills, Maintenance, 04/26/21 10:11:00 EDT, [facility], ok to sub for any gallon prep, as directed, 165, cm, 04/26/21 9:37:00 EDT, Height, 89.27, kg, 08/16/20 10:16:00 EDT, Dry Weight Start Date: 04/26/21 Status: Ordered ProAir HFA 90 mcg/inh inhalation aerosol with adapter 2, puffs, Inhalation, Every 4 hours, PRN, # 8.5 Gm, Refills 5, Tot. Refills 5, Maintenance, 11/30/20 16:38:00 EST, Aerosol, Route to Pharmacy Electronically, [id number], [facility], 165, cm, 11/15/20 11:50... Start Date: 11/30/20 Status: Ordered ProAir HFA 90 mcg/inh inhalation aerosol with adapter 2, puffs, Inhalation, Every 6 hours, PRN, # 8.5 Gm, Refills 0, Tot. Refills 0, Maintenance, 11/10/17 18:44:13, Aerosol, Route to Pharmacy Electronically, [id number], [facility] Start Date: 11/10/17 Status: Ordered raltegravir 600 mg oral tablet 2 tablet = 1,200 mg, By Mouth, Daily, # 60 tablet, 11 Refills, Maintenance, 10/30/20 14:19:00 EST, Tablet, [facility], 165, cm, 09/21/20 15:55:00 EDT, Height, 89.27, kg, 08/16/20 10:16:00 EDT, Dry Weight Start Date: 10/30/20 Status: Ordered terbinafine 1% topical cream 1 application, Topically, 2 times a day, to rash, # 30 Gm, 3 Refills, Maintenance, 07/10/21 16:56:00 EDT, Cream, [facility], 1 application Topically 2 times a day,Instr:to rash, 165, cm, 07/10/21 16:34:00 EDT, Height, 89.27, kg, 09... Start Date: 07/10/21 Status: Ordered tiZANidine 2 mg oral tablet 1-2 tablet, By Mouth, Every 8 hours, PRN, # 50 tablet, Refills 1, Tot. Refills 1, Maintenance, as needed for muscle spasm, 03/31/20 9:40:00 EDT, Route to Pharmacy Electronically, [facility], 165, cm, 02/02/20 11:43:00 EST, Height,... Start Date: 03/31/20 Status: Ordered triamcinolone 0.025% topical cream 1 applicator, Topically, 3 times a day, emollient hydrophilic cream for allergy/inflammation. Use no more than 3 wks w/o break of 1 wk, # 120 Gm, 0 Refills, Maintenance, 06/29/20 0:49:00 EDT, [facility], 1 applicator Topically 3 t... 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
--- OUTSIDE RECORDS SUMMARY | 2023-05-07 00:43 | XMS_ITS | Continuity of Care Document ---
Author Name Unknown Organization [facility] Address [address] [place] [address]- Care Team Providers Care Program Director Name Role Phone Elie Foster MD Primary Care Physician Encounter [facility] [place] Date(s): 03/10/20 - 04/15/[address] [address]- [facility] Attending Physician: Elie Foster MD Admitting [...] 2 Refills, Maintenance, 02/14/20 12:31:00 EDT, Tablet, [facility], 165, cm, 02/02/20 11:43:00 [...] 10/27/19 20:07:15 EST, Route to Pharmacy Electronically, [id number], [facility] Start Date: 10/27/19 Status: Ordered benzoyl [...] Gm, 1 Refills, Maintenance, 02/22/20 16:14:00 EDT, [place], [facility], 1 sprays Nares, Both 2 [...] 1 Refills, Maintenance, 03/15/20 11:56:00 EDT, Tablet, [facility], 165, cm, 02/02/20 11:43:00 [...] 16:14:00 EDT, Aerosol, Route to Pharmacy Electronically, [id number], [facility], 165, cm, 02/02/20 11:43... Start Date: 02/22/20 Status: Ordered ProAir HFA 90 mcg/inh inhalation aerosol with adapter 2, puffs, Inhalation, Every 6 hours, PRN, # 8.5 Gm, Refills 0, Tot. 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
--- OUTSIDE RECORDS SUMMARY | 2023-05-07 00:43 | XMS_ITS | Continuity of Care Document ---
Author Name Unknown Organization [facility] Address Unknown Care Team Providers Care Print Washer Name Role Phone Elie Foster MD Primary Care Physician Encounter [facility] Date(s): 02/05/22 - 03/07/22 [facility] Attending Physician: Lilly Bejarano Allergies, Adverse Reactions, [...] FOR FEVER, # 100 tablet, 5 Refills, [facility], 165, cm, 07/10/21 16:34:00 EDT, Height, 89.27, kg, 08/16/20 10:16:00 EDT, Dry Weight Start Date: 07/23/21 Status: Ordered albuterol 0.083% inhalation solution 3 mL = 2.5 mg, Neb, Every 6 hours, PRN as needed for wheezing, use with nebulizer, # 90 mL, 2 Refills, Maintenance, 02/22/20 16:13:00 EDT, Solution, [facility], 165, cm, 02/02/20 11:43:00 EST, Height, 89.09, kg, 01/24/20 16:19:00 E... Start Date: 02/22/20 Status: Ordered amitriptyline 25 mg oral tablet 1, tablet, By Mouth, Daily at bedtime, # 30 tablet, Refills 5, Route to Pharmacy Electronically, [facility], 165, cm, 01/17/22 15:36:00 EST, Height, 89.27, kg, 08/16/20 10:16:00 EDT, Dry Weight Start Date: 01/23/22 Status: Ordered amLODIPine 5 mg oral tablet 1 tablet, By Mouth, Daily, # 30 tablet, 11 Refills, Maintenance, 01/24/22 22:33:00 EST, [facility], 165, cm, 01/17/22 15:36:00 EST, Height, 89.27, kg, 08/16/20 10:16:00 EDT, Dry Weight Start Date: 01/24/22 Status: Ordered diclofenac 1% topical gel = 2 Gm, Topically, 4 times a day, PRN for pain, not to exceed: - 8 gm/day/joint of upper limb, # 100 Gm, 1 Refills, Maintenance, 03/31/20 9:43:00 EDT, Gel, [facility], 165, cm, 02/02/20 11:43:00 EST, Height, 89.09, kg, 01/24/20 1... Start Date: 03/31/20 Status: Ordered fluticasone 50 mcg/inh nasal spray See Instructions, USE 1 SPRAY IN EACH NOSTRIL 2 TIMES A DAY., # 16 Gm, 5 Refills, [facility], 30, USE 1 SPRAY IN EACH [...] capsule, 11 Refills, Maintenance, 01/24/22 22:33:00 EST,Capsule, [facility], 165, cm, 01/17/22 15:36:00 EST, Height, 89.27, kg, 08/16/20 10:16:00 EDT, Dry Weight Start Date: 01/24/22 Status: Ordered hydrOXYzine hydrochloride 10 mg oral tablet 1-2 tablet, By Mouth, 3 times a day, PRN Itch, 1-2 tablets 3 times a day as needed for itching, # 100 tablet, 1 Refills, Maintenance, 09/07/21 13:50:00 EDT, [facility], 165, cm, 07/24/21 15:17:00 EDT, Height, 89.27, kg, 08/16/20 10... Start Date: 09/07/21 Status: Ordered lamiVUDine 300 mg oral tablet 1 tablet = 300 mg, By Mouth, Daily, # 30 tablet, 11 Refills, Maintenance, 10/17/21 10:39:00 EST, Tablet, [facility], 165, cm, 10/17/21 9:33:00 EST, Height, 89.27, kg, 08/16/20 10:16:00 EDT, Dry Weight Start Date: 10/17/21 Status: Ordered loratadine 10 mg oral tablet 10 mg, 1, tablet, By Mouth, Daily, # 30 tablet, Refills 0, Tot. Refills 0, Maintenance, 11/19/19 16:44:00 EST, Route to Pharmacy Electronically, [facility], 165, cm, 11/19/19 16:13:00 EST, Height, 90.9, kg, 10/14/19 13:27:00 EST, D... Start Date: 11/19/19 Status: Ordered LORazepam 1 mg oral tablet 1 tablet = 1 mg, By Mouth, 2 times a day, PRN as needed for anxiety, # 15 tablet, 1 Refills, Maintenance, 09/06/21 14:38:00 EDT, Tablet, [facility], 165, cm, 07/24/21 15:17:00 EDT, [...] Gm, Refills 5, Route to Pharmacy Electronically, [id number], [facility], 165, cm, 07/24/21 15:17:00 EDT, Height, 89.27, kg, 08/16/20 10:16:00 EDT, Dry Weight Start Date: 09/05/21 Status: Ordered raltegravir 600 mg oral tablet 2 tablet = 1,200 mg, By Mouth, Daily, # 60 tablet, 11 Refills, Maintenance, 10/17/21 10:39:00 EST, Tablet, [facility], 165, cm, 10/17/21 9:33:00 EST, Height, 89.27, kg, 08/16/20 10:16:00 EDT, Dry Weight Start Date: 10/17/21 Status: Ordered terbinafine 1% topical cream 1 application, Topically, 2 times a day, to rash, # 30 Gm, 3 Refills, Maintenance, 07/10/21 16:56:00 EDT, Cream, [facility], 1 application Topically 2 times a day,Instr:to rash, 165, cm, 07/10/21 16:34:00 EDT, Height, 89.27, kg, 09... Start Date: 07/10/21 Status: Ordered tiZANidine 2 mg oral tablet 1-2 tablet, By Mouth, Every 8 hours, PRN, # 50 tablet, Refills 1, Tot. Refills 1, Maintenance, as needed for muscle spasm, 03/31/20 9:40:00 EDT, Route to Pharmacy Electronically, [facility], 165, cm, 02/02/20 11:43:00 EST, Height,... Start Date: 03/31/20 Status: Ordered triamcinolone 0.025% topical cream 1 applicator, Topically, 3 times a day, emollient hydrophilic cream for allergy/inflammation. Use no more than 3 wks w/o break of 1 wk, # 120 Gm, 0 Refills, Maintenance, 10/17/21 10:41:00 EST, [facility], 1 applicator Topically 3... Start Date: 10/17/21 Status: Ordered Viread 300 mg oral tablet 1 tablet = 300 mg, By Mouth, Daily, # 30 tablet, 11 Refills, Maintenance, 10/17/21 10:39:00 EST, Tablet, [facility], 165, cm, 10/17/21 9:33:00 EST, [...] I(Confirmed) Active Obesity(Confirmed) Active Visit for routine co founder exam(Confirmed) Active Screening for diabetes mellitus(Confirmed) Active Prurigo nodularis per biopsy(Confirmed) 10/2014 Active Tinea cruris(Confirmed) Active 1Biopsy 99 grade 4/4, stage 4/4, genotype 1a, 3,450,000 IU/ml 06/05 Social History Social History Type Response Smoking Status Never (less than 100 in lifetime) entered on: 07/24/21 Sex
--- OUTSIDE RECORDS SUMMARY | 2023-05-07 00:43 | XMS_ITS | Continuity of Care Document ---
Author Name Unknown Organization [facility] Address Unknown Care Team Providers Care Final Canoe Inspector Name Role Phone Elie Foster MD Primary Care Physician [phone] Encounter [facility] Date(s): 03/26/22 - 04/25/22 [facility] Attending Physician: Lilly Bejarano Allergies, [...] FOR FEVER, # 100 tablet, 2 Refills, [facility], 165, cm, 02/05/22 9:19:00 EST, Height, 89.27, kg, 08/16/20 10:16:00 EDT, Dry Weight Start Date: 03/15/22 Status: Ordered amitriptyline 25 mg oral tablet 1, tablet, By Mouth, Daily at bedtime, # 30 tablet, Refills 5, Route to Pharmacy Electronically, [facility], 165, cm, 01/17/22 15:36:00 EST, Height, 89.27, kg, 08/16/20 10:16:00 EDT, Dry Weight Start Date: 01/23/22 Status: Ordered amLODIPine 5 mg oral tablet 1 tablet, By Mouth, Daily, # 30 tablet, 11 Refills, Maintenance, 01/24/22 22:33:00 EST, [facility], 165, cm, 01/17/22 15:36:00 EST, Height, 89.27, kg, 08/16/20 10:16:00 EDT, Dry Weight Start Date: 01/24/22 Status: Ordered diclofenac 1% topical gel = 2 Gm, Topically, 4 times a day, PRN for pain, not to exceed: - 8 gm/day/joint of upper limb, # 100 Gm, 1 Refills, Maintenance, 03/31/20 9:43:00 EDT, Gel, [facility], 165, cm, 02/02/20 11:43:00 EST, Height, 89.09, [...] A DAY., # 16 Gm, 5 Refills, [facility], 30, USE 1 SPRAY IN EACH [...] capsule, 11 Refills, Maintenance, 01/24/22 22:33:00 EST,Capsule, [facility], 165, cm, 01/17/22 15:36:00 EST, Height, 89.27, kg, 08/16/20 10:16:00 EDT, Dry Weight Start Date: 01/24/22 Status: Ordered hydrOXYzine hydrochloride 10 mg oral tablet 1-2 tablet, By Mouth, 3 times a day, PRN Itch, 1-2 tablets 3 times a day as needed for itching, # 100 tablet, 1 Refills, Maintenance, 09/07/21 13:50:00 EDT, [facility], 165, cm, 07/24/21 15:17:00 EDT, Height, 89.27, kg, 08/16/20 10... Start Date: 09/07/21 Status: Ordered lamiVUDine 300 mg oral tablet 1 tablet = 300 mg, By Mouth, Daily, # 30 tablet, 11 Refills, Maintenance, 10/17/21 10:39:00 EST, Tablet, [facility], 165, cm, 10/17/21 9:33:00 EST, Height, 89.27, kg, 08/16/20 10:16:00 EDT, Dry Weight Start Date: 10/17/21 Status: Ordered loratadine 10 mg oral tablet 10 mg, 1, tablet, By Mouth, Daily, # 30 tablet, Refills 0, Tot. Refills 0, Maintenance, 11/19/19 16:44:00 EST, Route to Pharmacy Electronically, [facility], 165, cm, 11/19/19 16:13:00 EST, Height, 90.9, kg, 10/14/19 13:27:00 EST, D... Start Date: 11/19/19 Status: Ordered LORazepam 1 mg oral tablet 1 tablet = 1 mg, By Mouth, 2 times a day, PRN as needed for anxiety, # 15 tablet, 1 Refills, Maintenance, 09/06/21 14:38:00 EDT, Tablet, [facility], 165, cm, 07/24/21 15:17:00 EDT, Height, 89.27, kg, 08/16/20 10:16:00 EDT, Dry Weight Start Date: 09/06/21 Status: Ordered Nebulizer/Compressor See Instructions, # 1 each, Maintenance, use as needed for wheezing, 01/14/20 9:13:00 EST, Compound Start Date: 01/14/20 Status: Ordered ProAir HFA 90 mcg/inh inhalation aerosol with adapter 2, inhalation, Inhalation, Every 4 hours, PRN, # 8.5 Gm, Refills 5, Route to Pharmacy Electronically, [id number], [facility], 165, cm, 02/05/22 9:19:00 EST, Height, 89.27, kg, 08/16/20 10:16:00 EDT, Dry Weight Start Date: 03/15/22 Status: Ordered raltegravir 600 mg oral tablet 2 tablet = 1,200 mg, By Mouth, Daily, # 60 tablet, 11 Refills, Maintenance, 10/17/21 10:39:00 EST, Tablet, [facility], 165, cm, 10/17/21 9:33:00 EST, Height, 89.27, kg, 08/16/20 10:16:00 EDT, Dry Weight Start Date: 10/17/21 Status: Ordered terbinafine 1% topical cream 1 application, Topically, 2 times a day, to rash, # 30 Gm, 3 Refills, Maintenance, 07/10/21 16:56:00 EDT, Cream, [facility], 1 application Topically 2 times a day,Instr:to rash, 165, cm, 07/10/21 16:34:00 EDT, Height, 89.27, kg, 09... Start Date: 07/10/21 Status: Ordered tiZANidine 2 mg oral tablet 1-2 tablet, By Mouth, Every 8 hours, PRN, # 50 tablet, Refills 0, Tot. Refills 0, Maintenance, as needed for muscle spasm, 03/17/22 20:26:00 EDT, Route to Pharmacy Electronically, [facility], 165, cm, 02/05/22 9:19:00 EST, Height,... Start Date: 03/17/22 Status: Ordered triamcinolone 0.025% topical cream 1 applicator, Topically, 3 times a day, emollient hydrophilic cream for allergy/inflammation. Use no more than 3 wks w/o break of 1 wk, # 120 Gm, 0 Refills, Maintenance, 10/17/21 10:41:00 EST, [facility], 1 applicator Topically 3... 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
--- OUTSIDE RECORDS SUMMARY | 2023-05-07 00:43 | XMS_ITS | Continuity of Care Document ---
Author Name Unknown Organization [facility] Address [address] [place] [address]- Care Team Providers Care Pullman Clerk Name Role Phone Elie Foster MD Primary Care Physician [phone] Encounter [facility] Date(s): 08/18/20 - 09/17/20 [facility]/[address] [address]- [facility] Attending Physician: Admtr, Ar8 Allergies, [...] 2 Refills, Maintenance, 02/14/20 12:31:00 EDT, Tablet, [facility], 165, cm, 02/02/20 11:43:00 EST, Height, 89.09, kg, 01/24/20 16:19:00 EST, Dry Weight Start Date: 02/14/20 Status: Ordered albuterol 0.083% inhalation solution 3 mL = 2.5 mg, Neb, Every 6 hours, PRN as needed for wheezing, use with nebulizer, # 90 mL, 2 Refills, Maintenance, 02/22/20 16:13:00 EDT, Solution, [facility], 165, cm, 02/02/20 11:43:00 EST, Height, 89.09, kg, 01/24/20 16:19:00 E... Start Date: 02/22/20 Status: Ordered amLODIPine 5 mg oral tablet 5 mg, 1, tablet, By Mouth, Daily, dose decrease 05/17/20, # 30 tablet, Refills 11, Tot. Refills 11, Maintenance, 05/17/20 18:31:00 EDT, Route to Pharmacy Electronically, [facility], 165, cm, 02/02/20 11:43:00 EST, Height, 89.09, kg,... Start Date: 05/17/20 Status: Ordered benzoyl peroxide 2.5% topical gel [...] 1 Refills, Maintenance, 03/31/20 9:43:00 EDT, Gel, [facility], 165, cm, 02/02/20 11:43:00 EST, Height, 89.09, kg, 01/24/20 1... Start Date: 03/31/20 Status: Ordered Flonase 50 mcg/inh nasal spray 1 sprays, Nares, Both, 2 times a day, # 16 Gm, 5 Refills, Maintenance, 04/19/20 16:29:00 EDT, [place], [facility], 1 sprays Nares, Both 2 times [...] capsule, 11 Refills, Maintenance, 05/17/20 18:22:00 EDT,Capsule, [facility], 165, cm, 02/02/20 11:43:00 EST, Height, [...] 11/19/19 16:44:00 EST, Route to Pharmacy Electronically, [facility], 165, cm, 11/19/19 16:13:00 EST, Height, 90.9, kg, 10/14/19 13:27:00 EST, D... Start Date: 11/19/19 Status: Ordered LORazepam 1 mg oral tablet 1 tablet = 1 mg, By Mouth, 2 times a day, PRN as needed for anxiety, # 15 tablet, 1 Refills, Maintenance, 03/15/20 11:56:00 EDT, Tablet, [facility], 165, cm, 02/02/20 11:43:00 EST, Height, [...] 11/10/17 18:44:13, Aerosol, Route to Pharmacy Electronically, [id number], [facility] Start Date: 11/10/17 Status: Ordered ProAir HFA 90 mcg/inh inhalation aerosol with adapter 2, puffs, Inhalation, Every 4 hours, PRN, # 8.5 Gm, Refills 5, Tot. Refills 5, Maintenance, 05/20/20 16:29:00 EDT, Aerosol, Route to Pharmacy Electronically, [id number], [facility], 165, cm, 02/02/20 11:43... Start Date: [...] 03/31/20 9:40:00 EDT, Route to Pharmacy Electronically, [facility], 165, cm, 02/02/20 11:43:00 EST, Height,... Start Date: 03/31/20 Status: Ordered triamcinolone 0.025% topical cream 1 applicator, Topically, 3 times a day, emollient hydrophilic cream for allergy/inflammation. Use no more than 3 wks w/o break of 1 wk, # 120 Gm, 0 Refills, Maintenance, 06/29/20 0:49:00 EDT, [facility], 1 applicator Topically 3 t... 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
--- OUTSIDE RECORDS SUMMARY | 2023-05-07 00:43 | XMS_ITS | Continuity of Care Document ---
Author Name Unknown Organization [facility] Address [address] [place] [address]- Care Team Providers Care Conference Services Director Name Role Phone Elie Foster MD Primary Care Physician [phone] Encounter [facility] Date(s): 03/16/20 - 03/26/[address] [address]- [facility] Attending Physician: Lilly Bejarano Admitting Physician: Lilly [...] 2 Refills, Maintenance, 02/14/20 12:31:00 EDT, Tablet, [facility], 165, cm, 02/02/20 11:43:00 EST, Height, 89.09, kg, 01/24/20 16:19:00 EST, Dry Weight Start Date: 02/14/20 Status: Ordered albuterol 0.083% inhalation solution 3 mL = 2.5 mg, Neb, Every 6 hours, PRN as needed for wheezing, use with nebulizer, # 90 mL, 2 Refills, Maintenance, 02/22/20 16:13:00 EDT, Solution, [facility], 165, cm, 02/02/20 11:43:00 EST, Height, 89.09, kg, 01/24/20 16:19:00 E... Start Date: 02/22/20 Status: Ordered amLODIPine 10 mg oral tablet 10 mg, 1, tablet, By Mouth, Daily, # 30 tablet, Refills 11, Tot. Refills 11, Maintenance, 10/27/19 20:07:15 EST, Route to Pharmacy Electronically, [id number], [facility] Start Date: 10/27/19 Status: Ordered [...] Gm, 1 Refills, Maintenance, 02/22/20 16:14:00 EDT, [place], [facility] [place], 1 sprays Nares, Both 2 times a [...] 16:44:00 EST, Route to Pharmacy Electronically, [facility], 165, cm, 11/19/19 16:13:00 EST, Height, 90.9, kg, 10/14/19 13:27:00 EST, D... Start Date: 11/19/19 Status: Ordered LORazepam 1 mg oral tablet 1 tablet = 1 mg, By Mouth, 2 times a day, PRN as needed for anxiety, # 15 tablet, 1 Refills, Maintenance, 03/15/20 11:56:00 EDT, Tablet, [facility], 165, cm, 02/02/20 11:43:00 EST, [...] 16:14:00 EDT, Aerosol, Route to Pharmacy Electronically, [id number], [facility], 165, cm, 02/02/20 11:43... Start Date: 02/22/20 Status: Ordered ProAir HFA 90 mcg/inh inhalation aerosol with adapter 2, puffs, Inhalation, Every 6 hours, PRN, # 8.5 Gm, Refills 0, Tot. 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
--- OUTSIDE RECORDS SUMMARY | 2023-05-07 00:43 | XMS_ITS | Continuity of Care Document ---
Author Name Unknown Organization [facility] Address [address] [place] [address]- Care Team Providers Care Security Orderly Name Role Phone Elie Foster MD Primary Care Physician [phone] Encounter [facility] Date(s): 04/20/20 - 04/27/20 [facility]/[address] [address]- [facility] Attending Physician: Elie Foster MD Allergies, Adverse Reactions, [...] 6Admin Note: ADMIN.BY RN 7Admin Note: ADMIN.BY MCIHELLE 8Result Comment: [09/22/2013] Ordered by Cristian 9Admin [...] 2 Refills, Maintenance, 02/14/20 12:31:00 EDT, Tablet, [facility], 165, cm, 02/02/20 11:43:00 EST, Height, 89.09, kg, 01/24/20 16:19:00 EST, Dry Weight Start Date: 02/14/20 Status: Ordered albuterol 0.083% inhalation solution 3 mL = 2.5 mg, Neb, Every 6 hours, PRN as needed for wheezing, use with nebulizer, # 90 mL, 2 Refills, Maintenance, 02/22/20 16:13:00 EDT, Solution, [facility], 165, cm, 02/02/20 11:43:00 EST, Height, 89.09, kg, 01/24/20 16:19:00 E... Start Date: 02/22/20 Status: Ordered amLODIPine 10 mg oral tablet 10 mg, 1, tablet, By Mouth, Daily, # 30 tablet, Refills 11, Tot. Refills 11, Maintenance, 10/27/19 20:07:15 EST, Route to Pharmacy Electronically, [id number], [facility] Start Date: 10/27/19 Status: Ordered benzoyl peroxide [...] 1 Refills, Maintenance, 03/31/20 9:43:00 EDT, Gel, [facility], 165, cm, 02/02/20 11:43:00 EST, Height, 89.09, kg, 01/24/20 1... Start Date: 03/31/20 Status: Ordered Flonase 50 mcg/inh nasal spray 1 sprays, Nares, Both, 2 times a day, # 16 Gm, 5 Refills, Maintenance, 04/19/20 16:29:00 EDT, [place], [facility], 1 sprays Nares, [...] 11/19/19 16:44:00 EST, Route to Pharmacy Electronically, [facility], 165, cm, 11/19/19 16:13:00 EST, Height, 90.9, kg, 10/14/19 13:27:00 EST, D... Start Date: 11/19/19 Status: Ordered LORazepam 1 mg oral tablet 1 tablet = 1 mg, By Mouth, 2 times a day, PRN as needed for anxiety, # 15 tablet, 1 Refills, Maintenance, 03/15/20 11:56:00 EDT, Tablet, [facility], 165, cm, 02/02/20 11:43:00 EST, Height, 89.09, [...] 11/10/17 18:44:13, Aerosol, Route to Pharmacy Electronically, [id number], [facility] Start Date: 11/10/17 Status: Ordered ProAir HFA 90 mcg/inh inhalation aerosol with adapter 2, puffs, Inhalation, Every 4 hours, PRN, # 8.5 Gm, Refills 5, Tot. Refills 5, Maintenance, 04/19/20 16:29:00 EDT, Aerosol, Route to Pharmacy Electronically, [id number], [facility], 165, cm, 02/02/20 11:43... 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
[2023-05-07 00:57] LABS: COVID-19 Test Negative (Negative); IDNOW Serial# BCCEAD1C
--- NOTE | 2023-05-07 01:21 | ED_ITS ---
HPI - General Adult General Chief complaint: General Medical Stated complaint: throat pain Time Seen by Provider: 05/07/23 01:18 History of Present Illness HPI narrative: Patient is 52 years old presents today with having sore throat. Patient is HIV positive. Currently getting retroviral treatment. Last viral load was undetectable. Patient's CD4 count per her is good. She has been having sore throat for approximately 4 days. Patient denies any nausea vomiting. No fever no chills. Minimal coughing. No history kidney problems. Related Data Previous Rx's Medication Instructions Recorded acetaminophen 500 mg tablet 1,000 mg PO QID PRN pain #30 tabs 01/04/22 cyclobenzaprine 5 mg tablet 5 mg PO TID PRN muscle spasm #14 01/04/22 tabs naproxen 500 mg tablet (Naprosyn) 500 mg PO BID PRN pain #14 tabs 01/04/22 methocarbamol 750 mg tablet 750 mg PO Q8H 5 days #15 tabs 03/16/22 doxycycline monohydrate 100 mg 100 mg PO BID lyme disease 21 days 03/20/22 tablet #42 tabs metoclopramide HCl 10 mg tablet 10 mg PO Q6H PRN nausea and 06/28/22 (Reglan) vomiting #14 tabs Allergies Allergy/AdvReac Type Severity Reaction Status Date / Time prochlorperazine Allergy Severe TONGUE Verified 06/28/22 20:20 [From COMPAZINE] NUMBNESS sulfamethoxazole Allergy Severe RASH Verified 06/28/22 20:20 [From BACTRIM] trimethoprim [From BACTRIM] Allergy Severe RASH Verified 06/28/22 20:20 fluconazole [FLUCONAZOLE] Allergy Intermediate RASH Verified 06/28/22 20:20 Iodinated Contrast Media Allergy Intermediate RASH Verified 06/28/22 20:20 [IV CONTRAST] Review of Systems Review of Systems: No fever no chills no systemic complaints no difficulty breathing. No change in voice. No difficulty swallowing. Yes all other systems are reviewed and are negative PMF Past Medical History Attestation statement: The following information was validated with the patient. Medical History HIV (human immunodeficiency virus infection) HTN (hypertension) Social History Social History Advance Directives: No Advance Directives Information Provided: No Physical Exam ED Vital Signs: Vital Signs - 24 hr 05/06/23 22:37 05/07/23 00:40 Temperature 99.4 F 98.1 F Pulse Rate 86 80 Respiratory Rate 18 Blood Pressure 157/91 H 144/88 H Pulse Oximetry 99 99 Oxygen Delivery Method Room Air Room Air BMI result Body Mass Index 32.1 Appearance: Alert. Oriented X3. No acute distress. Eyes: Pupils equal, round and reactive to light. ENT: Pharynx normal. No erythema noted. Tonsils not enlarged. Neck: Normal inspection. Neck supple. No lymph nodes noted. No crepitus CVS: Normal heart rate and rhythm. Pulses normal. Normal S1 and S2 Respiratory: No respiratory distress. Breath sounds normal. No Wheezing. No rales Abdomen: Soft and nontender. No rigidity. No distention. good BS x4 Skin: Skin warm and dry. Normal skin color. Normal skin turgor. Extremities: No lower extremity edema. Neurovascular intact to all extremities. No Lacerations. No Rash Neuro: Oriented X 3. No motor deficit. No sensory deficit. Moving all extermities. No slurred speech Medical Decision Making Medical Decision Making MDM Narrative: Patient well appearing no acute distress normal O2 sat lungs are clear speaks complete sentences without any difficulty. Patient is HIV positive however patient's CD4 count is good viral load is undetectable she is well-appearing. Her COVID test was negative. Her strep test was negative. Most likely patient has a viral syndrome. Will have patient closely follow up on an outpatient basis. Given reassurance. She feels comfortable going home Differential Diagnosis Strep pharyngitis, peritonsillar abscess, upper respiratory infection, COVID Lab Data [facility] Lab Attestation statement: I reviewed the patient's lab results. Labs: Lab Results 05/07/23 05/07/23 Range/Units 00:08 00:08 COVID-19 (LAURIE) Negative (Negative) COVID-19 Clin Com See Note S. pyogenes GrpA NANCY Negative (Negative) Chronic Conditions HIV Discharge Plan Discharge Clinical Impression: Pharyngitis, acute Patient Disposition: Home, Self-Care Instructions: Upper Respiratory Infection (DC) Prescriptions: No Action methocarbamol 750 mg tablet 750 mg PO Q8H 5 Days Qty: 15 0RF doxycycline monohydrate 100 mg tablet 100 mg PO BID 21 Days Qty: 42 0RF metoclopramide HCl [Reglan] 10 mg tablet 10 mg PO Q6H PRN (Reason: nausea and vomiting) Qty: 14 0RF naproxen [Naprosyn] 500 mg tablet 500 mg PO BID PRN (Reason: pain) Qty: 14 0RF acetaminophen 500 mg tablet 1,000 mg PO QID PRN (Reason: pain) Qty: 30 0RF cyclobenzaprine 5 mg tablet 5 mg PO TID PRN (Reason: muscle spasm) Qty: 14 0RF Rx Instructions: This medication may cause drowsiness no driving for 6 hours after taking Referrals: Physician,Unknown J [Primary Care Provider] - 05/09/23
[2023-05-07 01:37] VITALS: BP 135/79; PULSE 74; RESP 18; TEMP 36.6; O2SAT 98
--- NOTE | 2023-05-07 01:38 | MHC.EDTECH ---
Patient is sitting on side of stretcher awaiting discharge papers, Vitals were taken.
== END 2023-05-07 01:42 | disposition home or self-care (01) ==
PROVIDERS: Emergency Provider Emergency Medicine Emergency Medical Services
DX: J02.9 Acute pharyngitis, unspecified (principal); Z20.822 Contact with and (suspected) exposure to COVID-19; B20 Human immunodeficiency virus [HIV] disease; Z79.899 Other long term (current) drug therapy
CPT/HCPCS: 87635; 87651; 99283; 99284

== ENCOUNTER 2023-05-09 19:17 | Emergency (ER) | payer OTHER, SELFPAY ==
--- NOTE | ~2023-05-09 | XR_ITS ---
EXAMINATION: XR CHEST CLINICAL INFORMATION: Cough. Congestion. COMPARISON: 03/05/2018 TECHNIQUE: 2 views of the chest were obtained. FINDINGS: The lungs are well expanded. There is no focal consolidation, edema, or effusion. No pneumothorax. The cardiomediastinal silhouette is within normal limits. No acute osseous abnormality. XR/XR chest 2V IMPRESSION: Clear lungs.
[2023-05-09 20:32] VITALS: BP 136/79; PULSE 85; RESP 18; TEMP 36; O2SAT 100; BMI 32.5
--- NOTE | 2023-05-09 20:33 | ED_ITS ---
HPI - General Adult General Chief complaint: Upper Respiratory Symptoms Stated complaint: Chest congestion Time Seen by Provider: 05/09/23 22:10 Source: patient Mode of arrival: ambulatory Limitations: no limitations History of Present Illness HPI narrative: Patient comes to the emergency room complaining of 2 days of nasal congestion and cough. Patient states that she has been taking Mucinex and is helping her to cough up the phlegm. Denies chest pain or shortness of breath, no fever or chills. Patient complaining mostly of nasal congestion Related Data Previous Rx's Medication Instructions Recorded acetaminophen 500 mg tablet 1,000 mg PO QID PRN pain #30 tabs 01/04/22 cyclobenzaprine 5 mg tablet 5 mg PO TID PRN muscle spasm #14 01/04/22 tabs naproxen 500 mg tablet (Naprosyn) 500 mg PO BID PRN pain #14 tabs 01/04/22 methocarbamol 750 mg tablet 750 mg PO Q8H 5 days #15 tabs 03/16/22 doxycycline monohydrate 100 mg 100 mg PO BID lyme disease 21 days 03/20/22 tablet #42 tabs metoclopramide HCl 10 mg tablet 10 mg PO Q6H PRN nausea and 06/28/22 (Reglan) vomiting #14 tabs fluticasone propionate 50 1 spray intranasal BID #16 grams 05/09/23 mcg/actuation nasal spray,suspension (Flonase Allergy Relief) Allergies Allergy/AdvReac Type Severity Reaction Status Date / Time prochlorperazine Allergy Severe TONGUE Verified 06/28/22 20:20 [From COMPAZINE] NUMBNESS sulfamethoxazole Allergy Severe RASH Verified 06/28/22 20:20 [From BACTRIM] trimethoprim [From BACTRIM] Allergy Severe RASH Verified 06/28/22 20:20 fluconazole [FLUCONAZOLE] Allergy Intermediate RASH Verified 06/28/22 20:20 Iodinated Contrast Media Allergy Intermediate RASH Verified 06/28/22 20:20 [IV CONTRAST] Review of Systems Review of Systems: Constitutional : No Weight loss, No Fever, No Chills, No Night Sweats, No Fatigue, No Malaise ENT/Mouth : No Hearing loss, No Ear Pain, complaining of Nasal Congestion, No Sinus Pain, No Hoarseness, No sore throat, No Rhinorrhea, No Swallowing Difficulty Eyes: No Eye Pain, No Swelling, No Redness, No Foreign Body, No Discharge, No Vision Changes Cardiovascular : No Chest Pain, No SOB, No Dyspnea on Exertion, No Orthopnea, No Edema, No Palpitations Respiratory : Complaining of productive cough, No Wheezing, No Smoke Exposure, No Dyspnea Gastrointestinal : No Nausea, No Vomiting, No Diarrhea, No Constipation, No abdominal Pain, No Hematochezia, No Melena Genitourinary : no irregular bleeding, No Dysuria, No Urinary Frequency, No Hematuria, No Urinary Incontinence, No Urgency, No Flank Pain, No Urinary Flow Changes, No Hesitancy Musculoskeletal : No joint pain, No Myalgias, No Joint Swelling Skin : No Skin Lesions, No rash Neuro : No Weakness, No Numbness, No Paresthesias, No Loss of Consciousness, No Dizziness, No Headache Psych : No Anxiety/Panic, No Depression, No SI/HI/AH/VH, No Social Issues, Heme/Lymph: No Bruising, No Bleeding,No Lymphadenopathy Endocrine : No Polyuria, No Polydipsia, No Temperature Intolerance [facility] Past Medical History Medical History HIV (human immunodeficiency virus infection) HTN (hypertension) Social History Social History Alcohol intake: never Smoked in Last 30 Days: No Use of substances other than those prescribed or required for medical reasons: No Advance Directives: No Advance Directives Information Provided: No Physical Exam ED Vital Signs: Vital Signs - 24 hr 05/09/23 20:32 Temperature 96.8 F Pulse Rate 85 Respiratory Rate 18 Blood Pressure 136/79 Pulse Oximetry 100 Oxygen Delivery Method Room Air BMI result Body Mass Index 32.5 Const Other: Appearance: Alert. Oriented X3. No acute distress. Eyes: Pupils equal, round and reactive to light. ENT: Pharynx normal. Has nasal congestion Neck: Normal inspection. Neck supple. No lymph nodes noted. No crepitus CVS: Normal heart rate and rhythm. Pulses normal. Normal S1 and S2 Respiratory: No respiratory distress. Breath sounds normal. No Wheezing. No rales Abdomen: Soft and nontender. No rigidity. No distention. Skin: Skin warm and dry. Normal skin color. Normal skin turgor. Extremities: No lower extremity edema. No Lacerations. No Rash Neuro: Oriented X 3. No motor deficit. No sensory deficit. Moving all extremities. No slurred speech. CN 2 through 12 grossly intact Psych: calm, cooperative, normal affect Course Course Course Narrative: This is an RME: Additional HPI, ROS, PE not included below will be deferred to primary provider. This is a [id number], HIV positive currently getting retroviral tx last viral load was undetectable, presenting to the emergency department with a complaint of congestion and cough. Was seen here on 05/07/2023. Not improving.VSS in triage. Plan: COVID/RSV/Flu swab and CXR ordered. Medical Decision Making Medical Decision Making [facility] Narrative: -patient tested negative for COVID, RSV and flu -interpretation of chest x-ray: No pneumonia/infiltrates -vitals stable. Lab Data [facility] Lab Attestation statement: I reviewed the patient's lab results. Labs: Lab Results 05/09/23 Range/Units 20:47 Influenza Type A (PCR) NEGATIVE (Negative) Influenza Type B (PCR) NEGATIVE (Negative) RSV RNA Qual (PCR) NEGATIVE (Negative) SARS-CoV-2 RNA (RT-PCR) NEGATIVE (Negative) Radiology Impression Discussion of test interpretation with radiology: I have reviewed the radiologist's reading. Radiologist Impression: FINDINGS: The lungs are well expanded. There is no focal consolidation, edema, or effusion. No pneumothorax. The cardiomediastinal silhouette is within normal limits. No acute osseous abnormality. XR/XR chest 2V IMPRESSION: Clear lungs. ? Discharge Plan Discharge Clinical Impression: Upper respiratory infection, viral Patient Disposition: Home, Self-Care Instructions: Viral Syndrome (ED) Additional Instructions: Please follow-up with your primary care physician tomorrow. If you have any worsening or new symptoms, please return to the emergency room or call 911 Prescriptions: New fluticasone propionate [Flonase Allergy Relief] 50 mcg/actuation spray,suspension 1 spray intranasal BID Qty: 16 0RF Rx Instructions: administer into each nostril No Action methocarbamol 750 mg tablet 750 mg PO Q8H 5 Days Qty: 15 0RF doxycycline monohydrate 100 mg tablet 100 mg PO BID 21 Days Qty: 42 0RF metoclopramide HCl [Reglan] 10 mg tablet 10 mg PO Q6H PRN (Reason: nausea and vomiting) Qty: 14 0RF naproxen [Naprosyn] 500 mg tablet 500 mg PO BID PRN (Reason: pain) Qty: 14 0RF acetaminophen 500 mg tablet 1,000 mg PO QID PRN (Reason: pain) Qty: 30 0RF cyclobenzaprine 5 mg tablet 5 mg PO TID PRN (Reason: muscle spasm) Qty: 14 0RF Rx Instructions: This medication may cause drowsiness no driving for 6 hours after taking
[2023-05-09 21:30] LABS: Influenza A PCR NEGATIVE (Negative); Influenza B PCR NEGATIVE (Negative); Resp Syncy Virus RNA Qual PCR NEGATIVE (Negative); SARS COV2 PCR INHOUSE NEGATIVE (Negative)
== END 2023-05-09 22:31 | disposition home or self-care (01) ==
PROVIDERS: Physician Assistant Medical; Emergency Provider Emergency Medicine; PCP Internal Medicine
DX: J06.9 Acute upper respiratory infection, unspecified (principal); Z20.822 Contact with and (suspected) exposure to COVID-19; Z20.828 Contact with and (suspected) exposure to other viral communicable diseases
CPT/HCPCS: 0241U; 71046; 99283; 99284

== ENCOUNTER 2023-06-24 22:04 | Emergency (ER) | payer OTHER, SELFPAY ==
--- NOTE | 2023-06-24 | ECG_ITS ---
Test Reason : HYPERTENSION Blood Pressure : / mmHG Vent. Rate : 073 BPM Atrial Rate : 073 BPM P-R Int : 150 ms QRS Dur : 080 ms QT Int : 402 ms P-R-T Axes : 039 029 017 degrees QTc Int : 442 ms Normal sinus rhythm Normal ECG When compared to the previous EKG of No significant changes seen Referred By: Nataliia Brady Electronically Signed By:PRASANNA ROBIN MD
[2023-06-24 22:13] VITALS: BP 159/93; PULSE 92; RESP 18; TEMP 36.2; O2SAT 98; BMI 31.8
[2023-06-24 22:53] LABS: Basophils Percent Auto 0.2 % (0-2); Eosinophils Absolute Auto 0.2 X10*3/uL (0.0-0.4); Eosinophils Percent Auto 4.3 % (0-4); Hematocrit 38.1 % (37.0-47.0); Hemoglobin 12.5 g/dl (12.0-16.0); Imm Gran Abs Auto 0.01 X10*3/uL (0.00-0.03); Imm Gran Pct Auto 0.2 % (0.0-0.4); Lymphocytes Absolute Auto 1.4 X10*3/uL (1.2-4.9); Lymphocytes Percent Auto 32.7 % (20-40); MANUAL DIFF FLAG NO; Mean Corpuscular HGB Conc 32.8 g/dl (31.0-35.0); Mean Corpuscular Hemoglobin 27.7 pg (27.0-33.0); Mean Corpuscular Volume 84.5 fL (80.0-98.0); Mean Platelet Volume 11.6 fL (9.4-12.3); Monocytes Absolute Auto 0.3 X10*3/uL (0.1-1.2); Monocytes Percent Auto 6.9 % (2-11); Neutrophils Absolute Auto 2.4 x10*3/uL (2.0-8.3); Neutrophils Percent Auto 55.7 % (45-73); Red Blood Count 4.51 X10*6/uL (4.20-5.50); Red Cell Distribution Width 13.2 % (11.0-16.0); White Blood Count 4.2 X10*3/uL (4.8-10.8)
[2023-06-24 22:54] LABS: Platelet Count 74 X10*3/uL (160-400)
[2023-06-24 23:06] LABS: COVID-19 Test Negative (Negative); IDNOW Serial# 6674DD1D
[2023-06-24 23:07] LABS: Alanine Aminotransferase 57 U/L (0-31); Albumin Level 3.9 g/dL (3.5-5.0); Alkaline Phosphatase 108 U/L (39-117); Anion Gap 12 (12-20); Aspartate Amino Transferase 50 U/L (5-31); Bilirubin Total 0.3 mg/dL (0.0-1.0); Blood Urea Nitrogen 15 mg/dL (9-16); Calcium 9.2 mg/dL (8.4-10.2); Carbon Dioxide 25 mmol/L (22-29); Chloride 110 mmol/L (96-108); Creatinine Clr Calc Pharmacy 73.6; Estimated Glomerular Filt Rate > 60; Glucose Random 133 mg/dL (60-115); Potassium 3.7 mmol/L (3.3-5.1); Sodium 143 mmol/L (135-145); Total Protein 7.8 g/dL (6.5-8.0)
[2023-06-24 23:15] LABS: Troponin-I High Sensitivity < 2.7 ng/L (<3.5-17.0)
--- NOTE | 2023-06-25 01:14 | ED_ITS ---
HPI - General Adult General Chief complaint: General Medical Stated complaint: High Blood pressure 175/90 Time Seen by Provider: 06/25/23 00:59 Source: patient Mode of arrival: ambulatory Limitations: no limitations History of Present Illness HPI narrative: Patient comes to the emergency room complaining of anxiety. Patient states that today she was not feeling well, states that she had muscle spasms in her back, started becoming anxious, took her blood pressure at home, it was 170/90. Denies chest pain headache shortness of breath URI or UTI symptoms. Related Data Previous Rx's Medication Instructions Recorded acetaminophen 500 mg tablet 1,000 mg PO QID PRN pain #30 tabs 01/04/22 cyclobenzaprine 5 mg tablet 5 mg PO TID PRN muscle spasm #14 01/04/22 tabs naproxen 500 mg tablet (Naprosyn) 500 mg PO BID PRN pain #14 tabs 01/04/22 methocarbamol 750 mg tablet 750 mg PO Q8H 5 days #15 tabs 03/16/22 doxycycline monohydrate 100 mg 100 mg PO BID lyme disease 21 days 03/20/22 tablet #42 tabs metoclopramide HCl 10 mg tablet 10 mg PO Q6H PRN nausea and 06/28/22 (Reglan) vomiting #14 tabs fluticasone propionate 50 1 spray intranasal BID #16 grams 05/09/23 mcg/actuation nasal spray,suspension (Flonase Allergy Relief) cyclobenzaprine 5 mg tablet 5 mg PO TID PRN muscle spasm #6 06/25/23 tabs Allergies Allergy/AdvReac Type Severity Reaction Status Date / Time prochlorperazine Allergy Severe TONGUE Verified 06/24/23 22:13 [From COMPAZINE] NUMBNESS sulfamethoxazole Allergy Severe RASH Verified 06/24/23 22:13 [From BACTRIM] trimethoprim [From BACTRIM] Allergy Severe RASH Verified 06/24/23 22:13 fluconazole [FLUCONAZOLE] Allergy Intermediate RASH Verified 06/24/23 22:13 Iodinated Contrast Media Allergy Intermediate RASH Verified 06/24/23 22:13 [IV CONTRAST] Review of Systems Review of Systems: Constitutional : No Weight loss, No Fever, No Chills, No Night Sweats, No Fatigue, No Malaise ENT/Mouth : No Hearing loss, No Ear Pain, No Nasal Congestion, No Sinus Pain, No Hoarseness, No sore throat, No Rhinorrhea, No Swallowing Difficulty Eyes: No Eye Pain, No Swelling, No Redness, No Foreign Body, No Discharge, No Vision Changes Cardiovascular : No Chest Pain, No SOB, No Dyspnea on Exertion, No Orthopnea, No Edema, No Palpitations Respiratory : No Cough, No Sputum, No Wheezing, No Smoke Exposure, No Dyspnea Gastrointestinal : No Nausea, No Vomiting, No Diarrhea, No Constipation, No abdominal Pain, No Hematochezia, No Melena Genitourinary : no irregular bleeding, No Dysuria, No Urinary Frequency, No Hematuria, No Urinary Incontinence, No Urgency, No Flank Pain, No Urinary Flow Changes, No Hesitancy Musculoskeletal : Complaining of muscle spasms in the upper back bilaterally, No Myalgias, No Joint Swelling Skin : No Skin Lesions, No rash Neuro : No Weakness, No Numbness, No Paresthesias, No Loss of Consciousness, No Dizziness, No Headache Psych : Complaining of anxiety, No Depression, No SI/HI/AH/VH, No Social Issues, Heme/Lymph: No Bruising, No Bleeding,No Lymphadenopathy Endocrine : No Polyuria, No Polydipsia, No Temperature Intolerance PMFSH Past Medical History Medical History HIV (human immunodeficiency virus infection) HTN (hypertension) Social History Social History Alcohol intake: never Advance Directives: No Advance Directives Information Provided: No Physical Exam ED Vital Signs: Vital Signs - 24 hr 06/24/23 22:13 Temperature 97.1 F Pulse Rate 92 Respiratory Rate 18 Blood Pressure 159/93 H Pulse Oximetry 98 Oxygen Delivery Method Room Air BMI result Body Mass Index 31.8 Const Other: Appearance: Alert. Oriented X3. No acute distress. Eyes: Pupils equal, round and reactive to light. ENT: Pharynx normal. Neck: Normal inspection. Neck supple. No lymph nodes noted. No crepitus CVS: Normal heart rate and rhythm. Pulses normal. Normal S1 and S2 Respiratory: No respiratory distress. Breath sounds normal. No Wheezing. No rales Abdomen: Soft and nontender. No rigidity. No distention. Skin: Skin warm and dry. Normal skin color. Normal skin turgor. Extremities: No lower extremity edema. No Lacerations. No Rash Neuro: Oriented X 3. No motor deficit. No sensory deficit. Moving all extremities. No slurred speech. CN 2 through 12 grossly intact Psych: calm, cooperative, normal affect Medical Decision Making Medical Decision Making [facility] Narrative: -my interpretation of EKG: Normal sinus rhythm, heart rate 73, no ST segment depression or elevation, nonspecific T-wave inversion in lead 3, QTC 442 -my interpretation of labs, troponin negative, no signs of infection, electrolytes normal -blood pressure in the emergency room 159 over 93. Discussed with the patient to check her blood pressure at home, free pharmacy blood pressure checks or [facility] -patient will keep a log of her blood pressures, if needed, the next step would be to increase the amlodipine from 5 mg to 10 mg. Patient states that she is no longer taking hydrochlorothiazide. Differential Diagnosis Differential Diagnoses: The differential diagnosis associated with the presentation includes (Viral syndrome, anxiety, muscle spasms) Lab Data [facility] Lab Attestation statement: I reviewed the patient's lab results. 06/24/23 22:47 06/24/23 22:47 Labs: Lab Results 06/24/23 06/24/23 06/24/23 Range/Units 22:47 22:47 22:47 WBC 4.2 L (4.8-10.8) X10*3/uL RBC 4.51 (4.20-5.50) X10*6/uL Hgb 12.5 (12.0-16.0) g/dl Hct 38.1 (37.0-47.0) % MCV 84.5 (80.0-98.0) fL MCH 27.7 (27.0-33.0) pg MCHC 32.8 (31.0-35.0) g/dl RDW 13.2 (11.0-16.0) % Plt Count 74 L (160-400) X10*3/uL MPV 11.6 (9.4-12.3) fL Immature Gran % (Auto) 0.2 (0.0-0.4) % Neut % (Auto) 55.7 (45-73) % Lymph % (Auto) 32.7 (20-40) % [place] % (Auto) 6.9 (2-11) % Eos % (Auto) 4.3 H (0-4) % Baso % (Auto) 0.2 (0-2) % Lymph # (Auto) 1.4 (1.2-4.9) X10*3/uL [place] # (Auto) 0.3 (0.1-1.2) X10*3/uL Eos # (Auto) 0.2 (0.0-0.4) X10*3/uL Baso # (Auto) 0.0 (0.0-0.2) X10*3/uL Abs Immat Gran (auto) 0.01 (0.00-0.03) X10*3/uL Absolute Neuts (auto) 2.4 (2.0-8.3) x10*3/uL Absolute Nucleated RBC 0.000 (0.0-0.012) X10*3/uL Nucleated RBC % (auto) 0.0 (0.0-0.2) /100WBC Sodium 143 (135-145) mmol/L Potassium 3.7 (3.3-5.1) mmol/L Chloride 110 H (96-108) mmol/L Carbon Dioxide 25 (22-29) mmol/L Anion Gap 12 (12-20) BUN 15 (9-16) mg/dL Creatinine 0.96 (0.5-1.4) mg/dL Estim Creat Clear Calc 73.6 Estimated GFR > 60 Random Glucose 133 H (60-115) mg/dL Calcium 9.2 (8.4-10.2) mg/dL Total Bilirubin 0.3 (0.0-1.0) mg/dL AST 50 H (5-31) U/L ALT 57 H (0-31) U/L Alkaline Phosphatase 108 (39-117) U/L Troponin I High Sens < 2.7 (<3.5-17.0) ng/L Total Protein 7.8 (6.5-8.0) g/dL Albumin 3.9 (3.5-5.0) g/dL COVID-19 (LAURIE) (Negative) COVID-19 Clin Com 06/24/23 Range/Units 22:47 WBC (4.8-10.8) X10*3/uL RBC (4.20-5.50) X10*6/uL Hgb (12.0-16.0) g/dl Hct (37.0-47.0) % MCV (80.0-98.0) fL MCH (27.0-33.0) pg MCHC (31.0-35.0) g/dl RDW (11.0-16.0) % Plt Count (160-400) X10*3/uL MPV (9.4-12.3) fL Immature Gran % (Auto) (0.0-0.4) % Neut % (Auto) (45-73) % Lymph % (Auto) (20-40) % [place] % (Auto) (2-11) % Eos % (Auto) (0-4) % Baso % (Auto) (0-2) % Lymph # (Auto) (1.2-4.9) X10*3/uL [place] # (Auto) (0.1-1.2) X10*3/uL Eos # (Auto) (0.0-0.4) X10*3/uL Baso # (Auto) (0.0-0.2) X10*3/uL Abs Immat Gran (auto) (0.00-0.03) X10*3/uL Absolute Neuts (auto) (2.0-8.3) x10*3/uL Absolute Nucleated RBC (0.0-0.012) X10*3/uL Nucleated RBC % (auto) (0.0-0.2) /100WBC Sodium (135-145) mmol/L Potassium (3.3-5.1) mmol/L Chloride (96-108) mmol/L Carbon Dioxide (22-29) mmol/L Anion Gap (12-20) BUN (9-16) mg/dL Creatinine (0.5-1.4) mg/dL Estim Creat Clear Calc Estimated GFR Random Glucose (60-115) mg/dL Calcium (8.4-10.2) mg/dL Total Bilirubin (0.0-1.0) mg/dL AST (5-31) U/L ALT (0-31) U/L Alkaline Phosphatase (39-117) U/L Troponin I High Sens (<3.5-17.0) ng/L Total Protein (6.5-8.0) g/dL Albumin (3.5-5.0) g/dL COVID-19 (LAURIE) Negative (Negative) COVID-19 Clin Com See Note Independent Interpretation I performed an independent interpretation of an: EKG Discharge Plan Discharge Clinical Impression: Anxiety, Muscle spasm Patient Disposition: Home, Self-Care Instructions: Anxiety (ED) Additional Instructions: Please follow-up with your primary care physician tomorrow. If you have any worsening or new symptoms, please return to the emergency room or call 911 Prescriptions: New cyclobenzaprine 5 mg tablet 5 mg PO TID PRN (Reason: muscle spasm) Qty: 6 0RF No Action methocarbamol 750 mg tablet 750 mg PO Q8H 5 Days Qty: 15 0RF doxycycline monohydrate 100 mg tablet 100 mg PO BID 21 Days Qty: 42 0RF metoclopramide HCl [Reglan] 10 mg tablet 10 mg PO Q6H PRN (Reason: nausea and vomiting) Qty: 14 0RF naproxen [Naprosyn] 500 mg tablet 500 mg PO BID PRN (Reason: pain) Qty: 14 0RF acetaminophen 500 mg tablet 1,000 mg PO QID PRN (Reason: pain) Qty: 30 0RF cyclobenzaprine 5 mg tablet 5 mg PO TID PRN (Reason: muscle spasm) Qty: 14 0RF Rx Instructions: This medication may cause drowsiness no driving for 6 hours after taking fluticasone propionate [Flonase Allergy Relief] 50 mcg/actuation spray,suspension 1 spray intranasal BID Qty: 16 0RF Rx Instructions: administer into each nostril
== END 2023-06-25 01:37 | disposition home or self-care (01) ==
PROVIDERS: Emergency Provider Emergency Medicine
DX: M62.830 Muscle spasm of back (principal); F41.9 Anxiety disorder, unspecified; Z79.899 Other long term (current) drug therapy; Z20.822 Contact with and (suspected) exposure to COVID-19
CPT/HCPCS: 80053; 84484; 85025; 87635; 93005; 99283; 99284

== ENCOUNTER → 2023-06-24 22:56 | Outpatient (BNV) | payer OTHER, SELFPAY | PROVIDERS: Emergency Provider Emergency Medicine; Visit Provider Internal Medicine Cardiovascular Disease | DX: I10 Essential (primary) hypertension (principal) | CPT/HCPCS: 93010 ==

== ENCOUNTER 2023-10-08 06:39 | Emergency (ER) | payer MEDICAID, SELFPAY ==
--- NOTE | ~2023-10-08 | XR_ITS ---
EXAMINATION: XR WRIST, RIGHT CLINICAL INFORMATION: Swelling and pain COMPARISON: None available. TECHNIQUE: PA, lateral, and oblique views of the right wrist. FINDINGS: No fracture. Alignment is anatomic with normal joint spaces. No erosions. Vascular calcifications. XR/XR wrist RT min 3V IMPRESSION: Unremarkable right wrist.
[2023-10-08 07:21] VITALS: BP 144/83; PULSE 73; RESP 16; TEMP 36.6; O2SAT 99; BMI 33.3
--- NOTE | 2023-10-08 08:07 | ED_ITS ---
HPI - General Adult General Chief complaint: General Medical Stated complaint: R Wrist/Hand pain -No Inj Time Seen by Provider: 10/08/23 08:07 Source: patient Mode of arrival: ambulatory Limitations: no limitations History of Present Illness HPI narrative: This is a 53-year-old female history of HIV, hypertension presenting with complaints of atraumatic right wrist pain, worse with movement better at rest. Patient states she did not hit this hand on anything. Reports intermittent numbness and tingling. This has never happened to her before. Denies fevers, chills, nausea, vomiting, chest pain, shortness of breath, headache, vision changes, dizziness, weakness. Related Data Previous Rx's Medication Instructions Recorded acetaminophen 500 mg tablet 1,000 mg (2 x 500 mg) PO QID PRN 01/04/22 pain #30 tabs cyclobenzaprine 5 mg tablet 5 mg PO TID PRN muscle spasm #14 01/04/22 tabs naproxen 500 mg tablet (Naprosyn) 500 mg PO BID PRN pain #14 tabs 01/04/22 methocarbamol 750 mg tablet 750 mg PO Q8H 5 days #15 tabs 03/16/22 doxycycline monohydrate 100 mg 100 mg PO BID lyme disease 21 days 03/20/22 tablet #42 tabs metoclopramide HCl 10 mg tablet 10 mg PO Q6H PRN nausea and 06/28/22 (Reglan) vomiting #14 tabs fluticasone propionate 50 1 spray intranasal BID #16 grams 05/09/23 mcg/actuation nasal spray,suspension (Flonase Allergy Relief) cyclobenzaprine 5 mg tablet 5 mg PO TID PRN muscle spasm #6 06/25/23 tabs acetaminophen 325 mg capsule 650 mg (2 x 325 mg) PO Q6H PRN 10/08/23 fever or pain #30 caps prednisone 50 mg tablet 50 mg PO DAILY 5 days #5 tabs 10/08/23 Allergies Allergy/AdvReac Type Severity Reaction Status Date / Time prochlorperazine Allergy Severe TONGUE Verified 10/08/23 07:20 [From COMPAZINE] NUMBNESS sulfamethoxazole Allergy Severe RASH Verified 10/08/23 07:20 [From BACTRIM] trimethoprim [From BACTRIM] Allergy Severe RASH Verified 10/08/23 07:20 fluconazole [FLUCONAZOLE] Allergy Intermediate RASH Verified 10/08/23 07:20 Iodinated Contrast Media Allergy Intermediate RASH Verified 10/08/23 07:20 [IV CONTRAST] Review of Systems Review of Systems: Constitutional : No Weight loss, No Fever, No Chills, No Fatigue, No Malaise ENT/Mouth : No sore throat, No Rhinorrhea Eyes: No Eye Pain, No Swelling, No Redness Cardiovascular : No Chest Pain, No SOB, No Dyspnea on Exertion, No Orthopnea, No Edema, No Palpitations Respiratory : No Cough, No Sputum, No Wheezing Gastrointestinal : No Nausea, No Vomiting, No Diarrhea, No Constipation, No abdominal Pain, No Hematochezia, No Melena Genitourinary : No Dysuria, No Urinary Frequency, No Hematuria, Musculoskeletal : + joint pain, No Myalgias, + Joint Swelling Skin : No Skin Lesions, No rash Neuro : No Weakness, No Numbness, No Dizziness, No Headache Psych : No Anxiety/Panic, No Depression All other systems reviewed and are negative Yes all other systems are reviewed and are negative [facility] Past Medical History Attestation statement: The following information was validated with the patient. Source: old records reviewed and nursing notes reviewed Medical History HIV (human immunodeficiency virus infection) HTN (hypertension) Social History Social History Alcohol intake: never Use of substances other than those prescribed or required for medical reasons: No Advance Directives: No Advance Directives Information Provided: No Physical Exam ED Vital Signs: Vital Signs - 24 hr 10/08/23 07:21 Temperature 97.8 F Pulse Rate 73 Respiratory Rate 16 Blood Pressure 144/83 H Pulse Oximetry 99 Oxygen Delivery Method Room Air BMI result Body Mass Index 33.3 vital signs stable Appearance: Alert.? Oriented X3.? No acute distress.? Head: Normocephalic, atraumatic, no step-offs or deformities Eyes: Pupils equal, round and reactive to light.? CVS: Normal heart rate and rhythm.? Pulses normal.? Respiratory: No respiratory distress.? Breath sounds normal.? Abdomen: Soft and nontender.? Skin: Skin warm and dry.? Normal skin color.? Normal skin turgor.? Extremities: No lower extremity edema.? No calf ttp. 5/5 strength to bilateral upper and lower extremities Physical exam slight discomfort with range of motion of right wrist with some overlying a swelling. Normal left wrist with normal range of motion. No wrist drop. 2+ radial pulses equal bilateral. Normal sensation distally. 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 Back: No midline tenderness, no C-spine tenderness, full range of motion, no CVA tenderness bilaterally Neuro: Oriented X 3.? No motor deficit.? No sensory deficit. CN 2-12 intact Course Reevaluation(s) Reevaluation #1: X-ray of right wrist unremarkable. Will discharge with prednisone, Tylenol. Will give orthopedic follow-up Educated patient on diagnosis and treatment plan, answered all question, patient verbalizes understanding. At this time patient will be discharged home, advised to return with new or worsening symptoms. Educated on worrisome signs and symptoms and when to return. At this time I feel comfortable discharge home. Time: 08:12 Medications Administered Discontinued Medications Generic Name Dose Route Start Last Admin Trade Name Freq PRN Reason Stop Dose Admin Acetaminophen 975 mg 10/08/23 08:10 10/08/23 08:29 Acetaminophen 325 Mg Tablet PO 10/08/23 08:11 975 mg ONCE ONE Administration Medical Decision Making Medical Decision Making [facility] Narrative: 53-year-old female presents with right atraumatic wrist pain for the past week. Physical exam slight discomfort with range of motion of right wrist with some overlying a swelling. Normal left wrist with normal range of motion. No wrist drop. 2+ radial pulses equal bilateral. Normal sensation distally. 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 History and physical exam concerning for possible gout, pseudogout, inflammatory arthritis, carpal/cubital tunnel syndrome. Unlikely septic joint, neurovascular compromise, fracture, dislocation, threat to [place]. No signs of venous or arterial occlusion. I do not think this is an atypical presentation of ACS. Plan imaging. Differential Diagnosis Differential Diagnoses: The differential diagnosis associated with the pres entation includes History and physical exam concerning for possible gout, pseudogout, inflammatory arthritis, carpal/cubital tunnel syndrome. Unlikely septic joint, neurovascular compromise, fracture, dislocation, threat to [place]. No signs of venous or arterial occlusion. I do not think this is an atypical presentation of ACS. Admission/Observation Consideration of admission/observation: Escalation of care including admission/observation considered Unlikely Independent Interpretation I performed an independent interpretation of an: Plain X-Ray Interpretation: XR/XR wrist RT min 3V IMPRESSION: Unremarkable right wrist. Radiology Impression Discussion of test interpretation with radiology: I have reviewed the radiologist's reading. Prescription Management I considered prescription management with: Other (Prednisone, Tylenol) Critical Care Time Critical Care Time Critical Care Time: No Discharge Plan Discharge Clinical Impression: Acute pain of right wrist Patient Disposition: Home, Self-Care Instructions: R.I.C.E. Treatment (ED) Additional Instructions: Take your medications as prescribed. If you were prescribed antibiotics today, it is important that you take your medication to their entirety, do not skip any doses, do not finish them early. Follow-up with your primary care provider this week. Return to the emergency department with new or worsening symptoms. Such as fevers, chills, chest pain, shortness of breath, nausea, vomiting, dizziness, headache, vision changes, lethargy In case of emergency call 911 Prescriptions: New prednisone 50 mg tablet 50 mg PO DAILY 5 Days Qty: 5 0RF acetaminophen 325 mg capsule 650 mg PO Q6H PRN (Reason: fever or pain) Qty: 30 0RF No Action methocarbamol 750 mg tablet 750 mg PO Q8H 5 Days Qty: 15 0RF doxycycline monohydrate 100 mg tablet 100 mg PO BID 21 Days Qty: 42 0RF metoclopramide HCl [Reglan] 10 mg tablet 10 mg PO Q6H PRN (Reason: nausea and vomiting) Qty: 14 0RF naproxen [Naprosyn] 500 mg tablet 500 mg PO BID PRN (Reason: pain) Qty: 14 0RF acetaminophen 500 mg tablet 1,000 mg PO QID PRN (Reason: pain) Qty: 30 0RF cyclobenzaprine 5 mg tablet 5 mg PO TID PRN (Reason: muscle spasm) Qty: 14 0RF Rx Instructions: This medication may cause drowsiness no driving for 6 hours after taking fluticasone propionate [Flonase Allergy Relief] 50 mcg/actuation spray,suspension 1 spray intranasal BID Qty: 16 0RF Rx Instructions: administer into each nostril cyclobenzaprine 5 mg tablet 5 mg PO TID PRN (Reason: muscle spasm) Qty: 6 0RF Referrals: Elie Foster MD [Primary Care Provider] - 2 days Stand Alone Forms: Work/School Release Discharge Date/Time: 10/08/23 08:41
[2023-10-08] MEDS: Acetaminophen 325 MG TABLET 975 MG PO (08:29)
== END 2023-10-08 08:41 | disposition home or self-care (01) ==
PROVIDERS: Emergency Provider Student in an Organized Health Care Education/Training Program; PCP Internal Medicine
DX: M25.531 Pain in right wrist (principal); Z79.899 Other long term (current) drug therapy
CPT/HCPCS: 73110; 99283; 99284

== ENCOUNTER 2025-10-31 23:03 | Emergency (ER) | payer MEDICAID, SELFPAY ==
--- OUTSIDE RECORDS SUMMARY | 2025-10-29 23:59 | XMS_ITS | Continuity of Care Document ---
Author Organization [facility] Address [address] [place] [id number]- Care Team Providers Care Firepot Operator And Tender Name Role Phone Cristian GARZA, Elie Ching Primary Care Physician Encounter [facility] [id number] Date(s): 09/29/25 - 10/29/25 [facility]/[address] [address]- Attending Physician: Lilly Bejarano Encounter Type: Triage Allergies, Adverse Reactions, Alerts Substance Criticality Severity Reaction Reaction Severity Status fluconazole Rash Active sulfADIAZINE Active nevirapine High criticality Severe Elam-Andrea nson syndrome Active Compazine High criticality Moderate Tongue Swelling Active Bactrim Active Contrast Dye 1 Pruritic rash P roposed emtricitabine Rash Propos ed [address] w/ IV and oral contrast developed fine papular pruritic rash Immunizations Given and Recorded Vaccine Date Status Refusal Reason Meningococcal Conjugate Vaccine 03/29/25 Given Meningococcal Conjugate Vaccine 11/11/17 Given Meningococcal Conjugate Vaccine 08/28/17 Given influenza virus vaccine, inactivated 09/16/24 Give n influenza virus vaccine, inactivated 11/13/23 Give n influenza virus vaccine, inactivated 11/04/22 Give n [...] virus vaccine, inactivated 7 08/31/97 Gi chyna pneumococcal 20-valent conjugate vaccine 04/08/23 Given zoster vaccine, inactivated 11/28/22 Given zoster vaccine, inactivated 08/27/22 Recorded SARS-CoV-2 (COVID-19) mRNA BNT-162b2 vac 04/05/21 Given SARS-CoV-2 (COVID-19) mRNA BNT-162b2 vac 03/15/21 Given tetanus/diphtheria/pertussis, acel(Tdap) 10/27/19 Given pneumococcal 13-valent vaccine 8 09/22/13 Given [...] 2 20Admin Note: Admin by Nurse Medications Arnuity Ellipta 100 mcg inhalation powder 1 puffs, Inhalation, Every 24 hours, RINSE MOUTH AND THROAT AFTER USE, # 30 each, 1 Refills, Maintenance, 07/22/24 10:17:00 AM EDT, [facility] #[id number], 165, cm, 06/15/24 14:46:00 EDT, Height,93.09, kg, 03/11/24 14:02:00 EDT, Dry Weight Start Date: 07/22/24 Status: Ordered Medication Dispense Status: Completed Quantity: 30.0 Unit: each Total Allowed Fills: 1 Fills Dispensed: 0 Denver Saline Mist 0.65% nasal spray 2 sprays, Nares, Both, 4 times a day, # 1 each, 0 Refills, Maintenance, 01/07/25 1:20:00 PM EST, [facility] #[id number], Partial fill upon patient request if the prescription is for a schedule II opioid drug., 2 sprays Nares, Both 4 times a day, 165, cm, 12/07/24 14:30:00 EST, Height, 95.09, kg,09/16/24 16:03:00 EDT, Dry Weight Start Date: 01/07/25 Status: Ordered Medication Dispense Status: Completed Quantity: 1.0 Unit: each Total Allowed Fills: 1 Fills Dispensed: 0 Indications: COVID-19; Denver Saline Mist 0.65% nasal spray 2 sprays, Nares, Both, 4 times a day, # 1 each, 0 Refills, Maintenance, 06/08/25 10:55:00 AM EDT, [facility], Partial fill upon patient request if the prescription is for a scheduleII opioid drug., 2 sprays Nares, Both 4 times a day, 165, cm, 06/08/25 10:17:00 EDT, Height, 95.9, kg, 05/24/25 15:46:00 EDT, Dry Weight Start Date: 06/08/25 Status: Ordered Medication Dispense Status: Completed Quantity: 1.0 Unit: each Total Allowed Fills: 1 Fills Dispensed: 0 Indications: Acute upper respiratory infection, unspecified; cetirizine 10 mg oral tablet 1 tablet = 10 mg, By Mouth, Daily, PRN Itch, # 90 tablet, 0 Refills, Maintenance, 12/01/24 10:45:00 AM EST, [id number], Partial fill upon patient request if the prescription isfor a schedule II opioid drug., 165, cm, 12/01/24 10:08:00 EST, Height, 95.09, kg, 09/16/24 16:03:00 EDT, Dry Weight Start Date: 12/01/24 Status: Ordered Medication Dispense Status: Completed Quantity: 90.0 Unit: tablet Total Allowed Fills: 1 Fills Dispensed: 0 cholecalciferol 1000 intl units oral capsule 1 capsule = 25 mcg, By Mouth, Daily, # 90 capsule, 3 Refills, Maintenance, 03/29/25 5:15:00 PM EDT, Capsule, [facility], 165, cm, 03/29/25 16:44:00 EDT, Height, 93.04, kg, 03/02/2510:23:00 EDT, Dry Weight Start Date: 03/29/25 Status: Ordered Medication Dispense Status: Completed Quantity: 90.0 Unit: capsule Total Allowed Fills: 4 Fills Dispensed: 0 clotrimazole 1% topical cream 1 application, Topically, 2 times a day, apply to rash bid, # 60 Gm, 5 Refills, Maintenance, 09/29/25 3:21:00 PM EDT, Cream, [facility] #[id number], Partial fill upon patient request if the prescription is for a schedule II opioid drug., 1 application Topically 2 times a day,Instr:apply to rash bid, 165, cm, 09/29/25 13:45:00 EDT, Height, 95.2, kg, 09/29/25 13:45:00 EDT, Dry Weight Start Date: 09/29/25 Status: Ordered Medication Dispense Status: Completed Quantity: 60.0 Unit: g Total Allowed Fills: 6 Fills Dispensed: 0 compression stockings- pair compression stockings- pair, See Instructions, # 1 each, Refills 0, Tot. Refills 0, Maintenance, 20-30mmHg for peripheral edema R60.9 MARIBEL 3 years, 03/16/25 11:11:00 AM EDT, Supply Start Date: 03/16/25 Status: Ordered Medication Dispense Status: Completed Quantity: 1.0 Unit: each Total Allowed Fills: 1 Fills Dispensed: 0 diclofenac 1% topical gel = 2 Gm, Topically, 4 times a day, PRN for pain, not to exceed 16 gm/day, # 100 Gm, 1 Refills, Maintenance, 06/23/25 6:55:00 PM EDT, Gel, [facility] #[id number], 165, cm, 06/21/25 10:41:00 EDT, Height, 93.8, kg, 06/21/25 10:41:00 EDT, Dry Weight Start Date: 06/23/25 Status: Ordered Medication Dispense Status: Completed Quantity: 100.0 Unit: g Total Allowed Fills: 2 Fills Dispensed: 0 flunisolide 25 mcg/inh nasal spray 2 puffs, Nares, Both, 2 times a day, once symptoms are controlled, decrease to once a day and continue for 3 more weeks, # 25 mL, 3 Refills, Maintenance, 04/15/24 8:35:00 PM EDT, [place], [facility] #[id number], 2 puffs Nares, Both 2 times a day,Instr:once symptoms are controlled, decrease to once a day and continue for 3 more weeks, 165, cm, 03/11/24 14:02:00 EDT, Height, 93.09, kg, 03/11/24 14:02:00 EDT, Dry Weight Start Date: 04/15/24 Status: Ordered Medication Dispense Status: Completed Quantity: 25.0 Unit: mL Total Allowed Fills: 4 Fills Dispensed: 0 fluticasone 50 mcg/inh nasal spray 1 sprays = 50 mcg, Nares, Both, 2 times a day, # 1 each, 0 Refills, Maintenance, 02/16/25 9:53:00 AMEDT, [id number], Partial fill upon patient request if the prescription is for a schedule II opioid drug., 1 sprays Nares, Both 2 times a day,x30 days, 165, cm, 02/16/25 9:08:00 EDT, Height, 94.909, kg, 02/08/25 11:37:00 EDT, Dry Weight Start Date: 02/16/25 Stop Date: 03/18/25 Status: Ordered Medication Dispense Status: Completed Quantity: 1.0 Unit: each Total Allowed Fills: 1 Fills Dispensed: 0 Indications: Cough, unspecified; fluticasone 50 mcg/inh nasal spray 1 sprays = 50 mcg, Nares, Both, 2 times a day, # 16 Gm, 0 Refills, Maintenance, 01/07/25 1:20:00 PM EST, [place], [facility] #[id number], Partial fill upon patient request if the prescription is fora schedule II opioid drug., 1 sprays Nares, Both 2 times a day, 165, cm, 12/07/24 14:30:00 EST, Height, 95.09, kg, 09/16/24 16:03:00 EDT, Dry Weight Start Date: 01/07/25 Status: Ordered Medication Dispense Status: Completed Quantity: 16.0 Unit: g Total Allowed Fills: 1 Fills Dispensed: 0 Indications: COVID-19; HAND BRACE FOR CARPAL TUNNEL (both SIDE) HAND BRACE FOR CARPAL TUNNEL (both SIDE), See Instructions, # 2 units, Refills 0, Tot. Refills 0, Maintenance, DX: L CARPAL TUNNEL (G56.02) USE DIRECTED MARIBEL: 99, 03/10/18 3:57:59 PM EDT, Compound Start Date: 03/10/18 Status: Ordered Medication Dispense Status: Completed Quantity: 2.0 Unit: Units Total Allowed Fills: 1 Fills Dispensed: 0 Home Blood Pressure Monitor See Instructions, # 1 each, Maintenance, Automated. Dx- hypertension, I10. Check 2 measurment twicea day, keep record and bring to appt. Bring machine to next appt., Hypertension with difficulty to control, 10/27/19 2:39:19 PM EST, Compound Start Date: 10/27/19 Status: Ordered Medication Dispense Status: Completed Quantity: 1.0 Unit: each Total Allowed Fills: 1 Fills Dispensed: 0 lamiVUDine 300 mg oral tablet 1 tablet = 300 mg, By Mouth, Daily, # 30 tablet, 11 Refills, Maintenance, 11/25/25 1:09:00 PM EST, Tablet, [facility], 165, cm, 12/07/24 14:30:00 EST, Height, 95.09, kg, 09/16/24 16:03:00 EDT, Dry Weight Start Date: 11/25/25 Stop Date: 11/20/26 Status: Ordered Medication Dispense Status: Completed Quantity: 30.0 Unit: tablet Total Allowed Fills: 12 Fills Dispensed: 0 loratadine 10 mg oral tablet 10 mg, 1, tablet, By Mouth, Daily, PRN, # 30 tablet, Refills 3, Tot. Refills 3, Maintenance, for allergy symptoms including cough, 04/19/24 9:22:00 PM EDT, Route to Pharmacy Electronically, [facility] #[id number], 165, cm, 03/11/24 14:02:00 EDT, Height, 93.09, kg, 03/11/24 14:02:00 EDT, Dry Weight Start Date: 04/19/24 Stop Date: 05/03/24 Status: Ordered Medication Dispense Status: Completed Quantity: 30.0 Unit: tablet Total Allowed Fills: 4 Fills Dispensed: 0 LORazepam 1 mg oral tablet 1 tablet = 1 mg, By Mouth, 2 times a day, PRN as needed for anxiety, # 15 tablet, 1 Refills, Maintenance, 03/15/25 8:11:00 PM EDT, Tablet, [facility], 165, cm, 03/12/25 10:11:00 EDT, Height, 93.04, kg, 03/02/25 10:23:00 EDT, Dry Weight Start Date: 03/15/25 Status: Ordered Medication Dispense Status: Completed Quantity: 15.0 Unit: tablet Total Allowed Fills: 2 Fills Dispensed: 0 Nebulizer/Compressor See Instructions, # 1 each, Maintenance, use as needed for wheezing, 01/14/20 9:13:00 AM EST, Compound Start Date: 01/14/20 Status: Ordered Medication Dispense Status: Completed Quantity: 1.0 Unit: each Total Allowed Fills: 1 Fills Dispensed: 0 Indications: Unspecified asthma, uncomplicated; olmesartan 20 mg oral tablet 1 tablet, By Mouth, Daily, # 90 tablet, 1 Refills, Maintenance, 08/05/25 10:19:00 AM EDT, [facility], 165, cm, 06/21/25 10:41:00 EDT, Height, 93.8, kg, 06/21/25 10:41:00 EDT, Dry Weight Start Date: 08/05/25 Status: Ordered Medication Dispense Status: Completed Quantity: 90.0 Unit: tablet Total Allowed Fills: 1 Fills Dispensed: 0 ProAir HFA 90 mcg/inh inhalation aerosol 2 puffs, Inhalation, 4 times a day, PRN as needed for wheezing, # 18 Gm, 0 Refills, Maintenance, 01/07/25 1:26:00 PM EST, Aerosol, [id number], Please dispense whichever albuterol inhaler is covered, 2 puffs Inhalation 4 times a day,PRN:as needed for wheezing, 165, cm, 12/07/24 14:30:00 EST, Height, 95.09, kg, 09/16/24 16:03:00 EDT, Dry Weight Start Date: 01/07/25 Status: Ordered Medication Dispense Status: Completed Quantity: 18.0 Unit: g Total Allowed Fills: 1 Fills Dispensed: 0 Indications: Unspecified asthma, uncomplicated; raltegravir 600 mg oral tablet 2 tablet = 1,200 mg, By Mouth, Daily, # 60 tablet, 11 Refills, Maintenance, 11/25/25 1:09:00 PM EST, Tablet, [facility], 165, cm, 12/07/24 14:30:00 EST, Height, 95.09, kg, 09/16/24 16:03:00 EDT, Dry Weight Start Date: 11/25/25 Stop Date: 11/20/26 Status: Ordered Medication Dispense Status: Completed Quantity: 60.0 Unit: tablet Total Allowed Fills: 12 Fills Dispensed: 0 Tylenol 325 mg oral tablet 650 mg, 2, tablet, By Mouth, Every 4 hours, PRN, # 120 tablet, Refills 0, Tot. Refills 0, Maintenance, for pain, 07/22/24 2:25:00 PM EDT, Route to Pharmacy Electronically, [facility] #[id number],Partial fill upon patient request if the prescription is for a schedule II opioid drug., 165, cm, 07/22/24 13:51:00 EDT, Height, 93.09, kg, 03/11/24 14:02:00 EDT, Dry Weight Start Date: 07/22/24 Status: Ordered Medication Dispense Status: Completed Quantity: 120.0 Unit: tablet Total Allowed Fills: 1 Fills Dispensed: 0 Indications: Lumbago with sciatica, left side; Ventolin HFA 108 mcg/inh inhalation aerosol with adapter 2 puffs, Inhalation, Every 4 hours, PRN for wheezing, shortness of breath or cough, # 1 each, 0 Refills, Maintenance, 02/16/25 9:54:00 AM EDT, Aerosol, [facility] #[id number], Partial fill upon patient request if the prescription is for a schedule II opioid drug., 165, cm, 02/16/25 9:08:00 EDT, Height, 94.909, kg, 02/08/25 11:37:00 EDT, Dry Weight Start Date: 02/16/25 Stop Date: 03/18/25 Status: Ordered Medication Dispense Status: Completed Quantity: 1.0 Unit: each Total Allowed Fills: 1 Fills Dispensed: 0 Indications: Cough, unspecified; Ventolin HFA 108 mcg/inh inhalation aerosol with adapter 2 puffs, Inhalation, Every 4 hours, PRN NEEDED FOR WHEEZING, # 18 Gm, 5 Refills, Maintenance, 10/21/24 2:47:00 PM EST, [facility], 165, cm, 09/16/24 16:03:00 EDT, Height, 95.09, kg, 09/16/24 16:03:00 EDT, Dry Weight Start Date: 10/21/24 Status: Ordered Medication Dispense Status: Completed Quantity: 18.0 Unit: g Total Allowed Fills: 1 Fills Dispensed: 0 Viread 300 mg oral tablet 1 tablet = 300 mg, By Mouth, Daily, # 30 tablet, 11 Refills, Maintenance, 11/25/25 1:08:00 PM EST, Tablet, [facility], 165, cm, 12/07/24 14:30:00 EST, Height, 95.09, kg, 09/16/24 16:03:00 EDT, Dry Weight Start Date: 11/25/25 Stop Date: 11/20/26 Status: Ordered Medication Dispense Status: Completed Quantity: 30.0 Unit: tablet Total Allowed Fills: 12 Fills Dispensed: 0 Problem List Condition Confirmation Course Effective Dates Status H ealth Status Informant 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 Obese class I Confirmed Active Obesity Confirmed Active Prediabetes Confirmed Active Prurigo nodularis per biopsy Confirmed 10/2014 Active Tinea cruris Confirmed Active Screening for tuberculosis Confirmed Active 1Biopsy 99 grade 4/4, stage 4/4, genotype 1a, 3,450,000 IU/ml 06/05 Social History Social History Type Response Smoking Status Never (less than 100 in lifetime) entered on: 03/11/24 Sex Sex Representation Female (finding) EKG study * Event Display: EKG Authored Date: Laboratory * Event Display: Non BH Lab Results Authored Date: * Event Display: Non BH Lab Results Authored Date: * Elie Foster MD: REVIEW Event Display: Non BH Lab Results Authored Date: Patient Care team information Care Team Personnel Name: Elie Foster MD Position: [facility] Physician - Primary Care Member Role: PCP Address: [address] [place] [address] Telecom: Name: Ivon Salcedo RN Position: [facility] RN Member Role: Primary Care Nurse Care Team Related Persons Name: CISCO DUEÑAS Name: HIEU HUTTON Insurance Providers Guarantor name: [facility] [facility] Information #: 1 Payer: [facility] Payer Identifier: NA Member Number: [id number] Group Number: [id number] Subscriber Identifier: [id number] Relationship to Subscriber: self Coverage Type: Medicaid (Managed Care) Coverage Verification Date: Telecom: NA Address:
[2025-10-31 23:41] VITALS: BP 134/84; PULSE 89; RESP 18; TEMP 37; O2SAT 98; BMI 35.9
[2025-11-01 00:33] LABS: MANUAL DIFF FLAG NO
[2025-11-01 00:36] LABS: Hematocrit 39.5 % (37.0-47.0); Hemoglobin 12.9 g/dl (12.0-16.0); Imm Gran Abs Auto 0.02 X10*3/uL (0.00-0.03); Imm Gran Pct Auto 0.4 % (0.0-0.4); Lymphocytes Absolute Auto 1.2 X10*3/uL (1.2-4.9); Mean Corpuscular HGB Conc 32.7 g/dl (31.0-35.0); Mean Corpuscular Hemoglobin 27.7 pg (27.0-33.0); Mean Corpuscular Volume 84.8 fL (80.0-98.0); NRBC Abs Auto 0.000 X10*3/uL (0.0-0.012); NRBC Pct Auto 0.0 /100WBC (0.0-0.2); Platelet Count 64 X10*3/uL (160-400); Red Blood Count 4.66 X10*6/uL (4.20-5.50); White Blood Count 5.4 X10*3/uL (4.8-10.8)
[2025-11-01 00:38] LABS: Appearance Urine Clear; Glucose Urine UA Negative (Negative); PH 6.5 (5.0-9.0); Specific Gravity - Urine 1.025 (1.005-1.025); UMIC TRIGGER UACC YES
[2025-11-01 00:42] LABS: UACC Culture Trigger YES
[2025-11-01 01:08] LABS: Alanine Aminotransferase 68 U/L (0-31); Albumin Level 4.3 g/dL (3.5-5.0); Alkaline Phosphatase 127 U/L (39-117); Anion Gap 12 (12-20); Aspartate Amino Transferase 64 U/L (5-31); Blood Urea Nitrogen 18 mg/dL (9-16); Calcium 9.3 mg/dL (8.4-10.2); Carbon Dioxide 24 mmol/L (22-29); Chloride 111 mmol/L (96-108); Creatinine Clr Calc Pharmacy 63.8; Estimated Glomerular Filt Rate 51; Potassium 4.4 mmol/L (3.3-5.1); Sodium 143 mmol/L (135-145); Total Protein 7.9 g/dL (6.5-8.0)
== END 2025-11-01 07:27 | disposition left against medical advice (07) ==
PROVIDERS: Emergency Provider Emergency Medicine
DX: M54.9 Dorsalgia, unspecified (principal)
CPT/HCPCS: 36415; 80053; 81001; 85025; 87086; 99281; 99282